=== PATIENT | female | born 1965 | race American Indian/Alaskan Native ===

== ENCOUNTER 2017-12-29 20:09 | Inpatient (IN) | payer SELFPAY ==
[2017-12-29] MEDS ORDERED: HALDOL ONE (20:47)
[2017-12-29] MEDS ORDERED: NACL 0.9% 1000 ML 2,000 ML IV ONE (20:50)
[2017-12-29] MEDS ORDERED: HALDOL IM STA (20:50)
--- NOTE | 2017-12-29 20:52 | Emergency Department Report ---
ED General Adult HPI - General Chief complaint: Abdominal Pain Stated complaint: N/V Time Seen by Provider: 12/29/17 20:49 Source: patient, EMS (ems notes not available at time of chart dictation), RN notes reviewed Mode of arrival: Ambulatory Limitations: No Limitations - History of Present Illness Initial comments: This is a 52-year-old female, known to this provider previously. Reports a past medical history of diabetes, hypertension, gastroparesis. Presents to the ER complaining of chest wall pain, nausea and vomiting, throat pain, abdominal cramping, inability to tolerate liquid feeds for the past 2-3 days. This has been going on and off for the past month, it is intermittent, she's been seen and a few other emergency departments for this particular symptom. She reports her pain is getting worse over the past 2 or 3 days. She denies DVT, pulmonary embolus risk factors. She denies urinary symptoms. She denies cocaine use, denies recent aspirin use. She reports that she feels like her gastroparesis is acting up, although she cannot specifically indicates what exacerbates her symptoms, other than attempting to eat or drink. -: Gradual, week(s) Location: abdomen Quality: aching Consistency: intermittent Improves with: none Worsens with: eating Associated Symptoms: chest pain, loss of appetite, malaise, nausea/vomiting, weakness. denies: confusion, cough, diaphoresis, fever/chills, headaches, rash , seizure, shortness of breath, syncope - Related Data Home Medications Medication Instructions Recorded Confirmed Last Taken Ramipril 10 mg PO QDAY 12/17/14 02/24/15 02/23/15 Insulin Aspart [NovoLOG Flexpen] 15 unit SQ TIDDIAB 01/22/15 02/24/15 01/19/15 15 units HYDROcodone/ACETAMINOPHEN [Xodol 1 each PO Q6H PRN 02/24/15 02/24/15 Unknown 5-300 TAB] Previous Rx's Medication Instructions Recorded Last Taken Type Lactobacillus 3/Fos/Pantethine 1 each PO QDAY #20 capsule 12/20/14 Unknown Rx [Probiotic & Acidophilus Cap] Metformin HCl [Glucophage] 1,000 mg PO BID #60 tablet 12/20/14 02/23/15 Rx Famotidine [Pepcid] 20 mg PO BID #14 tablet 02/08/15 Unknown Rx Promethazine [Phenergan TAB] 25 mg PO Q6HR PRN #12 tab 02/08/15 Unknown Rx Metoclopramide HCl [Reglan TAB] 5 mg PO TIDAC #45 tablet 02/26/15 Unknown Rx Allergies Allergy/AdvReac Type Severity Reaction Status Date / Time cefadroxil hydrate Allergy Shortness Verified 02/08/15 14:11 [From [facility]] of Breath ED Review of Systems ROS: Stated complaint: N/V Other details as noted in HPI Comment: All other systems reviewed and negative ED Past Medical Hx - Past Medical History Previous Medical History?: Yes Hx Hypertension: Yes Hx Diabetes: Yes Hx GERD: Yes Hx Kidney Stones: Yes Hx COPD: No Additional medical history: gastroparesis - Surgical History Past Surgical History?: Yes Hx Cholecystectomy: Yes (01/23/15) - Social History Smoking Status: Never Smoker Substance Use Type: None - Medications Home Medications: Home Medications Medication Instructions Recorded Confirmed Last Taken Type Ramipril 10 mg PO QDAY 12/17/14 02/24/15 02/23/15 History Lactobacillus 3/Fos/Pantethine 1 each PO QDAY #20 capsule 12/20/14 02/24/15 Unknown Rx [Probiotic & Acidophilus Cap] Metformin HCl [Glucophage] 1,000 mg PO BID #60 tablet 12/20/14 02/24/15 Rx Insulin Aspart [NovoLOG Flexpen] 15 unit SQ TIDDIAB 01/22/15 02/24/15 01/19/15 History 15 units Famotidine [Pepcid] 20 mg PO BID #14 tablet 02/08/15 02/24/15 Unknown Rx Promethazine [Phenergan TAB] 25 mg PO Q6HR PRN #12 tab 02/08/15 02/24/15 Unknown Rx HYDROcodone/ACETAMINOPHEN [Xodol 1 each PO Q6H PRN 02/24/15 02/24/15 Unknown History 5-300 TAB] Metoclopramide HCl [Reglan TAB] 5 mg PO TIDAC #45 tablet 02/26/15 Unknown Rx ED Physical Exam - General Limitations: No Limitations General appearance: alert, in distress - Head Head exam: Present: atraumatic, normocephalic - Eye Eye exam: Present: normal appearance, EOMI - ENT ENT exam: Present: normal orophraynx - Neck Neck exam: Present: normal inspection, full ROM. Absent: tenderness, meningismus - Respiratory Respiratory exam: Present: normal lung sounds bilaterally, chest wall tenderness. Absent: respiratory distress - Cardiovascular Cardiovascular Exam: Present: normal rhythm, tachycardia, normal heart sounds. Absent: systolic murmur, diastolic murmur, rubs, gallop - GI/Abdominal GI/Abdominal exam: Present: soft, normal bowel sounds. Absent: distended, tenderness, guarding, rebound, rigid, pulsatile mass - Extremities Exam Extremities exam: Present: normal inspection, full ROM, normal capillary refill , other (there is no palpable cord. There is negative Homans sign.). Absent: pedal edema, joint swelling, calf tenderness - Back Exam Back exam: Present: normal inspection, full ROM. Absent: tenderness, CVA tenderness (R), paraspinal tenderness, vertebral tenderness - Neurological Exam Neurological exam: Present: alert, oriented X3, CN II-XII intact, other ( Extraocular movements intact. Tongue midline. No facial droop. Facial sensation intact to light touch in the V1, V2, V3 distribution bilaterally. 5 and 5 strength in 4 extremities.. Sensation is intact to light touch in 4 extremities.). Absent: motor sensory deficit - Psychiatric Psychiatric exam: Present: anxious - Skin Skin exam: Present: warm, dry, intact, normal color. Absent: rash ED Course Vital Signs 12/29/17 12/29/17 12/29/17 20:15 20:20 20:38 Temperature 98.1 F Pulse Rate 89 137 H Respiratory 20 22 19 Rate Blood Pressure 190/100 O2 Sat by Pulse 97 100 Oximetry 12/29/17 12/29/17 12/29/17 20:45 21:01 21:15 Temperature Pulse Rate 139 H 139 H 124 H Respiratory 21 21 20 Rate Blood Pressure 180/115 O2 Sat by Pulse 100 100 97 Oximetry 12/29/17 12/29/17 12/29/17 21:30 21:45 22:00 Temperature Pulse Rate 118 H 127 H 138 H Respiratory 22 11 L 21 Rate Blood Pressure 200/103 200/103 204/111 O2 Sat by Pulse 96 98 100 Oximetry - Reevaluation(s) Reevaluation #1: 12/29/17 22:49 Differential diagnosis, including not limited to: Dehydration, electrolyte derangement, gastroparesis flare/exacerbation, costochondritis, esophagitis, acute coronary syndrome, pneumonia Assessment and plan: 52-year-old female with a complaint of gastroparesis flare and exacerbation with reproducible chest wall pain and tenderness, who has no pulmonary embolus or DVT risk factors and is low risk by well's criteria. Her laboratory studies indicated acute renal insufficiency, hypomagnesemia, and his troponin elevation of uncertain significance. Her abdomen is soft and benign, with no rebound, guarding or peritoneal signs. She denied urinary symptoms and symptoms consistent with pneumonia. Most likely, the patient is experiencing gastroparesis flare. Her leukocytosis and tachycardia are appreciated, however based on her presentation, I think a bacterial infection is unlikely, and it is my pain that the patient will not benefit from broad-spectrum antibiotics. She will benefit from aggressive supportive care, including pain medication, nausea medication and IV fluids. Therefore, she will be given appropriate bolus of IV fluids, and she was given Haldol IM 2, with improvement in her nausea and vomiting. Her troponin elevation is most likely multifactorial, possibly secondary to cardiac strain from nausea and vomiting, and may also be associated with her underlying renal insufficiency. She will be given aspirin for this. The case was presented to the Hospital physician, Dr. Stephanie Dixon, who graciously except for the patient's the medical service for dehydration, renal insufficiency, gastroparesis flare/exacerbation. Patient's elevated blood pressure is also appreciated, most likely secondary to the stress and strain of her acute underlying gastroparesis flare and exacerbation. Given that the patient is most likely biting depleted, it is my pain that she will not benefit from acute decrease in her blood pressure, and other supportive care, IV fluids will help out with her blood pressure in and of themselves. 12/29/17 22:49 ED Medical Decision Making - Lab Data Result diagrams: 12/29/17 21:05 12/29/17 21:05 Vital Signs 12/29/17 12/29/17 12/29/17 20:15 20:20 20:38 Temperature 98.1 F Pulse Rate 89 137 H Respiratory 20 22 19 Rate Blood Pressure 190/100 O2 Sat by Pulse 97 100 Oximetry 12/29/17 12/29/17 12/29/17 20:45 21:01 21:15 Temperature Pulse Rate 139 H 139 H 124 H Respiratory 21 21 20 Rate Blood Pressure 180/115 O2 Sat by Pulse 100 100 97 Oximetry 12/29/17 12/29/17 12/29/17 21:30 21:45 22:00 Temperature Pulse Rate 118 H 127 H 138 H Respiratory 22 11 L 21 Rate Blood Pressure 200/103 200/103 204/111 O2 Sat by Pulse 96 98 100 Oximetry Lab Results 12/29/17 12/29/17 12/29/17 Range/Units 21:05 21:05 21:05 WBC 17.4 H (4.5-11.0) K/mm3 RBC 3.93 (3.65-5.03) M/mm3 Hgb 11.9 (10.1-14.3) gm/dl Hct 36.9 (30.3-42.9) % MCV 94 (79-97) fl MCH 30 (28-32) pg MCHC 32 (30-34) % RDW 13.4 (13.2-15.2) % Plt Count 337 (140-440) K/mm3 Lymph % (Auto) 5.5 L (13.4-35.0) % [place] % (Auto) 5.0 (0.0-7.3) % Eos % (Auto) 0.0 (0.0-4.3) % Baso % (Auto) 0.1 (0.0-1.8) % Lymph # 1.0 L (1.2-5.4) K/mm3 [place] # 0.9 H (0.0-0.8) K/mm3 Eos # 0.0 (0.0-0.4) K/mm3 Baso # 0.0 (0.0-0.1) K/mm3 Seg Neutrophils % 89.4 H (40.0-70.0) % Seg Neutrophils # 15.5 H (1.8-7.7) K/mm3 PT (12.2-14.9) Sec. INR (0.87-1.13) VBG pH (7.320-7.420) Sodium 143 (137-145) mmol/L Potassium 4.6 (3.6-5.0) mmol/L Chloride 102.1 (98-107) mmol/L Carbon Dioxide 25 (22-30) mmol/L Anion Gap 21 mmol/L BUN 21 H (7-17) mg/dL Creatinine 2.6 H (0.7-1.2) mg/dL Estimated GFR 23 ml/min BUN/Creatinine Ratio 8 % Glucose 198 H (65-100) mg/dL Calcium 9.4 (8.4-10.2) mg/dL Magnesium (1.7-2.3) mg/dL Total Bilirubin 0.80 (0.1-1.2) mg/dL AST 24 (5-40) units/L ALT 14 (7-56) units/L Alkaline Phosphatase 65 (35-129) units/L Total Creatine Kinase (30-135) units/L Troponin T (0.00-0.029) ng/mL Total Protein 7.0 (6.3-8.2) g/dL Albumin 3.1 L (3.9-5) g/dL Albumin/Globulin Ratio 0.8 % Triglycerides (2-149) mg/dL Cholesterol (50-199) mg/dL LDL Cholesterol Direct (50-130) mg/dL HDL Cholesterol (40-59) mg/dL Cholesterol/HDL Ratio % TSH (0.270-4.200) mlU/mL HCG, Qual Negative (Negative) 12/29/17 12/29/17 12/29/17 Range/Units 21:05 21:05 21:05 WBC (4.5-11.0) K/mm3 RBC (3.65-5.03) M/mm3 Hgb (10.1-14.3) gm/dl Hct (30.3-42.9) % MCV (79-97) fl MCH (28-32) pg MCHC (30-34) % RDW (13.2-15.2) % Plt Count (140-440) K/mm3 Lymph % (Auto) (13.4-35.0) % [place] % (Auto) (0.0-7.3) % Eos % (Auto) (0.0-4.3) % Baso % (Auto) (0.0-1.8) % Lymph # (1.2-5.4) K/mm3 [place] # (0.0-0.8) K/mm3 Eos # (0.0-0.4) K/mm3 Baso # (0.0-0.1) K/mm3 Seg Neutrophils % (40.0-70.0) % Seg Neutrophils # (1.8-7.7) K/mm3 PT 13.3 (12.2-14.9) Sec. INR 0.96 (0.87-1.13) VBG pH (7.320-7.420) Sodium (137-145) mmol/L Potassium (3.6-5.0) mmol/L Chloride (98-107) mmol/L Carbon Dioxide (22-30) mmol/L Anion Gap mmol/L BUN (7-17) mg/dL Creatinine (0.7-1.2) mg/dL Estimated GFR ml/min BUN/Creatinine Ratio % Glucose (65-100) mg/dL Calcium (8.4-10.2) mg/dL Magnesium 1.60 L (1.7-2.3) mg/dL Total Bilirubin (0.1-1.2) mg/dL AST (5-40) units/L ALT (7-56) units/L Alkaline Phosphatase (35-129) units/L Total Creatine Kinase 542 H (30-135) units/L Troponin T 0.110 H* (0.00-0.029) ng/mL Total Protein (6.3-8.2) g/dL Albumin (3.9-5) g/dL Albumin/Globulin Ratio % Triglycerides 94 (2-149) mg/dL Cholesterol 222 H (50-199) mg/dL LDL Cholesterol Direct 150 H (50-130) mg/dL HDL Cholesterol 48 (40-59) mg/dL Cholesterol/HDL Ratio 4.62 % TSH 0.962 (0.270-4.200) mlU/mL HCG, Qual (Negative) 12/29/17 Range/Units 21:05 WBC (4.5-11.0) K/mm3 RBC (3.65-5.03) M/mm3 Hgb (10.1-14.3) gm/dl Hct (30.3-42.9) % MCV (79-97) fl MCH (28-32) pg MCHC (30-34) % RDW (13.2-15.2) % Plt Count (140-440) K/mm3 Lymph % (Auto) (13.4-35.0) % [place] % (Auto) (0.0-7.3) % Eos % (Auto) (0.0-4.3) % Baso % (Auto) (0.0-1.8) % Lymph # (1.2-5.4) K/mm3 [place] # (0.0-0.8) K/mm3 Eos # (0.0-0.4) K/mm3 Baso # (0.0-0.1) K/mm3 Seg Neutrophils % (40.0-70.0) % Seg Neutrophils # (1.8-7.7) K/mm3 PT (12.2-14.9) Sec. INR (0.87-1.13) VBG pH 7.502 H (7.320-7.420) Sodium (137-145) mmol/L Potassium (3.6-5.0) mmol/L Chloride (98-107) mmol/L Carbon Dioxide (22-30) mmol/L Anion Gap mmol/L BUN (7-17) mg/dL Creatinine (0.7-1.2) mg/dL Estimated GFR ml/min BUN/Creatinine Ratio % Glucose (65-100) mg/dL Calcium (8.4-10.2) mg/dL Magnesium (1.7-2.3) mg/dL Total Bilirubin (0.1-1.2) mg/dL AST (5-40) units/L ALT (7-56) units/L Alkaline Phosphatase (35-129) units/L Total Creatine Kinase (30-135) units/L Troponin T (0.00-0.029) ng/mL Total Protein (6.3-8.2) g/dL Albumin (3.9-5) g/dL Albumin/Globulin Ratio % Triglycerides (2-149) mg/dL Cholesterol (50-199) mg/dL LDL Cholesterol Direct (50-130) mg/dL HDL Cholesterol (40-59) mg/dL Cholesterol/HDL Ratio % TSH (0.270-4.200) mlU/mL HCG, Qual (Negative) - EKG Data -: EKG Interpreted by In EKG shows normal: sinus rhythm Rate: tachycardia - EKG Data When compared to previous EKG there are: changes noted 12/29/17 22:48 This tachycardia, 132 beats per minute, left ventricular hypertrophy, poor R- wave progression, normal axis, QTC prolonged, T-wave inversions in the lateral leads, abnormal EKG, not a STEMI, nonspecific changes compared to prior EKG from January 2015 - Radiology Data Radiology results: report reviewed, image reviewed X-ray the chest is negative for acute disease Critical Care Time: Yes Critical care time in (mins) excluding proc time.: 45 Critical care attestation.: If time is entered above; I have spent that time in minutes in the direct care of this critically ill patient, excluding procedure time. Critical Care Time: Critical care time includes multiple bedside evaluations, interpretation of laboratory studies, radiology studies, time spent managing a gastroparesis patient with multiple abnormalities, including acute renal insufficiency, hypomagnesemia requiring magnesium infusion, which in turn requires cardiac monitoring, and time spent discussing care with consulting services, including hospital medicine. This does not include procedure time. ED Disposition Clinical Impression: [place] (acute kidney injury), Hypomagnesemia, Diabetic gastroparesis Disposition: 09 OP ADMIT IP TO THIS HOSP Is pt being admited?: Yes Does the pt Need Aspirin: Yes Condition: Good Instructions: Abdominal Pain (ED), Diabetes Mellitus Type 2 in Adults (ED) Referrals: PRIMARY CARE, [Primary Care Provider] - 3-5 Days
[2017-12-29 21:22] LABS: Basophils % (Auto) 0.1 % (0.0-1.8); Hematocrit 36.9 % (30.3-42.9); Hemoglobin 11.9 gm/dl (10.1-14.3); Lymphocytes % (Auto) 5.5 % (13.4-35.0); Mean Corpuscular HGB Conc 32 % (30-34); Mean Corpuscular Hemoglobin 30 pg (28-32); Mean Corpuscular Volume 94 fl (79-97); Monocytes # (Auto) 0.9 K/mm3 (0.0-0.8); Platelet Count 337 K/mm3 (140-440); Red Blood Count 3.93 M/mm3 (3.65-5.03); Red Cell Distribution Width 13.4 % (13.2-15.2)
[2017-12-29 21:29] LABS: INR 0.96 (0.87-1.13)
[2017-12-29 21:44] LABS: Albumin 3.1 g/dL (3.9-5); Calcium 9.4 mg/dL (8.4-10.2)
--- NOTE | 2017-12-29 21:55 | XRay Report ---
FINAL REPORT EXAM: XR CHEST 1V AP HISTORY: cp TECHNIQUE: upright single view chest PRIORS: None. FINDINGS: Cardiac and mediastinal contours are unremarkable. No focal pulmonary infiltrate is identified. No pleural fluid collection seen. Pulmonary vasculature is unremarkable. IMPRESSION: Negative single-view chest
[2017-12-29] MEDS ORDERED: HALDOL IM ONE (21:58)
[2017-12-29 22:01] LABS: Chol/HDL Ratio 4.62 %
[2017-12-29] MEDS ORDERED: MAGNESIUM SULFATE 2GM/50ML 2 GM/50 ML BAG IV ONE (22:44)
[2017-12-29] MEDS ORDERED: BABY ASPIRIN PO ONE (22:44)
[2017-12-29] MEDS ORDERED: SUBLIMAZE IV ONE (22:44)
[2017-12-29] MEDS ORDERED: NACL 0.9% 1000 ML 1,000 ML IV ONE (22:53)
--- NOTE | 2017-12-29 23:36 | History and Physical Report ---
History of Present Illness Date of examination: 12/29/17 History of present illness: 52 year old woman with history of diabetes, hypertension, gastroparesis comes to the emergency room with complaints of nausea, vomiting for 2 days. Also complain of chest pain, anterior chest, intermittent, unable to say long it lasts for , intensity 3/10, no radiation, canoot identify exacerbating or relieving factors. She has been having these symptoms since November 30, hospitalized at [facility] 2 weeks ago for 3 days. Review of systems Constitutional: no weight loss, chills Ears, eyes, nose, mouth and throat: no nasal congestion, no nasal discharge, no sinus pressure, no vision change, no red eye. Neck: No neck pain or rigidity. Cardiovascular: no palpitations Respiratory: No cough, shortness of breath Gastrointestinal: no abdominal pain, hematochezia Genitourinary : no dysuria, frequency , no hematuria Musculoskeletal: no joint swelling or muscle ache Integumentary: no rash, no pruritis Neurological: no parathesias, no numbness, no focal weakness Endocrine: no cold or heat intolerance, no polyuria or polydipsia Hematologic/Lymphatic: no easy bruising, no easy bleeding, no gland swelling Allergic/Immunologic: no urticaria, no angioedema. PAST MEDICAL HISTORY: diabetes, hypertension, gastroparesis PAST SURGICAL HISTORY: gall bladder SOCIAL HISTORY: Denies tobacco, drugs, alcohol FAMILY HISTORY: Hypertension Medications and Allergies Allergies Allergy/AdvReac Type Severity Reaction Status Date / Time cefadroxil hydrate Allergy Shortness Verified 02/08/15 14:11 [From [facility] [place]] of Breath Home Medications Medication Instructions Recorded Confirmed Last Taken Type Ramipril 10 mg PO QDAY 12/17/14 02/24/15 02/23/15 History Lactobacillus 3/Fos/Pantethine 1 each PO QDAY #20 capsule 12/20/14 02/24/15 Unknown Rx [Probiotic & Acidophilus Cap] Metformin HCl [Glucophage] 1,000 mg PO BID #60 tablet 12/20/14 02/24/15 Rx Insulin Aspart [NovoLOG Flexpen] 15 unit SQ TIDDIAB 01/22/15 02/24/15 01/19/15 History 15 units Famotidine [Pepcid] 20 mg PO BID #14 tablet 07/23/15 08/08/15 Unknown Rx Promethazine [Phenergan TAB] 25 mg PO Q6HR PRN #12 tab 02/08/15 02/24/15 Unknown Rx HYDROcodone/ACETAMINOPHEN [Xodol 1 each PO Q6H PRN 02/24/15 02/24/15 Unknown History 5-300 TAB] Metoclopramide HCl [Reglan TAB] 5 mg PO TIDAC #45 tablet 02/26/15 Unknown Rx Active Meds: Active Medications Sodium Chloride (Nacl 0.9% 1000 Ml) 1,000 mls @ 999 mls/hr IV BOLUS ONE Stop: 12/29/17 23:53 Exam - Physical Exam Narrative exam: Gen. appearance: Patient lying in bed, no apparent distress HEENT: Normocephalic, atraumatic, pupils equally round and reactive to light, extraocular movement intact, and no sclericterus,. No JVD or thyromegaly or nodule,neck supple, no carotid bruit ,mucous membranes moist, no exudate or erythema Heart: S1, S2, regular rate and rhythm Lungs: Clear to auscultation bilaterally, breathing comfortable Abdomen: Positive bowel sounds, nontender, nondistended, no organomegaly Extremity: No edema, cyanosis, clubbing Skin: No rash, nodules, warm, dry Neuro: Oriented 3, cranial nerves II-12 intact, speech is fluent, motor and sensory intact - Constitutional Vitals: Temp Pulse Resp BP Pulse Ox 98.1 F 138 H 21 204/111 100 12/29/17 20:15 12/29/17 22:00 12/29/17 22:00 12/29/17 22:00 12/29/17 22:00 Results - Labs CBC & Chem 7: 12/29/17 21:05 12/29/17 21:05 Labs: Abnormal lab results 12/29/17 12/29/17 12/29/17 Range/Units 21:05 21:05 21:05 WBC 17.4 H (4.5-11.0) K/mm3 Lymph % (Auto) 5.5 L (13.4-35.0) % Lymph # 1.0 L (1.2-5.4) K/mm3 [place] # 0.9 H (0.0-0.8) K/mm3 Seg Neutrophils % 89.4 H (40.0-70.0) % Seg Neutrophils # 15.5 H (1.8-7.7) K/mm3 VBG pH (7.320-7.420) BUN 21 H (7-17) mg/dL Creatinine 2.6 H (0.7-1.2) mg/dL Glucose 198 H (65-100) mg/dL Magnesium 1.60 L (1.7-2.3) mg/dL Total Creatine Kinase 542 H (30-135) units/L Troponin T 0.110 H* (0.00-0.029) ng/mL Albumin 3.1 L (3.9-5) g/dL Cholesterol 222 H (50-199) mg/dL LDL Cholesterol Direct 150 H (50-130) mg/dL 12/29/17 Range/Units 21:05 WBC (4.5-11.0) K/mm3 Lymph % (Auto) (13.4-35.0) % Lymph # (1.2-5.4) K/mm3 [place] # (0.0-0.8) K/mm3 Seg Neutrophils % (40.0-70.0) % Seg Neutrophils # (1.8-7.7) K/mm3 VBG pH 7.502 H (7.320-7.420) BUN (7-17) mg/dL Creatinine (0.7-1.2) mg/dL Glucose (65-100) mg/dL Magnesium (1.7-2.3) mg/dL Total Creatine Kinase (30-135) units/L Troponin T (0.00-0.029) ng/mL Albumin (3.9-5) g/dL Cholesterol (50-199) mg/dL LDL Cholesterol Direct (50-130) mg/dL - Imaging and Cardiology Chest x-ray: report reviewed Assessment and Plan Assessment Acute renal failure Acute on chronic gastroparesis Chest pain Diabetes Hypertension Plan Admit to medicine Start IV fluid, monitor kidney function Check cardiac enzymes, echo, fingersticks Start insulin sliding scale, DVT prophalaxis ]
[2017-12-29] MEDS ORDERED: ZOFRAN IV PRN (23:41)
[2017-12-29] MEDS ORDERED: SODIUM CHLORIDE FLUSH SYRINGE 10 ML IV PRN (23:41)
[2017-12-29] MEDS ORDERED: TYLENOL PO PRN (23:41)
[2017-12-29] MEDS ORDERED: MORPHINE IV PRN (23:47)
[2017-12-29] MEDS ORDERED: REGLAN IV PRN ×2 (23:47→23:54)
[2017-12-30 01:28] LABS: Creatine Kinase MB 1.7 ng/mL (0.0-4.0)
[2017-12-30] MEDS ORDERED: CARDIZEM IV ONE (04:43)
[2017-12-30] MEDS ORDERED: D50W (25GM) Syringe IV PRN (04:56)
[2017-12-30 05:56] LABS: Basophils % (Auto) 0.3 % (0.0-1.8); Eosinophils % (Auto) 0.1 % (0.0-4.3); Hematocrit 32.1 % (30.3-42.9); Hemoglobin 10.5 gm/dl (10.1-14.3); Lymphocytes # (Auto) 1.4 K/mm3 (1.2-5.4); Lymphocytes % (Auto) 10.4 % (13.4-35.0); Mean Corpuscular HGB Conc 33 % (30-34); Mean Corpuscular Hemoglobin 31 pg (28-32); Mean Corpuscular Volume 94 fl (79-97); Monocytes # (Auto) 1.1 K/mm3 (0.0-0.8); Monocytes % (Auto) 8.3 % (0.0-7.3); Platelet Count 265 K/mm3 (140-440); Red Blood Count 3.41 M/mm3 (3.65-5.03); Red Cell Distribution Width 13.6 % (13.2-15.2)
[2017-12-30 06:08] LABS: Calcium 8.4 mg/dL (8.4-10.2)
[2017-12-30 06:10] LABS: Creatine Kinase MB 2.3 ng/mL (0.0-4.0)
[2017-12-30] MEDS: HumaLOG SUB-Q SCH ×4 (08:24→23:31)
[2017-12-30] MEDS ORDERED: APRESOLINE IV PRN (10:00)
[2017-12-30] MEDS ORDERED: PROTONIX IV SCH (10:00)
[2017-12-30] MEDS ORDERED: ZESTRIL PO SCH (10:00)
[2017-12-30] MEDS ORDERED: NON-FORMULARY (Ramipril [Ramipril] 10 MG) PO SCH (10:00)
--- NOTE | 2017-12-30 10:10 | Progress Note ---
Assessment and Plan 52 year old woman with history of diabetes, hypertension, gastroparesis comes to the emergency room with complaints of nausea, vomiting for 2 days. Also complain of chest pain, anterior chest, intermittent, unable to say long it lasts for , intensity 3/10, no radiation, cannot identify exacerbating or relieving factors. She has been having these symptoms since November 30, hospitalized at [facility] 2 weeks ago for 3 days. - Acute renal failure Obtain [facility] records Urinalysis, renal ultrasound serial BUN and creatinine Avoid nephrotoxic substances Renal Dosing of meds Nephrology consult Sodium diet, - Acute on chronic gastroparesis Nothing by mouth, Cautious IV hydration IV Protonix and Zofran -Chest pain Elevated cardiac enzymes noted. Continue with heparin and aspirin beta blockers and a possible cataract cardiac cath after of [facility] records to ascertain no recent Cath. Doubt ischemic origin, likely renal amplification. However will obtain cardiology consult. Continue to trend cardiac enzymes. -Diabetes ADA diet Sliding scale insulin - Hypertension - secondary to Acute on chronic IV hydralazine, labetalol and isosorbide - DVT prophalaxis with lovenox Subjective Date of service: 12/30/17 Principal diagnosis: acute renal failure, chest pain, diabetes mellitus Interval history: Patient seen and examined. Still having nausea vomiting with Intermittent chest pain. Denies any hematemesis or melena. Denies any fever. Objective - Exam Narrative Exam: Constitutional: Well-nourished well-developed. In no distress Head: Normocephalic atraumatic Eyes: Pupils are equal round and reactive to light Nose: No enlarged turbinates, no septal deviation. Mouth: Moist mucous membranes. Neck: Supple no thyromegaly. No bruit. No JVD Heart: Regular rate and rhythm, S1-S2 abnormal. No rubs murmurs or gallop Lungs: Clear to auscultation bilaterally no rales or rhonchi Abdomen: Epigastric tenderness. Bowel sound are present. Extremities: No edema no cyanosis and no clubbing. Neuro: Alert oriented Oriented x3. No focal sensory or motor deficit. Skin: No rashes no hyperemic spots Psychiatry: Euthymic. Calm. - Constitutional Vitals: Vital Signs - 12hr 12/29/17 12/29/17 12/29/17 22:15 22:30 22:45 Temperature Pulse Rate 126 H 126 H 123 H Pulse Rate [ Right Radial] Respiratory 20 23 22 Rate Respiratory Rate [Upper Abdomen] Blood Pressure 204/111 185/89 185/89 Blood Pressure [Left] O2 Sat by Pulse 96 99 98 Oximetry 12/29/17 12/29/17 12/29/17 23:01 23:15 23:31 Temperature Pulse Rate 141 H 122 H 119 H Pulse Rate [ Right Radial] Respiratory 16 20 14 Rate Respiratory Rate [Upper Abdomen] Blood Pressure 185/89 185/89 185/89 Blood Pressure [Left] O2 Sat by Pulse 99 97 98 Oximetry 12/29/17 12/30/17 12/30/17 23:45 00:00 00:15 Temperature Pulse Rate 122 H 112 H 122 H Pulse Rate [ Right Radial] Respiratory 22 19 19 Rate Respiratory Rate [Upper Abdomen] Blood Pressure 185/89 168/92 168/92 Blood Pressure [Left] O2 Sat by Pulse 94 96 98 Oximetry 12/30/17 12/30/17 12/30/17 00:30 00:45 01:00 Temperature Pulse Rate 110 H 112 H 109 H Pulse Rate [ Right Radial] Respiratory 19 15 18 Rate Respiratory Rate [Upper Abdomen] Blood Pressure 148/74 148/74 158/81 Blood Pressure [Left] O2 Sat by Pulse 98 97 96 Oximetry 12/30/17 12/30/17 12/30/17 01:21 01:30 01:41 Temperature Pulse Rate 103 H 106 H 104 H Pulse Rate [ Right Radial] Respiratory 18 18 18 Rate Respiratory Rate [Upper Abdomen] Blood Pressure 148/74 156/76 158/81 Blood Pressure [Left] O2 Sat by Pulse 98 98 98 Oximetry 12/30/17 12/30/17 12/30/17 01:51 02:00 02:10 Temperature Pulse Rate 107 H 106 H 104 H Pulse Rate [ Right Radial] Respiratory 19 19 19 Rate Respiratory Rate [Upper Abdomen] Blood Pressure 158/81 156/76 156/76 Blood Pressure [Left] O2 Sat by Pulse 98 97 98 Oximetry 12/30/17 12/30/17 12/30/17 02:21 02:30 02:41 Temperature Pulse Rate 107 H 111 H 104 H Pulse Rate [ Right Radial] Respiratory 19 18 14 Rate Respiratory Rate [Upper Abdomen] Blood Pressure 156/76 168/88 156/84 Blood Pressure [Left] O2 Sat by Pulse 99 99 97 Oximetry 12/30/17 12/30/1712/30/18 02:51 03:00 04:01 Temperature Pulse Rate 106 H 110 H Pulse Rate [ Right Radial] Respiratory 18 21 Rate Respiratory Rate [Upper Abdomen] Blood Pressure 156/84 178/91 Blood Pressure [Left] O2 Sat by Pulse 98 99 98 Oximetry 12/30/17 12/30/17 12/30/17 04:20 04:45 04:49 Temperature 98.9 F Pulse Rate 122 H 117 H Pulse Rate [ Right Radial] Respiratory 20 Rate Respiratory 18 Rate [Upper Abdomen] Blood Pressure Blood Pressure 215/107 [Left] O2 Sat by Pulse 99 Oximetry 12/30/17 12/30/17 12/30/17 05:04 05:26 07:50 Temperature 98.1 F Pulse Rate 117 H 119 H Pulse Rate [ 110 H Right Radial] Respiratory 20 20 Rate Respiratory Rate [Upper Abdomen] Blood Pressure 215/107 209/127 Blood Pressure [Left] O2 Sat by Pulse 99 Oximetry - Labs CBC & Chem 7: 12/30/17 05:26 12/30/17 05:26 Labs: Abnormal lab results 12/29/17 12/29/17 12/29/17 Range/Units 21:05 21:05 21:05 WBC 17.4 H (4.5-11.0) K/mm3 RBC (3.65-5.03) M/mm3 Lymph % (Auto) 5.5 L (13.4-35.0) % [place] % (Auto) (0.0-7.3) % Lymph # 1.0 L (1.2-5.4) K/mm3 [place] # 0.9 H (0.0-0.8) K/mm3 Seg Neutrophils % 89.4 H (40.0-70.0) % Seg Neutrophils # 15.5 H (1.8-7.7) K/mm3 VBG pH (7.320-7.420) BUN 21 H (7-17) mg/dL Creatinine 2.6 H (0.7-1.2) mg/dL Glucose 198 H (65-100) mg/dL POC Glucose (70-105) Magnesium 1.60 L (1.7-2.3) mg/dL Total Creatine Kinase 542 H (30-135) units/L Troponin T 0.110 H* (0.00-0.029) ng/mL Albumin 3.1 L (3.9-5) g/dL Cholesterol 222 H (50-199) mg/dL LDL Cholesterol Direct 150 H (50-130) mg/dL 12/29/17 12/30/17 12/30/17 Range/Units 21:05 00:17 05:17 WBC (4.5-11.0) K/mm3 RBC (3.65-5.03) M/mm3 Lymph % (Auto) (13.4-35.0) % [place] % (Auto) (0.0-7.3) % Lymph # (1.2-5.4) K/mm3 [place] # (0.0-0.8) K/mm3 Seg Neutrophils % (40.0-70.0) % Seg Neutrophils # (1.8-7.7) K/mm3 VBG pH 7.502 H (7.320-7.420) BUN (7-17) mg/dL Creatinine (0.7-1.2) mg/dL Glucose (65-100) mg/dL POC Glucose 145 H (70-105) Magnesium (1.7-2.3) mg/dL Total Creatine Kinase 433 H (30-135) units/L Troponin T 0.106 H* (0.00-0.029) ng/mL Albumin (3.9-5) g/dL Cholesterol (50-199) mg/dL LDL Cholesterol Direct (50-130) mg/dL 12/30/17 12/30/17 12/30/17 Range/Units 05:26 05:26 05:26 WBC 13.2 H (4.5-11.0) K/mm3 RBC 3.41 L (3.65-5.03) M/mm3 Lymph % (Auto) 10.4 L (13.4-35.0) % [place] % (Auto) 8.3 H (0.0-7.3) % Lymph # (1.2-5.4) K/mm3 [place] # 1.1 H (0.0-0.8) K/mm3 Seg Neutrophils % 80.9 H (40.0-70.0) % Seg Neutrophils # 10.7 H (1.8-7.7) K/mm3 VBG pH (7.320-7.420) BUN 20 H (7-17) mg/dL Creatinine 2.5 H (0.7-1.2) mg/dL Glucose 150 H (65-100) mg/dL POC Glucose (70-105) Magnesium (1.7-2.3) mg/dL Total Creatine Kinase 375 H (30-135) units/L Troponin T 0.122 H* (0.00-0.029) ng/mL Albumin (3.9-5) g/dL Cholesterol (50-199) mg/dL LDL Cholesterol Direct (50-130) mg/dL
[2017-12-30] MEDS: LOVENOX SUB-Q SCH (10:25)
[2017-12-30] MEDS: PROCARDIA XL PO SCH (10:25)
[2017-12-30] MEDS: SODIUM CHLORIDE FLUSH SYRINGE 10 ML IV SCH (10:26)
[2017-12-30] MEDS: NACL 0.45% 1000 ML 1,000 ML IV SCH ×2 (10:27→23:35)
--- NOTE | 2017-12-30 13:25 | Consultation ---
History of Present Illness Consult date: 12/30/17 Requesting physician: NISHANT WILLIAMSON Consult reason: chest pain, elevated troponin History of present illness: The pt is a 52 YO female with a past medical history significant for HTN, DM, gastroparesis. She is previously unknown to our practice. She presented with complaints of nausea and vomiting for 2-3 days prior to arrival. She attributes her symptoms to gastroparesis and states that she has had multiple ED encounters and hospitalizations over the past several years due to gastroparesis. On evaluation, she denies any occurrence of chest pain. However, per the chart, she did complain of chest pain on admission and was also noted to have elevated troponins and thus cardiology has been consulted. She denies any SOB, palpitations, diaphoresis, dizziness or syncope. She does admit to abdominal tenderness with palpation. She denies any prior cardiac issues or cardiac evaluation. Past History Past Medical History: diabetes, hypertension, other (gastroparesis) Social history: lives with family. denies: smoking, alcohol abuse, prescription drug abuse Medications and Allergies Allergies Allergy/AdvReac Type Severity Reaction Status Date / Time cefadroxil hydrate Allergy Shortness Verified 02/08/15 14:11 [From [facility]] of Breath Home Medications Medication Instructions Recorded Confirmed Last Taken Type Ramipril 10 mg PO QDAY 12/17/14 02/24/15 02/23/15 History Lactobacillus 3/Fos/Pantethine 1 each PO QDAY #20 capsule 12/20/14 02/24/15 Unknown Rx [Probiotic & Acidophilus Cap] Metformin HCl [Glucophage] 1,000 mg PO BID #60 tablet 12/20/14 02/24/15 Rx Insulin Aspart [NovoLOG Flexpen] 15 unit SQ TIDDIAB 01/22/15 02/24/15 01/19/15 History 15 units Famotidine [Pepcid] 20 mg PO BID #14 tablet 02/08/15 02/24/15 Unknown Rx Promethazine [Phenergan TAB] 25 mg PO Q6HR PRN #12 tab 02/08/15 02/24/15 Unknown Rx HYDROcodone/ACETAMINOPHEN [Xodol 1 each PO Q6H PRN 02/24/15 02/24/15 Unknown History 5-300 TAB] Metoclopramide HCl [Reglan TAB] 5 mg PO TIDAC #45 tablet 02/26/15 Unknown Rx Active Meds: Active Medications Acetaminophen (Tylenol) 650 mg PO Q4H PRN PRN Reason: Pain MILD(1-3)/Fever >100.5/QUIÑONEZ Dextrose (D50w (25gm) Syringe) 50 ml IV PRN PRN PRN Reason: Hypoglycemia Enoxaparin Sodium (Lovenox) 30 mg SUB-Q QDAY [facility] Last Admin: 12/30/17 10:25 Dose: 30 mg Hydralazine HCl (Apresoline) 10 mg IV Q6H PRN PRN Reason: Hypertension Sodium Chloride (Nacl 0.45% 1000 Ml) 1,000 mls @ 100 mls/hr IV DIRECT [facility] Last Admin: 12/30/17 10:27 Dose: 100 mls/hr Insulin Human Lispro (Humalog) 0 unit SUB-Q ACHS [facility]; Protocol Last Admin: 12/30/17 11:44 Dose: Not Given Isosorbide Dinitrate (Isordil Titradose) 20 mg PO Q8HR [facility] Labetalol HCl (Normodyne) 200 mg PO TID [facility] Lisinopril (Zestril) 20 mg PO QDAY [facility] Last Admin: 12/30/17 10:26 Dose: 20 mg Metoclopramide HCl (Reglan) 5 mg IV Q6H PRN PRN Reason: Nausea And Vomiting Morphine Sulfate (Morphine) 2 mg IV Q4H PRN PRN Reason: Pain, Moderate (4-6) Nifedipine (Procardia Xl) 60 mg PO QDAY [facility] Last Admin: 12/30/17 10:25 Dose: 60 mg Ondansetron HCl (Zofran) 4 mg IV Q4H PRN PRN Reason: Nausea And Vomiting Pantoprazole Sodium (Protonix) 40 mg PO DAILY [facility] Sodium Chloride (Sodium Chloride Flush Syringe 10 Ml) 10 ml IV BID [facility] Last Admin: 12/30/17 10:26 Dose: 10 ml Sodium Chloride (Sodium Chloride Flush Syringe 10 Ml) 10 ml IV PRN PRN PRN Reason: LINE FLUSH Review of Systems Constitutional: no fever, no chills, no sweats Ears, nose, mouth and throat: no ear pain, no nose pain, no sinus pressure, no sinus pain Cardiovascular: high blood pressure, no chest pain, no orthopnea, no palpitations, no rapid/irregular heart beat, no edema, no syncope, no lightheadedness, no shortness of breath, no dyspnea on exertion, no paroxysmal nocturnal dyspnea, no leg edema Respiratory: no cough, no shortness of breath, no dyspnea on exertion, no congestion, no wheezing, no pain on inspiration Gastrointestinal: abdominal pain, nausea, vomiting, no diarrhea, no constipation , no change in bowel habits Genitourinary Female: no pelvic pain, no flank pain Musculoskeletal: no neck stiffness, no neck pain Integumentary: no rash, no pruritis, no redness, no sores, no wounds Neurological: no head injury, no paralysis, no weakness, no parathesias, no numbness, no tingling, no seizures, no syncope Psychiatric: no anxiety Endocrine: no cold intolerance, no heat intolerance Hematologic/Lymphatic: no easy bruising, no easy bleeding Allergic/Immunologic: no urticaria, no wheezing Physical Examination Vital Signs Temp Pulse Resp BP Pulse Ox 98.1 F 89 20 190/100 97 12/29/17 20:15 12/29/17 20:15 12/29/17 20:15 12/29/17 20:15 12/29/17 20:15 General appearance: no acute distress HEENT: Positive: PERRL, Normocephaly, Mucus Membranes Moist Neck: Positive: neck supple, trachea midline Cardiac: Positive: Reg Rate and Rhythm, S1/S2 Lungs: Positive: clear to auscultation Neuro: Positive: Grossly Intact Abdomen: Positive: Soft. Negative: Tender Skin: Positive: Clear. Negative: Rash, Wound Musculoskeletal: No Fluid Collection, No Pain, Normal Range of Motion Extremities: Absent: edema Results 12/30/17 05:26 12/30/17 05:26 Cardiac Enzymes 12/29/17 12/30/17 12/30/17 Range/Units 21:05 00:17 05:26 AST 24 (5-40) units/L CK-MB (CK-2) 1.7 2.3 (0.0-4.0) ng/mL Coagulation 12/29/17 Range/Units 21:05 PT 13.3 (12.2-14.9) Sec. INR 0.96 (0.87-1.13) Lipids 12/29/17 Range/Units 21:05 Triglycerides 94 (2-149) mg/dL Cholesterol 222 H (50-199) mg/dL HDL Cholesterol 48 (40-59) mg/dL Cholesterol/HDL Ratio 4.62 % CBC 12/29/17 12/30/17 Range/Units 21:05 05:26 WBC 17.4 H 13.2 H (4.5-11.0) K/mm3 RBC 3.93 3.41 L (3.65-5.03) M/mm3 Hgb 11.9 10.5 (10.1-14.3) gm/dl Hct 36.9 32.1 (30.3-42.9) % Plt Count 337 265 (140-440) K/mm3 Lymph # 1.0 L 1.4 (1.2-5.4) K/mm3 [place] # 0.9 H 1.1 H (0.0-0.8) K/mm3 Eos # 0.0 0.0 (0.0-0.4) K/mm3 Baso # 0.0 0.0 (0.0-0.1) K/mm3 Comprehensive Metabolic Panel 12/29/17 12/30/17 Range/Units 21:05 05:26 Sodium 143 143 (137-145) mmol/L Potassium 4.6 4.5 (3.6-5.0) mmol/L Chloride 102.1 104.1 (98-107) mmol/L Carbon Dioxide 25 26 (22-30) mmol/L BUN 21 H 20 H (7-17) mg/dL Creatinine 2.6 H 2.5 H (0.7-1.2) mg/dL Glucose 198 H 150 H (65-100) mg/dL Calcium 9.4 8.4 (8.4-10.2) mg/dL AST 24 (5-40) units/L ALT 14 (7-56) units/L Alkaline Phosphatase 65 (35-129) units/L Total Protein 7.0 (6.3-8.2) g/dL Albumin 3.1 L (3.9-5) g/dL - Imaging and Cardiology Echo: pending EKG: report reviewed, image reviewed EKG interpretations - Telemetry EKG Rhythm: Sinus Rhythm - EKG Sinus rhythms and dysrhythmias: sinus tachycardia Chamber hypertrophy or enlargement: left ventricular hypertro Repolarization changes or abnormalities: repolarization abn secondary to ventricular hypertrophy Assessment and Plan Assessment: Gastroparesis Hypertensive urgency ? chest pain - per the chart; pt denies any occurrence of chest pain Sinus tachycardia Acute renal failure NSTEMI type II Hypomag DM Plan: Gastroparesis management per primary. Optimize anti-hypertensive regimen - nifedipine and labetalol initiated today per primary. No ACEI/ARB at this time in setting of renal insufficiency. Obtain echo. Plan for lexiscan MPI stress test in AM for risk stratification pending BPs are improved. NPO after MN. Repeat BMP and Mg in AM. Assessment and plan reviewed with pt and pt's significant other at bedside. The patient has been seen in conjunction with Dr. Garcia who agrees with the assessment and plan of care.
[2017-12-30] MEDS ORDERED: ISORDIL TITRADOSE PO SCH (14:00)
[2017-12-30] MEDS: NORMODYNE PO SCH ×2 (14:50→23:31)
--- NOTE | 2017-12-30 16:33 | Consultation ---
History of Present Illness - Reason for Consult Consult date: 12/30/17 - History of Present Illness pt was seen and examined. Consult dictated Past History Past Medical History: diabetes, hypertension, other (gastroparesis) Social history: lives with family. denies: smoking, alcohol abuse, prescription drug abuse Medications and Allergies Allergies Allergy/AdvReac Type Severity Reaction Status Date / Time cefadroxil hydrate Allergy Shortness Verified 02/08/15 14:11 [From [facility]] of Breath Home Medications Medication Instructions Recorded Confirmed Last Taken Type Ramipril 10 mg PO QDAY 12/17/14 02/24/15 02/23/15 History Lactobacillus 3/Fos/Pantethine 1 each PO QDAY #20 capsule 12/20/14 02/24/15 Unknown Rx [Probiotic & Acidophilus Cap] Metformin HCl [Glucophage] 1,000 mg PO BID #60 tablet 12/20/14 02/24/15 Rx Insulin Aspart [NovoLOG Flexpen] 15 unit SQ TIDDIAB 01/22/15 02/24/15 01/19/15 History 15 units Famotidine [Pepcid] 20 mg PO BID #14 tablet 02/08/15 02/24/15 Unknown Rx Promethazine [Phenergan TAB] 25 mg PO Q6HR PRN #12 tab 02/08/15 02/24/15 Unknown Rx HYDROcodone/ACETAMINOPHEN [Xodol 1 each PO Q6H PRN 02/24/15 02/24/15 Unknown History 5-300 TAB] Metoclopramide HCl [Reglan TAB] 5 mg PO TIDAC #45 tablet 02/26/15 Unknown Rx Active Meds: Active Medications Acetaminophen (Tylenol) 650 mg PO Q4H PRN PRN Reason: Pain MILD(1-3)/Fever >100.5/QUIÑONEZ Dextrose (D50w (25gm) Syringe) 50 ml IV PRN PRN PRN Reason: Hypoglycemia Enoxaparin Sodium (Lovenox) 30 mg SUB-Q QDAY [facility] Last Admin: 12/30/17 10:25 Dose: 30 mg Hydralazine HCl (Apresoline) 10 mg IV Q6H PRN PRN Reason: Hypertension Sodium Chloride (Nacl 0.45% 1000 Ml) 1,000 mls @ 100 mls/hr IV DIRECT [facility] Last Admin: 12/30/17 10:27 Dose: 100 mls/hr Insulin Human Lispro (Humalog) 0 unit SUB-Q ACHS [facility]; Protocol Last Admin: 12/30/17 11:44 Dose: Not Given Labetalol HCl (Normodyne) 200 mg PO TID [facility] Last Admin: 12/30/17 14:50 Dose: 200 mg Metoclopramide HCl (Reglan) 5 mg IV Q6H PRN PRN Reason: Nausea And Vomiting Morphine Sulfate (Morphine) 2 mg IV Q4H PRN PRN Reason: Pain, Moderate (4-6) Nifedipine (Procardia Xl) 60 mg PO QDAY [facility] Last Admin: 12/30/17 10:25 Dose: 60 mg Ondansetron HCl (Zofran) 4 mg IV Q4H PRN PRN Reason: Nausea And Vomiting Pantoprazole Sodium (Protonix) 40 mg PO DAILY [facility] Sodium Chloride (Sodium Chloride Flush Syringe 10 Ml) 10 ml IV BID [facility] Last Admin: 12/30/17 10:26 Dose: 10 ml Sodium Chloride (Sodium Chloride Flush Syringe 10 Ml) 10 ml IV PRN PRN PRN Reason: LINE FLUSH Exam - Constitutional Vitals: Temp Pulse Resp BP Pulse Ox 98.2 F 113 H 18 189/108 99 12/30/17 13:54 12/30/17 13:54 12/30/17 13:54 12/30/17 13:54 12/30/17 13:54 Results - Labs CBC & Chem 7: 12/30/17 05:26 12/30/17 05:26 Labs: Abnormal lab results 12/29/17 12/29/17 12/29/17 Range/Units 21:05 21:05 21:05 WBC 17.4 H (4.5-11.0) K/mm3 RBC (3.65-5.03) M/mm3 Lymph % (Auto) 5.5 L (13.4-35.0) % [place] % (Auto) (0.0-7.3) % Lymph # 1.0 L (1.2-5.4) K/mm3 [place] # 0.9 H (0.0-0.8) K/mm3 Seg Neutrophils % 89.4 H (40.0-70.0) % Seg Neutrophils # 15.5 H (1.8-7.7) K/mm3 VBG pH (7.320-7.420) BUN 21 H (7-17) mg/dL Creatinine 2.6 H (0.7-1.2) mg/dL Glucose 198 H (65-100) mg/dL POC Glucose (70-105) Magnesium 1.60 L (1.7-2.3) mg/dL Total Creatine Kinase 542 H (30-135) units/L Troponin T 0.110 H* (0.00-0.029) ng/mL Albumin 3.1 L (3.9-5) g/dL Cholesterol 222 H (50-199) mg/dL LDL Cholesterol Direct 150 H (50-130) mg/dL 12/29/17 12/30/17 12/30/17 Range/Units 21:05 00:17 05:17 WBC (4.5-11.0) K/mm3 RBC (3.65-5.03) M/mm3 Lymph % (Auto) (13.4-35.0) % [place] % (Auto) (0.0-7.3) % Lymph # (1.2-5.4) K/mm3 [place] # (0.0-0.8) K/mm3 Seg Neutrophils % (40.0-70.0) % Seg Neutrophils # (1.8-7.7) K/mm3 VBG pH 7.502 H (7.320-7.420) BUN (7-17) mg/dL Creatinine (0.7-1.2) mg/dL Glucose (65-100) mg/dL POC Glucose 145 H (70-105) Magnesium (1.7-2.3) mg/dL Total Creatine Kinase 433 H (30-135) units/L Troponin T 0.106 H* (0.00-0.029) ng/mL Albumin (3.9-5) g/dL Cholesterol (50-199) mg/dL LDL Cholesterol Direct (50-130) mg/dL 12/30/17 12/30/17 12/30/17 Range/Units 05:26 05:26 05:26 WBC 13.2 H (4.5-11.0) K/mm3 RBC 3.41 L (3.65-5.03) M/mm3 Lymph % (Auto) 10.4 L (13.4-35.0) % [place] % (Auto) 8.3 H (0.0-7.3) % Lymph # (1.2-5.4) K/mm3 [place] # 1.1 H (0.0-0.8) K/mm3 Seg Neutrophils % 80.9 H (40.0-70.0) % Seg Neutrophils # 10.7 H (1.8-7.7) K/mm3 VBG pH (7.320-7.420) BUN 20 H (7-17) mg/dL Creatinine 2.5 H (0.7-1.2) mg/dL Glucose 150 H (65-100) mg/dL POC Glucose (70-105) Magnesium (1.7-2.3) mg/dL Total Creatine Kinase 375 H (30-135) units/L Troponin T 0.122 H* (0.00-0.029) ng/mL Albumin (3.9-5) g/dL Cholesterol (50-199) mg/dL LDL Cholesterol Direct (50-130) mg/dL 12/30/17 12/30/17 Range/Units 12:44 16:11 WBC (4.5-11.0) K/mm3 RBC (3.65-5.03) M/mm3 Lymph % (Auto) (13.4-35.0) % [place] % (Auto) (0.0-7.3) % Lymph # (1.2-5.4) K/mm3 [place] # (0.0-0.8) K/mm3 Seg Neutrophils % (40.0-70.0) % Seg Neutrophils # (1.8-7.7) K/mm3 VBG pH (7.320-7.420) BUN (7-17) mg/dL Creatinine (0.7-1.2) mg/dL Glucose (65-100) mg/dL POC Glucose 138 H 126 H (70-105) Magnesium (1.7-2.3) mg/dL Total Creatine Kinase (30-135) units/L Troponin T (0.00-0.029) ng/mL Albumin (3.9-5) g/dL Cholesterol (50-199) mg/dL LDL Cholesterol Direct (50-130) mg/dL
[2017-12-30 21:43] LABS: Bilirubin,Urine NEG (Negative); Blood,Urine NEG (Negative); Color,Urine Yellow (Yellow); Mucus,Urine FEW /HPF; Urobilinogen,Urine < 2.0 mg/dL (<2.0)
[2017-12-30 21:47] LABS: Chloride, Urine 120.6 mmolL (110-250); Creatinine,Urine 120.9 mg/dL (0.1-20.0)
[2017-12-30 21:59] LABS: Protein,Urine >500 mg/dL (Negative)
--- NOTE | 2017-12-31 01:03 | Consultation ---
RENAL CONSULTATION REASON FOR CONSULTATION: Acute renal failure. HISTORY OF PRESENT ILLNESS: This 52-year-old female with history of diabetes, hypertension, recurrent diabetic gastroparesis, was brought to the Emergency Room for having intractable nausea, vomiting, unable to keep down any liquids or food or medications and also having chest pain from up choking. In the ER, the patient was noted to have blood pressure of 190/100, pulse 89, temperature 98.1. Labs revealed a BUN of 21, creatinine of 2.6. WBC count of 17.4. The patient's old medical records reviewed. Her creatinine was noted to be 0.4 on 02/26/2015. PAST MEDICAL HISTORY: Type 2 diabetes with end-organ damage with recurrent diabetic gastroparesis, hypertension. PERSONAL HISTORY: Denies smoking, alcohol, or drug abuse. ALLERGIES: CEFADROXIL. CURRENT MEDICATIONS: Lovenox 30 mg subcutaneous once a day, hydralazine 10 mg IV q. 6 hours p.r.n., labetalol 200 mg p.o. 3 times a day, IV metoclopramide 5 mg q. 6 hours p.r.n., nifedipine 60 mg once a day, Protonix 40 mg once a day. FAMILY HISTORY: No family history of kidney failure. REVIEW OF SYSTEMS: The patient denies difficulty swallowing. Denies fever or chills. Prior to admission, the patient states that she was constantly throwing up and up choking with a burning sensation in her food pipe. Denies fever or chills. Denies abdomen pain. Denies diarrhea or GI bleeding. Denies dysuria or hematuria. Other review of systems reviewed and negative. PHYSICAL EXAMINATION: GENERAL: The patient is alert, oriented, well-developed, pleasant female, not in acute distress. VITAL SIGNS: Blood pressure 150/84, pulse 109, afebrile. HEENT: Sclerae nonicteric. Conjunctivae pale. Oral mucosa, tongue and lips are dry. NECK: No JVD, no thyroid enlargement. LUNGS: Clear. HEART: S1, S2 regular. No pericardial rub. ABDOMEN: Soft, bowel sounds present. Nontender. EXTREMITIES: No significant edema. LABORATORY DATA: WBC 13.2, hemoglobin 10.5, hematocrit 32.1, platelets 265. Sodium 143, potassium 4.5, chloride 104, CO2 26, BUN 20, creatinine 2.5, glucose 150. CK 375. Troponin 0.122. Cholesterol 222, LDL 150, albumin 3.1. ASSESSMENT AND PLAN: 1. Acute renal failure, most likely prerenal with dehydration. Rule out underlying diabetic kidney disease. 2. Hypertensive urgency. 3. Diabetic gastroparesis. 4. Anterior chest wall pain. 5. Type 2 diabetes with hyperglycemia. Optimize blood pressure medications. IV fluids as ordered. Adjust medications per renal function. The patient is at risk for contrast nephropathy. Cardiology consult reviewed. Check urine studies and renal ultrasound. JOB# [id number] K/NTS
[2017-12-31] MEDS: HumaLOG SUB-Q SCH ×4 (07:30→22:34)
[2017-12-31] MEDS: NORMODYNE PO SCH ×3 (08:00→22:28)
[2017-12-31] MEDS ORDERED: LEXISCAN IV ONE (08:19)
--- NOTE | 2017-12-31 08:41 | Progress Note ---
Assessment and Plan Assessment: Gastroparesis Hypertensive urgency ? Chest pain - per the chart; pt denies any occurrence of chest pain Sinus tachycardia Acute renal failure NSTEMI type II Hypomag DM Plan: Gastroparesis management per primary. BP improved. Stress test showed a small area of reversible ischemia but given absence of chest pain and CKD, will treat medically. Continue labetalol. ASA, atorvastatin and Imdur added. Await echo findings. The patient has been seen in conjunction with Dr. Mcknight who agrees with the assessment and plan of care. Subjective Date of service: 12/31/17 Principal diagnosis: acute renal failure, chest pain, diabetes mellitus Interval history: The patient is seen and examined in the stress lab. Denies any chest pain. Sinus rhythm on the monitor. Objective Last Vital Signs Temp 98.2 F 12/31/17 08:20 Pulse 99 H 12/31/17 08:57 Resp 18 12/31/17 08:20 BP 133/59 12/31/17 08:57 Pulse Ox 97 12/31/17 08:20 - Physical Examination General: No Apparent Distress HEENT: Positive: PERRL, Normocephaly, Mucus Membranes Moist Neck: Positive: neck supple, trachea midline Cardiac: Positive: Reg Rate and Rhythm, S1/S2 Lungs: Positive: clear to auscultation Neuro: Positive: Grossly Intact Abdomen: Positive: Soft. Negative: Tender Skin: Positive: Clear. Negative: Rash, Wound Musculoskeletal: No Fluid Collection, No Pain, Normal Range of Motion Extremities: Absent: edema - Imaging and Cardiology EKG: report reviewed, image reviewed Echo: pending - Telemetry EKG Rhythm: Sinus Rhythm - EKG Sinus rhythms and dysrhythmias: sinus tachycardia Chamber hypertrophy or enlargement: left ventricular hypertro Repolarization changes or abnormalities: repolarization abn secondary to ventricular hypertrophy
--- NOTE | 2017-12-31 09:36 | Progress Note ---
Assessment and Plan - Patient Problems (1) [place] (acute kidney injury) Current Visit: Yes Status: Acute Plan to address problem: acute on CKD stage 3 -may be prerenal with underlying Diabetic nephropathy. Pt has proteinuria. If renal function is stable-consider adding LINDSEY-I or ARB. Renal ultrasound- no hydronephrosis. Avoid NSAIDS and high protein diet. Adjust meds per renal function. (2) Diabetic gastroparesis Current Visit: Yes Status: Acute (3) HTN (hypertension) Current Visit: Yes Status: Chronic (4) Leucocytosis Current Visit: Yes Status: Acute Subjective Date of service: 12/31/17 Principal diagnosis: acute renal failure, chest pain, diabetes mellitus Interval history: pt is alert, oriented, nausea,vomitings, chest discomfort better today Objective - Vital Signs Vital signs: Vital Signs - 12hr 12/30/17 12/30/17 12/30/17 22:00 23:24 23:55 Temperature 98.6 F Pulse Rate 89 90 Pulse Rate [ 88 Right Radial] Respiratory 18 20 99 H Rate Blood Pressure 141/64 Blood Pressure 141/64 [Left] O2 Sat by Pulse 99 99 Oximetry 12/31/17 12/31/17 12/31/17 04:00 07:30 08:00 Temperature 98.9 F Pulse Rate 80 85 Pulse Rate [ Right Radial] Respiratory 20 Rate Blood Pressure 157/82 Blood Pressure [Left] O2 Sat by Pulse 97 Oximetry 12/31/17 08:20 Temperature 98.2 F Pulse Rate 64 Pulse Rate [ Right Radial] Respiratory 18 Rate Blood Pressure Blood Pressure 121/80 [Left] O2 Sat by Pulse 97 Oximetry - General Appearance General appearance: well-developed EENT: mucous membranes moist Neck: no JVD Respiratory: Present: Clear to Ascultation Cardiology: regular Gastrointestinal: normoactive bowel sounds Neurologic: alert and oriented x3 Musculoskeletal: other (no edema) Psychiatric: mood/affect appropriate, cooperative - Lab 12/30/17 05:26 12/31/17 12:24 Most recent lab results Calcium 8.4 mg/dL (8.4-10.2) 12/30/17 05:26 Magnesium 1.60 mg/dL (1.7-2.3) L 12/29/17 21:05 Urine Creatinine 120.9 mg/dL (0.1-20.0) H 12/30/17 21:00 Urine Sodium 175 mmol/L 12/30/17 21:00 - Imaging Kidney/bladder ultrasound: report reviewed
[2017-12-31] MEDS ORDERED: IMDUR PO SCH (11:00)
[2017-12-31 13:07] LABS: Calcium 8.5 mg/dL (8.4-10.2)
[2017-12-31] MEDS: LOVENOX SUB-Q SCH (14:13)
[2017-12-31] MEDS: PROTONIX PO SCH (14:17)
[2017-12-31] MEDS: BABY ASPIRIN PO SCH (14:17)
[2017-12-31] MEDS: PROCARDIA XL PO SCH (14:34)
[2017-12-31] MEDS: SODIUM CHLORIDE FLUSH SYRINGE 10 ML IV SCH ×3 (14:35→22:27)
--- NOTE | 2017-12-31 15:55 | Ultrasound Report ---
Renal ultrasound: ARF. Right renal length is 10.7 cm. The left renal length is 10.5 cm. Both kidneys have normal echogenicity. The parenchymal thickness is normal bilaterally. There is no evidence of hydronephrosis and no mass. A questionable small echodensity in the right mid kidney may represent a calculus. Imaging of the urinary bladder is normal. Impression: Questionable tiny nonobstructing right renal calculus. Otherwise, normal exam.
--- NOTE | 2017-12-31 19:20 | Treadmill Report ---
REASON FOR STUDY: Abnormal troponin. IMAGING PROTOCOL: Single isotope. The patient received 10 mCi of Technetium 99m Tetrofosmin for resting image and 28 mCi of Technetium 99m Tetrofosmin for stress imaging. The imaging for the whole procedure was completed 30-90 minutes following the initial injection of Technetium 99m tetrofosmin. The SPECT imaging in the 180 degree arc was performed in the right anterior oblique projection. Computerized reconstruction of the images was performed for analysis. IMAGING RESULTS: Normal cavity size from stress to rest. Normal distribution of radionuclide in the anterior, inferior, septal, lateral anteroapical region, but there is a small mild decrease in myocardial perfusion in inferoapical region seen on stress compared to rest. Gated SPECT, EF 43% with mild global hypokinesis. The patient infused Lexiscan with no EKG changes. SUMMARY: 1. Negative Lexiscan EKG. 2. The patient is a small mild inferoapical ischemic defect with normal perfusion anterior, inferior, septal, lateral, and anterior apical regions with gated SPECT, EF 43%. JOB# [id number] ELVA/TARUN
--- NOTE | 2017-12-31 21:13 | Cat Scan Report ---
FINAL REPORT EXAM: CT HEAD/BRAIN WO CON HISTORY: r side weakness/numbness/tingling TECHNIQUE: CT head without contrast PRIORS: None. FINDINGS: No acute intra-axial or extra-axial hemorrhage is identified. There is no evidence of midline shift or mass effect. The ventricles and sulci are within normal limits. Powers-white matter differentiation is intact. No acute parenchymal abnormalities seen. Bony calvarium is grossly intact. Visualized portions of the mastoids and paranasal sinuses are unremarkable. IMPRESSION: Negative CT head
[2018-01-01 06:29] LABS: Hematocrit 26.9 % (30.3-42.9); Hemoglobin 8.9 gm/dl (10.1-14.3); Mean Corpuscular HGB Conc 33 % (30-34); Mean Corpuscular Hemoglobin 31 pg (28-32); Mean Corpuscular Volume 94 fl (79-97); Platelet Count 205 K/mm3 (140-440); Red Blood Count 2.86 M/mm3 (3.65-5.03); Red Cell Distribution Width 13.1 % (13.2-15.2)
[2018-01-01] MEDS: NACL 0.45% 1000 ML 1,000 ML IV SCH (06:34)
[2018-01-01 06:46] LABS: Calcium 8.2 mg/dL (8.4-10.2)
[2018-01-01] MEDS: HumaLOG SUB-Q SCH ×2 (07:30→12:57)
--- NOTE | 2018-01-01 08:21 | Progress Note ---
Assessment and Plan Assessment and plan: 52 year old woman with history of diabetes, hypertension, gastroparesis comes to the emergency room with complaints of nausea, vomiting for 2 days. Also complain of chest pain, anterior chest, intermittent, unable to say long it lasts for , intensity 3/10, no radiation, cannot identify exacerbating or relieving factors. She has been having these symptoms since November 30, hospitalized at [facility] 2 weeks ago for 3 days. - Acute renal failure Obtain [facility] records Urinalysis, renal ultrasound serial BUN and creatinine Avoid nephrotoxic substances Renal Dosing of meds Nephrology consult Sodium diet, - Acute on chronic gastroparesis Nothing by mouth, Cautious IV hydration IV Protonix and Zofran -Chest pain-Type 2 [place] Elevated cardiac enzymes noted. Continue with heparin and aspirin beta blockers and a possible cardiac cath after of [facility] records to ascertain no recent Cath. Medical management per cardiology due to CKD, no cath at this time Stress test showed a small area of reversible ischemia but given absence of chest pain and CKD, will treat medically. Continue labetalol. ASA, atorvastatin and Imdur added. Hypomagnesemia -REPLACE -Diabetes ADA diet Sliding scale insulin Presumed Diabetic Gastroparesis -Follow with GI outpatient. No new nausea or vomiting at this time -Manage DM - Hypertension - secondary to Acute on chronic IV hydralazine, labetalol and isosorbide DVT prophalaxis with lovenox History Interval history: Patient seen and examined in no acute distress. no chest pain at this time. Hospitalist Physical - Physical exam Narrative exam: Constitutional: Well-nourished well-developed. In no distress Head: Normocephalic atraumatic Eyes: Pupils are equal round and reactive to light Nose: No enlarged turbinates, no septal deviation. Mouth: Moist mucous membranes. Neck: Supple no thyromegaly. No bruit. No JVD Heart: Regular rate and rhythm, S1-S2 abnormal. No rubs murmurs or gallop Lungs: Clear to auscultation bilaterally no rales or rhonchi Abdomen: Epigastric tenderness. Bowel sound are present. Extremities: No edema no cyanosis and no clubbing. Neuro: Alert oriented Oriented x3. No focal sensory or motor deficit. Skin: No rashes no hyperemic spots Psychiatry: Euthymic. Calm. - Constitutional Vitals: Temp Pulse Resp BP Pulse Ox 98.2 F 86 18 143/66 98 01/01/18 08:00 01/01/18 07:48 01/01/18 07:48 01/01/18 07:48 01/01/18 07:48 General appearance: Present: no acute distress Results - Labs CBC & Chem 7: 01/01/18 04:21 01/01/18 04:21 Labs: Laboratory Last Values WBC 8.0 K/mm3 (4.5-11.0) 01/01/18 04:21 RBC 2.86 M/mm3 (3.65-5.03) L 01/01/18 04:21 Hgb 8.9 gm/dl (10.1-14.3) L 01/01/18 04:21 Hct 26.9 % (30.3-42.9) L 01/01/18 04:21 MCV 94 fl (79-97) 01/01/18 04:21 MCH 31 pg (28-32) 01/01/18 04:21 MCHC 33 % (30-34) 01/01/18 04:21 RDW 13.1 % (13.2-15.2) L 01/01/18 04:21 Plt Count 205 K/mm3 (140-440) 01/01/18 04:21 Lymph % (Auto) 10.4 % (13.4-35.0) L 12/30/17 05:26 [place] % (Auto) 8.3 % (0.0-7.3) H 12/30/17 05:26 Eos % (Auto) 0.1 % (0.0-4.3) 12/30/17 05:26 Baso % (Auto) 0.3 % (0.0-1.8) 12/30/17 05:26 Lymph # 1.4 K/mm3 (1.2-5.4) 12/30/17 05:26 [place] # 1.1 K/mm3 (0.0-0.8) H 12/30/17 05:26 Eos # 0.0 K/mm3 (0.0-0.4) 12/30/17 05:26 Baso # 0.0 K/mm3 (0.0-0.1) 12/30/17 05:26 Seg Neutrophils % 80.9 % (40.0-70.0) H 12/30/17 05:26 Seg Neutrophils # 10.7 K/mm3 (1.8-7.7) H 12/30/17 05:26 PT 13.3 Sec. (12.2-14.9) 12/29/17 21:05 INR 0.96 (0.87-1.13) 12/29/17 21:05 VBG pH 7.502 (7.320-7.420) H 12/29/17 21:05 Sodium 139 mmol/L (137-145) 01/01/18 04:21 Potassium 4.1 mmol/L (3.6-5.0) 01/01/18 04:21 Chloride 104.0 mmol/L (98-107) 01/01/18 04:21 Carbon Dioxide 23 mmol/L (22-30) 01/01/18 04:21 Anion Gap 16 mmol/L 01/01/18 04:21 BUN 16 mg/dL (7-17) 01/01/18 04:21 Creatinine 2.1 mg/dL (0.7-1.2) H 01/01/18 04:21 Estimated GFR 30 ml/min 01/01/18 04:21 BUN/Creatinine Ratio 8 % 01/01/18 04:21 Glucose 105 mg/dL (65-100) H 01/01/18 04:21 POC Glucose 122 (70-105) H 01/01/18 06:26 Calcium 8.2 mg/dL (8.4-10.2) L 01/01/18 04:21 Magnesium 1.80 mg/dL (1.7-2.3) 12/31/17 12:24 Total Bilirubin 0.80 mg/dL (0.1-1.2) 12/29/17 21:05 AST 24 units/L (5-40) 12/29/17 21:05 ALT 14 units/L (7-56) 12/29/17 21:05 Alkaline Phosphatase 65 units/L (35-129) 12/29/17 21:05 Total Creatine Kinase 375 units/L (30-135) H 12/30/17 05:26 CK-MB (CK-2) 2.3 ng/mL (0.0-4.0) 12/30/17 05:26 CK-MB (CK-2) Rel Index 0.6 (0-4) 12/30/17 05:26 Troponin T 0.054 ng/mL (0.00-0.029) H D 12/31/17 12:24 Total Protein 7.0 g/dL (6.3-8.2) 12/29/17 21:05 Albumin 3.1 g/dL (3.9-5) L 12/29/17 21:05 Albumin/Globulin Ratio 0.8 % 12/29/17 21:05 Triglycerides 94 mg/dL (2-149) 12/29/17 21:05 Cholesterol 222 mg/dL (50-199) H 12/29/17 21:05 LDL Cholesterol Direct 150 mg/dL (50-130) H 12/29/17 21:05 HDL Cholesterol 48 mg/dL (40-59) 12/29/17 21: Cholesterol/HDL Ratio 4.62 % 12/29/17 21:05 TSH 0.962 mlU/mL (0.270-4.200) 12/29/17 21:05 HCG, Qual Negative (Negative) 12/29/17 21:05 Urine Color Yellow (Yellow) 12/30/17 21:00 Urine Turbidity Clear (Clear) 12/30/17 21:00 Urine pH 8.0 (5.0-7.0) H 12/30/17 21:00 Ur Specific [place] 1.016 (1.003-1.030) 12/30/17 21:00 Urine Protein >500 mg/dL (Negative) 12/30/17 21:00 Urine Glucose (UA) 150 mg/dL (Negative) 12/30/17 21:00 Urine Ketones Tr mg/dL (Negative) 12/30/17 21:00 Urine Blood Neg (Negative) 12/30/17 21:00 Urine Nitrite Neg (Negative) 12/30/17 21:00 Urine Bilirubin Neg (Negative) 12/30/17 21:00 Urine Urobilinogen < 2.0 mg/dL (<2.0) 12/30/17 21:00 Ur Leukocyte Esterase Neg (Negative) 12/30/17 21:00 Urine WBC (Auto) 1.0 /HPF (0.0-6.0) 12/30/17 21:00 Urine RBC (Auto) 4.0 /HPF (0.0-6.0) 12/30/17 21:00 U Epithel Cells (Auto) 1.0 /HPF (0-13.0) 12/30/17 21:00 Urine Mucus Few /HPF 12/30/17 21:00 Urine Creatinine 120.9 mg/dL (0.1-20.0) H 12/30/17 21:00 Urine Sodium 175 mmol/L 12/30/17 21:00 Urine Chloride 120.6 mmolL (110-250) 12/30/17 21:00
--- NOTE | 2018-01-01 08:33 | Progress Note ---
Assessment and Plan Assessment: Gastroparesis Hypertensive urgency - improved ? Chest pain - per the chart; pt denies any occurrence of chest pain Sinus tachycardia - improved Acute renal failure NSTEMI type II Hypomag DM Plan: Gastroparesis management per primary. BP improved. Stress test showed a small, mild inferoapical reversible defect but given absence of chest pain and CKD, recommend continuing medical management. Echo showed mild LVH, EF 45-50%. Patient may be discharged from a cardiac standpoint. Follow up in the office in 2 weeks. The patient has been seen in conjunction with Dr. Garcia who agrees with the assessment and plan of care. Subjective Date of service: 01/01/18 Principal diagnosis: acute renal failure, chest pain, diabetes mellitus Interval history: The patient is resting comfortably in bed. She feels much better. Denies chest pain or shortness of breath. Sinus rhythm on the monitor. Objective Last Vital Signs Temp 98.2 F 01/01/18 08:00 Pulse 86 01/01/18 07:48 Resp 18 01/01/18 07:48 BP 143/66 01/01/18 07:48 Pulse Ox 98 01/01/18 07:48 - Physical Examination General: No Apparent Distress HEENT: Positive: PERRL, Normocephaly, Mucus Membranes Moist Neck: Positive: neck supple, trachea midline Cardiac: Positive: Reg Rate and Rhythm, S1/S2 Lungs: Positive: clear to auscultation Neuro: Positive: Grossly Intact Abdomen: Positive: Soft. Negative: Tender Skin: Positive: Clear. Negative: Rash, Wound Musculoskeletal: No Fluid Collection, No Pain, Normal Range of Motion Extremities: Absent: edema - Labs and Meds CBC 01/01/18 Range/Units 04:21 WBC 8.0 (4.5-11.0) K/mm3 RBC 2.86 L (3.65-5.03) M/mm3 Hgb 8.9 L (10.1-14.3) gm/dl Hct 26.9 L (30.3-42.9) % Plt Count 205 (140-440) K/mm3 Comprehensive Metabolic Panel 12/31/17 01/01/18 Range/Units 12:24 04:21 Sodium 138 139 (137-145) mmol/L Potassium 3.9 4.1 (3.6-5.0) mmol/L Chloride 99.9 104.0 (98-107) mmol/L Carbon Dioxide 23 23 (22-30) mmol/L BUN 17 16 (7-17) mg/dL Creatinine 2.1 H 2.1 H (0.7-1.2) mg/dL Glucose 111 H 105 H (65-100) mg/dL Calcium 8.5 8.2 L (8.4-10.2) mg/dL - Imaging and Cardiology EKG: report reviewed, image reviewed Echo: report reviewed (12/31/17: mild LVH, EF 45-50%) - Telemetry EKG Rhythm: Sinus Rhythm - EKG Sinus rhythms and dysrhythmias: sinus tachycardia Chamber hypertrophy or enlargement: left ventricular hypertro Repolarization changes or abnormalities: repolarization abn secondary to ventricular hypertrophy
[2018-01-01] MEDS: LOVENOX SUB-Q SCH (10:53)
[2018-01-01] MEDS: PROTONIX PO SCH (10:54)
[2018-01-01] MEDS: NORMODYNE PO SCH (10:54)
[2018-01-01] MEDS: PROCARDIA XL PO SCH (10:54)
[2018-01-01] MEDS: BABY ASPIRIN PO SCH (10:54)
[2018-01-01] MEDS: SODIUM CHLORIDE FLUSH SYRINGE 10 ML IV SCH (10:56)
--- NOTE | 2018-01-01 11:17 | Discharge Summary ---
Providers - Providers Date of Admission: 12/29/17 23:35 Attending physician: RICCARDO DOTY MD 12/30/17 10:25 Consult to Physician [CONS] Routine Comment: Consulting Provider: CLARENCE MATHIS Physician Instructions: Reason For Exam: chest pain with elvated Darren though has ARF 12/30/17 10:27 Consult to Physician [CONS] Routine Comment: Consulting Provider: GAGE RAY Physician Instructions: Reason For Exam: Acute on chronic reanl failure Primary care physician: FRENCH BINDER Hospitalization Condition: Good Disposition: DC-01 TO HOME OR SELFCARE Exam - Constitutional Vitals: Temp Pulse Resp BP Pulse Ox 98.2 F 78 20 140/68 98 01/01/18 08:00 01/01/18 10:54 01/01/18 10:00 01/01/18 10:54 01/01/18 10:00 Plan Activity: advance as tolerated, fall precautions Diet: renal Special Instructions: record daily BP diary Follow up with: PARDEEP SINGH MD [Primary Care Provider] - 3-5 Days PAT STRAUSS MD [Staff Physician] - 7 Days ADAM MONDRAGON MD [Staff Physician] - 7 Days Prescriptions: AtorvaSTATin [Lipitor] 20 mg PO QHS #30 tablet Aspirin [Aspirin BABY CHEW TAB] 81 mg PO QDAY #30 tab.chew Insulin Aspart [NovoLOG Flexpen] 20 unit SQ TIDDIAB #30 insuln.pen Labetalol [Normodyne TAB] 200 mg PO TID #90 tablet NIFEdipine XL [Procardia Xl] 60 mg PO QDAY #30 tablet
[2018-01-01 12:40] VITALS: BP 155/77
--- NOTE | 2018-01-01 13:13 | Progress Note ---
Subjective Date of service: 01/01/18 Principal diagnosis: acute renal failure, chest pain, diabetes mellitus Objective - Vital Signs Vital signs: Vital Signs - 12hr 01/01/18 01/01/18 01/01/18 04:38 07:48 08:00 Temperature 98.2 F 98.2 F Pulse Rate 80 86 Respiratory 18 Rate Blood Pressure 132/62 143/66 O2 Sat by Pulse 100 98 Oximetry 01/01/18 01/01/18 01/01/18 10:00 10:47 10:54 Temperature Pulse Rate 79 78 Respiratory 20 Rate Blood Pressure 140/68 140/68 O2 Sat by Pulse 98 98 Oximetry 01/01/18 01/01/18 11:54 12:00 Temperature 98.1 F Pulse Rate 73 Respiratory 18 Rate Blood Pressure 155/77 O2 Sat by Pulse 100 Oximetry - Lab 01/01/18 04:21 01/01/18 04:21 Most recent lab results Calcium 8.2 mg/dL (8.4-10.2) L 01/01/18 04:21 Magnesium 1.80 mg/dL (1.7-2.3) 12/31/17 12:24 Urine Creatinine 120.9 mg/dL (0.1-20.0) H 12/30/17 21:00 Urine Sodium 175 mmol/L 12/30/17 21:00
== END 2018-01-01 14:17 | disposition home or self-care (01) | DRG 281 ==
LOC: ED 20:09 → 3A 23:35 → 4A 12-30 03:31
PROVIDERS: ADMIT Internal Medicine; ATTEND Internal Medicine
DX: I21.A1 Myocardial infarction type 2 (principal); N17.9 Acute kidney failure, unspecified; E11.43 Type 2 diabetes mellitus with diabetic autonomic (poly)neuropathy; K31.84 Gastroparesis; K21.9 Gastro-esophageal reflux disease without esophagitis; N20.0 Calculus of kidney; E83.42 Hypomagnesemia; I16.0 Hypertensive urgency; E11.65 Type 2 diabetes mellitus with hyperglycemia; E11.22 Type 2 diabetes mellitus with diabetic chronic kidney disease; I12.9 Hypertensive chronic kidney disease with stage 1 through stage 4 chronic kidney disease, or unspecified chronic kidney disease; N18.9 Chronic kidney disease, unspecified; Z88.8 Allergy status to other drugs, medicaments and biological substances; Z90.49 Acquired absence of other specified parts of digestive tract; Z82.49 Family history of ischemic heart disease and other diseases of the circulatory system; Z79.4 Long term (current) use of insulin
CPT/HCPCS: 36415; 70450; 71045; 76770; 78452; 80048; 80053; 80061; 81001; 82436; 82550; 82553; 82570; 82805; 82962; 83735; 84300; 84443; 84484; 84703; 85025; 85027; 85610; 93005; 93010; 93017; 93306; A9270-GY; A9502; C9113; J1630; J1650; J1815; J2785; J3010; J3475; J7030

== ENCOUNTER 2018-03-14 05:03 | Inpatient (IN) | payer OTHER ==
[2018-03-14] MEDS ORDERED: REGLAN ONE (05:35)
[2018-03-14] MEDS ORDERED: NACL 0.9% 1000 ML 1,000 ML IV ONE ×2 (05:51→10:01)
[2018-03-14] MEDS ORDERED: REGLAN IV ONE (05:52)
[2018-03-14 06:44] LABS: Albumin 3.5 g/dL (3.9-5); Calcium 9.5 mg/dL (8.4-10.2)
[2018-03-14 06:45] LABS: Basophils % (Auto) 0.8 % (0.0-1.8); Eosinophils % (Auto) 0.8 % (0.0-4.3); Hematocrit 35.5 % (30.3-42.9); Hemoglobin 11.9 gm/dl (10.1-14.3); Lymphocytes # (Auto) 1.4 K/mm3 (1.2-5.4); Lymphocytes % (Auto) 25.8 % (13.4-35.0); Mean Corpuscular HGB Conc 34 % (30-34); Mean Corpuscular Hemoglobin 32 pg (28-32); Mean Corpuscular Volume 95 fl (79-97); Monocytes # (Auto) 0.4 K/mm3 (0.0-0.8); Monocytes % (Auto) 6.7 % (0.0-7.3); Platelet Count 331 K/mm3 (140-440); Red Blood Count 3.73 M/mm3 (3.65-5.03); Red Cell Distribution Width 13.6 % (13.2-15.2)
[2018-03-14] MEDS ORDERED: DILAUDID IM ONE (08:41)
[2018-03-14] MEDS ORDERED: ZOFRAN ODT PO ONE (08:42)
[2018-03-14] MEDS ORDERED: CATAPRES PO ONE (08:42)
[2018-03-14] MEDS ORDERED: NACL 0.9% 250ML 0 ML ONE (09:24)
[2018-03-14] MEDS ORDERED: NACL 0.9% 1000 ML 1,000 ML ONE (09:27)
[2018-03-14 09:48] LABS: Bacteria,Urine 1+ /HPF (Negative); Bilirubin,Urine NEG (Negative); Blood,Urine NEG (Negative); Color,Urine Yellow (Yellow); Hyaline Casts,Urine 31 /LPF; Mucus,Urine FEW /HPF; Urobilinogen,Urine < 2.0 mg/dL (<2.0)
[2018-03-14 09:49] LABS: Protein,Urine >500 mg/dL (Negative)
[2018-03-14] MEDS ORDERED: APRESOLINE IV ONE ×2 (10:01→16:38)
--- NOTE | 2018-03-14 10:15 | Emergency Department Report ---
ED General Adult HPI - General Chief complaint: Abdominal Pain Stated complaint: ABD PAIN/NAUSEA/VOMITING Time Seen by Provider: 03/14/18 08:34 Source: patient Mode of arrival: Ambulatory Limitations: No Limitations, Language Barrier - History of Present Illness Initial comments: 52-year-old female with history of type 2 diabetes, hypertension and recurrent abdominal pain. She has had a previous cholecystectomy. She states that she has been to the emergency department several times for similar circumstances. She's been unable to take her usual medication. She has been vomiting intermittently for the last 3 days. She states that she was seen and released at another emergency department approximately one month ago. She was seen here in [address] of her abdomen and pelvis showed no acute process. She denies any recent fever or chills. She denies any signs of GI bleeding. She has recently used icy hot on her upper back for pain there which she states is recurrent and unrelated. She states that it burned the area. 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 She has an ecchymosis on her right forearm. The patient was admitted here December 2017 with the following discharge summary: 52 year old woman with history of diabetes, hypertension, gastroparesis comes to the emergency room with complaints of nausea, vomiting for 2 days. Also complain of chest pain, anterior chest, intermittent, unable to say long it lasts for , intensity 3/10, no radiation, cannot identify exacerbating or relieving factors. She has been having these symptoms since November 30, hospitalized at [place] 2 weeks ago for 3 days. patient had a stress test that showed Stress test showed a small area of reversible ischemia but given absence of chest pain and CKD, will treat medically. Continue labetalol. ASA, atorvastatin and Imdur added. she was treated with IV fluidss and nephrology consult with improvement in symptoms. renal ultrasound showed Tiny non obstructive renal calculi and patient was advised about this and need to monitor and change diet for renal friendly diet. she is to follow with nephrology and cardiology along with PCP on discharge. 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 - Acute on chronic gastroparesis -Chest pain-Type 2 OR Hypomagnesemia -Diabetes - Diabetic Gastroparesis - Hypertension - secondary to Acute on chronic -: days(s) Location: abdomen Radiation: non-radiation Quality: aching Consistency: intermittent Improves with: none Worsens with: eating Associated Symptoms: denies other symptoms Treatments Prior to Arrival: none - Related Data Home Medications Medication Instructions Recorded Confirmed Last Taken Ramipril 10 mg PO QDAY 12/17/14 01/01/18 02/23/15 HYDROcodone/ACETAMINOPHEN [Xodol 1 each PO Q6H PRN 02/24/15 01/01/18 Unknown 5-300 TAB] Previous Rx's Medication Instructions Recorded Last Taken Type Famotidine [Pepcid] 20 mg PO BID #14 tablet 02/08/15 Unknown Rx Promethazine [Phenergan TAB] 25 mg PO Q6HR PRN #12 tab 02/08/15 Unknown Rx Metoclopramide HCl [Reglan TAB] 5 mg PO TIDAC #45 tablet 02/26/15 Unknown Rx Aspirin [Aspirin BABY CHEW TAB] 81 mg PO QDAY #30 tab.chew 01/01/18 Unknown Rx AtorvaSTATin [Lipitor] 20 mg PO QHS #30 tablet 01/01/18 Unknown Rx Insulin Aspart [NovoLOG Flexpen] 20 unit SQ TIDDIAB #30 insuln.pen 01/01/18 Unknown Rx Lactobacillus 3/Fos/Pantethine 1 each PO QDAY 30 Days #20 capsule 01/01/18 Unknown Rx [Probiotic & Acidophilus Cap] NIFEdipine XL [Procardia Xl] 60 mg PO QDAY #30 tablet 01/01/18 Unknown Rx HYDROcodone/APAP 5-325 [[place] 1 each PO Q6HR PRN #14 tablet 03/14/18 Unknown Rx 5/325] Labetalol [Normodyne TAB] 200 mg PO TID #90 tablet 03/14/18 Unknown Rx Ondansetron [Zofran Odt] 4 mg PO Q6H PRN #14 tab.rapdis 03/14/18 Unknown Rx Allergies Allergy/AdvReac Type Severity Reaction Status Date / Time cefadroxil hydrate Allergy Shortness Verified 02/08/15 14:11 [From José] of [facility] ED Review of Systems ROS: Stated complaint: ABD PAIN/NAUSEA/VOMITING Other details as noted in HPI Constitutional: denies: chills, fever Eyes: denies: eye pain, eye discharge, vision change ENT: denies: ear pain, throat pain Respiratory: denies: cough, shortness of breath, wheezing Cardiovascular: denies: chest pain, palpitations Endocrine: no symptoms reported Gastrointestinal: abdominal pain, nausea, vomiting. denies: diarrhea Genitourinary: denies: urgency, dysuria, discharge Musculoskeletal: back pain. denies: joint swelling, arthralgia Skin: denies: rash, lesions Neurological: denies: headache, weakness, paresthesias Psychiatric: denies: anxiety, depression Hematological/Lymphatic: denies: easy bleeding, easy bruising ED Past Medical Hx - Past Medical History Hx Hypertension: Yes Hx Congestive Heart Failure: No Hx Diabetes: Yes Hx GERD: Yes Hx Kidney Stones: Yes Hx Asthma: No Hx COPD: No Additional medical history: gastroparesis - Surgical History Hx Cholecystectomy: Yes (01/23/15) - Social History Smoking Status: Never Smoker Substance Use Type: None - Medications Home Medications: Home Medications Medication Instructions Recorded Confirmed Last Taken Type Ramipril 10 mg PO QDAY 12/17/14 01/01/18 02/23/15 History Famotidine [Pepcid] 20 mg PO BID #14 tablet 02/08/15 01/01/18 Unknown Rx Promethazine [Phenergan TAB] 25 mg PO Q6HR PRN #12 tab 02/08/15 01/01/18 Unknown Rx HYDROcodone/ACETAMINOPHEN [Xodol 1 each PO Q6H PRN 02/24/15 01/01/18 Unknown History 5-300 TAB] Metoclopramide HCl [Reglan TAB] 5 mg PO TIDAC #45 tablet 02/26/15 01/01/18 Unknown Rx Aspirin [Aspirin BABY CHEW TAB] 81 mg PO QDAY #30 tab.chew 01/01/18 Unknown Rx AtorvaSTATin [Lipitor] 20 mg PO QHS #30 tablet 01/01/18 Unknown Rx Insulin Aspart [NovoLOG Flexpen] 20 unit SQ TIDDIAB #30 insuln.pen 01/01/18 Unknown Rx Lactobacillus 3/Fos/Pantethine 1 each PO QDAY 30 Days #20 capsule 01/01/1801/01 Unknown Rx [Probiotic & Acidophilus Cap] NIFEdipine XL [Procardia Xl] 60 mg PO QDAY #30 tablet 01/01/18 Unknown Rx HYDROcodone/APAP 5-325 [[place] 1 each PO Q6HR PRN #14 tablet 03/14/18 Unknown Rx 5/325] Labetalol [Normodyne TAB] 200 mg PO TID #90 tablet 03/14/18 Unknown Rx Ondansetron [Zofran Odt] 4 mg PO Q6H PRN #14 tab.rapdis 03/14/18 Unknown Rx ED Physical Exam - General Limitations: No Limitations General appearance: alert, in no apparent distress, other (perhaps a bit volume depleted) - Head Head exam: Present: atraumatic, normocephalic - Eye Eye exam: Present: normal appearance, PERRL, EOMI. Absent: scleral icterus - ENT ENT exam: Present: mucous membranes moist - Neck Neck exam: Present: normal inspection. Absent: tenderness, meningismus - Respiratory Respiratory exam: Present: normal lung sounds bilaterally. Absent: respiratory distress - Cardiovascular Cardiovascular Exam: Present: regular rate, normal rhythm. Absent: systolic murmur, diastolic murmur, rubs, gallop - GI/Abdominal GI/Abdominal exam: Present: soft, normal bowel sounds. Absent: distended, tenderness, guarding, rebound, rigid - Extremities Exam Extremities exam: Present: normal inspection - Back Exam Back exam: Present: normal inspection - Neurological Exam Neurological exam: Present: alert, oriented X3, CN II-XII intact. Absent: motor sensory deficit - Psychiatric Psychiatric exam: Present: normal affect, normal mood - Skin Skin exam: Present: warm, dry, intact, normal color, other (small somewhat linear second-degree burn on the paravertebral area dorsal spine. Ecchymosis of the left dorsal forearm.). Absent: rash ED Course Vital Signs 03/14/18 03/14/18 03/14/18 05:12 09:16 09:17 Temperature 97.5 F L Pulse Rate 126 H Respiratory 18 16 Rate Blood Pressure 181/112 178/94 O2 Sat by Pulse 100 Oximetry 03/14/18 03/14/18 03/14/18 09:30 10:00 10:30 Temperature Pulse Rate Respiratory Rate Blood Pressure 204/93 198/86 211/104 O2 Sat by Pulse 100 99 99 Oximetry 03/14/18 03/14/18 03/14/18 10:55 11:00 11:30 Temperature Pulse Rate Respiratory Rate Blood Pressure 200/101 227/136 184/85 O2 Sat by Pulse 98 98 Oximetry 03/14/18 12:00 Temperature Pulse Rate Respiratory Rate Blood Pressure 175/80 O2 Sat by Pulse 96 Oximetry - Reevaluation(s) Reevaluation #1: Blood pressure improving. Labs showed hypokalemia but otherwise were reassuring or at the patient's baseline. Patient no large complaints of abdominal pain. She has tolerated by mouth. 03/14/18 11:49 ED Medical Decision Making - Lab Data Result diagrams: 03/14/18 05:56 03/14/18 05:56 Laboratory Results - last 24 hr 03/14/18 03/14/18 03/14/18 05:33 05:56 05:56 WBC 5.5 RBC 3.73 Hgb 11.9 Hct 35.5 MCV 95 MCH 32 MCHC 34 RDW 13.6 Plt Count 331 Lymph % (Auto) 25.8 [place] % (Auto) 6.7 Eos % (Auto) 0.8 Baso % (Auto) 0.8 Lymph # 1.4 [place] # 0.4 Eos # 0.0 Baso # 0.0 Seg Neutrophils % 65.9 Seg Neutrophils # 3.6 Sodium 139 Potassium 3.1 L Chloride 95.5 L Carbon Dioxide 24 Anion Gap 23 BUN 11 Creatinine 2.1 H Estimated GFR 30 BUN/Creatinine Ratio 5 Glucose 151 H POC Glucose 159 H Calcium 9.5 Total Bilirubin 0.40 AST 26 ALT 18 Alkaline Phosphatase 54 Total Protein 7.3 Albumin 3.5 L Albumin/Globulin Ratio 0.9 Lipase HCG, Qual Urine Color Urine Turbidity Urine pH Ur Specific [place] Urine Protein Urine Glucose (UA) Urine Ketones Urine Blood Urine Nitrite Urine Bilirubin Urine Urobilinogen Ur Leukocyte Esterase Urine WBC (Auto) Urine RBC (Auto) U Epithel Cells (Auto) Urine Bacteria (Auto) Hyaline Casts Urine Mucus 03/14/18 03/14/18 03/14/18 05:56 05:56 08:51 WBC RBC Hgb Hct MCV MCH MCHC RDW Plt Count Lymph % (Auto) [place] % (Auto) Eos % (Auto) Baso % (Auto) Lymph # [place] # Eos # Baso # Seg Neutrophils % Seg Neutrophils # Sodium Potassium Chloride Carbon Dioxide Anion Gap BUN Creatinine Estimated GFR BUN/Creatinine Ratio Glucose POC Glucose Calcium Total Bilirubin AST ALT Alkaline Phosphatase Total Protein Albumin Albumin/Globulin Ratio Lipase 12 L HCG, Qual Negative Urine Color Yellow Urine Turbidity Cloudy Urine pH 5.0 Ur Specific [place] 1.019 Urine Protein >500 Urine Glucose (UA) Neg Urine Ketones Tr Urine Blood Neg Urine Nitrite Neg Urine Bilirubin Neg Urine Urobilinogen < 2.0 Ur Leukocyte Esterase Neg Urine WBC (Auto) 22.0 H Urine RBC (Auto) 10.0 U Epithel Cells (Auto) 23.0 H Urine Bacteria (Auto) 1+ Hyaline Casts 31 Urine Mucus Few Critical care attestation.: If time is entered above; I have spent that time in minutes in the direct care of this critically ill patient, excluding procedure time. ED Disposition Clinical Impression: Poorly-controlled hypertension, Hypokalemia, Insulin dependent diabetes mellitus Abdominal pain Qualifiers: Abdominal location: generalized Qualified Code(s): R10.84 - Generalized abdominal pain Vomiting Qualifiers: Vomiting type: unspecified Vomiting Intractability: non-intractable Nausea presence: with nausea Qualified Code(s): R11.2 - Nausea with vomiting, unspecified Chronic renal insufficiency Qualifiers: Chronic kidney disease stage: stage 3 (moderate) Qualified Code(s): N18.3 - Chronic kidney disease, stage 3 (moderate) Disposition: TO HOME OR SELFCARE Is pt being admited?: No Does the pt Need Aspirin: No Condition: Stable Instructions: Chronic Kidney Disease (ED), Hypokalemia (ED), Diabetes Mellitus Type 2 in Adults (ED), Abdominal Pain (ED) Additional Instructions: Fluids and advance as tolerated. See usual primary care physician tomorrow. Rx as directed. Return any recurrent symptoms as needed. Check your blood pressure frequently. Prescriptions: HYDROcodone/APAP 5-325 [[place] 5/325] 1 each PO Q6HR PRN #14 tablet PRN Reason: Pain Labetalol [Normodyne TAB] 200 mg PO TID #90 tablet Ondansetron [Zofran Odt] 4 mg PO Q6H PRN #14 tab.rapdis PRN Reason: Nausea Referrals: PRIMARY CARE,MD [Primary Care Provider] - 24 Hours Time of Disposition: 11:56
[2018-03-14] MEDS ORDERED: NORMODYNE IV ONE (10:50)
[2018-03-14] MEDS ORDERED: K-DUR PO ONE (10:51)
[2018-03-14] MEDS ORDERED: NITRO-BID 2% TP ONE (12:44)
[2018-03-14] MEDS ORDERED: BABY ASPIRIN PO ONE (12:45)
[2018-03-14] MEDS ORDERED: POTASSIUM CHLORIDE PO ONE (13:00)
[2018-03-14 13:34] LABS: INR 0.88 (0.87-1.13); Partial Thromboplastin Time 27.7 Sec. (24.2-36.6)
[2018-03-14 13:47] LABS: Creatine Kinase MB 2.2 ng/mL (0.0-4.0)
[2018-03-14 14:40] LABS: Chol/HDL Ratio 3.32 %
--- NOTE | 2018-03-14 18:03 | History and Physical Report ---
History of Present Illness Date of examination: 03/14/18 Date of admission: 03/14/18 14:26 Chief complaint: Cc Abdominal pain for 3 days History of present illness: History of Present Illness: 52-year-old female with history of type 2 diabetes, hypertension and Gastroparesis comes in for severe abd pain and Vomiting. She's been unable to take her usual medication. She has been vomiting intermittently for the last 3 days. She states that she was seen and released at another emergency department approximately one month ago. She was seen here in [address] of her abdomen and pelvis showed no acute process. She denies any recent fever or chills. She denies any signs of GI bleeding. She has recently used icy hot on her upper back for pain there which she states is recurrent and unrelated. She states that it burned the area. 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 She has an ecchymosis on her right forearm. 3days Location: abdomen Radiation: non-radiation Quality: aching Consistency: intermittent Improves with: none Worsens with: eating Associated Symptoms: denies other symptoms Treatments Prior to Arrival: none ED Past Medical Hx - Past Medical History Hx Hypertension: Yes Hx Congestive Heart Failure: No Hx Diabetes: Yes Hx GERD: Yes Hx Kidney Stones: Yes Hx Asthma: No Hx COPD: No Additional medical history: gastroparesis - Surgical History Hx Cholecystectomy: Yes (01/23/15) - Social History Smoking Status: Never Smoker Substance Use Type: None - Medications Home Medications: Home Medications Medication Instructions Recorded Confirmed Last Taken Type Ramipril 10 mg PO QDAY 12/17/14 01/01/18 02/23/15 History Famotidine [Pepcid] 20 mg PO BID #14 tablet 02/08/15 01/01/18 Unknown Rx Promethazine [Phenergan TAB] 25 mg PO Q6HR PRN #12 tab 02/08/15 01/01/18 Unknown Rx HYDROcodone/ACETAMINOPHEN [Xodol 1 each PO Q6H PRN 02/24/15 01/01/18 Unknown History 5-300 TAB] Metoclopramide HCl [Reglan TAB] 5 mg PO TIDAC #45 tablet 02/26/15 01/01/18 Unknown Rx Aspirin [Aspirin BABY CHEW TAB] 81 mg PO QDAY #30 tab.chew 01/01/18 Unknown Rx AtorvaSTATin [Lipitor] 20 mg PO QHS #30 tablet 01/01/18 Unknown Rx Insulin Aspart [NovoLOG Flexpen] 20 unit SQ TIDDIAB #30 insuln.pen 01/01/18 Unknown Rx Lactobacillus 3/Fos/Pantethine 1 each PO QDAY 30 Days #20 capsule 01/01/1801/01 Unknown Rx [Probiotic & Acidophilus Cap] NIFEdipine XL [Procardia Xl] 60 mg PO QDAY #30 tablet 01/01/18 Unknown Rx HYDROcodone/APAP 5-325 [[place] 1 each PO Q6HR PRN #14 tablet 03/14/18 Unknown Rx 5/325] Labetalol [Normodyne TAB] 200 mg PO TID #90 tablet 03/14/18 Unknown Rx Ondansetron [Zofran Odt] 4 mg PO Q6H PRN #14 tab.rapdis 03/14/18 Unknown Rx Review of Systems ROS: Stated complaint: ABD PAIN/NAUSEA/VOMITING Other details as noted in HPI Constitutional: denies: chills, fever Eyes: denies: eye pain, eye discharge, vision change ENT: denies: ear pain, throat pain Respiratory: denies: cough, shortness of breath, wheezing Cardiovascular: denies: chest pain, palpitations Endocrine: no symptoms reported Gastrointestinal: abdominal pain, nausea, vomiting. denies: diarrhea Genitourinary: denies: urgency, dysuria, discharge Musculoskeletal: back pain. denies: joint swelling, arthralgia Skin: denies: rash, lesions Neurological: denies: headache, weakness, paresthesias Psychiatric: denies: anxiety, depression Hematological/Lymphatic: denies: easy bleeding, easy bruising Hospital records reviewed The patient was admitted here December 2017 with the following discharge summary: 52 year old woman with history of diabetes, hypertension, gastroparesis comes to the emergency room with complaints of nausea, vomiting for 2 days. Also complain of chest pain, anterior chest, intermittent, unable to say long it lasts for , intensity 3/10, no radiation, cannot identify exacerbating or relieving factors. She has been having these symptoms since November 30, hospitalized at [facility] 2 weeks ago for 3 days. patient had a stress test that showed Stress test showed a small area of reversible ischemia but given absence of chest pain and CKD, will treat medically. Continue labetalol. ASA, atorvastatin and Imdur added. She was treated with IV fluidss and nephrology consult with improvement in symptoms. renal ultrasound showed Tiny non obstructive renal calculi and patient was advised about this and need to monitor and change diet for renal friendly diet. she is to follow with nephrology and cardiology along with PCP on discharge. 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 - Acute on chronic gastroparesis -Chest pain-Type 2 ME Hypomagnesemia -Diabetes - Diabetic Gastroparesis - Hypertension - secondary to Acute on chronic Medications and Allergies Allergies Allergy/AdvReac Type Severity Reaction Status Date / Time cefadroxil hydrate Allergy Shortness Verified 02/08/15 14:11 [From José] of Breath Home Medications Medication Instructions Recorded Confirmed Last Taken Type Ramipril 10 mg PO QDAY 12/17/14 01/01/18 02/23/15 History Famotidine [Pepcid] 20 mg PO BID #14 tablet 02/08/15 01/01/18 Unknown Rx Promethazine [Phenergan TAB] 25 mg PO Q6HR PRN #12 tab 02/08/15 01/01/18 Unknown Rx HYDROcodone/ACETAMINOPHEN [Xodol 1 each PO Q6H PRN 02/24/15 01/01/18 Unknown History 5-300 TAB] Metoclopramide HCl [Reglan TAB] 5 mg PO TIDAC #45 tablet 02/26/15 01/01/18 Unknown Rx Aspirin [Aspirin BABY CHEW TAB] 81 mg PO QDAY #30 tab.chew 01/01/18 Unknown Rx AtorvaSTATin [Lipitor] 20 mg PO QHS #30 tablet 01/01/18 Unknown Rx Insulin Aspart [NovoLOG Flexpen] 20 unit SQ TIDDIAB #30 insuln.pen 01/01/18 Unknown Rx Lactobacillus 3/Fos/Pantethine 1 each PO QDAY 30 Days #20 capsule 01/01/1801/01 Unknown Rx [Probiotic & Acidophilus Cap] NIFEdipine XL [Procardia Xl] 60 mg PO QDAY #30 tablet 01/01/18 Unknown Rx HYDROcodone/APAP 5-325 [[place] 1 each PO Q6HR PRN #14 tablet 03/14/18 Unknown Rx 5/325] Labetalol [Normodyne TAB] 200 mg PO TID #90 tablet 03/14/18 Unknown Rx Ondansetron [Zofran Odt] 4 mg PO Q6H PRN #14 tab.rapdis 03/14/18 Unknown Rx Exam - Constitutional Vitals: Temp Pulse Resp BP Pulse Ox 97.5 F L 126 H 16 131/77 100 03/14/18 05:12 03/14/18 17:58 03/14/18 09:46 03/14/18 17:58 03/14/18 14:30 General appearance: Present: mild distress - EENT Eyes: Present: PERRL ENT: hearing intact, clear oral mucosa - Neck Neck: Present: supple, normal ROM - Respiratory Respiratory effort: normal Respiratory: bilateral: CTA - Cardiovascular Heart rate: 80 Rhythm: regular Heart Sounds: Present: S1 & S2. Absent: rub, click - Extremities Extremities: no ischemia, pulses intact, pulses symmetrical, No edema Peripheral Pulses: within normal limits - Abdominal General gastrointestinal: Present: soft, tender, non-distended, normal bowel sounds Localized gastrointestinal: tender: diffuse Female genitourinary: Present: normal - Rectal Rectal Exam: deferred - Integumentary Integumentary: Present: clear, warm, dry - Musculoskeletal Musculoskeletal: gait normal, strength equal bilaterally - Psychiatric Psychiatric: appropriate mood/affect, intact judgment & insight - Neurologic Neurologic: CNII-XII intact, moves all extremities - Allied Health Allied health notes reviewed: nursing, case management Results - Labs CBC & Chem 7: 03/14/18 05:56 03/14/18 05:56 Labs: Laboratory Last Values WBC 5.5 K/mm3 (4.5-11.0) 03/14/18 05:56 RBC 3.73 M/mm3 (3.65-5.03) 03/14/18 05:56 Hgb 11.9 gm/dl (10.1-14.3) 03/14/18 05:56 Hct 35.5 % (30.3-42.9) 03/14/18 05:56 MCV 95 fl (79-97) 03/14/18 05:56 MCH 32 pg (28-32) 03/14/18 05:56 MCHC 34 % (30-34) 03/14/18 05:56 RDW 13.6 % (13.2-15.2) 03/14/18 05:56 Plt Count 331 K/mm3 (140-440) 03/14/18 05:56 Lymph % (Auto) 25.8 % (13.4-35.0) 03/14/18 05:56 [place] % (Auto) 6.7 % (0.0-7.3) 03/14/18 05:56 Eos % (Auto) 0.8 % (0.0-4.3) 03/14/18 05:56 Baso % (Auto) 0.8 % (0.0-1.8) 03/14/18 05:56 Lymph # 1.4 K/mm3 (1.2-5.4) 03/14/18 05:56 [place] # 0.4 K/mm3 (0.0-0.8) 03/14/18 05:56 Eos # 0.0 K/mm3 (0.0-0.4) 03/14/18 05:56 Baso # 0.0 K/mm3 (0.0-0.1) 03/14/18 05:56 Seg Neutrophils % 65.9 % (40.0-70.0) 03/14/18 05:56 Seg Neutrophils # 3.6 K/mm3 (1.8-7.7) 03/14/18 05:56 PT 12.4 Sec. (12.2-14.9) 03/14/18 13:01 INR 0.88 (0.87-1.13) 03/14/18 13:01 APTT 27.7 Sec. (24.2-36.6) 03/14/18 13:01 D-Dimer 356.1 ng/mlDDU (0-234) H 03/14/18 13:01 Sodium 139 mmol/L (137-145) 03/14/18 05:56 Potassium 3.1 mmol/L (3.6-5.0) L 03/14/18 05:56 Chloride 95.5 mmol/L (98-107) L 03/14/18 05:56 Carbon Dioxide 24 mmol/L (22-30) 03/14/18 05:56 Anion Gap 23 mmol/L 03/14/18 05:56 BUN 11 mg/dL (7-17) 03/14/18 05:56 Creatinine 2.1 mg/dL (0.7-1.2) H 03/14/18 05:56 Estimated GFR 30 ml/min 03/14/18 05:56 BUN/Creatinine Ratio 5 % 03/14/18 05:56 Glucose 151 mg/dL (65-100) H 03/14/18 05:56 POC Glucose 161 (70-105) H 03/14/18 17:17 Calcium 9.5 mg/dL (8.4-10.2) 03/14/18 05:56 Total Bilirubin 0.40 mg/dL (0.1-1.2) 03/14/18 05:56 Direct Bilirubin Cancelled 03/14/18 05:56 Indirect Bilirubin Cancelled 03/14/18 05:56 AST 26 units/L (5-40) 03/14/18 05:56 ALT 18 units/L (7-56) 03/14/18 05:56 Alkaline Phosphatase 54 units/L (35-129) 03/14/18 05:56 Total Creatine Kinase 154 units/L (30-135) H 03/14/18 05:56 CK-MB (CK-2) 2.2 ng/mL (0.0-4.0) 03/14/18 05:56 CK-MB (CK-2) Rel Index 1.4 (0-4) 03/14/18 05:56 Troponin T 0.053 ng/mL (0.00-0.029) H 03/14/18 05:56 NT-Pro-B Natriuret Pep 60180 pg/mL (0-900) H 03/14/18 05:56 Total Protein 7.3 g/dL (6.3-8.2) 03/14/18 05:56 Albumin 3.5 g/dL (3.9-5) L 03/14/18 05:56 Albumin/Globulin Ratio 0.9 % 03/14/18 05:56 Triglycerides 100 mg/dL (2-149) 03/14/18 05:56 Cholesterol 163 mg/dL (50-199) 03/14/18 05:56 LDL Cholesterol Direct 102 mg/dL (50-130) 03/14/18 05:56 HDL Cholesterol 49 mg/dL (40-59) 03/14/18 05:56 Cholesterol/HDL Ratio 3.32 % 03/14/18 05:56 Lipase 12 units/L (13-60) L 03/14/18 05:56 HCG, Qual Negative (Negative) 03/14/18 05:56 Urine Color Yellow (Yellow) 03/14/18 08:51 Urine Turbidity Cloudy (Clear) 03/14/18 08:51 Urine pH 5.0 (5.0-7.0) 03/14/18 08:51 Ur Specific [place] 1.019 (1.003-1.030) 03/14/18 08:51 Urine Protein >500 mg/dL (Negative) 03/14/18 08:51 Urine Glucose (UA) Neg mg/dL (Negative) 03/14/18 08:51 Urine Ketones Tr mg/dL (Negative) 03/14/18 08:51 Urine Blood Neg (Negative) 03/14/18 08:51 Urine Nitrite Neg (Negative) 03/14/18 08:51 Urine Bilirubin Neg (Negative) 03/14/18 08:51 Urine Urobilinogen < 2.0 mg/dL (<2.0) 03/14/18 08:51 Ur Leukocyte Esterase Neg (Negative) 03/14/18 08:51 Urine WBC (Auto) 22.0 /HPF (0.0-6.0) H 03/14/18 08:51 Urine RBC (Auto) 10.0 /HPF (0.0-6.0) 03/14/18 08:51 U Epithel Cells (Auto) 23.0 /HPF (0-13.0) H 03/14/18 08:51 Urine Bacteria (Auto) 1+ /HPF (Negative) 03/14/18 08:51 Hyaline Casts 31 /LPF 03/14/18 08:51 Urine Mucus Few /HPF 03/14/18 08:51 Cardiac Enzymes 03/14/18 Range/Units 05:56 Total Creatine Kinase 154 H (30-135) units/L CK-MB (CK-2) 2.2 (0.0-4.0) ng/mL Troponin T 0.053 H (0.00-0.029) ng/mL Liver Function 03/14/18 Range/Units 05:56 Total Bilirubin Cancelled Direct Bilirubin Cancelled AST Cancelled ALT Cancelled Alkaline Phosphatase Cancelled Albumin Cancelled Urine 03/14/18 Range/Units 08:51 Urine Color Yellow (Yellow) Urine pH 5.0 (5.0-7.0) Ur Specific [place] 1.019 (1.003-1.030) Urine Protein >500 (Negative) mg/dL Urine Glucose (UA) Neg (Negative) mg/dL - Imaging and Cardiology EKG: report reviewed Assessment and Plan Advance Directives: Yes (Full code) VTE prophylaxis?: Chemical Plan of care discussed with patient/family: Yes - Patient Problems (1) Diabetic gastroparesis Current Visit: No Status: Acute Plan to address problem: Patient in Pain and Vomiting Symtomatic treatment (2) Cardiomyopathy Current Visit: Yes Status: Chronic Qualifiers: Cardiomyopathy type: unspecified Qualified Code(s): I42.9 - Cardiomyopathy , unspecified [place] [id number]'s Check ECHO Lasix IV once a day (3) Chronic renal insufficiency Current Visit: Yes Status: Chronic Qualifiers: Chronic kidney disease stage: stage 3 (moderate) Qualified Code(s): N18.3 - Chronic kidney disease, stage 3 (moderate) (4) Hypokalemia Current Visit: Yes Status: Acute Plan to address problem: Supplemented (5) Insulin dependent diabetes mellitus Current Visit: Yes Status: Chronic Plan to address problem: Hba1c reasonable coverage for now (6) UTI (urinary tract infection) Current Visit: Yes Status: Acute Qualifiers: Urinary tract infection type: acute cystitis Plan to address problem: on IV Rocephin (7) HTN (hypertension) Current Visit: No Status: Chronic Plan to address problem: Cont antihyupertensives (8) DVT prophylaxis Current Visit: No Status: Acute Plan to address problem: On Lovenox
[2018-03-14] MEDS ORDERED: MORPHINE IV PRN (18:04)
[2018-03-14] MEDS ORDERED: ZOFRAN IV PRN (18:04)
[2018-03-14] MEDS ORDERED: PERCOCET 5/325 PO PRN (18:04)
[2018-03-14] MEDS ORDERED: TYLENOL PO PRN (18:04)
[2018-03-14] MEDS ORDERED: SODIUM CHLORIDE FLUSH SYRINGE 10 ML IV PRN (18:04)
[2018-03-14] MEDS ORDERED: PHENERGAN PO PRN (18:22)
[2018-03-14] MEDS: DILAUDID IV PRN (18:30)
[2018-03-14] MEDS ORDERED: NON-FORMULARY (Ramipril [Ramipril] 10 MG) PO SCH (18:45)
[2018-03-14] MEDS ORDERED: NACL 0.9% 1000 ML 1,000 ML IV SCH (19:00)
[2018-03-14] MEDS: PROCARDIA XL PO SCH (20:09)
[2018-03-14] MEDS: PEPCID PO SCH (21:07)
[2018-03-14] MEDS: ZESTRIL PO SCH (21:07)
[2018-03-14] MEDS ORDERED: PHENERGAN PR PRN (21:33)
[2018-03-14] MEDS ORDERED: APRESOLINE IV PRN (22:00)
[2018-03-14] MEDS: SODIUM CHLORIDE FLUSH SYRINGE 10 ML IV SCH (22:05)
[2018-03-14] MEDS: HumaLOG SUB-Q SCH (22:55)
[2018-03-15] MEDS ORDERED: NON-FORMULARY (Metoclopramide Hcl [Reglan Tab] 5 MG) PO SCH (07:30)
[2018-03-15 07:52] LABS: Basophils % (Auto) 0.4 % (0.0-1.8); Eosinophils # (Auto) 0.1 K/mm3 (0.0-0.4); Eosinophils % (Auto) 0.8 % (0.0-4.3); Hematocrit 26.8 % (30.3-42.9); Lymphocytes # (Auto) 1.6 K/mm3 (1.2-5.4); Lymphocytes % (Auto) 25.1 % (13.4-35.0); Mean Corpuscular HGB Conc 34 % (30-34); Mean Corpuscular Hemoglobin 32 pg (28-32); Mean Corpuscular Volume 95 fl (79-97); Monocytes # (Auto) 0.5 K/mm3 (0.0-0.8); Monocytes % (Auto) 8.3 % (0.0-7.3); Platelet Count 272 K/mm3 (140-440); Red Blood Count 2.81 M/mm3 (3.65-5.03); Red Cell Distribution Width 13.8 % (13.2-15.2)
[2018-03-15] MEDS ORDERED: INSULIN ASPART 20 UNIT SQ SCH (08:00)
[2018-03-15] MEDS: REGLAN PO SCH ×4 (08:00→15:58)
[2018-03-15 08:02] LABS: Albumin 2.8 g/dL (3.9-5); Calcium 8.6 mg/dL (8.4-10.2)
[2018-03-15] MEDS ORDERED: D50W (25GM) Syringe IV PRN (09:50)
[2018-03-15] MEDS: HumaLOG SUB-Q SCH ×4 (11:03→22:12)
[2018-03-15] MEDS: ZESTRIL PO SCH (11:06)
[2018-03-15] MEDS: LACTINEX PO SCH ×2 (11:07→12:55)
[2018-03-15] MEDS: PROCARDIA XL PO SCH (11:07)
[2018-03-15] MEDS: PEPCID PO SCH ×2 (11:08→22:07)
[2018-03-15] MEDS: BABY ASPIRIN PO SCH (11:08)
[2018-03-15] MEDS: SODIUM CHLORIDE FLUSH SYRINGE 10 ML IV SCH ×2 (11:09→22:14)
[2018-03-15] MEDS ORDERED: ROCEPHIN/NS 2 GM/100 ML 2 GM/100 ML BAG IV SCH (12:00)
--- NOTE | 2018-03-15 12:22 | Progress Note ---
Assessment and Plan Assessment and plan: Diabetic gastroparesis Patient in Pain and Vomiting Symtomatic treatment Cardiomyopathy Check ECHO Lasix IV once a day Chronic renal insufficiency Hypokalemia Supplement as needed Insulin dependent diabetes mellitus Hba1c reasonable coverage for now UTI (urinary tract infection) on IV Rocephin HTN (hypertension) Cont antihyupertensives DVT prophylaxis History Interval history: No new issues overnight Hospitalist Physical - Constitutional Vitals: Temp Pulse Resp BP Pulse Ox 97.9 F 80 14 162/79 98 03/15/18 08:01 03/15/18 11:06 03/15/18 08:01 03/15/18 08:01 03/15/18 08:01 General appearance: Present: no acute distress - EENT Eyes: Present: PERRL, EOM intact ENT: hearing intact, clear oral mucosa, dentition normal - Neck Neck: Present: supple, normal ROM - Respiratory Respiratory effort: normal Respiratory: bilateral: CTA - Cardiovascular Rhythm: regular Heart Sounds: Present: S1 & S2. Absent: gallop, rub - Extremities Extremities: no ischemia, No edema, Full ROM - Abdominal General gastrointestinal: soft, non-tender, non-distended, normal bowel sounds - Integumentary Integumentary: Present: clear, warm, dry - Neurologic Neurologic: CNII-XII intact, moves all extremities Results - Labs CBC & Chem 7: 03/15/18 06:03 03/15/18 06:03 Labs: Laboratory Last Values WBC 6.2 K/mm3 (4.5-11.0) 03/15/18 06:03 RBC 2.81 M/mm3 (3.65-5.03) L 03/15/18 06:03 Hgb 9.0 gm/dl (10.1-14.3) L 03/15/18 06:03 Hct 26.8 % (30.3-42.9) L D 03/15/18 06:03 MCV 95 fl (79-97) 03/15/18 06:03 MCH 32 pg (28-32) 03/15/18 06:03 MCHC 34 % (30-34) 03/15/18 06:03 RDW 13.8 % (13.2-15.2) 03/15/18 06:03 Plt Count 272 K/mm3 (140-440) 03/15/18 06:03 Lymph % (Auto) 25.1 % (13.4-35.0) 03/15/18 06:03 [place] % (Auto) 8.3 % (0.0-7.3) H 03/15/18 06:03 Eos % (Auto) 0.8 % (0.0-4.3) 03/15/18 06:03 Baso % (Auto) 0.4 % (0.0-1.8) 03/15/18 06:03 Lymph # 1.6 K/mm3 (1.2-5.4) 03/15/18 06:03 [place] # 0.5 K/mm3 (0.0-0.8) 03/15/18 06:03 Eos # 0.1 K/mm3 (0.0-0.4) 03/15/18 06:03 Baso # 0.0 K/mm3 (0.0-0.1) 03/15/18 06:03 Seg Neutrophils % 65.4 % (40.0-70.0) 03/15/18 06:03 Seg Neutrophils # 4.1 K/mm3 (1.8-7.7) 03/15/18 06:03 PT 12.4 Sec. (12.2-14.9) 03/14/18 13:01 INR 0.88 (0.87-1.13) 03/14/18 13:01 APTT 27.7 Sec. (24.2-36.6) 03/14/18 13:01 D-Dimer 356.1 ng/mlDDU (0-234) H 03/14/18 13:01 Sodium 146 mmol/L (137-145) H D 03/15/18 06:03 Potassium 3.9 mmol/L (3.6-5.0) D 03/15/18 06:03 Chloride 109.3 mmol/L (98-107) H 03/15/18 06:03 Carbon Dioxide 23 mmol/L (22-30) 03/15/18 06:03 Anion Gap 18 mmol/L 03/15/18 06:03 BUN 13 mg/dL (7-17) 03/15/18 06:03 Creatinine 1.8 mg/dL (0.7-1.2) H 03/15/18 06:03 Estimated GFR 36 ml/min 03/15/18 06:03 BUN/Creatinine Ratio 7 % 03/15/18 06:03 Glucose 103 mg/dL (65-100) H 03/15/18 06:03 POC Glucose 102 (70-105) 03/15/18 06:35 Hemoglobin A1c 6.1 % (4-6) H 03/14/18 19:56 Calcium 8.6 mg/dL (8.4-10.2) 03/15/18 06:03 Total Bilirubin 0.20 mg/dL (0.1-1.2) 03/15/18 06:03 Direct Bilirubin Cancelled 03/14/18 05:56 Indirect Bilirubin Cancelled 03/14/18 05:56 AST 17 units/L (5-40) 03/15/18 06:03 ALT 13 units/L (7-56) 03/15/18 06:03 Alkaline Phosphatase 39 units/L (35-129) 03/15/18 06:03 Total Creatine Kinase 154 units/L (30-135) H 03/14/18 05:56 CK-MB (CK-2) 2.2 ng/mL (0.0-4.0) 03/14/18 05:56 CK-MB (CK-2) Rel Index 1.4 (0-4) 03/14/18 05:56 Troponin T 0.053 ng/mL (0.00-0.029) H 03/14/18 05:56 NT-Pro-B Natriuret Pep 93372 pg/mL (0-900) H 03/14/18 05:56 Total Protein 5.5 g/dL (6.3-8.2) L D 03/15/18 06:03 Albumin 2.8 g/dL (3.9-5) L 03/15/18 06:03 Albumin/Globulin Ratio 1.0 % 03/15/18 06:03 Triglycerides 100 mg/dL (2-149) 03/14/18 05:56 Cholesterol 163 mg/dL (50-199) 03/14/18 05:56 LDL Cholesterol Direct 102 mg/dL (50-130) 03/14/18 05:56 HDL Cholesterol 49 mg/dL (40-59) 03/14/18 05:56 Cholesterol/HDL Ratio 3.32 % 03/14/18 05:56 Lipase 12 units/L (13-60) L 03/14/18 05:56 HCG, Qual Negative (Negative) 03/14/18 05:56 Urine Color Yellow (Yellow) 03/14/18 08:51 Urine Turbidity Cloudy (Clear) 03/14/18 08:51 Urine pH 5.0 (5.0-7.0) 03/14/18 08:51 Ur Specific [place] 1.019 (1.003-1.030) 03/14/18 08:51 Urine Protein >500 mg/dL (Negative) 03/14/18 08:51 Urine Glucose (UA) Neg mg/dL (Negative) 03/14/18 08:51 Urine Ketones Tr mg/dL (Negative) 03/14/18 08:51 Urine Blood Neg (Negative) 03/14/18 08:51 Urine Nitrite Neg (Negative) 03/14/18 08:51 Urine Bilirubin Neg (Negative) 03/14/18 08:51 Urine Urobilinogen < 2.0 mg/dL (<2.0) 03/14/18 08:51 Ur Leukocyte Esterase Neg (Negative) 03/14/18 08:51 Urine WBC (Auto) 22.0 /HPF (0.0-6.0) H 03/14/18 08:51 Urine RBC (Auto) 10.0 /HPF (0.0-6.0) 03/14/18 08:51 U Epithel Cells (Auto) 23.0 /HPF (0-13.0) H 03/14/18 08:51 Urine Bacteria (Auto) 1+ /HPF (Negative) 03/14/18 08:51 Hyaline Casts 31 /LPF 03/14/18 08:51 Urine Mucus Few /HPF 03/14/18 08:51
[2018-03-15] MEDS: KCL 10MEQ/100ML 10 MEQ/100 ML BAG IV SCH ×2 (16:01→22:13)
[2018-03-15] MEDS ORDERED: LOVENOX SUB-Q SCH ×2 (22:00)
[2018-03-15] MEDS: DILAUDID IV PRN (22:16)
[2018-03-16] MEDS: HumaLOG SUB-Q SCH ×5 (07:44→13:34)
[2018-03-16 08:06] VITALS: BP 155/83
--- NOTE | 2018-03-16 11:08 | Discharge Summary ---
Providers - Providers Date of Admission: 03/14/18 14:26 Date of discharge: 03/16/18 Attending physician: MAXWELL GOMEZ 03/14/18 Consult to Case Management [CONS] Routine Services Needed at Discharge: Home Health Services Notified:: case management Primary care physician: SUPPLIER QUALITY ENGINEER Hospitalization Reason for admission: n/v Condition: Stable Hospital course: 52-year-old female with history of type 2 diabetes, hypertension and Gastroparesis comes in for severe abd pain and Vomiting. She was unable to take her usual medication. 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 She stated that she was seen and released at another emergency department approximately one month ago. She was seen here in [address] of her abdomen and pelvis showed no acute process. She denies any recent fever or chills. She denies any signs of GI bleeding. The patient was admitted with dx of intractable N/V and gastroparesis exacerbation. Sxs resolved with supportive care, IV fluids and antiemetics. Diet was advanced and tolerated. Dedicated d/c time 32 min Disposition: DC-01 TO HOME OR SELFCARE Time spent for discharge: 32 - Discharge Diagnoses (1) Insulin dependent diabetes mellitus Status: Chronic (2) Diabetic gastroparesis Status: Acute (3) Intractable vomiting Status: Acute Core Measure Documentation - Palliative Care Palliative Care/ Comfort Measures: Not Applicable - Core Measures Any of the following diagnoses?: none Exam - Constitutional Vitals: Temp Pulse Resp BP Pulse Ox 98.2 F 87 20 155/83 99 03/16/18 07:48 03/16/18 07:48 03/16/18 07:48 03/16/18 07:48 03/16/18 07:48 General appearance: Present: no acute distress, well-nourished - EENT Eyes: Present: PERRL ENT: hearing intact, clear oral mucosa - Neck Neck: Present: supple, normal ROM - Respiratory Respiratory effort: normal Respiratory: bilateral: CTA - Cardiovascular Heart Sounds: Present: S1 & S2. Absent: rub, click - Extremities Extremities: pulses symmetrical, No edema Peripheral Pulses: within normal limits - Abdominal General gastrointestinal: Present: soft, non-tender, non-distended, normal bowel sounds Female genitourinary: Present: normal - Integumentary Integumentary: Present: clear, warm, dry - Musculoskeletal Musculoskeletal: gait normal, strength equal bilaterally - Psychiatric Psychiatric: appropriate mood/affect, intact judgment & insight - Neurologic Neurologic: CNII-XII intact, moves all extremities Plan Activity: no restrictions Weight Bearing Status: Full Weight Bearing Diet: diabetic Follow up with: PRIMARY CARE,MD [Primary Care Provider] - 3-5 Days Prescriptions: Aspirin [Aspirin BABY CHEW TAB] 81 mg PO QDAY #30 tab.chew AtorvaSTATin [Lipitor] 20 mg PO QHS #30 tablet HYDROcodone/APAP 5-325 [[place] 5/325] 1 each PO Q6HR PRN #14 tablet PRN Reason: Pain Labetalol [Normodyne TAB] 200 mg PO TID #90 tablet Lactobacillus 3/Fos/Pantethine [Probiotic & Acidophilus Cap] 1 each PO QDAY 30 Days #20 capsule Metoclopramide HCl [Reglan TAB] 5 mg PO TIDAC #45 tablet NIFEdipine XL [Procardia Xl] 60 mg PO QDAY #30 tablet Ondansetron [Zofran Odt] 4 mg PO Q6H PRN #14 tab.rapdis PRN Reason: Nausea oxyCODONE /ACETAMINOPHEN [Percocet 5/325 mg] 1 tab PO Q6H PRN #6 tablet PRN Reason: Pain, Moderate (4-6) Pantoprazole [Protonix] 40 mg PO QDAY #30 tablet Promethazine [Phenergan SUPPOS] 25 mg AR Q6H PRN #6 supp.rect PRN Reason: Nausea And Vomiting
[2018-03-16] MEDS: BABY ASPIRIN PO SCH (13:28)
[2018-03-16] MEDS: REGLAN PO SCH (13:28)
[2018-03-16] MEDS: LACTINEX PO SCH (13:29)
[2018-03-16] MEDS: SODIUM CHLORIDE FLUSH SYRINGE 10 ML IV SCH (13:30)
[2018-03-16] MEDS: PEPCID PO SCH (13:30)
[2018-03-16] MEDS: ZESTRIL PO SCH ×2 (13:30→13:31)
[2018-03-16] MEDS: PROCARDIA XL PO SCH (13:32)
== END 2018-03-16 16:27 | disposition home or self-care (01) | DRG 74 ==
LOC: ED 05:03 → 4A 14:26
PROVIDERS: ADMIT Internal Medicine; ATTEND Hospitalist
DX: E11.43 Type 2 diabetes mellitus with diabetic autonomic (poly)neuropathy (principal); I42.9 Cardiomyopathy, unspecified; N30.00 Acute cystitis without hematuria; K31.84 Gastroparesis; N18.3 Chronic kidney disease, stage 3 (moderate); E11.22 Type 2 diabetes mellitus with diabetic chronic kidney disease; E87.6 Hypokalemia; I12.9 Hypertensive chronic kidney disease with stage 1 through stage 4 chronic kidney disease, or unspecified chronic kidney disease; K21.9 Gastro-esophageal reflux disease without esophagitis; Z90.49 Acquired absence of other specified parts of digestive tract; Z79.899 Other long term (current) drug therapy; Z79.82 Long term (current) use of aspirin; Z79.4 Long term (current) use of insulin; Z88.8 Allergy status to other drugs, medicaments and biological substances; Z87.442 Personal history of urinary calculi
CPT/HCPCS: 36415; 80053; 80061; 81001; 82550; 82553; 82962; 83036; 83690; 83880; 84484; 84703; 85025; 85379; 85610; 85730; 87086; 93005; 93010; A9270-GY; J0360; J0696; J1170; J1650; J1815; J2405; J2765; J3480; J7030; J7050; Q0162; Q0169

== ENCOUNTER 2018-05-08 15:44 | Emergency (ER) | payer SELFPAY ==
[2018-05-08] MEDS ORDERED: NACL 0.9% 1000 ML 1,000 ML IV ONE (15:55)
[2018-05-08] MEDS ORDERED: REGLAN IV ONE (16:09)
--- NOTE | 2018-05-08 16:14 | Emergency Department Report ---
ED Abdominal Pain HPI - General Chief Complaint: Abdominal Pain Stated Complaint: STOMACH PAIN/HBP Time Seen by Provider: 05/08/18 16:04 Source: patient Mode of arrival: Ambulatory Limitations: No Limitations - History of Present Illness Initial Comments: Patient is 53 years old female with history of diabetes and gastroparesis. Patient presented to the ER complaining of diffuse abdominal pain for the last few days associated with nausea and vomiting. Patient stated that she is unable to keep anything down. Patient denied any fever, chest pain or shortness of breath. The patient was seen here last week for the same reason, a CT abdomen and pelvis was negative for acute finding. Patient stated that her symptoms is similar to what she had before. MD Complaint: abdominal pain -: days(s) Location: diffuse Radiation: none Migration to: no migration Severity: moderate Quality: cramping Consistency: constant Worsens With: nothing - Related Data Home Medications Medication Instructions Recorded Confirmed Last Taken Ramipril 10 mg PO QDAY 12/17/14 03/16/18 02/23/15 Previous Rx's Medication Instructions Recorded Last Taken Type Promethazine [Phenergan TAB] 25 mg PO Q6HR PRN #12 tab 02/08/15 Unknown Rx Insulin Aspart [NovoLOG Flexpen] 20 unit SQ TIDDIAB #30 insuln.pen 01/01/18 Unknown Rx HYDROcodone/APAP 5-325 [[place] 1 each PO Q6HR PRN #14 tablet 03/14/18 Unknown Rx 5/325] Labetalol [Normodyne TAB] 200 mg PO TID #90 tablet 03/14/18 Unknown Rx Ondansetron [Zofran Odt] 4 mg PO Q6H PRN #14 tab.rapdis 03/14/18 Unknown Rx Aspirin [Aspirin BABY CHEW TAB] 81 mg PO QDAY #30 tab.chew 03/16/18 Unknown Rx AtorvaSTATin [Lipitor] 20 mg PO QHS #30 tablet 03/16/18 Unknown Rx Lactobacillus 3/Fos/Pantethine 1 each PO QDAY 30 Days #20 capsule 03/16/18 Unknown Rx [Probiotic & Acidophilus Cap] Lisinopril [Zestril TAB] 20 mg PO QDAY tablet 03/16/18 Unknown Rx Lispro Insulin [Humalog] 20 unit SUB-Q AC units 03/16/18 Unknown Rx Metoclopramide HCl [Reglan TAB] 5 mg PO TIDAC #45 tablet 03/16/18 Unknown Rx NIFEdipine XL [Procardia Xl] 60 mg PO QDAY #30 tablet 03/16/18 Unknown Rx Pantoprazole [Protonix] 40 mg PO QDAY #30 tablet 03/16/18 Unknown Rx Promethazine [Phenergan SUPPOS] 25 mg [place] Q6H PRN #6 supp.rect 03/16/18 Unknown Rx oxyCODONE /ACETAMINOPHEN [Percocet 1 tab PO Q6H PRN #6 tablet 03/16/18 Unknown Rx 5/325 mg] Metoclopramide [Reglan] 10 mg PO QID PRN #30 tab 05/03/18 Unknown Rx oxyCODONE /ACETAMINOPHEN [Percocet 1 - 2 tab PO Q6HR PRN #14 tablet 05/03/18 Unknown Rx 5/325] Allergies Allergy/AdvReac Type Severity Reaction Status Date / Time cefadroxil hydrate Allergy Shortness Verified 02/08/15 14:11 [From José] of Breath ED Review of Systems ROS: Stated complaint: STOMACH PAIN/HBP Other details as noted in HPI Comment: All other systems reviewed and negative Constitutional: denies: chills, fever Respiratory: denies: cough, orthopnea, shortness of breath, SOB with exertion, SOB at rest, wheezing Cardiovascular: denies: chest pain, palpitations, dyspnea on exertion Gastrointestinal: abdominal pain, nausea, vomiting, diarrhea. denies: constipation, hematemesis, melena, hematochezia Musculoskeletal: denies: back pain Neurological: denies: headache, weakness, numbness, paresthesias, confusion, abnormal gait, vertigo ED Past Medical Hx - Past Medical History Hx Hypertension: Yes Hx Congestive Heart Failure: No Hx Diabetes: Yes Hx GERD: Yes Hx Kidney Stones: Yes Hx Asthma: No Hx COPD: No Hx HIV: No Additional medical history: gastroparesis - Surgical History Hx Cholecystectomy: Yes (01/23/15) - Social History Smoking Status: Never Smoker Substance Use Type: None - Medications Home Medications: Home Medications Medication Instructions Recorded Confirmed Last Taken Type Ramipril 10 mg PO QDAY 12/17/14 03/16/18 02/23/15 History Promethazine [Phenergan TAB] 25 mg PO Q6HR PRN #12 tab 02/08/15 03/16/18 Unknown Rx Insulin Aspart [NovoLOG Flexpen] 20 unit SQ TIDDIAB #30 insuln.pen 01/01/18 Unknown Rx HYDROcodone/APAP 5-325 [[place] 1 each PO Q6HR PRN #14 tablet 03/14/18 Unknown Rx 5/325] Labetalol [Normodyne TAB] 200 mg PO TID #90 tablet 03/14/18 Unknown Rx Ondansetron [Zofran Odt] 4 mg PO Q6H PRN #14 tab.rapdis 03/14/18 Unknown Rx Aspirin [Aspirin BABY CHEW TAB] 81 mg PO QDAY #30 tab.chew 03/16/18 Unknown Rx AtorvaSTATin [Lipitor] 20 mg PO QHS #30 tablet 03/16/18 Unknown Rx Lactobacillus 3/Fos/Pantethine 1 each PO QDAY 30 Days #20 capsule 03/16/18 Unknown Rx [Probiotic & Acidophilus Cap] Lisinopril [Zestril TAB] 20 mg PO QDAY tablet 03/16/18 Unknown Rx Lispro Insulin [Humalog] 20 unit SUB-Q AC units 03/16/18 Unknown Rx Metoclopramide HCl [Reglan TAB] 5 mg PO TIDAC #45 tablet 03/16/18 Unknown Rx NIFEdipine XL [Procardia Xl] 60 mg PO QDAY #30 tablet 03/16/18 Unknown Rx Pantoprazole [Protonix] 40 mg PO QDAY #30 tablet 03/16/18 Unknown Rx Promethazine [Phenergan SUPPOS] 25 mg [place] Q6H PRN #6 supp.rect 03/16/18 Unknown Rx oxyCODONE /ACETAMINOPHEN [Percocet 1 tab PO Q6H PRN #6 tablet 03/16/18 Unknown Rx 5/325 mg] Metoclopramide [Reglan] 10 mg PO QID PRN #30 tab 05/03/18 Unknown Rx oxyCODONE /ACETAMINOPHEN [Percocet 1 - 2 tab PO Q6HR PRN #14 tablet 05/03/18 Unknown Rx 5/325] ED Physical Exam - General Limitations: No Limitations General appearance: alert, in distress (moderate distress secondary to pain) - Head Head exam: Present: atraumatic, normocephalic, normal inspection - Eye Eye exam: Present: normal appearance, PERRL - ENT ENT exam: Present: normal exam, normal orophraynx, mucous membranes moist - Neck Neck exam: Present: normal inspection, full ROM. Absent: tenderness, meningismus, lymphadenopathy, thyromegaly - Respiratory Respiratory exam: Present: normal lung sounds bilaterally. Absent: respiratory distress, wheezes, rales, rhonchi, stridor, chest wall tenderness, accessory muscle use, decreased breath sounds, prolonged expiratory - Cardiovascular Cardiovascular Exam: Present: regular rate, tachycardia. Absent: systolic murmur, diastolic murmur - GI/Abdominal GI/Abdominal exam: Present: soft, tenderness (diffuse tenderness), normal bowel sounds. Absent: distended, guarding, rebound, rigid, organomegaly, mass, bruit , pulsatile mass, hernia - Extremities Exam Extremities exam: Present: normal inspection, full ROM, normal capillary refill. Absent: pedal edema, calf tenderness - Back Exam Back exam: Present: normal inspection, full ROM - Neurological Exam Neurological exam: Present: alert, oriented X3, CN II-XII intact, normal gait, reflexes normal - Skin Skin exam: Present: warm, intact, normal color ED Course Vital Signs 05/08/18 15:50 Temperature 97.9 F Pulse Rate 128 H Respiratory 22 Rate Blood Pressure 187/111 O2 Sat by Pulse 100 Oximetry ED Medical Decision Making - Lab Data Result diagrams: 05/08/18 16:02 05/08/18 16:02 - Radiology Data Radiology results: report reviewed Referring Physician: BELEN KENNEDY Patient Name: MARIE YANEZ Date of : 1965 Sex: Female Report Date: 2018-05-08 Report Status: Finalized Findings [address] [address] XRay Report Signed Patient: MARIE YANEZ MR#: [id number] : 1965 Acct:[id number] Age/Sex: 53 / F ADM Date: 05/08/18 Loc: ED Attending Dr: Ordering Physician: BELEN KENNEDY Date of Service: 05/08/18 Procedure(s): XR abd series w cxr 1V Accession Number(s): [id number] cc: BELEN KENNEDY Fluoro Time In Minutes: FINAL REPORT EXAM: XR ABD SERIES W CXR 1V HISTORY: abdominal pain TECHNIQUE: Frontal view of the chest and frontal views of the abdomen and pelvis in the supine and upright positions. Comparison: Chest x-ray dated December 29, 2017 FINDINGS: X-ray chest: There is no evidence of infiltrate, pneumothorax or pleural fluid collection. The cardiomediastinal silhouette is normal in appearance. The bony structures are unremarkable. X-ray abdomen and pelvis: The bowel gas pattern is nonobstructive. There is a ruhz-lk-zbfibtlo amount of stool throughout the colon. There are foci of increased density in the colon that are possibly pill fragments. There is no evidence of pneumoperitoneum nor organomegaly. Surgical clips in the right upper quadrant are consistent with previous cholecystectomy. There is dextrocurvature of the lower thoracic and upper lumbar spine. IMPRESSION: 1. No evidence of an acute pulmonary process. 2. No plain film evidence of an acute intra-abdominal process. 3. Foci of increased density in the colon that are possibly pill fragments. 4. Evidence of previous cholecystectomy. 5. Dextrocurvature lower thoracic and upper lumbar spine. Transcribed By: ED Dictated By: WILLY RAMIREZ MD Electronically Authenticated By: WILLY RAMIREZ MD Signed Date/Time: 05/08/181703 DD/ 03 TD/TT: 05/08/181703 - Medical Decision Making Patient is 53 years old female with history of diabetes and gastroparesis. Patient presented to the ER complaining of diffuse abdominal pain for the last few days associated with nausea and vomiting. Patient stated that she is unable to keep anything down. Patient denied any fever, chest pain or shortness of breath. The patient was seen here last week for the same reason, a CT abdomen and pelvis was negative for acute finding. Patient stated that her symptoms is similar to what she had before. In the ER patient received normal saline, fentanyl, Reglan and Zofran. She also received a Protonix and Mylanta. Patient stated that her symptoms is better but is still nauseated. Acute abdominal x-ray series is negative for acute finding. Patient potassium is 2.7. Patient potassium replaced. Patient will be admitted for intractable vomiting and hypokalemia. I discussed the patient was Dr. Danielle, he agreed to admit the patient to medical service. Critical Care Time: Yes Critical care time in (mins) excluding proc time.: 30 Critical care attestation.: If time is entered above; I have spent that time in minutes in the direct care of this critically ill patient, excluding procedure time. ED Disposition Clinical Impression: Abdominal pain, Intractable vomiting, Diabetic gastroparesis, Acute hypokalemia Disposition: OP ADMIT IP TO THIS HOSP Is pt being admited?: Yes Condition: Stable Instructions: Abdominal Pain (ED), Diabetes Mellitus Type 2 in Adults (ED)
[2018-05-08] MEDS ORDERED: PROTONIX IV ONE (16:15)
[2018-05-08] MEDS ORDERED: ALUM-MAG HYDROX-SIMETH 200-200-20MG/5ML PO ONE (16:15)
[2018-05-08] MEDS ORDERED: LIDOCAINE VISCOUS 2% PO ONE (16:15)
[2018-05-08 16:23] LABS: Basophils % (Auto) 0.3 % (0.0-1.8); Eosinophils % (Auto) 0.1 % (0.0-4.3); Lymphocytes # (Auto) 1.4 K/mm3 (1.2-5.4); Lymphocytes % (Auto) 19.3 % (13.4-35.0); Monocytes # (Auto) 0.4 K/mm3 (0.0-0.8); Monocytes % (Auto) 5.8 % (0.0-7.3)
[2018-05-08 16:35] LABS: Hemoglobin 11.3 gm/dl (10.1-14.3); Red Blood Count 3.55 M/mm3 (3.65-5.03)
[2018-05-08 16:36] LABS: Hematocrit 33.8 % (30.3-42.9); Mean Corpuscular HGB Conc 33 % (30-34); Mean Corpuscular Hemoglobin 32 pg (28-32); Mean Corpuscular Volume 95 fl (79-97); Mean Platelet Volume 8.5 fl (6-12); Platelet Count 393 K/mm3 (140-440); Red Cell Distribution Width 12.9 % (13.2-15.2)
[2018-05-08] MEDS ORDERED: SUBLIMAZE IV ONE (17:00)
[2018-05-08 17:01] LABS: Albumin 3.5 g/dL (3.9-5); Calcium 9.1 mg/dL (8.4-10.2)
--- NOTE | 2018-05-08 17:05 | XRay Report ---
FINAL REPORT EXAM: XR ABD SERIES W CXR 1V HISTORY: abdominal pain TECHNIQUE: Frontal view of the chest and frontal views of the abdomen and pelvis in the supine and upright positions. Comparison: Chest x-ray dated December 29, 2017 FINDINGS: X-ray chest: There is no evidence of infiltrate, pneumothorax or pleural fluid collection. The cardiomediastinal silhouette is normal in appearance. The bony structures are unremarkable. X-ray abdomen and pelvis: The bowel gas pattern is nonobstructive. There is a cqud-ki-xiygvedo amount of stool throughout the colon. There are foci of increased density in the colon that are possibly pill fragments. There is no evidence of pneumoperitoneum nor organomegaly. Surgical clips in the right upper quadrant are consistent with previous cholecystectomy. There is dextrocurvature of the lower thoracic and upper lumbar spine. IMPRESSION: 1. No evidence of an acute pulmonary process. 2. No plain film evidence of an acute intra-abdominal process. 3. Foci of increased density in the colon that are possibly pill fragments. 4. Evidence of previous cholecystectomy. 5. Dextrocurvature lower thoracic and upper lumbar spine.
[2018-05-08] MEDS ORDERED: ZOFRAN IV ONE ×2 (17:25→21:00)
[2018-05-08] MEDS ORDERED: K-DUR PO ONE ×2 (17:25→20:00)
[2018-05-08] MEDS ORDERED: MORPHINE IV ONE (17:44)
[2018-05-08] MEDS: KCL 10MEQ/100ML 10 MEQ/100 ML BAG IV SCH ×4 (17:58→20:17)
[2018-05-08] MEDS ORDERED: NACL 0.45% 2,000 ML IV SCH (18:00)
[2018-05-08] MEDS ORDERED: BENADRYL IV ONE ×2 (18:00→20:14)
[2018-05-08] MEDS ORDERED: NACL 0.45% 1000 ML 2,000 ML IV SCH (18:00)
[2018-05-08] MEDS ORDERED: NORMODYNE IV ONE (18:37)
[2018-05-08 20:08] LABS: Calcium 8.5 mg/dL (8.4-10.2)
--- NOTE | 2018-05-08 20:13 | Consultation ---
History of Present Illness - Reason for Consult Consult date: 05/08/18 Requesting physician: BELEN KENNEDY - History of Present Illness 53 YO Female with DM complicated by Gastroparesis,GERD, HTN presents to ED for evaluation. Pt seen and evaluated in ED and found to have nausea and vomiting secondary to diabetic gastroparesis. Multiple episodes of nausea and vomiting were followed by abdominal pain. Pt treated with supportive care, IVF resuscitation therapy with improvement in symptoms. Pt medically optimized and discharged home and instructed to f/u pc 1wk, GI prn. Pt counseled to drink 1.5- 2liters of water daily, 6-8 small meals daily, 35 minutes mile exercise daily, avoid lying down less than 2 hours after eating. Past History Past Medical History: diabetes, GERD, hypertension Past Surgical History: cholecystectomy Social history: single. denies: smoking, alcohol abuse, prescription drug abuse , IV drug use Family history: diabetes, hypertension Medications and Allergies Allergies Allergy/AdvReac Type Severity Reaction Status Date / Time cefadroxil hydrate Allergy Shortness Verified 02/08/15 14:11 [facility] Home Medications Medication Instructions Recorded Confirmed Last Taken Type Ramipril 10 mg PO QDAY 12/17/14 03/16/18 02/23/15 History Promethazine [Phenergan TAB] 25 mg PO Q6HR PRN #12 tab 02/08/15 03/16/18 Unknown Rx Insulin Aspart [NovoLOG Flexpen] 20 unit SQ TIDDIAB #30 insuln.pen 01/01/18 Unknown Rx HYDROcodone/APAP 5-325 [[place] 1 each PO Q6HR PRN #14 tablet 03/14/18 Unknown Rx 5/325] Labetalol [Normodyne TAB] 200 mg PO TID #90 tablet 03/14/18 Unknown Rx Ondansetron [Zofran Odt] 4 mg PO Q6H PRN #14 tab.rapdis 03/14/18 Unknown Rx Aspirin [Aspirin BABY CHEW TAB] 81 mg PO QDAY #30 tab.chew 03/16/18 Unknown Rx AtorvaSTATin [Lipitor] 20 mg PO QHS #30 tablet 03/16/18 Unknown Rx Lactobacillus 3/Fos/Pantethine 1 each PO QDAY 30 Days #20 capsule 03/16/18 Unknown Rx [Probiotic & Acidophilus Cap] Lisinopril [Zestril TAB] 20 mg PO QDAY tablet 03/16/18 Unknown Rx Lispro Insulin [Humalog] 20 unit SUB-Q AC units 03/16/18 Unknown Rx Metoclopramide HCl [Reglan TAB] 5 mg PO TIDAC #45 tablet 03/16/18 Unknown Rx NIFEdipine XL [Procardia Xl] 60 mg PO QDAY #30 tablet 03/16/18 Unknown Rx Pantoprazole [Protonix] 40 mg PO QDAY #30 tablet 03/16/18 Unknown Rx Promethazine [Phenergan SUPPOS] 25 mg [place] Q6H PRN #6 supp.rect 03/16/18 Unknown Rx oxyCODONE /ACETAMINOPHEN [Percocet 1 tab PO Q6H PRN #6 tablet 03/16/18 Unknown Rx 5/325 mg] Metoclopramide [Reglan] 10 mg PO QID PRN #30 tab 05/03/18 Unknown Rx oxyCODONE /ACETAMINOPHEN [Percocet 1 - 2 tab PO Q6HR PRN #14 tablet 05/03/18 Unknown Rx 5/325] Metoclopramide HCl [Reglan TAB] 5 mg PO TIDAC #25 tablet 05/08/18 Unknown Rx Ondansetron [Zofran Odt] 4 mg PO Q8HR #24 tab.rapdis 05/08/18 Unknown Rx diphenhydrAMINE [Benadryl ORAL LIQ] 12.5 mg PO Q4-6H PRN #100 ml 05/08/18 Unknown Rx Active Meds: Active Medications Diphenhydramine HCl (Benadryl) 25 mg IV ONCE ONE Stop: 05/08/18 20:13 Potassium Chloride (Kcl 10meq/100ml) 10 meq in 100 mls @ 100 mls/hr IV Q1H ELENO Stop: 05/08/18 20:29 Last Infusion: 05/08/18 19:51 Dose: Infused Sodium Chloride (Nacl 0.45% 1000 Ml) 2,000 mls @ 999 mls/hr IV DIRECT ELENO Ondansetron HCl (Zofran) 4 mg IV ONCE ONE Stop: 05/08/18 20:13 Review of Systems Constitutional: no weight loss, no weight gain, no fever, no chills Ears, nose, mouth and throat: no ear pain, no ear discharge, no tinnitis, no nose pain Breasts: no change in shape, no swelling, no mass Cardiovascular: no chest pain, no orthopnea, no palpitations, no rapid/ irregular heart beat, no edema, no syncope Respiratory: no cough, no cough with sputum, no excessive sputum Gastrointestinal: no abdominal pain, no nausea, no vomiting Exam - Constitutional Vitals: Temp Pulse Resp BP Pulse Ox 97.9 F 86 20 176/89 100 05/08/18 15:50 05/08/18 20:02 05/08/18 20:02 05/08/18 20:02 05/08/18 20:02 General appearance: Present: no acute distress, well-nourished - EENT Eyes: Present: PERRL ENT: hearing intact, clear oral mucosa - Neck Neck: Present: supple, normal ROM - Respiratory Respiratory effort: normal Respiratory: bilateral: CTA - Cardiovascular Heart Sounds: Present: S1 & S2. Absent: rub, click - Extremities Extremities: pulses symmetrical, No edema Peripheral Pulses: within normal limits - Abdominal General gastrointestinal: Present: soft, non-tender, non-distended, normal bowel sounds Female genitourinary: Present: normal - Integumentary Integumentary: Present: clear, warm, dry - Musculoskeletal Musculoskeletal: gait normal, strength equal bilaterally - Psychiatric Psychiatric: appropriate mood/affect, intact judgment & insight - Neurologic Neurologic: CNII-XII intact, moves all extremities Results - Labs CBC & Chem 7: 05/08/18 16:02 05/08/18 19:23 Labs: Abnormal lab results 05/08/18 05/08/18 05/08/18 Range/Units 16:02 16:02 19:23 RBC 3.55 L (3.65-5.03) M/mm3 RDW 12.9 L (13.2-15.2) % Seg Neutrophils % 74.5 H (40.0-70.0) % Potassium 2.7 L* 3.2 L (3.6-5.0) mmol/L Creatinine 1.8 H 1.8 H (0.7-1.2) mg/dL Glucose 175 H 144 H (65-100) mg/dL Albumin 3.5 L (3.9-5) g/dL Assessment and Plan - Patient Problems (1) Diabetic gastroparesis Current Visit: Yes Status: Acute Plan to address problem: IVR resuscitation therapy, frequent small mealn, reglan, benadryl, zofran, outpatient f/u with pcp as well as gastroenterology.
[2018-05-08 21:38] VITALS: BP 189/95
== END 2018-05-08 22:30 | disposition admitted as inpatient to this hospital (09) ==
LOC: ED 15:44
DX: E11.43 Type 2 diabetes mellitus with diabetic autonomic (poly)neuropathy (principal); K31.84 Gastroparesis; Z79.4 Long term (current) use of insulin; E87.6 Hypokalemia; I10 Essential (primary) hypertension; K21.9 Gastro-esophageal reflux disease without esophagitis; Z90.49 Acquired absence of other specified parts of digestive tract; Z79.899 Other long term (current) drug therapy; Z88.1 Allergy status to other antibiotic agents
CPT/HCPCS: 36415; 74022; 80048; 80053; 83690; 84703; 85025; 96361; 96374; 96375; 96376; 99291; C9113; J1200; J2270; J2405; J2765; J3010; J3480; J7030

== ENCOUNTER 2018-12-13 17:18 | Inpatient (IN) | payer SELFPAY ==
[2018-12-13 18:01] LABS: Basophils % (Auto) 0.4 % (0.0-1.8); Hematocrit 27.4 % (30.3-42.9); Hemoglobin 9.1 gm/dl (10.1-14.3); Lymphocytes # (Auto) 0.8 K/mm3 (1.2-5.4); Lymphocytes % (Auto) 7.2 % (13.4-35.0); Mean Corpuscular HGB Conc 33 % (30-34); Mean Corpuscular Volume 96 fl (79-97); Monocytes # (Auto) 0.5 K/mm3 (0.0-0.8); Monocytes % (Auto) 4.6 % (0.0-7.3); Platelet Count 306 K/mm3 (140-440); Red Blood Count 2.85 M/mm3 (3.65-5.03)
[2018-12-13 18:06] LABS: Albumin 3.8 g/dL (3.9-5); Calcium 9.4 mg/dL (8.4-10.2)
--- NOTE | 2018-12-13 18:09 | Emergency Department Report ---
ED Abdominal Pain HPI - General Chief Complaint: Abdominal Pain Stated Complaint: N/V Time Seen by Provider: 12/13/18 18:01 Source: patient, EMS Mode of arrival: Stretcher Limitations: No Limitations - History of Present Illness Initial Comments: CC: "I am having a flare up of the gastro." HPI: Mrs. Araya is a 53 yo female with hx of type 2 diabetes mellitus, hypertension, CKD, cardiomyopathy and gastroparesis who presents with 2 days of nausea/vomiting and mild abdominal pain. No longer has health insurance. Has had trouble managing her medical issues. Denies fever. Gradual onset of symptoms. Former PCP Dr. Nevin Mancilla Has been receiving medical care from [facility] since June Complaint: abdominal pain -: Gradual, days(s) (2) Location: epigastric Radiation: none Migration to: no migration Severity: mild Quality: aching, other (feels like a strain from the retching) Improves With: nothing Worsens With: vomiting Context: other (history of gastroparesis since 2014) Associated Symptoms: nausea, vomiting - Related Data Home Medications Medication Instructions Recorded Confirmed Last Taken Ramipril 10 mg PO QDAY 12/17/14 03/16/18 02/23/15 Previous Rx's Medication Instructions Recorded Last Taken Type Insulin Aspart [NovoLOG Flexpen] 20 unit SQ TIDDIAB #30 insuln.pen 01/01/18 Unknown Rx Labetalol [Labetalol 200mg TAB] 200 mg PO TID #90 tablet 03/14/18 Unknown Rx Aspirin [Aspirin BABY CHEW TAB] 81 mg PO QDAY #30 tab.chew 03/16/18 Unknown Rx AtorvaSTATin [Lipitor] 20 mg PO QHS #30 tablet 03/16/18 Unknown Rx Lisinopril [Zestril TAB] 20 mg PO QDAY tablet 03/16/18 Unknown Rx Lispro Insulin [HumaLOG] 20 unit SUB-Q AC units 03/16/18 Unknown Rx NIFEdipine XL [Procardia Xl] 60 mg PO QDAY #30 tablet 03/16/18 Unknown Rx Allergies Allergy/AdvReac Type Severity Reaction Status Date / Time cefadroxil hydrate Allergy Shortness Verified 12/13/18 18:46 [From [facility]] of Breath ED Review of Systems ROS: Stated complaint: N/V Other details as noted in HPI Comment: All other systems reviewed and negative Constitutional: denies: fever, malaise Respiratory: denies: cough Gastrointestinal: abdominal pain, nausea, vomiting ED Past Medical Hx - Past Medical History Previous Medical History?: Yes Hx Hypertension: Yes Hx Congestive Heart Failure: No Hx Diabetes: Yes Hx GERD: Yes Hx Kidney Stones: Yes Hx Asthma: No Hx COPD: No Hx HIV: No Additional medical history: gastroparesis - Surgical History Past Surgical History?: Yes Hx Cholecystectomy: Yes (01/23/15) - Social History Smoking Status: Never Smoker Substance Use Type: None - Medications Home Medications: Home Medications Medication Instructions Recorded Confirmed Last Taken Type Ramipril 10 mg PO QDAY 12/17/14 03/16/18 02/23/15 History Insulin Aspart [NovoLOG Flexpen] 20 unit SQ TIDDIAB #30 insuln.pen 01/01/18 03/16/18 Unknown Rx Labetalol [Labetalol 200mg TAB] 200 mg PO TID #90 tablet 03/14/18 Unknown Rx Aspirin [Aspirin BABY CHEW TAB] 81 mg PO QDAY #30 tab.chew 03/16/18 Unknown Rx AtorvaSTATin [Lipitor] 20 mg PO QHS #30 tablet 03/16/18 Unknown Rx Lisinopril [Zestril TAB] 20 mg PO QDAY tablet 03/16/18 Unknown Rx Lispro Insulin [HumaLOG] 20 unit SUB-Q AC units 03/16/18 Unknown Rx NIFEdipine XL [Procardia Xl] 60 mg PO QDAY #30 tablet 03/16/18 Unknown Rx ED Physical Exam - General Limitations: No Limitations General appearance: alert, in no apparent distress - Head Head exam: Present: atraumatic, normocephalic - Eye Eye exam: Present: normal appearance - ENT ENT exam: Present: mucous membranes moist - Neck Neck exam: Present: normal inspection, full ROM - Respiratory Respiratory exam: Present: normal lung sounds bilaterally. Absent: respiratory distress, wheezes, rales, rhonchi - Cardiovascular Cardiovascular Exam: Present: regular rate, normal rhythm, normal heart sounds. Absent: systolic murmur, diastolic murmur, rubs, gallop - GI/Abdominal GI/Abdominal exam: Present: soft, normal bowel sounds. Absent: distended, tenderness, guarding, rebound - Extremities Exam Extremities exam: Present: normal inspection - Back Exam Back exam: Present: normal inspection - Neurological Exam Neurological exam: Present: alert, oriented X3 - Psychiatric Psychiatric exam: Present: normal affect, normal mood - Skin Skin exam: Present: warm, dry, intact, normal color. Absent: rash ED Course Vital Signs 12/13/18 12/13/18 12/13/18 17:38 17:45 18:00 Temperature 97.7 F Pulse Rate 116 H Respiratory 120 H Rate Blood Pressure 212/124 206/121 Blood Pressure 204/124 [Right] O2 Sat by Pulse 87 99 99 Oximetry 12/13/18 12/13/18 12/13/18 18:15 18:30 18:45 Temperature Pulse Rate 90 88 Respiratory 26 H 22 Rate Blood Pressure 212/123 198/111 187/100 Blood Pressure [Right] O2 Sat by Pulse 100 100 99 Oximetry 12/13/18 12/13/18 12/13/18 19:00 19:15 19:30 Temperature Pulse Rate 88 88 90 Respiratory 24 22 28 H Rate Blood Pressure 191/106 191/101 189/104 Blood Pressure [Right] O2 Sat by Pulse 100 99 100 Oximetry 12/13/18 12/13/18 12/13/18 19:45 20:00 20:15 Temperature Pulse Rate 100 H 97 H 97 H Respiratory 19 26 H 18 Rate Blood Pressure 203/131 200/121 192/117 Blood Pressure [Right] O2 Sat by Pulse 99 99 100 Oximetry 12/13/18 12/13/18 12/13/18 20:30 20:45 21:00 Temperature Pulse Rate 101 H 90 88 Respiratory 26 H 26 H 25 H Rate Blood Pressure 196/104 175/88 168/92 Blood Pressure [Right] O2 Sat by Pulse 99 99 100 Oximetry 12/13/18 12/13/18 21:13 21:15 Temperature Pulse Rate 90 Respiratory 28 H Rate Blood Pressure 176/86 Blood Pressure [Right] O2 Sat by Pulse 100 100 Oximetry ED Medical Decision Making - Lab Data Result diagrams: 12/13/18 17:42 12/13/18 17:42 Laboratory Results - last 24 hr 12/13/18 12/13/18 12/13/18 17:42 17:42 19:43 WBC 10.4 RBC 2.85 L Hgb 9.1 L Hct 27.4 L MCV 96 MCH 32 MCHC 33 RDW 15.0 Plt Count 306 Lymph % (Auto) 7.2 L [place] % (Auto) 4.6 Eos % (Auto) 0.0 Baso % (Auto) 0.4 Lymph # 0.8 L [place] # 0.5 Eos # 0.0 Baso # 0.0 Seg Neutrophils % 87.8 H Seg Neutrophils # 9.1 H POC ABG pH POC ABG pO2 POC ABG HCO3 POC ABG Total CO2 POC ABG O2 Sat POC ABG Base Excess FiO2 Sodium 140 Potassium 5.9 H Chloride 108.4 H Carbon Dioxide 14 L Anion Gap 24 BUN 50 H Creatinine 3.6 H Estimated GFR 16 BUN/Creatinine Ratio 14 Glucose 190 H POC Glucose 151 H Calcium 9.4 Total Bilirubin 0.80 AST 31 ALT 50 Alkaline Phosphatase 132 H Total Protein 8.0 Albumin 3.8 L Albumin/Globulin Ratio 0.9 Lipase 13 Urine Color Urine Turbidity Urine pH Ur Specific [place] Urine Protein Urine Glucose (UA) Urine Ketones Urine Blood Urine Nitrite Urine Bilirubin Urine Urobilinogen Ur Leukocyte Esterase Urine WBC (Auto) Urine RBC (Auto) U Epithel Cells (Auto) Uric Acid Crystals Urine Mucus 12/13/18 12/13/18 21:18 Unknown WBC RBC Hgb Hct MCV MCH MCHC RDW Plt Count Lymph % (Auto) [place] % (Auto) Eos % (Auto) Baso % (Auto) Lymph # [place] # Eos # Baso # Seg Neutrophils % Seg Neutrophils # POC ABG pH 7.320 L POC ABG pO2 106 H POC ABG HCO3 11.0 POC ABG Total CO2 12 POC ABG O2 Sat 98 POC ABG Base Excess -15 FiO2 21 Sodium Potassium Chloride Carbon Dioxide Anion Gap BUN Creatinine Estimated GFR BUN/Creatinine Ratio Glucose POC Glucose Calcium Total Bilirubin AST ALT Alkaline Phosphatase Total Protein Albumin Albumin/Globulin Ratio Lipase Urine Color Yellow Urine Turbidity Cloudy Urine pH 5.0 Ur Specific [place] 1.020 Urine Protein <15 mg/dl Urine Glucose (UA) Neg Urine Ketones 20 Urine Blood Lg Urine Nitrite Neg Urine Bilirubin Neg Urine Urobilinogen < 2.0 Ur Leukocyte Esterase Neg Urine WBC (Auto) 2.0 Urine RBC (Auto) 10.0 U Epithel Cells (Auto) < 1.0 Uric Acid Crystals Few Urine Mucus 1+ - EKG Data 12/13/18 19:47 EKG obtained 1939 Sinus tachycardia rate 100 bpm normal axis prolonged QT interval no significant ST elevation normal amplitude T-wave - Medical Decision Making Mrs. Araya is a 53-year-old female with history of diabetes mellitus, hypertension and gastroparesis. Gastroparesis diagnosed 2014. She has been vomiting for the last 2 days. She also has a known history of chronic renal sufficiency. Today with blood sugar 190 on chemistry, anion gap acidosis with acute kidney injury is present. Metabolic anion gap acidosis due to multiple causes including volume contraction (starvation ketosis), diabetic ketoacidosis, renal failulre. Will hold insulin infusion at this time considering low blood sugar reading. Will need volume resuscitation. Hypertensive urgency, severely elevated blood pressure readings address with IV labetalol multiple doses Admitted in fair condition Critical care attestation.: If time is entered above; I have spent that time in minutes in the direct care of this critically ill patient, excluding procedure time. ED Disposition Clinical Impression: Insulin dependent diabetes mellitus, Hypertensive urgency, [place] (acute kidney injury), Diabetic gastroparesis, Metabolic acidosis Disposition: OP ADMIT IP TO THIS HOSP Is pt being admited?: Yes Does the pt Need Aspirin: No Condition: Stable Instructions: Abdominal Pain (ED), Diabetes Mellitus Type 2 in Children (ED) Referrals: PEGGY MCKEON MD [Primary Care Provider] - 3-5 Days
[2018-12-13] MEDS ORDERED: NORMODYNE IV ONE ×2 (18:10→20:33)
[2018-12-13] MEDS ORDERED: ATIVAN IV ONE (18:10)
[2018-12-13] MEDS ORDERED: ZOFRAN IV ONE (18:10)
[2018-12-13] MEDS ORDERED: PEPCID IV ONE (18:10)
[2018-12-13] MEDS ORDERED: HumuLIN R IV ONE (19:39)
[2018-12-13] MEDS ORDERED: D50W (25GM) Syringe IV ONE (19:39)
[2018-12-13 19:53] LABS: Bilirubin,Urine NEG (Negative); Blood,Urine LG (Negative); Color,Urine Yellow (Yellow); Mucus,Urine 1+ /HPF; Protein,Urine <15 mg/dL mg/dL (Negative); Urobilinogen,Urine < 2.0 mg/dL (<2.0)
[2018-12-13] MEDS ORDERED: NACL 0.9% 1000 ML 1,000 ML IV ONE ×2 (21:34)
[2018-12-13] MEDS ORDERED: ZOFRAN IV PRN (22:26)
[2018-12-13] MEDS ORDERED: SODIUM CHLORIDE FLUSH SYRINGE 10 ML IV PRN (22:26)
[2018-12-13] MEDS ORDERED: MORPHINE IV PRN (22:26)
[2018-12-13] MEDS ORDERED: TYLENOL PO PRN (22:26)
[2018-12-13] MEDS ORDERED: TYLENOL PR PRN (22:26)
[2018-12-13] MEDS ORDERED: REGLAN IV PRN (22:26)
[2018-12-13] MEDS ORDERED: D50W (25GM) Syringe IV PRN (22:26)
[2018-12-13] MEDS ORDERED: KIONEX PO ONE (22:36)
--- NOTE | 2018-12-13 22:36 | History and Physical Report ---
History of Present Illness Date of examination: 12/13/18 History of present illness: 53 year old woman with history of diabetes dictated by gastroparesis, hypertension, ckd comes to the emergency room with complaints of nausea, vomiting for 2 days, unable to tolerate oral intake. Also complaining of abdominal pain in the epigastric area, occurs with vomiting, dull, intermittent over 5 minutes, no radiation, intensity 4/10. Review of systems Constitutional: no weight loss, chills, fever Ears, eyes, nose, mouth and throat: no nasal congestion, no nasal discharge, no sinus pressure, no vision change, no red eye. Neck: No neck pain or rigidity. Cardiovascular: no palpitations, chest pain Respiratory: no cough, shortness of breath Gastrointestinal: no hematochezia, abdominal pain Genitourinary : no frequency , no hematuria Musculoskeletal: no joint swelling or muscle ache Integumentary: no rash, no pruritis Neurological: no parathesias, no focal weakness Endocrine: no cold or heat intolerance, no polyuria or polydipsia Hematologic/Lymphatic: no easy bruising, no easy bleeding, no gland swelling Allergic/Immunologic: no urticaria, no angioedema. PAST MEDICAL HISTORY: diabetes, hypertension, gastroparesis PAST SURGICAL HISTORY: Cholecystectomy SOCIAL HISTORY: Denies tobacco, drugs, alcohol FAMILY HISTORY: Hypertension Medications and Allergies Allergies Allergy/AdvReac Type Severity Reaction Status Date / Time cefadroxil hydrate Allergy Shortness Verified 12/13/18 18:46 [From [facility] [place] of Breath Home Medications Medication Instructions Recorded Confirmed Last Taken Type Ramipril 10 mg PO QDAY 12/17/14 12/13/18 02/23/15 History Insulin Aspart [NovoLOG Flexpen] 20 unit SQ TIDDIAB #30 insuln.pen 01/01/18 12/13/18 Unknown Rx Labetalol [Labetalol 200mg TAB] 200 mg PO TID #90 tablet 03/14/18 12/13/18 Unknown Rx Aspirin [Aspirin BABY CHEW TAB] 81 mg PO QDAY #30 tab.chew 03/16/18 Unknown Rx AtorvaSTATin [Lipitor] 20 mg PO QHS #30 tablet 03/16/18 Unknown Rx Lisinopril [Zestril TAB] 20 mg PO QDAY tablet 03/16/18 12/13/18 Unknown Rx Lispro Insulin [HumaLOG] 20 unit SUB-Q AC units 03/16/18 12/13/18 Unknown Rx NIFEdipine XL [Procardia Xl] 60 mg PO QDAY #30 tablet 03/16/18 12/13/18 Unknown Rx Ferrous Sulfate [High Potency Iron 27 mg PO 12/13/18 Unknown History 27 MG] Promethazine [Phenergan] 25 mg PO 12/13/18 12/13/18 Unknown History Active Meds: Active Medications Acetaminophen (Tylenol) 650 mg PO Q4H PRN PRN Reason: Pain MILD(1-3)/Fever >100.5/QUIÑONEZ Acetaminophen (Tylenol) 650 mg [place] Q4H PRN PRN Reason: Pain MILD(1-3)/Fever >100.5/QUIÑONEZ Dextrose (D50w (25gm) Syringe) 50 ml IV PRN PRN PRN Reason: Hypoglycemia Enoxaparin Sodium (Lovenox) 30 mg SUB-Q QDAY [facility]ENO Sodium Chloride (Nacl 0.45% 1000 Ml) 1,000 mls @ 125 mls/hr IV DIRECT ELENO Insulin Human Lispro (Humalog) 0 unit SUB-Q Q6HR ELENO; Protocol Metoclopramide HCl (Reglan) 10 mg IV Q6H PRN PRN Reason: Nausea And Vomiting Morphine Sulfate (Morphine) 2 mg IV Q4H PRN PRN Reason: Pain, Moderate (4-6) Ondansetron HCl (Zofran) 4 mg IV Q4H PRN PRN Reason: Nausea And Vomiting Sodium Chloride (Sodium Chloride Flush Syringe 10 Ml) 10 ml IV BID ELENO Sodium Chloride (Sodium Chloride Flush Syringe 10 Ml) 10 ml IV PRN PRN PRN Reason: LINE FLUSH Exam - Physical Exam Narrative exam: Gen. appearance: Patient lying in bed, no apparent distress HEENT: Normocephalic, atraumatic, pupils equally round and reactive to light, extraocular movement intact, and no sclericterus,. No JVD or thyromegaly or nodule,neck supple, no carotid bruit ,mucous membranes moist, no exudate or erythema Heart: S1, S2, regular rate and rhythm Lungs: Clear to auscultation bilaterally, breathing comfortable Abdomen: Positive bowel sounds, nontender, nondistended, no organomegaly Extremity: No edema, cyanosis, clubbing Skin: No rash, nodules, warm, dry Neuro: Oriented 3, cranial nerves II-12 intact, speech is fluent, motor and sensory intact - Constitutional Vitals: Temp Pulse Resp BP Pulse Ox 97.7 F 90 28 H 176/86 100 12/13/18 17:45 12/13/18 21:15 12/13/18 21:15 12/13/18 21:15 12/13/18 21:15 Results - Labs CBC & Chem 7: 12/13/18 17:42 12/14/18 00:48 Labs: Abnormal lab results 12/13/18 12/13/18 12/13/18 Range/Units 17:42 17:42 19:43 RBC 2.85 L (3.65-5.03) M/mm3 Hgb 9.1 L (10.1-14.3) gm/dl Hct 27.4 L (30.3-42.9) % Lymph % (Auto) 7.2 L (13.4-35.0) % Lymph # 0.8 L (1.2-5.4) K/mm3 Seg Neutrophils % 87.8 H (40.0-70.0) % Seg Neutrophils # 9.1 H (1.8-7.7) K/mm3 POC ABG pH (7.35-7.45) POC ABG pO2 (80-105) Potassium 5.9 H (3.6-5.0) mmol/L Chloride 108.4 H (98-107) mmol/L Carbon Dioxide 14 L (22-30) mmol/L BUN 50 H (7-17) mg/dL Creatinine 3.6 H (0.7-1.2) mg/dL Glucose 190 H (65-100) mg/dL POC Glucose 151 H (70-105) Alkaline Phosphatase 132 H (35-129) units/L Albumin 3.8 L (3.9-5) g/dL 12/13/18 Range/Units 21:18 RBC (3.65-5.03) M/mm3 Hgb (10.1-14.3) gm/dl Hct (30.3-42.9) % Lymph % (Auto) (13.4-35.0) % Lymph # (1.2-5.4) K/mm3 Seg Neutrophils % (40.0-70.0) % Seg Neutrophils # (1.8-7.7) K/mm3 POC ABG pH 7.320 L (7.35-7.45) POC ABG pO2 106 H (80-105) Potassium (3.6-5.0) mmol/L Chloride (98-107) mmol/L Carbon Dioxide (22-30) mmol/L BUN (7-17) mg/dL Creatinine (0.7-1.2) mg/dL Glucose (65-100) mg/dL POC Glucose (70-105) Alkaline Phosphatase (35-129) units/L Albumin (3.9-5) g/dL Assessment and Plan Assessment Acute renal failure on chronic Acute on chronic gastroparesis Hyperkalemia Diabetes Hypertension Plan Admit to medicine Start IV fluid, monitor kidney function, give Kayexalate Check fingersticks, Start insulin sliding scale Start DVT prophalaxis, hydralazine for blood pressure control
[2018-12-13] MEDS: APRESOLINE IV PRN (23:50)
[2018-12-13] MEDS: NACL 0.45% 1000 ML 1,000 ML IV SCH (23:50)
[2018-12-13] MEDS: REGLAN IV PRN (23:51)
[2018-12-14 01:20] LABS: Calcium 9.1 mg/dL (8.4-10.2)
[2018-12-14] MEDS: HumaLOG SUB-Q SCH ×4 (01:20→18:00)
[2018-12-14] MEDS: APRESOLINE IV PRN ×2 (04:53→19:52)
[2018-12-14 06:10] LABS: Basophils % (Auto) 0.3 % (0.0-1.8); Hematocrit 26.6 % (30.3-42.9); Hemoglobin 8.7 gm/dl (10.1-14.3); Lymphocytes # (Auto) 1.1 K/mm3 (1.2-5.4); Lymphocytes % (Auto) 9.7 % (13.4-35.0); Mean Corpuscular HGB Conc 33 % (30-34); Mean Corpuscular Volume 98 fl (79-97); Monocytes # (Auto) 0.6 K/mm3 (0.0-0.8); Monocytes % (Auto) 5.5 % (0.0-7.3); Platelet Count 263 K/mm3 (140-440); Red Blood Count 2.72 M/mm3 (3.65-5.03); Red Cell Distribution Width 15.4 % (13.2-15.2)
[2018-12-14 06:22] LABS: Calcium 8.7 mg/dL (8.4-10.2)
[2018-12-14] MEDS: LOVENOX SUB-Q SCH (09:42)
[2018-12-14] MEDS: SODIUM CHLORIDE FLUSH SYRINGE 10 ML IV SCH ×2 (09:43→22:00)
--- NOTE | 2018-12-14 12:21 | Progress Note ---
Assessment and Plan Assessment and plan: Acute on CKD III. patient with a baseline creatinine of approximately 1.26 April 2018. Nephrology consultation. Etiology likely secondary to volume depletion/vasomotor nephropathy from dehydration. Acute on chronic gastroparesis. Continue Reglan, antiemetics and supportive care. Advance diet as tolerated Hyperkalemia. Etiology secondary to #1. Improved. s/p Kayexalate Diabetes mellitus type II. Continue Accu-Cheks and sliding scale as. Hypertension. Resume antihypertensive medications. Disposition. Anticipate discharge in a.m. if kidney function improves with IV fluids and tolerating by mouth. History Interval history: Mrs. Araya is a 53 yo female with hx of type 2 diabetes mellitus, hypertension, CKD, cardiomyopathy and gastroparesis who presents with 2 days of nausea/vomiting and mild abdominal pain. Hospitalist Physical - Constitutional Vitals: Temp Pulse Resp BP Pulse Ox 98.4 F 86 16 181/97 98 12/14/18 07:46 12/14/18 07:46 12/14/18 07:46 12/14/18 07:46 12/14/18 07:46 General appearance: Present: no acute distress, well-nourished - EENT Eyes: Present: PERRL, EOM intact ENT: hearing intact, clear oral mucosa, dentition normal - Neck Neck: Present: supple, normal ROM - Respiratory Respiratory effort: normal Respiratory: bilateral: CTA - Cardiovascular Rhythm: regular Heart Sounds: Present: S1 & S2. Absent: gallop, rub - Extremities Extremities: no ischemia, No edema, Full ROM - Abdominal General gastrointestinal: soft, non-tender, non-distended, normal bowel sounds - Integumentary Integumentary: Present: clear, warm, dry - Neurologic Neurologic: CNII-XII intact, moves all extremities Results - Labs CBC & Chem 7: 12/14/18 05:36 12/14/18 05:36 Labs: Laboratory Last Values WBC 11.2 K/mm3 (4.5-11.0) H 12/14/18 05:36 RBC 2.72 M/mm3 (3.65-5.03) L 12/14/18 05:36 Hgb 8.7 gm/dl (10.1-14.3) L 12/14/18 05:36 Hct 26.6 % (30.3-42.9) L 12/14/18 05:36 MCV 98 fl (79-97) H 12/14/18 05:36 MCH 32 pg (28-32) 12/14/18 05:36 MCHC 33 % (30-34) 12/14/18 05:36 RDW 15.4 % (13.2-15.2) H 12/14/18 05:36 Plt Count 263 K/mm3 (140-440) 12/14/18 05:36 Lymph % (Auto) 9.7 % (13.4-35.0) L 12/14/18 05:36 [place] % (Auto) 5.5 % (0.0-7.3) 12/14/18 05:36 Eos % (Auto) 0.0 % (0.0-4.3) 12/14/18 05:36 Baso % (Auto) 0.3 % (0.0-1.8) 12/14/18 05:36 Lymph # 1.1 K/mm3 (1.2-5.4) L 12/14/18 05:36 [place] # 0.6 K/mm3 (0.0-0.8) 12/14/18 05:36 Eos # 0.0 K/mm3 (0.0-0.4) 12/14/18 05:36 Baso # 0.0 K/mm3 (0.0-0.1) 12/14/18 05:36 Seg Neutrophils % 84.5 % (40.0-70.0) H 12/14/18 05:36 Seg Neutrophils # 9.4 K/mm3 (1.8-7.7) H 12/14/18 05:36 POC ABG pH 7.320 (7.35-7.45) L 12/13/18 21:18 POC ABG pO2 106 (80-105) H 12/13/18 21:18 POC ABG HCO3 11.0 (22-26 mml/L) 12/13/18 21:18 POC ABG Total CO2 12 (23-27mmol/L) 12/13/18 21:18 POC ABG O2 Sat 98 12/13/18 21:18 POC ABG Base Excess -15 ((-2) - (+3)mmol/L) 12/13/18 21:18 21 % 12/13/18 21:18 Sodium 140 mmol/L (137-145) 12/14/18 05:36 Potassium 5.1 mmol/L (3.6-5.0) H 12/14/18 05:36 Chloride 112.1 mmol/L (98-107) H 12/14/18 05:36 Carbon Dioxide 11 mmol/L (22-30) L 12/14/18 05:36 22 mmol/L 12/14/18 05:36 BUN 51 mg/dL (7-17) H 12/14/18 05:36 3.6 mg/dL (0.7-1.2) H 12/14/18 05:36 Estimated GFR 16 ml/min 12/14/18 05:36 14 % 12/14/18 05:36 Glucose 94 mg/dL (65-100) 12/14/18 05:36 POC Glucose 123 (70-105) H 12/14/18 12:05 Negative (Negative) 12/13/18 21:47 Calcium 8.7 mg/dL (8.4-10.2) 12/14/18 05:36 0.80 mg/dL (0.1-1.2) 12/13/18 17:42 AST 31 units/L (5-40) 12/13/18 17:42 ALT 50 units/L (7-56) 12/13/18 17:42 132 units/L (35-129) H 12/13/18 17:42 8.0 g/dL (6.3-8.2) 12/13/18 17:42 3.8 g/dL (3.9-5) L 12/13/18 17:42 0.9 % 12/13/18 17:42 13 units/L (13-60) 12/13/18 17:42 Yellow (Yellow) 12/13/18 Unknown Cloudy (Clear) 12/13/18 Unknown 5.0 (5.0-7.0) 12/13/18 Unknown Ur Specific [place] 1.020 (1.003-1.030) 12/13/18 Unknown <15 mg/dl mg/dL (Negative) 12/13/18 Unknown Neg mg/dL (Negative) 12/13/18 Unknown 20 mg/dL (Negative) 12/13/18 Unknown Lg (Negative) 12/13/18 Unknown Neg (Negative) 12/13/18 Unknown Neg (Negative) 12/13/18 Unknown < 2.0 mg/dL (<2.0) 12/13/18 Unknown Ur Leukocyte Esterase Neg (Negative) 12/13/18 Unknown 2.0 /HPF (0.0-6.0) 12/13/18 Unknown 10.0 /HPF (0.0-6.0) 12/13/18 Unknown U Epithel Cells (Auto) < 1.0 /HPF (0-13.0) 12/13/18 Unknown Uric Acid Crystals Few 12/13/18 Unknown 1+ /HPF 12/13/18 Unknown Active Medications - Current Medications Current Medications: Generic Name Dose Route Start Last Admin Trade Name Freq PRN Reason Stop Dose Admin Acetaminophen 650 mg 12/13/18 22:26 Tylenol PO Q4H PRN Pain MILD(1-3)/Fever >100.5/QUIÑONEZ Acetaminophen 650 mg 12/13/18 22:26 Tylenol OR Q4H PRN Pain MILD(1-3)/Fever >100.5/QUIÑONEZ Dextrose 50 ml 12/13/18 22:26 D50w (25gm) Syringe IV PRN PRN Hypoglycemia Enoxaparin Sodium 30 mg 12/14/18 10:00 12/14/18 09:42 Lovenox SUB-Q 30 mg QDAY ELENO Administration Hydralazine HCl 5 mg 12/13/18 22:54 12/14/18 04:53 Apresoline IV 5 mg Q6H PRN Administration Hypertension Sodium Chloride 1,000 mls @ 75 mls/hr 12/13/18 23:00 12/13/18 23:50 Nacl 0.45% 1000 Ml IV 75 mls/hr DIRECT ELENO Administration Insulin Human Lispro 0 unit 12/14/18 00:00 12/14/18 06:24 Humalog SUB-Q Not Given Q6HR [facility] Protocol Metoclopramide HCl 5 mg 12/13/18 22:41 12/13/18 23:51 Reglan IV 5 mg Q6H PRN Administration Nausea And Vomiting Morphine Sulfate 2 mg 12/13/18 22:26 12/13/18 23:51 Morphine IV 2 mg Q4H PRN Administration Pain, Moderate (4-6) Ondansetron HCl 4 mg 12/13/18 22:26 Zofran IV Q4H PRN Nausea And Vomiting Sodium Chloride 10 ml 12/14/18 10:00 12/14/18 09:43 Sodium Chloride Flush Syringe 10 Ml IV 10 ml BID ELENO Administration Sodium Chloride 10 ml 12/13/18 22:26 Sodium Chloride Flush Syringe 10 Ml IV PRN PRN LINE FLUSH
[2018-12-14] MEDS: NACL 0.45% 1000 ML 1,000 ML IV SCH (14:30)
[2018-12-14] MEDS: REGLAN IV PRN (19:47)
[2018-12-15] MEDS: HumaLOG SUB-Q SCH ×4 (00:28→19:17)
[2018-12-15] MEDS: APRESOLINE IV PRN ×2 (01:09→08:57)
[2018-12-15] MEDS: REGLAN IV PRN (06:19)
[2018-12-15] MEDS: NACL 0.45% 1000 ML 1,000 ML IV SCH (06:20)
[2018-12-15] MEDS: LOVENOX SUB-Q SCH (09:11)
[2018-12-15] MEDS: SODIUM CHLORIDE FLUSH SYRINGE 10 ML IV SCH ×2 (09:12→23:16)
--- NOTE | 2018-12-15 10:17 | Consultation ---
History of Present Illness - Reason for Consult Consult date: 12/15/18 acute renal failure, chronic renal failure, metabolic acidosis Requesting physician: STEPH CHAVEZ - History of Present Illness HPI: Mrs. Araya is a 53 yo female with hx of type 2 diabetes mellitus, hypertension, CKD, cardiomyopathy and gastroparesis who presents with 2 days of nausea/vomiting and mild abdominal pain. No longer has health insurance. Has had trouble managing her medical issues. Denies fever. Gradual onset of symptoms. Former PCP Dr. Nevin Mancilla Has been receiving medical care from [facility] since June Complaint: abdominal pain -: Gradual, days(s) (2) Location: epigastric Radiation: none Migration to: no migration Severity: mild Quality: aching, other (feels like a strain from the retching) Improves With: nothing Worsens With: vomiting Context: other (history of gastroparesis since 2014) Associated Symptoms: nausea, vomiting ROS: Stated complaint: N/V Other details as noted in HPI Comment: All other systems reviewed and negative Constitutional: denies: fever, malaise Respiratory: denies: cough Gastrointestinal: abdominal pain, nausea, vomiting - Past Medical History Previous Medical History?: Yes Hx Hypertension: Yes Hx Congestive Heart Failure: No Hx Diabetes: Yes Hx GERD: Yes Hx Kidney Stones: Yes Hx Asthma: No Hx COPD: No Hx HIV: No Additional medical history: gastroparesis - Surgical History Past Surgical History?: Yes Hx Cholecystectomy: Yes (01/23/15) - Social History Smoking Status: Never Smoker Substance Use Type: None Medications and Allergies Allergies Allergy/AdvReac Type Severity Reaction Status Date / Time cefadroxil hydrate Allergy Shortness Verified 12/13/18 18:46 [From José] of Breath Home Medications Medication Instructions Recorded Confirmed Last Taken Type Ramipril 10 mg PO QDAY 12/17/14 12/13/18 02/23/15 History Insulin Aspart [NovoLOG Flexpen] 20 unit SQ TIDDIAB #30 insuln.pen 01/01/1811/18 Unknown Rx Labetalol [Labetalol 200mg TAB] 200 mg PO TID #90 tablet 03/14/18 12/13/18 Unknown Rx Aspirin [Aspirin BABY CHEW TAB] 81 mg PO QDAY #30 tab.chew 03/16/18 12/14/18 Unknown Rx AtorvaSTATin [Lipitor] 20 mg PO QHS #30 tablet 03/16/18 12/14/18 Unknown Rx Lisinopril [Zestril TAB] 20 mg PO QDAY tablet 03/16/18 12/13/18 Unknown Rx Lispro Insulin [HumaLOG] 20 unit SUB-Q AC units 03/16/18 12/13/18 Unknown Rx NIFEdipine XL [Procardia Xl] 60 mg PO QDAY #30 tablet 03/16/18 12/13/18 Unknown Rx Ferrous Sulfate [High Potency Iron 27 mg PO QDAY 12/13/18 12/14/18 Unknown History 27 MG] Promethazine [Phenergan] 25 mg PO PRN 12/13/18 Unknown History Active Meds: Active Medications Acetaminophen (Tylenol) 650 mg PO Q4H PRN PRN Reason: Pain MILD(1-3)/Fever >100.5/QUIÑONEZ Acetaminophen (Tylenol) 650 mg [place] Q4H PRN PRN Reason: Pain MILD(1-3)/Fever >100.5/QUIÑONEZ Dextrose (D50w (25gm) Syringe) 50 ml IV PRN PRN PRN Reason: Hypoglycemia Enoxaparin Sodium (Lovenox) 30 mg SUB-Q QDAY [facility] Last Admin: 12/15/18 09:11 Dose: 30 mg Documented by: Hydralazine HCl (Apresoline) 10 mg IV Q4HR PRN PRN Reason: Hypertension Last Admin: 12/15/18 08:57 Dose: 10 mg Documented by: Sodium Chloride (Nacl 0.45% 1000 Ml) 1,000 mls @ 75 mls/hr IV DIRECT ELENO Last Admin: 12/15/18 06:20 Dose: 75 mls/hr Documented by: Insulin Human Lispro (Humalog) 0 unit SUB-Q Q6HR [facility]; Protocol Last Admin: 12/15/18 06:18 Dose: Not Given Documented by: Metoclopramide HCl (Reglan) 5 mg IV Q6H PRN PRN Reason: Nausea And Vomiting Last Admin: 12/15/18 06:19 Dose: 5 mg Documented by: Morphine Sulfate (Morphine) 2 mg IV Q4H PRN PRN Reason: Pain, Moderate (4-6) Last Admin: 12/13/18 23:51 Dose: 2 mg Documented by: Ondansetron HCl (Zofran) 4 mg IV Q4H PRN PRN Reason: Nausea And Vomiting Last Admin: 12/14/18 14:48 Dose: 4 mg Documented by: Sodium Chloride (Sodium Chloride Flush Syringe 10 Ml) 10 ml IV BID ELENO Last Admin: 12/15/18 09:12 Dose: 10 ml Documented by: Sodium Chloride (Sodium Chloride Flush Syringe 10 Ml) 10 ml IV PRN PRN PRN Reason: LINE FLUSH Exam - Vital Signs Vital signs: Vital Signs Pulse Ox 87 12/13/18 17:38 - Physical Exam Narrative exam: - General Limitations: No Limitations General appearance: alert, in no apparent distress - Head Head exam: Present: atraumatic, normocephalic - Eye Eye exam: Present: normal appearance - ENT ENT exam: Present: mucous membranes moist - Neck Neck exam: Present: normal inspection, full ROM - Respiratory Respiratory exam: Present: normal lung sounds bilaterally. Absent: respiratory distress, wheezes, rales, rhonchi - Cardiovascular Cardiovascular Exam: Present: regular rate, normal rhythm, normal heart sounds. Absent: systolic murmur, diastolic murmur, rubs, gallop - GI/Abdominal GI/Abdominal exam: Present: soft, normal bowel sounds. Absent: distended, tenderness, guarding, rebound - Extremities Exam Extremities exam: Present: normal inspection - Back Exam Back exam: Present: normal inspection - Neurological Exam Neurological exam: Present: alert, oriented X3 - Psychiatric Psychiatric exam: Present: normal affect, normal mood - Skin Skin exam: Present: warm, dry, intact, normal color. Absent: rash Results - Lab Results 12/14/18 05:36 12/14/18 05:36 Most recent lab results Calcium 8.7 mg/dL (8.4-10.2) 12/14/18 05:36 Assessment and Plan Impression: * MADISON on ckd 3 * gastroparesis * type 2 DM * HTN * metabolic acidosis Plan: * add bicarb gtt * daily lytes * strict i/os * follow up renal us with pvr * avoid nephrotoxins
[2018-12-15] MEDS ORDERED: SODIUM BICARBONATE 150 MEQ in D5W 1,000 ML IV SCH (11:00)
[2018-12-15] MEDS ORDERED: CATAPRES-TTS PATCH TD SCH (12:00)
[2018-12-15 12:04] LABS: Calcium 8.5 mg/dL (8.4-10.2)
--- NOTE | 2018-12-15 13:25 | Progress Note ---
Assessment and Plan Assessment and plan: Acute on CKD III. patient with a baseline creatinine of approximately 1.26 April 2018. Nephrology consultation. Follow-up renal ultrasound. Etiology likely secondary to volume depletion/vasomotor nephropathy from dehydration. Bicarbonate drip started per cardiology. Acute on chronic gastroparesis. Continue Reglan, antiemetics and supportive care. Advance diet as tolerated Hyperkalemia. Etiology secondary to #1. Improved. s/p Kayexalate Diabetes mellitus type II. Continue Accu-Cheks and sliding scale as. Hypertension. Resume antihypertensive medications. Disposition. Cont. inpatient care History Interval history: Mrs. Araya is a 53 yo female with hx of type 2 diabetes mellitus, hypertension, CKD, cardiomyopathy and gastroparesis who presents with 2 days of nausea/vomiting and mild abdominal pain. The patient reports still with some nausea and vomiting 2 last evening. Hospitalist Physical - Constitutional Vitals: Temp Pulse Resp BP Pulse Ox 98.8 F 102 H 20 188/85 96 12/15/18 11:37 12/15/18 11:37 12/15/18 11:37 12/15/18 11:37 12/15/18 11:37 General appearance: Present: no acute distress, well-nourished - EENT Eyes: Present: PERRL, EOM intact ENT: hearing intact, clear oral mucosa, dentition normal - Neck Neck: Present: supple, normal ROM - Respiratory Respiratory effort: normal Respiratory: bilateral: CTA - Cardiovascular Rhythm: regular Heart Sounds: Present: S1 & S2. Absent: gallop, rub - Extremities Extremities: no ischemia, No edema, Full ROM - Abdominal General gastrointestinal: soft, non-tender, non-distended, normal bowel sounds - Integumentary Integumentary: Present: clear, warm, dry - Neurologic Neurologic: CNII-XII intact, moves all extremities Results - Labs CBC & Chem 7: 12/14/18 05:36 12/15/18 11:19 Labs: Laboratory Last Values WBC 11.2 K/mm3 (4.5-11.0) H 12/14/18 05:36 RBC 2.72 M/mm3 (3.65-5.03) L 12/14/18 05:36 Hgb 8.7 gm/dl (10.1-14.3) L 12/14/18 05:36 Hct 26.6 % (30.3-42.9) L 12/14/18 05:36 MCV 98 fl (79-97) H 12/14/18 05:36 MCH 32 pg (28-32) 12/14/18 05:36 MCHC 33 % (30-34) 12/14/18 05:36 RDW 15.4 % (13.2-15.2) H 12/14/18 05:36 Plt Count 263 K/mm3 (140-440) 12/14/18 05:36 Lymph % (Auto) 9.7 % (13.4-35.0) L 12/14/18 05:36 [place] % (Auto) 5.5 % (0.0-7.3) 12/14/18 05:36 Eos % (Auto) 0.0 % (0.0-4.3) 12/14/18 05:36 Baso % (Auto) 0.3 % (0.0-1.8) 12/14/18 05:36 Lymph # 1.1 K/mm3 (1.2-5.4) L 12/14/18 05:36 [place] # 0.6 K/mm3 (0.0-0.8) 12/14/18 05:36 Eos # 0.0 K/mm3 (0.0-0.4) 12/14/18 05:36 Baso # 0.0 K/mm3 (0.0-0.1) 12/14/18 05:36 Seg Neutrophils % 84.5 % (40.0-70.0) H 12/14/18 05:36 Seg Neutrophils # 9.4 K/mm3 (1.8-7.7) H 12/14/18 05:36 POC ABG pH 7.320 (7.35-7.45) L 12/13/18 21:18 POC ABG pO2 106 (80-105) H 12/13/18 21:18 POC ABG HCO3 11.0 (22-26 mml/L) 12/13/18 21:18 POC ABG Total CO2 12 (23-27mmol/L) 12/13/18 21:18 POC ABG O2 Sat 98 12/13/18 21:18 POC ABG Base Excess -15 ((-2) - (+3)mmol/L) 12/13/18 21:18 21 % 12/13/18 21:18 Sodium 137 mmol/L (137-145) 12/15/18 11:19 Potassium 3.8 mmol/L (3.6-5.0) D 12/15/18 11:19 Chloride 106.7 mmol/L (98-107) 12/15/18 11:19 Carbon Dioxide 14 mmol/L (22-30) L 12/15/18 11:19 20 mmol/L 12/15/18 11:19 BUN 45 mg/dL (7-17) H 12/15/18 11:19 3.2 mg/dL (0.7-1.2) H 12/15/18 11:19 Estimated GFR 18 ml/min 12/15/18 11:19 14 % 12/15/18 11:19 Glucose 141 mg/dL (65-100) H 12/15/18 11:19 POC Glucose 128 (70-105) H 12/15/18 11:39 Negative (Negative) 12/13/18 21:47 Calcium 8.5 mg/dL (8.4-10.2) 12/15/18 11:19 0.80 mg/dL (0.1-1.2) 12/13/18 17:42 AST 31 units/L (5-40) 12/13/18 17:42 ALT 50 units/L (7-56) 12/13/18 17:42 132 units/L (35-129) H 12/13/18 17:42 8.0 g/dL (6.3-8.2) 12/13/18 17:42 3.8 g/dL (3.9-5) L 12/13/18 17:42 0.9 % 12/13/18 17:42 13 units/L (13-60) 12/13/18 17:42 Yellow (Yellow) 12/13/18 Unknown Cloudy (Clear) 12/13/18 Unknown 5.0 (5.0-7.0) 12/13/18 Unknown Ur Specific [place] 1.020 (1.003-1.030) 12/13/18 Unknown <15 mg/dl mg/dL (Negative) 12/13/18 Unknown Neg mg/dL (Negative) 12/13/18 Unknown 20 mg/dL (Negative) 12/13/18 Unknown Lg (Negative) 12/13/18 Unknown Neg (Negative) 12/13/18 Unknown Neg (Negative) 12/13/18 Unknown < 2.0 mg/dL (<2.0) 12/13/18 Unknown Ur Leukocyte Esterase Neg (Negative) 12/13/18 Unknown 2.0 /HPF (0.0-6.0) 12/13/18 Unknown 10.0 /HPF (0.0-6.0) 12/13/18 Unknown U Epithel Cells (Auto) < 1.0 /HPF (0-13.0) 12/13/18 Unknown Uric Acid Crystals Few 12/13/18 Unknown 1+ /HPF 12/13/18 Unknown Non-reactive (NonReactive) 12/15/18 11:19 Active Medications - Current Medications Current Medications: Generic Name Dose Route Start Last Admin Trade Name Freq PRN Reason Stop Dose Admin Acetaminophen 650 mg 12/13/18 22:26 12/15/18 13:05 Tylenol PO 650 mg Q4H PRN Administration Pain MILD(1-3)/Fever >100.5/QUIÑONEZ Acetaminophen 650 mg 12/13/18 22:26 Tylenol [place] Q4H PRN Pain MILD(1-3)/Fever >100.5/QUIÑONEZ Clonidine HCl 0.2 mg 12/15/18 12:00 12/15/18 13:05 Catapres-Tts Patch TD 0.2 mg We ELENO Administration Dextrose 50 ml 12/13/18 22:26 D50w (25gm) Syringe IV PRN PRN Hypoglycemia Enoxaparin Sodium 30 mg 12/14/18 10:00 12/15/18 09:11 Lovenox SUB-Q 30 mg QDAY ELENO Administration Hydralazine HCl 10 mg 12/14/18 23:59 12/15/18 08:57 Apresoline IV 10 mg Q4HR PRN Administration Hypertension Sodium Bicarbonate 150 meq/ 1,150 mls @ 125 mls/hr 12/15/18 11:00 Dextrose IV 12/15/18 23:00 DIRECT ELENO Insulin Human Lispro 0 unit 12/14/18 00:00 12/15/18 13:08 Humalog SUB-Q Not Given Q6HR [facility] Protocol Metoclopramide HCl 5 mg 12/13/18 22:41 12/15/18 06:19 Reglan IV 5 mg Q6H PRN Administration Nausea And Vomiting Morphine Sulfate 2 mg 12/13/18 22:26 12/13/18 23:51 Morphine IV 2 mg Q4H PRN Administration Pain, Moderate (4-6) Ondansetron HCl 4 mg 12/13/18 22:26 12/14/18 14:48 Zofran IV 4 mg Q4H PRN Administration Nausea And Vomiting Sodium Chloride 10 ml 12/14/18 10:00 12/15/18 09:12 Sodium Chloride Flush Syringe 10 Ml IV 10 ml BID ELENO Administration Sodium Chloride 10 ml 12/13/18 22:26 Sodium Chloride Flush Syringe 10 Ml IV PRN PRN LINE FLUSH
[2018-12-16] MEDS: HumaLOG SUB-Q SCH ×3 (00:30→12:30)
[2018-12-16] MEDS: APRESOLINE IV PRN ×2 (05:37→16:33)
[2018-12-16 06:03] LABS: Basophils % (Auto) 0.7 % (0.0-1.8); Eosinophils % (Auto) 0.6 % (0.0-4.3); Hematocrit 25.8 % (30.3-42.9); Hemoglobin 8.5 gm/dl (10.1-14.3); Lymphocytes # (Auto) 1.2 K/mm3 (1.2-5.4); Lymphocytes % (Auto) 18.4 % (13.4-35.0); Mean Corpuscular HGB Conc 33 % (30-34); Mean Corpuscular Volume 98 fl (79-97); Monocytes # (Auto) 0.6 K/mm3 (0.0-0.8); Monocytes % (Auto) 9.3 % (0.0-7.3); Platelet Count 256 K/mm3 (140-440); Red Blood Count 2.64 M/mm3 (3.65-5.03); Red Cell Distribution Width 14.9 % (13.2-15.2)
[2018-12-16 06:41] LABS: Calcium 8.2 mg/dL (8.4-10.2)
[2018-12-16] MEDS: LOVENOX SUB-Q SCH (09:25)
[2018-12-16] MEDS: SODIUM CHLORIDE FLUSH SYRINGE 10 ML IV SCH (09:25)
--- NOTE | 2018-12-16 09:37 | Discharge Summary ---
Providers - Providers Date of Admission: 12/13/18 22:26 Date of discharge: 12/16/18 Attending physician: MAXWELL GOMEZ 12/14/18 12:18 Consult to Physician [CONS] Routine Comment: Consulting Provider: MARAL CHI Physician Instructions: Reason For Exam: acute on CKD III [facility] Reason for admission: n/v, acute on ckd Condition: Stable Hospital course: Mrs. 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 No longer has health insurance. Has had trouble managing her medical issues. The patient was admitted with diagnosis of acute on chronic gastroparesis exacerbation, metabolic acidosis and acute on CKD. Etiology of the renal failure secondary to vasomotor nephropathy from dehydration. The patient received IV fluid hydration with improvement in her creatinine. Patient was seen by nephrology in consultation. Patient was also treated with bicarbonate drip for 24 hours with improvement in metabolic acidosis Patient has some improvement in her creatinine. Nausea and vomiting resolved with supportive care. Renal bladder scan was ordered and if negative patient will likely discharge. Dedicated discharge time 32 minutes Disposition: DC-01 TO HOME OR SELFCARE Time spent for discharge: 32 - Discharge Diagnoses (1) MADISON (acute kidney injury) Status: Acute (2) Diabetic gastroparesis Status: Acute (3) Metabolic acidosis Status: Acute (4) Insulin dependent diabetes mellitus Status: Chronic (5) Abdominal pain Status: Acute (6) Accelerated hypertension Status: Acute Core Measure Documentation - Palliative Care Palliative Care/ Comfort Measures: Not Applicable - Core Measures Any of the following diagnoses?: none Exam - Constitutional Vitals: Temp Pulse Resp BP Pulse Ox 98.6 F 91 H 18 183/88 100 12/16/18 08:00 12/16/18 08:02 12/16/18 08:00 12/16/18 08:00 12/16/18 08:02 General appearance: Present: no acute distress, well-nourished - EENT Eyes: Present: PERRL ENT: hearing intact, clear oral mucosa - Neck Neck: Present: supple, normal ROM - Respiratory Respiratory effort: normal Respiratory: bilateral: CTA - Cardiovascular Heart Sounds: Present: S1 & S2. Absent: rub, click - Extremities Extremities: pulses symmetrical, No edema Peripheral Pulses: within normal limits - Abdominal General gastrointestinal: Present: soft, non-tender, non-distended, normal bowel sounds Female genitourinary: Present: normal - Integumentary Integumentary: Present: clear, warm, dry - Musculoskeletal Musculoskeletal: gait normal, strength equal bilaterally - Psychiatric Psychiatric: appropriate mood/affect, intact judgment & insight - Neurologic Neurologic: CNII-XII intact, moves all extremities Plan Activity: no restrictions Weight Bearing Status: Full Weight Bearing Diet: diabetic, renal Follow up with: SOHA ALVESBETHLEHEM MD JERO [Primary Care Provider] - 3-5 Days Prescriptions: Aspirin [Aspirin BABY CHEW TAB] 81 mg PO QDAY #30 tab.chew cloNIDine-TTS PATCH [Catapres-Tts 0.2mg Patch] 0.2 mg TD We #4 patch Ferrous Sulfate [High Potency Iron 27 MG] 27 mg PO QDAY #30 tablet Lispro Insulin [HumaLOG] 20 unit SUB-Q AC 30 Days units Labetalol [Labetalol 200mg TAB] 200 mg PO TID #90 tablet AtorvaSTATin [Lipitor] 20 mg PO QHS #30 tablet Insulin Aspart [NovoLOG Flexpen] 20 unit SQ TIDDIAB #30 insuln.pen Promethazine [Phenergan] 25 mg PO Q6HR PRN #10 tablet PRN Reason: Nausea And Vomiting NIFEdipine XL [Procardia Xl] 60 mg PO QDAY #30 tablet Lisinopril [Zestril TAB] 20 mg PO QDAY #30 tablet
--- NOTE | 2018-12-16 10:17 | Progress Note ---
Assessment and Plan Impression: * MADISON on ckd 3 * gastroparesis * type 2 DM * HTN * metabolic acidosis Plan: * add bicarb gtt, home with po sodium bicarb * follow up dr pulido in one week * daily lytes * strict i/os * follow up renal us with pvr * avoid nephrotoxins * cr is better today Subjective Date of service: 12/16/18 Principal diagnosis: madison Interval history: resting in bed today Objective - Exam Narrative Exam: - General Limitations: No Limitations General appearance: alert, in no apparent distress - Head Head exam: Present: atraumatic, normocephalic - Eye Eye exam: Present: normal appearance - ENT ENT exam: Present: mucous membranes moist - Neck Neck exam: Present: normal inspection, full ROM - Respiratory Respiratory exam: Present: normal lung sounds bilaterally. Absent: respiratory distress, wheezes, rales, rhonchi - Cardiovascular Cardiovascular Exam: Present: regular rate, normal rhythm, normal heart sounds. Absent: systolic murmur, diastolic murmur, rubs, gallop - GI/Abdominal GI/Abdominal exam: Present: soft, normal bowel sounds. Absent: distended, tenderness, guarding, rebound - Extremities Exam Extremities exam: Present: normal inspection - Back Exam Back exam: Present: normal inspection - Neurological Exam Neurological exam: Present: alert, oriented X3 - Psychiatric Psychiatric exam: Present: normal affect, normal mood - Skin Skin exam: Present: warm, dry, intact, normal color. Absent: rash - Vital Signs Vital signs: Vital Signs - 12hr 12/15/18 12/16/18 12/16/18 23:33 03:32 08:00 Temperature 98.6 F 98.1 F 98.6 F Pulse Rate 91 H 92 H 93 H Respiratory 18 18 18 Rate Blood Pressure 192/94 179/82 Blood Pressure 183/88 [Right] O2 Sat by Pulse 100 96 Oximetry 12/16/18 08:02 Temperature Pulse Rate 91 H Respiratory Rate Blood Pressure Blood Pressure [Right] O2 Sat by Pulse 100 Oximetry - Lab 12/16/18 04:35 12/16/18 04:35 Most recent lab results Calcium 8.2 mg/dL (8.4-10.2) L 12/16/18 04:35 Medications & Allergies - Medications Allergies/Adverse Reactions: Allergies cefadroxil hydrate [From Duricef] Allergy (Verified 12/13/18 18:46) Shortness of Breath Home Medications: Home Medications Medication Instructions Recorded Confirmed Last Taken Type Aspirin [Aspirin BABY CHEW TAB] 81 mg PO QDAY #30 tab.chew 12/16/18 Unknown Rx AtorvaSTATin [Lipitor] 20 mg PO QHS #30 tablet 12/16/18 Unknown Rx Ferrous Sulfate [High Potency Iron 27 mg PO QDAY #30 tablet 12/16/18 Unknown Rx 27 MG] Insulin Aspart [NovoLOG Flexpen] 20 unit SQ TIDDIAB #30 insuln.pen 12/16/18 Unknown Rx Labetalol [Labetalol 200mg TAB] 200 mg PO TID #90 tablet 12/16/18 Unknown Rx Lisinopril [Zestril TAB] 20 mg PO QDAY #30 tablet 12/16/18 Unknown Rx Lispro Insulin [HumaLOG] 20 unit SUB-Q AC 30 Days units 12/16/18 Unknown Rx Metoclopramide [Reglan] 10 mg PO TID #30 tab 12/16/18 Unknown Rx NIFEdipine XL [Procardia Xl] 60 mg PO QDAY #30 tablet 12/16/18 Unknown Rx Promethazine [Phenergan] 25 mg PO Q6HR PRN #10 tablet 12/16/18 Unknown Rx cloNIDine-TTS PATCH [Catapres-Tts 0.2 mg TD We #4 patch 12/16/18 Unknown Rx 0.2mg Patch] Active Medications: Generic Name Dose Route Start Last Admin Trade Name Freq PRN Reason Stop Dose Admin Acetaminophen 650 mg 12/13/18 22:26 12/15/18 13:05 Tylenol PO 650 mg Q4H PRN Administration Pain MILD(1-3)/Fever >100.5/QUIÑONEZ Acetaminophen 650 mg 12/13/18 22:26 Tylenol [place] Q4H PRN Pain MILD(1-3)/Fever >100.5/QUIÑONEZ Clonidine HCl 0.2 mg 12/15/18 12:00 12/15/18 13:05 Catapres-Tts Patch TD 0.2 mg We ELENO Administration Dextrose 50 ml 12/13/18 22:26 D50w (25gm) Syringe IV PRN PRN Hypoglycemia Enoxaparin Sodium 30 mg 12/14/18 10:00 12/16/18 09:25 Lovenox SUB-Q 30 mg QDAY ELENO Administration Hydralazine HCl 10 mg 12/14/18 23:59 12/16/18 05:37 Apresoline IV 10 mg Q4HR PRN Administration Hypertension Insulin Human Lispro 0 unit 12/14/18 00:00 12/16/18 09:20 Humalog SUB-Q Not Given Q6HR [facility] [place] Protocol Metoclopramide HCl 5 mg 12/13/18 22:41 12/15/18 06:19 Reglan IV 5 mg Q6H PRN Administration Nausea And Vomiting Morphine Sulfate 2 mg 12/13/18 22:26 12/13/18 23:51 Morphine IV 2 mg Q4H PRN Administration Pain, Moderate (4-6) Ondansetron HCl 4 mg 12/13/18 22:26 12/14/18 14:48 Zofran IV 4 mg Q4H PRN Administration Nausea And Vomiting Sodium Chloride 10 ml 12/14/18 10:00 12/16/18 09:25 Sodium Chloride Flush Syringe 10 Ml IV 10 ml BID ELENO Administration Sodium Chloride 10 ml 12/13/18 22:26 Sodium Chloride Flush Syringe 10 Ml IV PRN PRN LINE FLUSH
[2018-12-16] MEDS ORDERED: SODIUM BICARBONATE PO SCH (11:00)
[2018-12-16] MEDS ORDERED: CATAPRES PO ONE (15:00)
[2018-12-16 16:39] VITALS: BP 190/93
--- NOTE | 2018-12-17 05:27 | Ultrasound Report ---
PROCEDURE: US BLADDER RESIDUAL TECHNIQUE: Real-time sonography in multiple planes of the kidneys, ureters and urinary bladder was p erformed with image documentation. HISTORY: renal failure COMPARISONS: None . FINDINGS: RIGHT kidney: Normal echotexture. No focal renal mass, calculus, or hydronephrosis. Length: 11 cm. LEFT kidney: Normal echotexture. No focal renal mass, calculus, or hydronephrosis. Length: 10.4 cm. Bladder: Normal. No distention or wall thickening. IMPRESSION: Normal Examination . This document is electronically signed by Kamron Holguin MD., Dec 17 2018 05:24:55 AM ET
--- NOTE | 2018-12-17 05:34 | Ultrasound Report ---
PROCEDURE: US RENAL BILAT TECHNIQUE: Real-time sonography in multiple planes of the kidneys, ureters and urinary bladder was p erformed with image documentation. HISTORY: renal failure COMPARISONS: None . FINDINGS: RIGHT kidney: There are tiny nonobstructing stones. There is no mass. There is no hydronephrosis. Ech otexture is slightly increased which could indicate chronic medical renal disease.. Length: 11 cm. LEFT kidney: There are tiny nonobstructing stones. There is no mass. There is no hydronephrosis. Echo texture is slightly increased which could indicate chronic medical renal disease.. . Length: 10.4 c m. Bladder: Normal. No distention or wall thickening. IMPRESSION: There are tiny nonobstructing stones. There is no mass. There is no hydronephrosis. Echo texture is slightly increased which could indicate chronic medical renal disease.. . This document is electronically signed by Kamron Holguin MD., Dec 17 2018 05:32:08 AM ET
== END 2018-12-16 18:26 | disposition home or self-care (01) | DRG 73 ==
LOC: ED 17:18 → 4A 22:26
PROVIDERS: ADMIT Internal Medicine; ATTEND Hospitalist
PROC: 4A033R1 Measurement of Arterial Saturation, Peripheral, Percutaneous Approach (ICD-10-PCS; principal; 2018-12-13)
DX: E11.43 Type 2 diabetes mellitus with diabetic autonomic (poly)neuropathy (principal); N17.0 Acute kidney failure with tubular necrosis; E87.2 Acidosis; I42.9 Cardiomyopathy, unspecified; I16.0 Hypertensive urgency; K31.84 Gastroparesis; N18.3 Chronic kidney disease, stage 3 (moderate); I12.9 Hypertensive chronic kidney disease with stage 1 through stage 4 chronic kidney disease, or unspecified chronic kidney disease; E11.22 Type 2 diabetes mellitus with diabetic chronic kidney disease; E86.0 Dehydration; K21.9 Gastro-esophageal reflux disease without esophagitis; E87.5 Hyperkalemia; Z90.49 Acquired absence of other specified parts of digestive tract; Z79.4 Long term (current) use of insulin; Z82.49 Family history of ischemic heart disease and other diseases of the circulatory system; Z79.899 Other long term (current) drug therapy; Z79.82 Long term (current) use of aspirin; Z87.442 Personal history of urinary calculi
CPT/HCPCS: 36415; 76770; 76857; 80048; 80053; 81001; 82010; 82803; 82962; 83690; 85025; 86706; 86803; 93005; 93010; 96361; 96374; 96375; 96376; G0378; J0360; J1650; J1815; J2060; J2270; J2405; J2765; J7030

== ENCOUNTER 2019-01-27 16:28 | Inpatient (IN) | payer OTHER ==
[2019-01-27] MEDS ORDERED: ZOFRAN IV ONE ×2 (16:41→20:19)
[2019-01-27] MEDS ORDERED: NACL 0.9% 1000 ML 1,000 ML IV ONE (16:41)
[2019-01-27] MEDS ORDERED: DILAUDID IV ONE ×2 (16:43→19:39)
--- NOTE | 2019-01-27 16:45 | Emergency Department Report ---
ED Abdominal Pain HPI - General Stated Complaint: ABD PAIN Time Seen by Provider: 01/27/19 16:41 Source: patient, family Mode of arrival: Ambulatory Limitations: No Limitations - History of Present Illness Initial Comments: Patient is a 53-year-old female that since emergency room with complaints of abdominal pain, nausea and vomiting and gastroparesis flareup. Patient states she's had gastroparesis many of times. Patient states her symptoms started about 3 days ago and are worsening. Patient states the pain is 10 out of 10. Patient states the pain is better with rest and worse with movement and vomiting. Patient denies blood in her vomitus. Patient denies melena and blood in her stool. Patient states she has a history of diabetes,hypertension and hyperlipidemia. MD Complaint: abdominal pain -: Sudden Location: diffuse Radiation: none Migration to: no migration Severity: severe Severity scale (0 -10): 10 Quality: stabbing Consistency: constant Improves With: rest Worsens With: vomiting, movement Associated Symptoms: nausea, vomiting. denies: diarrhea, fever, chills, constipation, dysuria, hematemesis, hematochezia, melena, hematuria, syncope - Related Data LMP (females 10-50): unknown Home Medications Medication Instructions Recorded Confirmed Last Taken Labetalol [Labetalol 200mg TAB] 200 mg PO TID 01/27/19 01/27/19 Unknown Metoclopramide HCl [Reglan TAB] 5 mg PO TID 01/27/19 01/27/19 Unknown NIFEdipine [Nifedipine ER] 60 mg PO DAILY 01/27/19 01/27/19 Unknown Promethazine [Phenergan] 1 tab PO Q6HR PRN 01/27/19 01/27/19 Unknown Ranitidine HCl [Zantac] 150 mg PO BID 01/27/19 01/27/19 Unknown Ranitidine HCl [Zantac] 150 mg PO BID 01/27/19 01/27/19 Unknown Allergies Allergy/AdvReac Type Severity Reaction Status Date / Time cefadroxil hydrate Allergy Shortness Verified 12/13/18 18:46 [From Joséf] of Breath ED Review of Systems ROS: Stated complaint: ABD PAIN Other details as noted in HPI Constitutional: denies: chills, fever Eyes: denies: eye pain, eye discharge, vision change ENT: denies: ear pain, throat pain Respiratory: denies: cough, shortness of breath, wheezing Cardiovascular: denies: chest pain, palpitations Endocrine: no symptoms reported Gastrointestinal: abdominal pain, nausea, vomiting. denies: diarrhea, constipation, hematemesis, melena, hematochezia Genitourinary: denies: urgency, dysuria, discharge Musculoskeletal: denies: back pain, joint swelling, arthralgia Skin: denies: rash, lesions Neurological: denies: headache, weakness, paresthesias Psychiatric: denies: anxiety, depression Hematological/Lymphatic: denies: easy bleeding, easy bruising ED Past Medical Hx - Past Medical History Previous Medical History?: Yes Hx Hypertension: Yes Hx Congestive Heart Failure: No Hx Diabetes: Yes Hx GERD: Yes Hx Kidney Stones: Yes Hx Asthma: No Hx COPD: No Hx HIV: No Additional medical history: gastroparesis - Surgical History Past Surgical History?: Yes Hx Cholecystectomy: Yes (01/23/15) - Family History Family history: no significant - Social History Smoking Status: Never Smoker Substance Use Type: None - Medications Home Medications: Home Medications Medication Instructions Recorded Confirmed Last Taken Type Labetalol [Labetalol 200mg TAB] 200 mg PO TID 01/27/19 01/27/19 Unknown History Metoclopramide HCl [Reglan TAB] 5 mg PO TID 01/27/19 01/27/19 Unknown History NIFEdipine [Nifedipine ER] 60 mg PO DAILY 01/27/19 01/27/19 Unknown History Promethazine [Phenergan] 1 tab PO Q6HR PRN 01/27/19 01/27/19 Unknown History Ranitidine HCl [Zantac] 150 mg PO BID 01/27/19 01/27/19 Unknown History Ranitidine HCl [Zantac] 150 mg PO BID 01/27/19 01/27/19 Unknown History ED Physical Exam - General Limitations: No Limitations General appearance: alert, in no apparent distress - Head Head exam: Present: atraumatic, normocephalic - Eye Eye exam: Present: normal appearance - ENT ENT exam: Present: mucous membranes moist - Neck Neck exam: Present: normal inspection - Respiratory Respiratory exam: Present: normal lung sounds bilaterally. Absent: respiratory distress - Cardiovascular Cardiovascular Exam: Present: regular rate, normal rhythm. Absent: systolic murmur, diastolic murmur, rubs, gallop - GI/Abdominal GI/Abdominal exam: Present: soft, tenderness (generalized tenderness), normal bowel sounds - Extremities Exam Extremities exam: Present: normal inspection - Back Exam Back exam: Present: normal inspection - Neurological Exam Neurological exam: Present: alert, oriented X3 - Psychiatric Psychiatric exam: Present: normal affect, normal mood - Skin Skin exam: Present: warm, dry, intact, normal color. Absent: rash ED Course Vital Signs 01/27/19 01/27/19 01/27/19 17:03 17:06 17:10 Temperature 98.6 F Pulse Rate 95 H Respiratory 20 20 20 Rate Blood Pressure Blood Pressure 225/136 [Left] O2 Sat by Pulse 96 97 Oximetry 01/27/19 01/27/19 01/27/19 17:25 18:24 18:49 Temperature Pulse Rate Respiratory Rate Blood Pressure Blood Pressure 205/110 181/103 177/94 [Left] O2 Sat by Pulse Oximetry 01/27/19 01/27/19 01/27/19 19:05 19:42 20:00 Temperature 98 F Pulse Rate 98 H 94 H Respiratory 16 16 13 Rate Blood Pressure 184/98 Blood Pressure 189/104 [Left] O2 Sat by Pulse 100 99 Oximetry 01/27/19 01/27/19 01/27/19 20:12 21:00 22:01 Temperature Pulse Rate 90 90 Respiratory 16 15 15 Rate Blood Pressure 203/108 195/106 Blood Pressure [Left] O2 Sat by Pulse 98 95 Oximetry 01/27/19 01/27/19 01/28/19 23:01 23:42 00:00 Temperature Pulse Rate 96 H 92 H 96 H Respiratory 13 14 Rate Blood Pressure 184/110 204/116 175/101 Blood Pressure [Left] O2 Sat by Pulse 96 99 Oximetry - Reevaluation(s) Reevaluation #1: Patient states her pain is better. 01/27/19 18:26 Patient complaining of severe abdominal pain again. Patient will be given Dilaudid 01/27/19 19:40 Patient having a severe vomiting 01/27/19 20:24 Patient are to given Zofran and continues to have nausea vomiting. Patient was given rectal Phenergan 01/27/19 20:45 Reevaluation #2: Discussed all results with patient. Patient will be admitted to the hospitalist service. Patient agrees to plan of care. 07/11/19 21:11 - Consultations Consultation #1: Hospitalist consulted for admission. Hospitalist to admit patient. Hospitalist to assume care patient. 01/27/19 21:11 ED Medical Decision Making - Lab Data Result diagrams: 01/27/19 16:49 01/27/19 16:49 - Radiology Data Radiology results: report reviewed CT ABDOMEN AND PELVIS WITHOUT CONTRAST INDICATION / CLINICAL INFORMATION: abd pain. Diffuse abdominal pain TECHNIQUE: Axial CT images were obtained through the abdomen and pelvis without IV contrast. All CT scans at this location are performed using CT dose reduction for ALARA by means of automated exposure control. COMPARISON: None available. FINDINGS: LOWER CHEST: No significant abnormality. LIVER: No significant abnormality. GALLBLADDER: Removed. BILE DUCTS: No significant abnormality. PANCREAS: No significant abnormality. SPLEEN: No significant abnormality. ADRENALS: No significant abnormality. RIGHT KIDNEY and URETER: No significant abnormality. LEFT KIDNEY and URETER: No significant abnormality. STOMACH and SMALL BOWEL: No significant abnormality. COLON: No significant abnormality. APPENDIX: Not well identified. PERITONEUM: No free fluid. No free air. No fluid collection. LYMPH NODES: No significant adenopathy. AORTA and ARTERIES: No significant abnormality. IVC and VEINS: No significant abnormality. URINARY BLADDER: No significant abnormality. REPRODUCTIVE ORGANS: 2.8 cm mildly complex right ovarian cyst. ADDITIONAL FINDINGS: Anasarca.. SKELETAL SYSTEM: No significant abnormality. IMPRESSION: Diffuse anasarca throughout the abdomen and pelvis, as above. Extensive arterial calcification throughout much of the abdominal aorta and its branches. No bowel obstruction. Mildly complex right ovarian cyst measuring about 2.8 cm in diameter. - Medical Decision Making Patient is a 53-year-old female with a history of gastroparesis and symmetric with nausea vomiting and abdominal pain. Abdominal pain nausea vomiting found to be intractable. Patient given multiple medications with minimal improvement in patient's pain and nausea vomiting patient was admitted to the hospitalist service. Laboratory abnormalities found. Abdominal CT negative for acute finding. - Differential Diagnosis abdominal pain. Gastroparesis. Intractable nausea vomiting Critical Care Time: Yes Critical care attestation.: If time is entered above; I have spent that time in minutes in the direct care of this critically ill patient, excluding procedure time. Critical Care Time: 45 minutes ED Disposition Clinical Impression: Diabetic gastroparesis, Intractable abdominal pain, Renal insufficiency, Hyperkalemia Intractable nausea and vomiting Qualifiers: Vomiting type: unspecified Qualified Code(s): R11.2 - Nausea with vomiting, unspecified Abdominal pain Qualifiers: Abdominal location: generalized Qualified Code(s): R10.84 - Generalized abdominal pain Anemia Qualifiers: Anemia type: unspecified type Qualified Code(s): D64.9 - Anemia, unspecified Disposition: 09 OP ADMIT IP TO THIS HOSP Is pt being admited?: Yes Does the pt Need Aspirin: No Condition: Stable Time of Disposition: 21:12
[2019-01-27 16:58] LABS: Basophils # (Auto) 0.1 K/mm3 (0.0-0.1); Basophils % (Auto) 0.9 % (0.0-1.8); Eosinophils % (Auto) 0.1 % (0.0-4.3); Hemoglobin 9.7 gm/dl (10.1-14.3); Lymphocytes % (Auto) 15.3 % (13.4-35.0); Mean Corpuscular HGB Conc 33 % (30-34); Mean Corpuscular Volume 95 fl (79-97); Monocytes # (Auto) 0.4 K/mm3 (0.0-0.8); Monocytes % (Auto) 6.5 % (0.0-7.3); Platelet Count 387 K/mm3 (140-440); Red Blood Count 3.06 M/mm3 (3.65-5.03); Red Cell Distribution Width 15.2 % (13.2-15.2)
[2019-01-27 17:21] LABS: Albumin 3.6 g/dL (3.9-5); Bilirubin,Direct 0.2 mg/dL (0-0.2); Calcium 9.2 mg/dL (8.4-10.2)
[2019-01-27] MEDS ORDERED: APRESOLINE IV ONE ×2 (17:49→23:41)
[2019-01-27] MEDS ORDERED: DILAUDID ONE (19:37)
--- NOTE | 2019-01-27 19:42 | Cat Scan Report ---
CT ABDOMEN AND PELVIS WITHOUT CONTRAST INDICATION / CLINICAL INFORMATION: abd pain. Diffuse abdominal pain TECHNIQUE: Axial CT images were obtained through the abdomen and pelvis without IV contrast. All CT scans at [facility] location are performed using CT dose reduction for ALARA by means of automated exposure control. COMPARISON: None available. FINDINGS: LOWER CHEST: No significant abnormality. LIVER: No significant abnormality. GALLBLADDER: Removed. BILE DUCTS: No significant abnormality. PANCREAS: No significant abnormality. SPLEEN: No significant abnormality. ADRENALS: No significant abnormality. RIGHT KIDNEY and URETER: No significant abnormality. LEFT KIDNEY and URETER: No significant abnormality. STOMACH and SMALL BOWEL: No significant abnormality. COLON: No significant abnormality. APPENDIX: Not well identified. PERITONEUM: No free fluid. No free air. No fluid collection. LYMPH NODES: No significant adenopathy. AORTA and ARTERIES: No significant abnormality. IVC and VEINS: No significant abnormality. URINARY BLADDER: No significant abnormality. REPRODUCTIVE ORGANS: 2.8 cm mildly complex right ovarian cyst. ADDITIONAL FINDINGS: Anasarca.. SKELETAL SYSTEM: No significant abnormality. IMPRESSION: Diffuse anasarca throughout the abdomen and pelvis, as above. Extensive arterial calcification throug hout much of the abdominal aorta and its branches. No bowel obstruction. Mildly complex right ovarian cyst measuring about 2.8 cm in diameter. Signer Name: Tony Avalos MD Signed: 01/27/2019 7:37 PM Workstation Name: [id number]
[2019-01-27] MEDS ORDERED: ZOFRAN ONE (20:20)
[2019-01-27] MEDS ORDERED: PHENERGAN PR ONE (20:30)
[2019-01-27] MEDS: NACL 0.9% 1000 ML 1,000 ML IV SCH ×2 (21:17→22:30)
[2019-01-27] MEDS ORDERED: NACL 0.9% 1000 ML 3,000 ML ONE (21:20)
--- NOTE | 2019-01-27 21:55 | History and Physical Report ---
History of Present Illness Chief complaint: My stomach hurts, and I keep throwing up History of present illness: 53 YO Female with HTN, DM complicated by Gastroparesis, GERD, Nephrolithiasis presents to ED for evaluation. Pt states that she has experienced approximately 15-20 episodes of vomiting per day for the past three days, as well as persistent nausea. Pt also complains of abdominal discomfort following the pe rsistent vomiting. Pt states that she has taken narcotics for the pain. Pt denies fever, chills, CP, diarrhea, BRBPR, hemoptysis, recent ill contacts, ingestion of food or water from new or unknown sources, Unintentional weight loss, night sweats, flank pian, hematuria, or Trauma. Pt seen and evaluated in ED and found to have Acute Renal Failure, Intractible Nausea/Vomiting secondary to Gastroparesis, as well as Acidosis. Pt admitted to medical floor. Prior admission on 12/13/18 reviewed. All listed medication reconciled at time of admission. Past History Past Medical History: diabetes, GERD, hypertension, other (Gastroparesis) Past Surgical History: cholecystectomy Social history: single, lives with family. denies: smoking, alcohol abuse, prescription drug abuse Family history: diabetes, hypertension Medications and Allergies Allergies Allergy/AdvReac Type Severity Reaction Status Date / Time cefadroxil hydrate Allergy Shortness Verified 12/13/18 18:46 [From José] of Breath Home Medications Medication Instructions Recorded Confirmed Last Taken Type Labetalol [Labetalol 200mg TAB] 200 mg PO TID 01/27/19 01/27/19 Unknown History Metoclopramide HCl [Reglan TAB] 5 mg PO TID 01/27/19 01/27/19 Unknown History NIFEdipine [Nifedipine ER] 60 mg PO DAILY 01/27/19 01/27/19 Unknown History Promethazine [Phenergan] 1 tab PO Q6HR PRN 01/27/19 01/27/19 Unknown History Ranitidine HCl [Zantac] 150 mg PO BID 01/27/19 01/27/19 Unknown History Ranitidine HCl [Zantac] 150 mg PO BID 01/27/19 01/27/19 Unknown History Active Meds: Active Medications Sodium Chloride (Nacl 0.9% 1000 Ml) 1,000 mls @ 999 mls/hr IV Q1H ELENO Stop: 01/28/19 00:12 Last Admin: 01/27/19 21:17 Dose: 999 mls/hr Documented by: Review of Systems Constitutional: no weight loss, no weight gain, no fever, no chills Ears, nose, mouth and throat: no ear pain, no ear discharge, no tinnitis, no decreased hearing, no nose pain, no nasal congestion Breasts: no change in shape, no swelling, no mass Cardiovascular: no chest pain, no orthopnea, no palpitations, no rapid/irregular heart beat, no edema, no syncope, no lightheadedness, no dyspnea on exertion, no paroxysmal nocturnal dyspnea, no claudication, no high blood pressure, no leg edema, no decreased exercise tolerance Respiratory: no cough, no cough with sputum, no excessive sputum, no hemoptysis, no shortness of breath, no dyspnea on exertion Gastrointestinal: nausea, vomiting, no abdominal pain, no diarrhea, no constipation, no change in bowel habits, no coffee ground emesis, no melena, no early satiety Genitourinary Female: no pelvic pain, no flank pain, no menorrhagia, no dysuria Rectal: no pain, no incontinence, no bleeding Musculoskeletal: no neck stiffness, no neck pain, no shooting arm pain, no shooting leg pain Integumentary: no rash, no pruritis, no redness, no sores, no wounds, no boils Neurological: no head injury, no parathesias, no numbness, no tingling, no syncope, no tremors Psychiatric: no anxiety, no memory loss, no change in sleep habits, no sleep disturbances, no insomnia, no hypersomnia, no change in appetite, no difficulties concentrating Endocrine: no cold intolerance, no heat intolerance, no polyphagia, no excessive thirst, no polydipsia, no nocturia, no deepening of the voice, no palpatations Hematologic/Lymphatic: no easy bruising, no easy bleeding, no lymphadenopathy, no lymphedema Allergic/Immunologic: no urticaria, no allergic rhinitis, no persistent infections, no anaphylaxis Exam - Constitutional Vitals: Temp Pulse Resp BP Pulse Ox 98 F 94 H 16 184/98 99 01/27/19 19:05 01/27/19 20:00 01/27/19 20:12 01/27/19 20:00 01/27/19 20:00 General appearance: Present: mild distress - EENT Eyes: Present: PERRL ENT: hearing intact, clear oral mucosa - Neck Neck: Present: supple, normal ROM - Respiratory Respiratory effort: normal Respiratory: bilateral: CTA - Cardiovascular Heart Sounds: Present: S1 & S2. Absent: rub, click - Extremities Extremities: pulses symmetrical, No edema Peripheral Pulses: within normal limits - Abdominal General gastrointestinal: Present: soft, non-tender, non-distended, normal bowel sounds Female genitourinary: Present: normal - Integumentary Integumentary: Present: clear, warm, dry - Musculoskeletal Musculoskeletal: gait normal, strength equal bilaterally - Psychiatric Psychiatric: appropriate mood/affect, intact judgment & insight - Neurologic Neurologic: CNII-XII intact, moves all extremities Results - Labs CBC & Chem 7: 01/27/19 16:49 01/27/19 16:49 Labs: Abnormal lab results 01/27/19 01/27/19 Range/Units 16:49 16:49 RBC 3.06 L (3.65-5.03) M/mm3 Hgb 9.7 L (10.1-14.3) gm/dl Hct 29.0 L (30.3-42.9) % Lymph # 1.0 L (1.2-5.4) K/mm3 Seg Neutrophils % 77.2 H (40.0-70.0) % Potassium 5.1 H (3.6-5.0) mmol/L Carbon Dioxide 20 L (22-30) mmol/L BUN 36 H (7-17) mg/dL Creatinine 3.1 H (0.7-1.2) mg/dL Glucose 178 H (65-100) mg/dL Albumin 3.6 L (3.9-5) g/dL Lipase 9 L (13-60) units/L Assessment and Plan - Patient Problems (1) ARF (acute renal failure) with tubular necrosis Current Visit: Yes Status: Acute Plan to address problem: IVF resuscitation, monitor uop q shift, urine electrolytes, monitor serum crea tnine, avoid nephrotoxic agents. (2) Diabetes Current Visit: Yes Status: Acute Plan to address problem: ADA diet, insulin, accu check, hypoglycemia protocol (3) Abdominal pain Current Visit: Yes Status: Acute Qualifiers: Abdominal location: generalized Qualified Code(s): R10.84 - Generalized abdominal pain Plan to address problem: CT Abdomen pelvis, bowel rest, serial abdominal exam, supportive care. (4) Diabetic gastroparesis Current Visit: Yes Status: Acute Plan to address problem: IVF resuscitation therapy, bowel rest, advance diet as tolerated, frequent small meals as tolerated, reglan, antiemetic therapy. (5) Acidosis Current Visit: Yes Status: Acute Plan to address problem: IVF resuscitation therapy, repeat bmp, supportive care. (6) DVT prophylaxis Current Visit: Yes Status: Acute Plan to address problem: SCD to BLE while in bed, Pt ambulating independently
[2019-01-27] MEDS ORDERED: PROVENTIL IH PRN (22:11)
[2019-01-27] MEDS ORDERED: TYLENOL PO PRN (22:11)
[2019-01-27] MEDS ORDERED: ZOFRAN IV PRN (22:11)
[2019-01-27] MEDS ORDERED: SODIUM CHLORIDE FLUSH SYRINGE 10 ML IV PRN (22:11)
[2019-01-27] MEDS ORDERED: APRESOLINE ONE (23:41)
[2019-01-28] MEDS: NACL 0.9% 1000 ML 1,000 ML IV SCH (00:15)
[2019-01-28] MEDS: APRESOLINE IV PRN ×2 (04:02→13:13)
[2019-01-28] MEDS ORDERED: MORPHINE IV PRN (04:48)
[2019-01-28 07:17] LABS: Bilirubin,Urine NEG (Negative); Blood,Urine SM (Negative); Color,Urine Yellow (Yellow); Mucus,Urine FEW /HPF; Urobilinogen,Urine < 2.0 mg/dL (<2.0)
[2019-01-28 07:24] LABS: Protein,Urine >500 mg/dL (Negative)
[2019-01-28] MEDS: REGLAN IV SCH ×4 (07:30→22:24)
[2019-01-28] MEDS: NORMODYNE PO SCH ×3 (08:00→22:24)
[2019-01-28] MEDS ORDERED: PROCARDIA XL PO SCH (10:00)
[2019-01-28 10:24] LABS: Albumin 3.5 g/dL (3.9-5); Calcium 9.4 mg/dL (8.4-10.2)
[2019-01-28 10:27] LABS: Hematocrit 31.5 % (30.3-42.9); Hemoglobin 10.4 gm/dl (10.1-14.3); Mean Corpuscular Volume 95 fl (79-97); Red Blood Count 3.31 M/mm3 (3.65-5.03)
[2019-01-28 10:28] LABS: Basophils % (Auto) 0.4 % (0.0-1.8); Lymphocytes # (Auto) 0.8 K/mm3 (1.2-5.4); Mean Corpuscular HGB Conc 33 % (30-34); Monocytes # (Auto) 0.5 K/mm3 (0.0-0.8); Monocytes % (Auto) 6.6 % (0.0-7.3); Platelet Count 373 K/mm3 (140-440); Red Cell Distribution Width 15.7 % (13.2-15.2)
[2019-01-28] MEDS: PROTONIX IV SCH (10:31)
[2019-01-28] MEDS: SODIUM CHLORIDE FLUSH SYRINGE 10 ML IV SCH ×2 (10:31→22:25)
--- NOTE | 2019-01-28 15:15 | Progress Note ---
Assessment and Plan Assessment and plan: My stomach hurts, and I keep throwing up History of present illness: 53 YO Female with HTN, DM complicated by Gastroparesis, GERD, Nephrolithiasis , who has experienced approximately 15-20 episodes of vomiting per day for the past three days, as well as persistent nausea. Pt also complains of abdominal discomfort following the persistent vomiting. Pt states that she has taken narcotics for the pain. Past History Past Medical History: diabetes, GERD, hypertension, other (Gastroparesis) CKD, stage 3-4 Kidney function at baseline, avoid nephrotoxins Fluid overload Obtain nephrology consult to advise about diuresing, obtain echo Diabetes ADA diet, insulin, accu check, hypoglycemia protocol Abdominal pain CT Abdomen pelvis, bowel rest, serial abdominal exam, supportive care. given extensive calcification, obtain MRA a/p Diabetic gastroparesis IVF resuscitation therapy, bowel rest, advance diet as tolerated, frequent small meals as tolerated, reglan, antiemetic therapy. Metabolic Acidosis IVF resuscitation therapy, repeat bmp, supportive care. DVT prophylaxis SCD to BLE while in bed, Pt ambulating independently History Interval history: Review of systems Constitutional: No fevers, no malaise, no joint pains CVS: No chest pain, no orthopnea, no dyspnea on exertion, no pedal edema GI: Nausea vomiting and abdominal pain is improved Respiratory: no wheezing, no coughing Hospitalist Physical - Physical exam Narrative exam: General.: Appears well, no distress, nontoxic HEENT: Moist mucous membranes, extraocular muscles intact, no lymphadenopathy Neck: supple Cardiac: S1-S2 heard Lungs: clear to auscultation bilaterally Abdomen: soft , distended, with shifting dullness Extremities: Anasarca Skin: no rash or lesions Neurologic: no gross focal deficits Psych: calm, and cooperative - Constitutional Vitals: Temp Pulse Resp BP Pulse Ox 98.3 F 85 20 180/87 99 01/28/19 12:13 01/28/19 12:13 01/28/19 12:13 01/28/19 12:13 01/28/19 12:13 General appearance: Present: mild distress Results - Labs CBC & Chem 7: 01/28/19 08:56 01/28/19 08:56 Labs: Laboratory Last Values WBC 7.7 K/mm3 (4.5-11.0) 01/28/19 08:56 RBC 3.31 M/mm3 (3.65-5.03) L 01/28/19 08:56 Hgb 10.4 gm/dl (10.1-14.3) 01/28/19 08:56 Hct 31.5 % (30.3-42.9) 01/28/19 08:56 MCV 95 fl (79-97) 01/28/19 08:56 MCH 31 pg (28-32) 01/28/19 08:56 MCHC 33 % (30-34) 01/28/19 08:56 RDW 15.7 % (13.2-15.2) H 01/28/19 08:56 Plt Count 373 K/mm3 (140-440) 01/28/19 08:56 Lymph % (Auto) 11.0 % (13.4-35.0) L 01/28/19 08:56 [place] % (Auto) 6.6 % (0.0-7.3) 01/28/19 08:56 Eos % (Auto) 0.0 % (0.0-4.3) 01/28/19 08:56 Baso % (Auto) 0.4 % (0.0-1.8) 01/28/19 08:56 Lymph # 0.8 K/mm3 (1.2-5.4) L 01/28/19 08:56 [place] # 0.5 K/mm3 (0.0-0.8) 01/28/19 08:56 Eos # 0.0 K/mm3 (0.0-0.4) 01/28/19 08:56 Baso # 0.0 K/mm3 (0.0-0.1) 01/28/19 08:56 Seg Neutrophils % 82.0 % (40.0-70.0) H 01/28/19 08:56 Seg Neutrophils # 6.3 K/mm3 (1.8-7.7) 01/28/19 08:56 Sodium 141 mmol/L (137-145) 01/28/19 08:56 Potassium 4.7 mmol/L (3.6-5.0) 01/28/19 08:56 Chloride 107.6 mmol/L (98-107) H 01/28/19 08:56 Carbon Dioxide 17 mmol/L (22-30) L 01/28/19 08:56 21 mmol/L 01/28/19 08:56 BUN 34 mg/dL (7-17) H 01/28/19 08:56 2.9 mg/dL (0.7-1.2) H 01/28/19 08:56 Estimated GFR 21 ml/min 01/28/19 08:56 12 % 01/28/19 08:56 Glucose 132 mg/dL (65-100) H 01/28/19 08:56 POC Glucose 125 (70-105) H 01/28/19 12:19 Calcium 9.4 mg/dL (8.4-10.2) 01/28/19 08:56 0.40 mg/dL (0.1-1.2) 01/28/19 08:56 0.2 mg/dL (0-0.2) 01/27/19 16:49 0.4 mg/dL 01/27/19 16:49 AST 18 units/L (5-40) 01/28/19 08:56 ALT 38 units/L (7-56) 01/28/19 08:56 93 units/L (35-129) 01/28/19 08:56 7.2 g/dL (6.3-8.2) 01/28/19 08:56 3.5 g/dL (3.9-5) L 01/28/19 08:56 0.9 % 01/28/19 08:56 9 units/L (13-60) L 01/27/19 16:49 Yellow (Yellow) 01/28/19 06:15 Hazy (Clear) 01/28/19 06:15 5.0 (5.0-7.0) 01/28/19 06:15 Ur Specific [place] 1.024 (1.003-1.030) 01/28/19 06:15 >500 mg/dL (Negative) 01/28/19 06:15 150 mg/dL (Negative) 01/28/19 06:15 Neg mg/dL (Negative) 01/28/19 06:15 Sm (Negative) 01/28/19 06:15 Neg (Negative) 01/28/19 06:15 Neg (Negative) 01/28/19 06:15 < 2.0 mg/dL (<2.0) 01/28/19 06:15 Ur Leukocyte Esterase Neg (Negative) 01/28/19 06:15 4.0 /HPF (0.0-6.0) 01/28/19 06:15 2.0 /HPF (0.0-6.0) 01/28/19 06:15 U Epithel Cells (Auto) < 1.0 /HPF (0-13.0) 01/28/19 06:15 Few /HPF 01/28/19 06:15 Active Medications - Current Medications Current Medications: Generic Name Dose Route Start Last Admin Trade Name Freq PRN Reason Stop Dose Admin Acetaminophen 650 mg 01/27/19 22:11 Tylenol PO Q4H PRN Pain MILD(1-3)/Fever >100.5/QUIÑONEZ Albuterol 2.5 mg 01/27/19 22:11 Proventil IH Q4HRT PRN Shortness Of Breath Hydralazine HCl 10 mg 01/28/19 00:22 01/28/19 13:13 Apresoline IV 10 mg Q4HR PRN Administration Hypertension Labetalol HCl 200 mg 01/28/19 08:00 01/28/19 08:00 Normodyne PO 200 mg TID ELENO Administration Metoclopramide HCl 5 mg 01/28/19 07:30 01/28/19 13:13 Reglan IV 5 mg ACHS ELENO Administration Morphine Sulfate 2 mg 01/28/19 04:48 01/28/19 05:58 Morphine IV 2 mg Q4H PRN Administration Pain, Moderate (4-6) Nifedipine 60 mg 01/28/19 10:00 01/28/19 10:30 Procardia Xl PO 60 mg DAILY ELENO Administration Ondansetron HCl 4 mg 01/27/19 22:11 01/28/19 04:02 Zofran IV 4 mg Q8H PRN Administration Nausea And Vomiting Pantoprazole Sodium 40 mg 01/28/19 10:00 01/28/19 10:31 Protonix IV 40 mg QDAY ELENO Administration Sodium Chloride 10 ml 01/28/19 10:00 01/28/19 10:31 Sodium Chloride Flush Syringe 10 Ml IV 10 ml BID ELENO Administration Sodium Chloride 10 ml 01/27/19 22:11 Sodium Chloride Flush Syringe 10 Ml IV PRN PRN LINE FLUSH
[2019-01-28] MEDS ORDERED: LASIX IV ONE (15:22)
[2019-01-28] MEDS ORDERED: APRESOLINE IV PRN (16:06)
[2019-01-28] MEDS: PROCARDIA XL PO SCH (22:24)
--- NOTE | 2019-01-29 07:50 | Consultation ---
History of Present Illness Consult date: 01/29/19 Consult reason: congestive heart failure History of present illness: This a 53-year-old female with a past medical history of hypertension, diabetes, gastroparesis, GERD, nephrolithiasis, chronic kidney disease who was admitted with intractable nausea vomiting and abdominal pain. The patient's most recent creatinine last fall in 2017 was 1.8 on admission it was 3.6. A CT scan revealed diffuse anasarca throughout the abdomen and pelvis with extensive arterial calcification of the abdominal aorta and its branches. Past History Past Medical History: diabetes, GERD, hypertension, other (Gastroparesis) Past Surgical History: cholecystectomy Social history: single, lives with family. denies: smoking, alcohol abuse, prescription drug abuse Family history: diabetes, hypertension Medications and Allergies Allergies Allergy/AdvReac Type Severity Reaction Status Date / Time cefadroxil hydrate Allergy Shortness Verified 12/13/18 18:46 [facility] Home Medications Medication Instructions Recorded Confirmed Last Taken Type Labetalol [Labetalol 200mg TAB] 200 mg PO TID 01/27/19 01/27/19 Unknown History Metoclopramide HCl [Reglan TAB] 5 mg PO TID 01/27/19 01/27/19 Unknown History NIFEdipine [Nifedipine ER] 60 mg PO DAILY 01/27/19 01/27/19 Unknown History Promethazine [Phenergan] 1 tab PO Q6HR PRN 01/27/19 01/27/19 Unknown History Ranitidine HCl [Zantac] 150 mg PO BID 01/27/19 01/27/19 Unknown History Ranitidine HCl [Zantac] 150 mg PO BID 01/27/19 01/27/19 Unknown History Active Meds: Active Medications Acetaminophen (Tylenol) 650 mg PO Q4H PRN PRN Reason: Pain MILD(1-3)/Fever >100.5/QUIÑONEZ Albuterol (Proventil) 2.5 mg IH Q4HRT PRN PRN Reason: Shortness Of Breath Hydralazine HCl (Apresoline) 20 mg IV Q4HR PRN PRN Reason: bp > 160/100 Labetalol HCl (Normodyne) 300 mg PO TID [facility] Last Admin: 01/28/19 22:24 Dose: 300 mg Documented by: Metoclopramide HCl (Reglan) 5 mg IV ACHS [facility] Last Admin: 01/28/19 22:24 Dose: 5 mg Documented by: Morphine Sulfate (Morphine) 2 mg IV Q4H PRN PRN Reason: Pain, Moderate (4-6) Last Admin: 01/28/19 05:58 Dose: 2 mg Documented by: Nifedipine (Procardia Xl) 60 mg PO Q12HR [facility] Last Admin: 01/28/19 22:24 Dose: 60 mg Documented by: Ondansetron HCl (Zofran) 4 mg IV Q8H PRN PRN Reason: Nausea And Vomiting Last Admin: 01/28/19 04:02 Dose: 4 mg Documented by: Pantoprazole Sodium (Protonix) 40 mg IV QDAY [facility] Last Admin: 01/28/19 10:31 Dose: 40 mg Documented by: Sodium Chloride (Sodium Chloride Flush Syringe 10 Ml) 10 ml IV BID [facility] Last Admin: 01/28/19 22:25 Dose: 10 ml Documented by: Sodium Chloride (Sodium Chloride Flush Syringe 10 Ml) 10 ml IV PRN PRN PRN Reason: LINE FLUSH Review of Systems Constitutional: no weight loss, no weight gain, no fever Ears, nose, mouth and throat: no ear pain, no ear discharge Breasts: deferred Cardiovascular: no chest pain, no orthopnea, no palpitations, no edema, no syncope Respiratory: no cough, no shortness of breath, no dyspnea on exertion Gastrointestinal: abdominal pain, nausea, vomiting Genitourinary Female: no urgency, no stress incontinence Musculoskeletal: no neck pain, no shooting arm pain Integumentary: no rash, no pruritis Neurological: no head injury, no transient paralysis Psychiatric: no anxiety, no memory loss Endocrine: no cold intolerance, no heat intolerance Physical Examination Vital Signs Resp 20 01/27/19 17:03 General appearance: no acute distress HEENT: Positive: PERRL Neck: Positive: neck supple, trachea midline Cardiac: Positive: Reg Rate and Rhythm Lungs: Positive: Normal Exam Neuro: Positive: Grossly Intact Abdomen: Positive: Soft, Active Bowel Sounds Skin: Negative: Rash, Suspicious Lesions Extremities: Present: warm. Absent: edema Results 01/28/19 08:56 01/28/19 08:56 Cardiac Enzymes 01/28/19 Range/Units 08:56 AST 18 (5-40) units/L CBC 01/28/19 Range/Units 08:56 WBC 7.7 (4.5-11.0) K/mm3 RBC 3.31 L (3.65-5.03) M/mm3 Hgb 10.4 (10.1-14.3) gm/dl Hct 31.5 (30.3-42.9) % Plt Count 373 (140-440) K/mm3 Lymph # 0.8 L (1.2-5.4) K/mm3 Freeborn # 0.5 (0.0-0.8) K/mm3 Eos # 0.0 (0.0-0.4) K/mm3 Baso # 0.0 (0.0-0.1) K/mm3 Comprehensive Metabolic Panel 01/28/19 Range/Units 08:56 Sodium 141 (137-145) mmol/L Potassium 4.7 (3.6-5.0) mmol/L Chloride 107.6 H (98-107) mmol/L Carbon Dioxide 17 L (22-30) mmol/L BUN 34 H (7-17) mg/dL Creatinine 2.9 H (0.7-1.2) mg/dL Glucose 132 H (65-100) mg/dL Calcium 9.4 (8.4-10.2) mg/dL AST 18 (5-40) units/L ALT 38 (7-56) units/L Alkaline Phosphatase 93 (35-129) units/L Total Protein 7.2 (6.3-8.2) g/dL Albumin 3.5 L (3.9-5) g/dL - Imaging and Cardiology Stress echo: other (MPI 01/04: Small mild inferior apical ischemic defect, EF 43%) Echo: report reviewed (ECHO 01/04: mild LVH, EF 45-50%) EKG interpretations - Telemetry EKG Rhythm: Sinus Rhythm Assessment and Plan 53-year-old female Intractable nausea/vomiting/abdominal pain CT ABD/Pelvis: Diffuse anasarca, extensive arterial calcification throughout abdominal aorta and its branches Acute on chronic kidney disease Baseline Cr 03/06: 1.8 admitted Cr 3.1 Nephrolithiasis Volume overload/HFpEF 45% Hypertension Diabetes Gastroparesis Recommend 2D echo
--- NOTE | 2019-01-29 09:00 | XRay Report ---
CHEST 1 VIEW INDICATION / CLINICAL INFORMATION: mago. Dyspnea COMPARISON: None available. FINDINGS: SUPPORT DEVICES: None. HEART / MEDIASTINUM: No significant abnormality. LUNGS / PLEURA: No significant pulmonary or pleural abnormality. No pneumothorax. ADDITIONAL FINDINGS: No significant additional findings. IMPRESSION: 1. No acute findings. Signer Name: Tony Avalos MD Signed: 01/29/2019 8:55 AM Workstation Name: [id number]
[2019-01-29] MEDS: NORMODYNE PO SCH ×2 (09:27→14:59)
[2019-01-29] MEDS: REGLAN IV SCH ×3 (09:30→17:56)
[2019-01-29] MEDS: SODIUM CHLORIDE FLUSH SYRINGE 10 ML IV SCH (09:30)
[2019-01-29] MEDS: PROTONIX IV SCH (11:26)
[2019-01-29] MEDS: PROCARDIA XL PO SCH (11:28)
[2019-01-29 13:24] LABS: Calcium 8.5 mg/dL (8.4-10.2)
--- NOTE | 2019-01-29 13:47 | Progress Note ---
Assessment and Plan - Patient Problems (1) Chronic kidney disease, stage IV (severe) Current Visit: Yes Status: Acute Plan to address problem: Chronic kidney disease stage IV creatinine appears close to baseline with a creatinine 3.0 in November 2018 I reviewed urinalysis with 3+ protein was also some anasarca Last creatinine was 2.9 potassium repeat BMP Needs follow-up with patient's primary strategic account executive If repeat labs are stable okay TO be discharged home in a perspective (2) Intractable nausea and vomiting Current Visit: Yes Status: Acute Qualifiers: Vomiting type: unspecified Qualified Code(s): R11.2 - Nausea with vomiting, unspecified Plan to address problem: Intractable nausea and vomiting Much improved continue current medications (3) HTN (hypertension) Current Visit: No Status: Chronic Plan to address problem: Hypertension controlled Continue current medications (4) Insulin dependent diabetes mellitus Current Visit: No Status: Chronic Plan to address problem: Insulin-dependent diabetes mellitus continue medications Monitor fingersticks Subjective Interval history: 53-year-old lady with medical history of hypertension diabetes gastroparesis, chronic kidney disease stage IV admitted with nausea and vomiting Patient seems to be anxious to be discharged reports good urine output Denies any fevers chills or PND denies any orthopnea PND Objective - Vital Signs Vital signs: Vital Signs - 12hr 01/29/19 01/29/19 01/29/19 04:19 09:27 13:18 Temperature 98.2 F 98.1 F Pulse Rate 78 78 67 Respiratory 20 15 Rate Blood Pressure 140/66 140/66 140/68 O2 Sat by Pulse 96 98 Oximetry - General Appearance General appearance: well-developed, well-nourished EENT: ATNC, PERRL, mucous membranes moist Neck: no JVD Respiratory: Present: Clear to Ascultation Cardiology: regular, S1S2 Gastrointestinal: normal, normoactive bowel sounds Integumentary: no rash Neurologic: alert and oriented x3, CN 3-12 intact Psychiatric: mood/affect appropriate - Lab 01/28/19 08:56 01/29/19 12:47 Most recent lab results Calcium 8.5 mg/dL (8.4-10.2) 01/29/19 12:47 - Imaging CT scan - abdomen: image reviewed (I reviewed CT abdomen with ascites and anasarca) Medications & Allergies - Medications Allergies/Adverse Reactions: Allergies cefadroxil hydrate [From Duricef] Allergy (Verified 12/13/18 18:46) Shortness of Breath Home Medications: Home Medications Medication Instructions Recorded Confirmed Last Taken Type Labetalol [Labetalol 200mg TAB] 200 mg PO TID 01/27/19 01/27/19 Unknown History Metoclopramide HCl [Reglan TAB] 5 mg PO TID 01/27/19 01/27/19 Unknown History NIFEdipine [Nifedipine ER] 60 mg PO DAILY 01/27/19 01/27/19 Unknown History Promethazine [Phenergan] 1 tab PO Q6HR PRN 01/27/19 01/27/19 Unknown History Ranitidine HCl [Zantac] 150 mg PO BID 01/27/19 01/27/19 Unknown History Ranitidine HCl [Zantac] 150 mg PO BID 01/27/19 01/27/19 Unknown History Active Medications: Generic Name Dose Route Start Last Admin Trade Name Freq PRN Reason Stop Dose Admin Acetaminophen 650 mg 01/27/19 22:11 Tylenol PO Q4H PRN Pain MILD(1-3)/Fever >100.5/QUIÑONEZ Albuterol 2.5 mg 01/27/19 22:11 Proventil IH Q4HRT PRN Shortness Of Breath Hydralazine HCl 20 mg 01/28/19 16:06 Apresoline IV Q4HR PRN bp > 160/100 Labetalol HCl 300 mg 01/28/19 16:06 01/29/19 09:27 Normodyne PO 300 mg TID ELENO Administration Metoclopramide HCl 5 mg 01/28/19 07:30 01/29/19 11:26 Reglan IV 5 mg ACHS ELENO Administration Morphine Sulfate 2 mg 01/28/19 04:48 01/28/19 05:58 Morphine IV 2 mg Q4H PRN Administration Pain, Moderate (4-6) Nifedipine 60 mg 01/28/19 22:00 01/29/19 11:28 Procardia Xl PO 60 mg Q12HR [facility] Administration Ondansetron HCl 4 mg 01/27/19 22:11 01/28/19 04:02 Zofran IV 4 mg Q8H PRN Administration Nausea And Vomiting Pantoprazole Sodium 40 mg 01/28/19 10:00 01/29/19 11:26 Protonix IV 40 mg QDAY [facility] Administration Sodium Chloride 10 ml 01/28/19 10:00 01/29/19 09:30 Sodium Chloride Flush Syringe 10 Ml IV 10 ml BID [facility] Administration Sodium Chloride 10 ml 01/27/19 22:11 Sodium Chloride Flush Syringe 10 Ml IV PRN PRN LINE FLUSH
--- NOTE | 2019-01-29 15:43 | Discharge Summary ---
Providers - Providers Date of Admission: 01/27/19 22:11 Attending physician: CHANELL HART MD 01/28/19 15:21 Consult to Physician [CONS] Routine Comment: Consulting Provider: MARAL CHI Physician Instructions: Reason For Exam: ckd Consult to Physician [CONS] Routine Comment: Consulting Provider: CLARENCE MATHIS Physician Instructions: Reason For Exam: chf Primary care physician: RODRIGUEZ FINCH Hospitalization Condition: Stable Hospital course: 53-year-old woman with history of gastroparesis and presented with nausea vomiting. She was treated with IV fluids and antiemetics, she clinically improves, her kidney function was found to be at baseline. She did have mild fluid overload. Received 1 dose of IV Lasix with improvement. The patient was discharged in improved condition Diagnoses Intractable nausea vomiting Acute exacerbation of gastroparesis Chronic kidney disease stage 3-4 Metabolic acidosis Disposition: TO HOME OR SELFCARE Time spent for discharge: 35 minutes Core Measure Documentation - Palliative Care Palliative Care/ Comfort Measures: Not Applicable - Core Measures Any of the following diagnoses?: none Exam - Constitutional Vitals: Temp Pulse Resp BP Pulse Ox 98.1 F 65 15 140/68 98 01/29/19 13:18 01/29/19 14:59 01/29/19 13:18 01/29/19 14:59 01/29/19 13:18 General appearance: Present: no acute distress, well-nourished - EENT Eyes: Present: PERRL ENT: hearing intact, clear oral mucosa - Neck Neck: Present: supple, normal ROM - Respiratory Respiratory effort: normal Respiratory: bilateral: CTA - Cardiovascular Heart Sounds: Present: S1 & S2. Absent: rub, click - Extremities Extremities: pulses symmetrical, No edema Peripheral Pulses: within normal limits - Abdominal General gastrointestinal: Present: soft, non-tender, non-distended, normal bowel sounds Female genitourinary: Present: normal - Integumentary Integumentary: Present: clear, warm, dry - Musculoskeletal Musculoskeletal: gait normal, strength equal bilaterally - Psychiatric Psychiatric: appropriate mood/affect, intact judgment & insight - Neurologic Neurologic: CNII-XII intact, moves all extremities Plan Follow up with: RODRIGUEZ FINCH MD [Primary Care Provider] - 7 Days Prescriptions: Promethazine [Phenergan] 1 tab PO Q6HR PRN #30 tablet PRN Reason: Nausea Metoclopramide HCl [Reglan TAB] 5 mg PO TID #30 tablet
[2019-01-29 16:14] VITALS: BP 132/63
== END 2019-01-29 18:32 | disposition home or self-care (01) | DRG 73 ==
LOC: ED 16:28 → 3A 22:11
PROVIDERS: ADMIT Internal Medicine; ATTEND Internal Medicine
DX: E11.43 Type 2 diabetes mellitus with diabetic autonomic (poly)neuropathy (principal); N17.0 Acute kidney failure with tubular necrosis; E87.2 Acidosis; I50.22 Chronic systolic (congestive) heart failure; I13.0 Hypertensive heart and chronic kidney disease with heart failure and stage 1 through stage 4 chronic kidney disease, or unspecified chronic kidney disease; N18.4 Chronic kidney disease, stage 4 (severe); E11.22 Type 2 diabetes mellitus with diabetic chronic kidney disease; E87.70 Fluid overload, unspecified; D64.9 Anemia, unspecified; E87.5 Hyperkalemia; K31.84 Gastroparesis; K21.9 Gastro-esophageal reflux disease without esophagitis; Z90.49 Acquired absence of other specified parts of digestive tract; Z83.3 Family history of diabetes mellitus; Z82.49 Family history of ischemic heart disease and other diseases of the circulatory system; Z88.8 Allergy status to other drugs, medicaments and biological substances; Z87.442 Personal history of urinary calculi
CPT/HCPCS: 36415; 71045; 74176; 80048; 80053; 80076; 81001; 82962; 83690; 85025; 87116; G0378; C9113; J0360; J1170; J1940; J2270; J2405; J2765; J7030

== ENCOUNTER 2019-03-26 05:53 | Emergency (ER) | payer SELFPAY ==
[2019-03-26] MEDS ORDERED: ZOFRAN IV ONE ×2 (06:24→12:34)
[2019-03-26] MEDS ORDERED: NORMODYNE IV ONE ×3 (06:24→10:54)
[2019-03-26] MEDS ORDERED: MORPHINE IV ONE ×2 (06:24→10:54)
[2019-03-26] MEDS ORDERED: MORPHINE ONE (06:28)
[2019-03-26] MEDS ORDERED: ZOFRAN ONE ×2 (06:28→12:32)
[2019-03-26 06:37] LABS: Bilirubin,Urine NEG (Negative); Blood,Urine SM (Negative); Color,Urine Yellow (Yellow); Mucus,Urine FEW /HPF; Protein,Urine >500 mg/dL (Negative); Urobilinogen,Urine < 2.0 mg/dL (<2.0)
[2019-03-26 06:40] LABS: Basophils # (Auto) 0.1 K/mm3 (0.0-0.1); Basophils % (Auto) 0.9 % (0.0-1.8); Eosinophils # (Auto) 0.4 K/mm3 (0.0-0.4); Eosinophils % (Auto) 6.7 % (0.0-4.3); Hematocrit 30.5 % (30.3-42.9); Hemoglobin 9.9 gm/dl (10.1-14.3); Lymphocytes # (Auto) 0.9 K/mm3 (1.2-5.4); Lymphocytes % (Auto) 14.2 % (13.4-35.0); Mean Corpuscular HGB Conc 32 % (30-34); Mean Corpuscular Volume 94 fl (79-97); Monocytes # (Auto) 0.4 K/mm3 (0.0-0.8); Monocytes % (Auto) 5.8 % (0.0-7.3); Platelet Count 338 K/mm3 (140-440); Red Blood Count 3.25 M/mm3 (3.65-5.03); Red Cell Distribution Width 17.7 % (13.2-15.2)
[2019-03-26] MEDS ORDERED: PEPCID IV ONE (06:57)
[2019-03-26 06:58] LABS: Albumin 3.4 g/dL (3.9-5); Calcium 9.3 mg/dL (8.4-10.2)
--- NOTE | 2019-03-26 07:05 | Emergency Department Report ---
HPI - General Chief Complaint: Abdominal Pain Time Seen by Provider: 03/26/19 06:23 - HPI HPI: 54-year-old -[place] female presents to the emergency department from home with a complaint of abdominal pain, nausea and vomiting that has been going on since yesterday evening. The abdominal pain is located towards the middle of the abdomen and epigastric. The patient has a past medical history of hypertension, diabetes, gastroparesis, kidney stones, acid reflux. She presents with very elevated blood pressure but also admits to medication noncompliance for the past 24 hours or so secondary to her current symptoms. She follows with [facility] for primary care and has an appointment on April 08 to see a weekday babysitter, Dr. Vaca. No recent travel or sick contacts at home. She denies any dysuria, vaginal bleeding or discharge, fever. ED Past Medical Hx - Past Medical History Previous Medical History?: Yes Hx Hypertension: Yes Hx Congestive Heart Failure: No Hx Diabetes: Yes Hx GERD: Yes Hx Kidney Stones: Yes Hx Asthma: No Hx COPD: No Hx HIV: No Additional medical history: gastroparesis - Surgical History Past Surgical History?: Yes Hx Cholecystectomy: Yes (01/23/15) - Social History Smoking Status: Never Smoker Substance Use Type: None - Medications Home Medications: Home Medications Medication Instructions Recorded Confirmed Last Taken Type Labetalol [Labetalol 200mg TAB] 200 mg PO TID 01/27/19 01/27/19 Unknown History NIFEdipine [Nifedipine ER] 60 mg PO DAILY 01/27/19 01/27/19 Unknown History raNITIdine HCl [Zantac] 150 mg PO BID 01/27/19 01/27/19 Unknown History raNITIdine HCl [Zantac] 150 mg PO BID 01/27/19 01/27/19 Unknown History Metoclopramide HCl [Reglan TAB] 5 mg PO TID #30 tablet 01/29/19 Unknown Rx Ondansetron [Zofran Odt] 4 mg PO Q8HR PRN #30 tab.rapdis 01/29/19 Unknown Rx Promethazine [Phenergan] 1 tab PO Q6HR PRN #30 tablet 01/29/19 Unknown Rx ED Review of Systems ROS: Stated complaint: VOMITING Other details as noted in HPI Comment: All other systems reviewed and negative Constitutional: denies: chills, fever Eyes: denies: eye pain, vision change ENT: denies: ear pain, throat pain Respiratory: denies: cough, shortness of breath Cardiovascular: denies: chest pain, palpitations Gastrointestinal: abdominal pain, nausea, vomiting Genitourinary: denies: dysuria, discharge Musculoskeletal: denies: back pain, arthralgia Skin: denies: rash, lesions Neurological: denies: headache, weakness Physical Exam - Physical Exam Vital Signs: Vital Signs 03/26/19 03/26/19 03/26/19 05:56 06:30 06:31 Temperature 97.6 F 97.8 F Pulse Rate 119 H 110 H 110 H Respiratory 20 11 L Rate Blood Pressure 231/135 232/117 Blood Pressure 232/117 [Left] O2 Sat by Pulse 100 100 Oximetry 03/26/19 06:32 Temperature Pulse Rate Respiratory 11 L Rate Blood Pressure Blood Pressure [Left] O2 Sat by Pulse 100 Oximetry Physical Exam: GENERAL: The patient is well-developed well-nourished. HENT: Normocephalic. Atraumatic. Patient has moist mucous membranes. EYES: Extraocular motions are intact. Pupils equal reactive to light bilaterally. NECK: Supple. Trachea is midline. CHEST/LUNGS: Clear to auscultation. There is no respiratory distress noted. HEART/CARDIOVASCULAR: Regular. There is no tachycardia. There is no murmur. ABDOMEN: Abdomen is soft. Epigastric tenderness to palpation. No guarding. Patient has normal bowel sounds. There is no abdominal distention. SKIN: Skin is warm and dry. NEURO: The patient is awake, alert, and oriented. The patient is cooperative. The patient has no focal neurologic deficits. Normal speech. MUSCULOSKELETAL: There is no tenderness or deformity. There is no evidence of acute injury. ED Course Vital Signs 03/26/19 03/26/19 03/26/19 05:56 06:30 06:31 Temperature 97.6 F 97.8 F Pulse Rate 119 H 110 H 110 H Respiratory 20 11 L Rate Blood Pressure 231/135 232/117 Blood Pressure 232/117 [Left] O2 Sat by Pulse 100 100 Oximetry 03/26/19 06:32 Temperature Pulse Rate Respiratory 11 L Rate Blood Pressure Blood Pressure [Left] O2 Sat by Pulse 100 Oximetry ED Medical Decision Making - Lab Data Result diagrams: 03/26/19 06:14 03/26/19 06:14 - Radiology Data Radiology results: image reviewed interpreted by me: Abdominal x-ray shows nonspecific nonobstructive bowel gas - Medical Decision Making Patient initially presented for the complaint of abdominal pain, nausea and vomiting. Secondary to her nausea and vomiting, the patient has not been compliant with her medications including antihypertensives. She presents with extremely elevated blood pressure. As soon as an IV was established, the patient was given morphine, Zofran and a dose of labetalol. It did seem to help with her abdominal pain and nausea but her blood pressure still remained elevated. Abdominal x-ray shows nonspecific nonobstructive bowel gas. Labs have been mostly unremarkable with some mild anemia and a creatinine and GFR consistent with her chronic kidney disease. During the patient's ED course she has received 30 mg of labetalol, 20 mg of hydralazine, 8 mg of morphine, 8 mg of Zofran. The abdominal pain has improved with the patient still has some nausea and vomiting and her blood pressure remains elevated with a systolic of almost 200. For these reasons, it is my intention to admit the patient to the hospital for further evaluation and treatment. The case will be presented to the admitting hospitalist for either admission or further disposition. - Differential Diagnosis gastroparesis, bowel obstruction, food poisoning, hypertensive crisis Critical Care Time: Yes Critical care time in (mins) excluding proc time.: 31 Critical care attestation.: If time is entered above; I have spent that time in minutes in the direct care of this critically ill patient, excluding procedure time. Critical care time was spent on this patient and doing her initial evaluation, multiple e valuations, ordering and interpretation of labs and imaging, many doses of IV antihypertensive medication. Critical Care Time: 31 minutes ED Disposition Clinical Impression: Hypertensive urgency, Intractable nausea and vomiting CKD (chronic kidney disease) Qualifiers: Chronic kidney disease stage: unspecified stage Qualified Code(s): N18.9 - Chronic kidney disease, unspecified Abdominal pain Qualifiers: Abdominal location: epigastric Qualified Code(s): R10.13 - Epigastric pain Anemia Qualifiers: Anemia type: unspecified type Qualified Code(s): D64.9 - Anemia, unspecified Disposition: OP ADMIT IP TO THIS HOSP Is pt being admited?: Yes Condition: Serious Instructions: Abdominal Pain (ED) Referrals: PEGGY MCKEON MD [Primary Care Provider] - 3-5 Days Time of Disposition: 14:45
--- NOTE | 2019-03-26 07:40 | XRay Report ---
Abdomen flat and upright [id number] INDICATION: Abdominal pain COMPARISON: 05/08/2018 FINDINGS: No pneumoperitoneum is seen. Cholecystectomy changes are noted. Bowel gas pattern is unrema rkable. Atherosclerotic changes are again seen. Probable mild left nephrolithiasis is noted. Signer Name: Teddy Lima MD Signed: 03/26/2019 7:36 AM Workstation Name: [id number]
[2019-03-26] MEDS ORDERED: APRESOLINE IV ONE ×4 (09:25→20:48)
[2019-03-26] MEDS ORDERED: NORVASC PO ONE (09:25)
[2019-03-26] MEDS ORDERED: NACL 0.9% 1000 ML 3,000 ML IV ONE (14:11)
[2019-03-26] MEDS ORDERED: REGLAN IV ONE (14:34)
[2019-03-26] MEDS ORDERED: BENADRYL IV ONE (15:00)
[2019-03-26] MEDS ORDERED: ATIVAN ONE (19:03)
[2019-03-26] MEDS ORDERED: ATIVAN IV ONE (20:00)
[2019-03-26 21:13] VITALS: BP 162/78
== END 2019-03-26 21:32 | disposition admitted as inpatient to this hospital (09) ==
LOC: ED 05:53
DX: I16.0 Hypertensive urgency (principal); I12.9 Hypertensive chronic kidney disease with stage 1 through stage 4 chronic kidney disease, or unspecified chronic kidney disease; N18.9 Chronic kidney disease, unspecified; E11.22 Type 2 diabetes mellitus with diabetic chronic kidney disease; K21.9 Gastro-esophageal reflux disease without esophagitis; D64.9 Anemia, unspecified; Z90.49 Acquired absence of other specified parts of digestive tract; Z79.899 Other long term (current) drug therapy
CPT/HCPCS: 36415; 74019; 80053; 81001; 83690; 85025; 96361; 96374; 96375; 96376; 99284; J0360; J1200; J2060; J2270; J2405; J2765; J7030

== ENCOUNTER 2019-04-27 05:34 | Emergency (ER) | payer SELFPAY ==
[2019-04-27 05:59] LABS: Basophils % (Auto) 0.8 % (0.0-1.8); Eosinophils # (Auto) 0.1 K/mm3 (0.0-0.4); Eosinophils % (Auto) 2.2 % (0.0-4.3); Hematocrit 30.5 % (30.3-42.9); Hemoglobin 9.9 gm/dl (10.1-14.3); Lymphocytes # (Auto) 1.2 K/mm3 (1.2-5.4); Lymphocytes % (Auto) 26.3 % (13.4-35.0); Mean Corpuscular HGB Conc 32 % (30-34); Mean Corpuscular Volume 92 fl (79-97); Monocytes # (Auto) 0.3 K/mm3 (0.0-0.8); Monocytes % (Auto) 7.1 % (0.0-7.3); Platelet Count 388 K/mm3 (140-440); Red Blood Count 3.31 M/mm3 (3.65-5.03); Red Cell Distribution Width 18.7 % (13.2-15.2)
[2019-04-27 06:11] LABS: Albumin 3.4 g/dL (3.9-5); Calcium 9.1 mg/dL (8.4-10.2)
[2019-04-27] MEDS ORDERED: FAMOTIDINE 20 MG/2 ML INJ IV ONE (06:25)
[2019-04-27] MEDS ORDERED: hydrALAZINE 20 MG/1 ML INJ IV ONE (06:25)
[2019-04-27] MEDS ORDERED: SODIUM CHLORIDE 0.9% 500 ML 500 ML IV ONE (06:25)
[2019-04-27] MEDS ORDERED: HALOPERIDOL LACTATE 5 MG/1 ML INJ IM ONE (06:25)
--- NOTE | 2019-04-27 06:27 | Emergency Department Report ---
ED General Adult HPI - General Chief complaint: Nausea/Vomiting/Diarrhea Stated complaint: TANVIR/NAUSEA Time Seen by Provider: 04/27/19 06:04 Source: patient, RN notes reviewed, old records reviewed Mode of arrival: Ambulatory Limitations: No Limitations - History of Present Illness Initial comments: Primary care Dr.: [place] [facility]: Dr. Vaca Past medical history: Gastroparesis, renal insufficiency, hypertension, diabetes, history of fluid overload, mild congestive heart failure This is a 54-year-old female. I have evaluated this patient in the past. She presents to the ER today with complaint of nontraumatic painful abdominal cram ping, nausea, vomiting and retching. She denies fevers and chills. She denies urinary symptoms. She makes no complaint of chest pain. She indicates these symptoms prior to similar episodes of gastroparesis flare and exacerbation. She is not sure what may have triggered this particular flare and/or exacerbation. -: Gradual Location: abdomen Quality: aching Consistency: constant Improves with: none Worsens with: eating, movement - Related Data Home Medications Medication Instructions Recorded Confirmed Last Taken Labetalol [Labetalol 200mg TAB] 200 mg PO TID 01/27/19 01/27/19 Unknown NIFEdipine [Nifedipine ER] 60 mg PO DAILY 01/27/19 01/27/19 Unknown raNITIdine HCl [Zantac] 150 mg PO BID 01/27/19 01/27/19 Unknown raNITIdine HCl [Zantac] 150 mg PO BID 01/27/19 01/27/19 Unknown Previous Rx's Medication Instructions Recorded Last Taken Type Metoclopramide HCl [Reglan TAB] 5 mg PO TID #30 tablet 01/29/19 Unknown Rx Ondansetron [Zofran Odt] 4 mg PO Q8HR PRN #30 tab.rapdis 01/29/19 Unknown Rx Promethazine [Phenergan] 1 tab PO Q6HR PRN #30 tablet 01/29/19 Unknown Rx LORazepam [Ativan] 0.5 mg PO QHS #15 tab 03/26/19 Unknown Rx Ondansetron [Zofran Oral Liq] 4 mg PO TID PRN #100 ml 03/26/19 Unknown Rx Capsaicin 42.5 gm TP TID PRN #1 cream..g. 04/27/19 Unknown Rx Furosemide [Lasix TAB] 40 mg PO QDAY #14 tablet 04/27/19 Unknown Rx Metoclopramide HCl [Reglan TAB] 5 mg PO QID PRN #30 tablet 04/27/19 Unknown Rx Pantoprazole [Protonix TAB] 20 mg PO QDAY #30 tablet.dr 04/27/19 Unknown Rx Promethazine [Phenergan SUPPOS] 50 mg UT Q6H PRN #20 supp.rect 04/27/19 Unknown Rx Allergies Allergy/AdvReac Type Severity Reaction Status Date / Time cefadroxil hydrate Allergy Shortness Verified 12/13/18 18:46 [facility] ED Review of Systems ROS: Stated complaint: TANVIR/NAUSEA Other details as noted in HPI Constitutional: malaise Eyes: denies: eye discharge ENT: denies: congestion Respiratory: denies: wheezing Cardiovascular: denies: syncope Gastrointestinal: abdominal pain, nausea, vomiting Genitourinary: denies: dysuria Musculoskeletal: myalgia Skin: denies: lesions Neurological: weakness Psychiatric: anxiety ED Past Medical Hx - Past Medical History Previous Medical History?: Yes Hx Hypertension: Yes Hx Congestive Heart Failure: No Hx Diabetes: Yes Hx GERD: Yes Hx Kidney Stones: Yes Hx Asthma: No Hx COPD: No Hx HIV: No Additional medical history: gastroparesis - Surgical History Past Surgical History?: Yes Hx Cholecystectomy: Yes (01/23/15) - Social History Smoking Status: Never Smoker Substance Use Type: None - Medications Home Medications: Home Medications Medication Instructions Recorded Confirmed Last Taken Type Labetalol [Labetalol 200mg TAB] 200 mg PO TID 01/27/19 01/27/19 Unknown History NIFEdipine [Nifedipine ER] 60 mg PO DAILY 01/27/19 01/27/19 Unknown History raNITIdine HCl [Zantac] 150 mg PO BID 01/27/19 01/27/19 Unknown History raNITIdine HCl [Zantac] 150 mg PO BID 01/27/19 01/27/19 Unknown History Metoclopramide HCl [Reglan TAB] 5 mg PO TID #30 tablet 01/29/19 Unknown Rx Ondansetron [Zofran Odt] 4 mg PO Q8HR PRN #30 tab.rapdis 01/29/19 Unknown Rx Promethazine [Phenergan] 1 tab PO Q6HR PRN #30 tablet 01/29/19 Unknown Rx LORazepam [Ativan] 0.5 mg PO QHS #15 tab 03/26/19 Unknown Rx Ondansetron [Zofran Oral Liq] 4 mg PO TID PRN #100 ml 03/26/19 Unknown Rx Capsaicin 42.5 gm TP TID PRN #1 cream..g. 04/27/19 Unknown Rx Furosemide [Lasix TAB] 40 mg PO QDAY #14 tablet 04/27/19 Unknown Rx Metoclopramide HCl [Reglan TAB] 5 mg PO QID PRN #30 tablet 04/27/19 Unknown Rx Pantoprazole [Protonix TAB] 20 mg PO QDAY #30 tablet.dr 04/27/19 Unknown Rx Promethazine [Phenergan SUPPOS] 50 mg UT Q6H PRN #20 supp.rect 04/27/19 Unknown Rx ED Physical Exam - General Limitations: No Limitations General appearance: alert, anxious, in distress, obese - Head Head exam: Present: atraumatic, normocephalic - Eye Eye exam: Present: normal appearance, EOMI. Absent: nystagmus - ENT ENT exam: Present: normal exam, normal orophraynx, mucous membranes moist, normal external ear exam - Neck Neck exam: Present: normal inspection, full ROM. Absent: tenderness, meningismus - Respiratory Respiratory exam: Present: normal lung sounds bilaterally. Absent: respiratory distress - Cardiovascular Cardiovascular Exam: Present: normal rhythm, tachycardia, normal heart sounds. Absent: systolic murmur, diastolic murmur, rubs, gallop - GI/Abdominal GI/Abdominal exam: Present: soft. Absent: distended, tenderness, guarding, rebound, rigid, pulsatile mass - Extremities Exam Extremities exam: Present: normal inspection, full ROM, other (2+ pulses noted in the bilateral upper, lower extremities. Compartments soft. No long bony tenderness. The pelvis is stable.). Absent: pedal edema, joint swelling, calf tenderness - Back Exam Back exam: Present: normal inspection, full ROM. Absent: tenderness, CVA tenderness (R), CVA tenderness (L), paraspinal tenderness, vertebral tenderness - Neurological Exam Neurological exam: Present: alert, other (Extraocular movements intact. Tongue midline. No facial droop. Facial sensation intact to light touch in the V1, V2, V3 distribution bilaterally. 5 and 5 strength in 4 extremities.. Sensation is intact to light touch in 4 extremities.) - Psychiatric Psychiatric exam: Present: anxious - Skin Skin exam: Present: warm, dry, intact, normal color. Absent: rash ED Course Vital Signs 04/27/19 04/27/19 04/27/19 05:35 05:59 06:00 Temperature 97.5 F L Pulse Rate 100 H Respiratory 26 H Rate Blood Pressure 226/127 212/112 Blood Pressure [Left] O2 Sat by Pulse 100 100 100 Oximetry 04/27/19 04/27/19 04/27/19 06:50 07:54 08:22 Temperature Pulse Rate 100 H 98 H 96 H Respiratory 22 20 Rate Blood Pressure 212/112 Blood Pressure 208/114 190/116 [Left] O2 Sat by Pulse 100 100 Oximetry - Reevaluation(s) Reevaluation #1: 04/27/19 07:22 Differential diagnosis, including not limited to: Gastroparesis flare/exacerbation, hypertensive urgency, chronic renal insufficiency obstruction, colitis, diverticulitis, volvulus Assessment and plan: 54-year-old female with probable gastroparesis flare and exacerbation she is tachycardic and hypertensive. This is most likely secondary to her underlying gastroparesis. I have evaluated this patient for similar symptoms in the past. She is medicated initially with haloperidol, IV fluids, and topical caspacsin She is given hydralazine for presumed elevated blood pressure. Still having pain and moaning, hydromorphone ordered. Highly doubt surgical process, however, noncontrast CT scan of the abdomen and pelvis is ordered. Hypertension is somewhat improved at this time. Reevaluation #2: 04/27/19 08:16 The patient is reassessed. She appears to be quite comfortable. Heart rate 97, blood pressure 190/75. No active vomiting or retching at this time. Patient sleeping, and appears to be quite comfortable. Reevaluation #3: 04/27/19 08:37 CT scan is reviewed and appreciated. Patient not endorsing any respiratory complaints at this time. Abdomen has been soft and benign, with no rebound, guarding or peritoneal signs. Do not suspect spontaneous bacterial peritonitis at this time. Suspect gastroparesis flare and exacerbation. We will discuss with nephrology on-call, to determine if patient is a suitable candidate for initiation of diuretic therapy. Reevaluation #4: 04/27/19 09:28 Patient does not have any active nausea or vomiting at this time. She does not have crackles or rales. Discussed case with nephrology on-call, tanner Bennett has evaluated this patient in the past. He recommends Lasix 40 mg daily. Patient declining intravenous medication in the emergency room. Patient will be discharged with prescription for Lasix, Reglan, Phenergan suppository, proton pump inhibitor, topical capsacin, she'll need to follow-up with nephrology and gastroenterology ED Medical Decision Making - Lab Data Result diagrams: 04/27/19 05:46 04/27/19 05:46 Vital Signs 04/27/19 04/27/19 04/27/19 05:35 05:59 06:00 Temperature 97.5 F L Pulse Rate 100 H Respiratory 26 H Rate Blood Pressure 226/127 212/112 O2 Sat by Pulse 100 100 100 Oximetry 04/27/19 06:50 Temperature Pulse Rate 100 H Respiratory Rate Blood Pressure 212/112 O2 Sat by Pulse Oximetry Lab Results 04/27/19 04/27/19 04/27/19 Range/Units 05:46 05:46 05:46 WBC 4.5 (4.5-11.0) K/mm3 RBC 3.31 L (3.65-5.03) M/mm3 Hgb 9.9 L (10.1-14.3) gm/dl Hct 30.5 (30.3-42.9) % MCV 92 (79-97) fl MCH 30 (28-32) pg MCHC 32 (30-34) % RDW 18.7 H (13.2-15.2) % Plt Count 388 (140-440) K/mm3 Lymph % (Auto) 26.3 (13.4-35.0) % [place] % (Auto) 7.1 (0.0-7.3) % Eos % (Auto) 2.2 (0.0-4.3) % Baso % (Auto) 0.8 (0.0-1.8) % Lymph # 1.2 (1.2-5.4) K/mm3 [place] # 0.3 (0.0-0.8) K/mm3 Eos # 0.1 (0.0-0.4) K/mm3 Baso # 0.0 (0.0-0.1) K/mm3 Seg Neutrophils % 63.6 (40.0-70.0) % Seg Neutrophils # 2.9 (1.8-7.7) K/mm3 Sodium 140 (137-145) mmol/L Potassium 4.4 (3.6-5.0) mmol/L Chloride 106.6 (98-107) mmol/L Carbon Dioxide 21 L (22-30) mmol/L Anion Gap 17 mmol/L BUN 28 H (7-17) mg/dL Creatinine 3.3 H (0.7-1.2) mg/dL Estimated GFR 18 ml/min BUN/Creatinine Ratio 8 % Glucose 149 H (65-100) mg/dL POC Glucose (70-105) Calcium 9.1 (8.4-10.2) mg/dL Magnesium 1.70 (1.7-2.3) mg/dL Total Bilirubin 0.50 (0.1-1.2) mg/dL AST 16 (5-40) units/L ALT 13 (7-56) units/L Alkaline Phosphatase 96 (35-129) units/L Total Creatine Kinase 207 H (30-135) units/L Total Protein 7.0 (6.3-8.2) g/dL Albumin 3.4 L (3.9-5) g/dL Albumin/Globulin Ratio 0.9 % Lipase 8 L (13-60) units/L 04/27/19 Range/Units 05:50 WBC (4.5-11.0) K/mm3 RBC (3.65-5.03) M/mm3 Hgb (10.1-14.3) gm/dl Hct (30.3-42.9) % MCV (79-97) fl MCH (28-32) pg MCHC (30-34) % RDW (13.2-15.2) % Plt Count (140-440) K/mm3 Lymph % (Auto) (13.4-35.0) % [place] % (Auto) (0.0-7.3) % Eos % (Auto) (0.0-4.3) % Baso % (Auto) (0.0-1.8) % Lymph # (1.2-5.4) K/mm3 [place] # (0.0-0.8) K/mm3 Eos # (0.0-0.4) K/mm3 Baso # (0.0-0.1) K/mm3 Seg Neutrophils % (40.0-70.0) % Seg Neutrophils # (1.8-7.7) K/mm3 Sodium (137-145) mmol/L Potassium (3.6-5.0) mmol/L Chloride (98-107) mmol/L Carbon Dioxide (22-30) mmol/L Anion Gap mmol/L BUN (7-17) mg/dL Creatinine (0.7-1.2) mg/dL Estimated GFR ml/min BUN/Creatinine Ratio % Glucose (65-100) mg/dL POC Glucose 168 H (70-105) Calcium (8.4-10.2) mg/dL Magnesium (1.7-2.3) mg/dL Total Bilirubin (0.1-1.2) mg/dL AST (5-40) units/L ALT (7-56) units/L Alkaline Phosphatase (35-129) units/L Total Creatine Kinase (30-135) units/L Total Protein (6.3-8.2) g/dL Albumin (3.9-5) g/dL Albumin/Globulin Ratio % Lipase (13-60) units/L - EKG Data -: EKG Interpreted by Ia EKG shows normal: sinus rhythm Rate: normal - EKG Data 04/27/19 07:24 The EKG shows a sinus rhythm, 99 bpm, normal axis, QTC is 507 The EKG appears to be unchanged from prior EKG from 12/13/2018 ms, there is poor R progression, there is atrial enlargement, there is low voltage in the lateral leads, Q waves noted in the inferior leads, the EKG is abnormal, EKG is not consistent with ST elevation myocardial infarction - Radiology Data Radiology results: pending, report reviewed, image reviewed Y: abd pain n/v COMPARISON: 01/27/2019 TECHNIQUE: Routine abdominal and pelvic CT exam performed without contrast. Lack of intravenous contrast limits evaluation of the vascular and solid organs. Note: All CT scans at this location are performed using CT dose reduction employed for ALARA by means of automated exposure control. CONTRAST: None. FINDINGS: CT ABDOMEN: Lung Bases: A new moderate size right pleural effusion. Pericardial effusion. The lower lung ontiveros are clear. Liver: No significant abnormality. Biliary: Status post cholecystectomy. Normal intrahepatic and extra hepatic bile ducts. Spleen: No significant abnormality. Unenlarged. Pancreas: No significant abnormality. Adrenals: No significant abnormality. Kidneys: The renal collecting systems and ureters are nondilated. No urinary calculi. No mass or cyst. Extensive renal vascular calcifications. Lymphatics: No lymphadenopathy. Vasculature: Calcification of the abdominal vasculature. Bowel/Peritoneum: Normal large and small bowel. No free air. Moderate ascites with increased volume of ascites compared to the last exam. Normal appendix. CT PELVIC: : Normal urinary blad khurram, uterus and ovaries. Moderate pelvic ascites. Osseous Structures: No significant abnormality. Additional Findings: Diffuse soft tissue edema of the abdomen and pelvis. IMPRESSION: 1. Worsened anasarca with increased ascites and a new right pleural effusion. 2. Status post cholecystectomy. 3. No explanation for abdominal pain. 4. Normal pelvis except for ascites. Signer Name: Lawrence Funk MD Signed: 04/27/2019 7:14 AM Workstation Name: [id number] Critical care attestation.: If time is entered above; I have spent that time in minutes in the direct care of this critically ill patient, excluding procedure time. ED Disposition Clinical Impression: Renal insufficiency, Gastroparesis, Elevated blood pressure reading Disposition: DC-01 TO HOME OR SELFCARE Is pt being admited?: No Does the pt Need Aspirin: No Condition: Stable Additional Instructions: Avoid consumption of Motrin, ibuprofen, Naprosyn, Aleve. Avoid consumption of heavy and/or spicy foods. Continue outpatient blood pressure medications. Take the Lasix medication as needed and directed. Recommend follow up with the nephrology kidney specialist within the next 7-10 days. Patient was found to have elevated blood pressure, and evidence of mild fluid retention. Not following up is recommended to improve blood pressure control may result in poorly controlled blood pressure, which in turn may put the patient at risk for stroke, disability, paralysis, loss of quality of life. Recommend follow-up with your roll dough divider within the next 7-10 days. Return to the emergency room right away with projectile vomiting, change in mental status, confusion, inability to tolerate liquid feeds, new, worsening or different symptoms not present on the initial emergency room evaluation. Referrals: MARAL CHI MD [Staff Physician] - 3-5 Days BROOKLYN VACA MD [Staff Physician] - 3-5 Days
[2019-04-27] MEDS ORDERED: CAPSAICIN 0.075% CREAM 60 GM TP ONE (07:00)
[2019-04-27] MEDS ORDERED: HYDROmorphone 1 MG/1 ML INJ IV ONE (07:20)
--- NOTE | 2019-04-27 08:18 | Cat Scan Report ---
CT ABDOMEN AND PELVIS WITHOUT CONTRAST HISTORY: abd pain n/v COMPARISON: 01/27/2019 TECHNIQUE: Routine abdominal and pelvic CT exam performed without contrast. Lack of intravenous cont rast limits evaluation of the vascular and solid organs. Note: All CT scans at this location are performed using CT dose reduction employed for ALARA by means of automated exposure control. CONTRAST: None. FINDINGS: CT ABDOMEN: Lung Bases: A new moderate size right pleural effusion. Pericardial effusion. The lower lung ontiveros a re clear. Liver: No significant abnormality. Biliary: Status post cholecystectomy. Normal intrahepatic and extra hepatic bile ducts. Spleen: No significant abnormality. Unenlarged. Pancreas: No significant abnormality. Adrenals: No significant abnormality. Kidneys: The renal collecting systems and ureters are nondilated. No urinary calculi. No mass or cyst . Extensive renal vascular calcifications. Lymphatics: No lymphadenopathy. Vasculature: Calcification of the abdominal vasculature. Bowel/Peritoneum: Normal large and small bowel. No free air. Moderate ascites with increased volume o f ascites compared to the last exam. Normal appendix. CT PELVIC: : Normal urinary bladder, uterus and ovaries. Moderate pelvic ascites. Osseous Structures: No significant abnormality. Additional Findings: Diffuse soft tissue edema of the abdomen and pelvis. IMPRESSION: 1. Worsened anasarca with increased ascites and a new right pleural effusion. 2. Status post cholecystectomy. 3. No explanation for abdominal pain. 4. Normal pelvis except for ascites. Signer Name: Lawrence Funk MD Signed: 04/27/2019 8:14 AM Workstation Name: [id number]
[2019-04-27] MEDS ORDERED: FUROSEMIDE 40 MG/4 ML INJ IV ONE (09:01)
[2019-04-27 10:06] VITALS: BP 201/121
== END 2019-04-27 10:07 | disposition home or self-care (01) ==
LOC: ED 05:34
DX: K31.84 Gastroparesis (principal); N28.9 Disorder of kidney and ureter, unspecified; I10 Essential (primary) hypertension; E11.9 Type 2 diabetes mellitus without complications; K21.9 Gastro-esophageal reflux disease without esophagitis; Z87.442 Personal history of urinary calculi; Z90.49 Acquired absence of other specified parts of digestive tract; Z88.1 Allergy status to other antibiotic agents
CPT/HCPCS: 36415; 74176; 80053; 82550; 82962; 83690; 83735; 85025; 93005; 93010; 96372; 96374; 96375; 99284; J0360; J1170; J1630; J1940; J7040

== ENCOUNTER 2019-07-03 22:58 | Inpatient (IN) | payer OTHER ==
[2019-07-03 23:39] LABS: Basophils % (Auto) 0.5 % (0.0-1.8); Eosinophils % (Auto) 0.5 % (0.0-4.3); Hematocrit 29.6 % (30.3-42.9); Hemoglobin 9.6 gm/dl (10.1-14.3); Lymphocytes # (Auto) 0.5 K/mm3 (1.2-5.4); Lymphocytes % (Auto) 7.1 % (13.4-35.0); Mean Corpuscular HGB Conc 32 % (30-34); Mean Corpuscular Volume 93 fl (79-97); Monocytes # (Auto) 0.1 K/mm3 (0.0-0.8); Platelet Count 368 K/mm3 (140-440); Red Blood Count 3.19 M/mm3 (3.65-5.03); Red Cell Distribution Width 19.9 % (13.2-15.2)
[2019-07-03 23:46] LABS: Albumin 3.4 g/dL (3.9-5)
[2019-07-04] MEDS ORDERED: ONDANSETRON 4 MG/2 ML INJ IV ONE (00:54)
[2019-07-04] MEDS ORDERED: MORPHINE 4 MG/1 ML INJ IV ONE (00:54)
[2019-07-04] MEDS ORDERED: FAMOTIDINE 20 MG/2 ML INJ IV ONE (00:54)
[2019-07-04] MEDS ORDERED: SODIUM CHLORIDE 0.9% 1000 ML 1,000 ML IV ONE (00:54)
[2019-07-04] MEDS ORDERED: METOCLOPRAMIDE 10 MG/2 ML INJ IV ONE (00:55)
[2019-07-04] MEDS ORDERED: diphenhydrAMINE 50 MG/ML VIAL IV ONE (00:55)
--- NOTE | 2019-07-04 01:15 | Emergency Department Report ---
ED Abdominal Pain HPI - General Chief Complaint: Abdominal Pain Stated Complaint: VOMITING/ABD PAIN Time Seen by Provider: 07/04/19 00:53 Source: patient, family Mode of arrival: Ambulatory Limitations: No Limitations - History of Present Illness Initial Comments: CC: "Abdominal Pain" HPI: Mrs. Araya is a 54-year-old female with history of diabetes mellitus, diabetic gastroparesis, GERD, hypertension, chronic kidney disease who presents with abdominal pain for the last day. Abdominal pain typical for previous episodes related to gastroparesis. She's had decreased appetite. She's had severe persistent nausea vomiting with innumerable episodes of emesis. Denies fever. Gradual onset of symptoms. Pain does not change with movement. 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 Complaint: abdominal pain -: Gradual, days(s) (1) Location: diffuse Severity: severe Severity scale (0 -10): 10 Quality: cramping Consistency: constant Improves With: nothing Worsens With: nothing Associated Symptoms: nausea, vomiting - Related Data Home Medications Medication Instructions Recorded Confirmed Last Taken NIFEdipine [Nifedipine ER] 60 mg PO DAILY 01/27/19 01/27/19 Unknown labetaloL [Labetalol 200mg TAB] 200 mg PO TID 01/27/19 01/27/19 Unknown raNITIdine HCl [Zantac] 150 mg PO BID 01/27/19 01/27/19 Unknown raNITIdine HCl [Zantac] 150 mg PO BID 01/27/19 01/27/19 Unknown Previous Rx's Medication Instructions Recorded Last Taken Type Metoclopramide HCl [Reglan TAB] 5 mg PO TID #30 tablet 01/29/19 Unknown Rx Ondansetron [Zofran Odt] 4 mg PO Q8HR PRN #30 tab.rapdis 01/29/19 Unknown Rx Promethazine [Phenergan] 1 tab PO Q6HR PRN #30 tablet 01/29/19 Unknown Rx LORazepam [Ativan] 0.5 mg PO QHS #15 tab 03/26/19 Unknown Rx Ondansetron [Zofran Oral Liq] 4 mg PO TID PRN #100 ml 03/26/19 Unknown Rx Capsaicin 42.5 gm TP TID PRN #1 cream..g. 04/27/19 Unknown Rx Furosemide [Lasix TAB] 40 mg PO QDAY #14 tablet 04/27/19 Unknown Rx Metoclopramide HCl [Reglan TAB] 5 mg PO QID PRN #30 tablet 04/27/19 Unknown Rx Pantoprazole [Protonix TAB] 20 mg PO QDAY #30 tablet.dr 04/27/19 Unknown Rx Promethazine [Phenergan SUPPOS] 50 mg MD Q6H PRN #20 supp.rect 04/27/19 Unknown Rx Allergies Allergy/AdvReac Type Severity Reaction Status Date / Time cefadroxil hydrate Allergy Shortness Verified 12/13/18 18:46 [From [facility]] of Breath ED Review of Systems ROS: Stated complaint: VOMITING/ABD PAIN Other details as noted in HPI Comment: All other systems reviewed and negative Constitutional: denies: fever, malaise Gastrointestinal: abdominal pain, nausea, vomiting ED Past Medical Hx - Past Medical History Previous Medical History?: Yes Hx Hypertension: Yes Hx Congestive Heart Failure: No Hx Diabetes: Yes Hx GERD: Yes Hx Kidney Stones: Yes Hx Asthma: No Hx COPD: No Hx HIV: No Additional medical history: gastroparesis - Surgical History Past Surgical History?: Yes Hx Cholecystectomy: Yes (01/23/15) - Social History Smoking Status: Never Smoker Substance Use Type: None - Medications Home Medications: Home Medications Medication Instructions Recorded Confirmed Last Taken Type NIFEdipine [Nifedipine ER] 60 mg PO DAILY 01/27/19 01/27/19 Unknown History labetaloL [Labetalol 200mg TAB] 200 mg PO TID 01/27/19 01/27/19 Unknown History raNITIdine HCl [Zantac] 150 mg PO BID 01/27/19 01/27/19 Unknown History raNITIdine HCl [Zantac] 150 mg PO BID 01/27/19 01/27/19 Unknown History Metoclopramide HCl [Reglan TAB] 5 mg PO TID #30 tablet 01/29/19 Unknown Rx Ondansetron [Zofran Odt] 4 mg PO Q8HR PRN #30 tab.rapdis 01/29/19 Unknown Rx Promethazine [Phenergan] 1 tab PO Q6HR PRN #30 tablet 01/29/19 Unknown Rx LORazepam [Ativan] 0.5 mg PO QHS #15 tab 03/26/19 Unknown Rx Ondansetron [Zofran Oral Liq] 4 mg PO TID PRN #100 ml 03/26/19 Unknown Rx Capsaicin 42.5 gm TP TID PRN #1 cream..g. 04/27/19 Unknown Rx Furosemide [Lasix TAB] 40 mg PO QDAY #14 tablet 04/27/19 Unknown Rx Metoclopramide HCl [Reglan TAB] 5 mg PO QID PRN #30 tablet 04/27/19 Unknown Rx Pantoprazole [Protonix TAB] 20 mg PO QDAY #30 tablet.dr 04/27/19 Unknown Rx Promethazine [Phenergan SUPPOS] 50 mg MD Q6H PRN #20 supp.rect 04/27/19 Unknown Rx ED Physical Exam - General Limitations: No Limitations General appearance: alert, other (appears in severe pain, pale, rocking and moaning constantly) - Head Head exam: Present: atraumatic, normocephalic - Eye Eye exam: Present: normal appearance - ENT ENT exam: Present: mucous membranes dry, other (no oropharyngeal lesions) - Neck Neck exam: Present: normal inspection, full ROM - Respiratory Respiratory exam: Present: normal lung sounds bilaterally. Absent: respiratory distress, wheezes, rales, rhonchi - Cardiovascular Cardiovascular Exam: Present: regular rate, normal rhythm, normal heart sounds. Absent: systolic murmur, diastolic murmur, rubs, gallop - GI/Abdominal GI/Abdominal exam: Present: soft, normal bowel sounds. Absent: distended, tenderness, guarding, rebound - Extremities Exam Extremities exam: Present: normal inspection - Neurological Exam Neurological exam: Present: alert, oriented X3 - Psychiatric Psychiatric exam: Present: normal affect, normal mood - Skin Skin exam: Present: warm, dry, intact, pallor. Absent: rash ED Course Vital Signs 07/03/19 23:03 Temperature 98.4 F Pulse Rate 113 H Respiratory 18 Rate Blood Pressure 224/139 O2 Sat by Pulse 100 Oximetry ED Medical Decision Making - Lab Data Result diagrams: 07/03/19 23:16 07/03/19 23:16 Laboratory Results - last 24 hr 07/03/19 07/03/19 23:16 23:16 WBC 7.5 RBC 3.19 L Hgb 9.6 L Hct 29.6 L MCV 93 MCH 30 MCHC 32 RDW 19.9 H Plt Count 368 Lymph % (Auto) 7.1 L [place] % (Auto) 2.0 Eos % (Auto) 0.5 Baso % (Auto) 0.5 Lymph # 0.5 L [place] # 0.1 Eos # 0.0 Baso # 0.0 Seg Neutrophils % 89.9 H Seg Neutrophils # 6.8 Sodium 142 Potassium 4.6 Chloride 108.5 H Carbon Dioxide 19 L Anion Gap 19 BUN 26 H Creatinine 3.5 H Estimated GFR 17 BUN/Creatinine Ratio 7 Glucose 169 H Total Bilirubin 0.60 AST 14 ALT 13 Alkaline Phosphatase 101 Total Protein 7.0 Albumin 3.4 L Albumin/Globulin Ratio 0.9 Lipase 10 L - Medical Decision Making 1. Mrs. Araya presents with severe abdominal pain and intractable nausea vomiting due to recurrent gastroparesis. No fever, tenderness to indication acute intra-abdominal inflammatory process. She received only milld relief of symptoms with treatment provided in the emergency department. 2. Hypertensive urgency: will likely need IV antihypertensive 3. CKD, GFR has declined since March 4. anemia at baseline for patient Admitted to hospitalist service Critical care attestation.: If time is entered above; I have spent that time in minutes in the direct care of this critically ill patient, excluding procedure time. ED Disposition Clinical Impression: Diabetic gastroparesis, Insulin dependent diabetes mellitus, Accelerated hypertension, Intractable nausea and vomiting, Intractable abdominal pain, Chronic kidney disease, stage IV (severe) Disposition: OP ADMIT IP TO THIS HOSP Is pt being admited?: Yes Does the pt Need Aspirin: No Condition: Stable
[2019-07-04] MEDS ORDERED: hydrALAZINE 20 MG/1 ML INJ IV ONE ×2 (01:18→01:46)
[2019-07-04 01:59] LABS: Calcium 9.6 mg/dL (8.4-10.2)
[2019-07-04] MEDS ORDERED: METOCLOPRAMIDE 10 MG/2 ML INJ IV PRN (02:09)
[2019-07-04] MEDS ORDERED: DEXTROSE 50% IN WATER (25GM) 50 ML SYRINGE IV PRN (02:09)
[2019-07-04] MEDS ORDERED: ACETAMINOPHEN 325 MG TAB PO PRN (02:09)
[2019-07-04] MEDS ORDERED: MAGNESIUM HYDROXIDE (MOM) ORAL LIQD UDC PO PRN (02:09)
[2019-07-04] MEDS ORDERED: MORPHINE 2 MG/1 ML INJ IV PRN (02:09)
[2019-07-04] MEDS ORDERED: SODIUM CHLORIDE 0.9% 1000 ML 1,000 ML IV SCH (02:15)
[2019-07-04] MEDS ORDERED: hydrALAZINE 20 MG/1 ML INJ ONE (04:10)
--- NOTE | 2019-07-04 04:19 | History and Physical Report ---
History of Present Illness Date of examination: 07/04/19 Date of admission: 07/04/19 Chief complaint: Nausea and vomiting History of present illness: Patient is a 54-year-old female with known history of diabetes mellitus, hypertension, GERD, gastroparesis and chronic kidney disease. She presents to the emergency room today complaining of nausea and vomiting. She has had numerous episodes of vomiting prior to reporting to the emergency room. She has been unable to tolerate p.o. intake. She has had some mild abdominal discomfort. She denies any diarrhea, she denies any fever or chills, no chest pain or shortness of breath. Past History Past Medical History: diabetes, GERD, hypertension, other (Chronic kidney diseas e) Past Surgical History: cholecystectomy Social history: no significant social history Family history: no significant family history Medications and Allergies Allergies Allergy/AdvReac Type Severity Reaction Status Date / Time cefadroxil hydrate Allergy Shortness Verified 12/13/18 18:46 [From [facility] [place]] of Breath Home Medications Medication Instructions Recorded Confirmed Last Taken Type NIFEdipine [Nifedipine ER] 60 mg PO DAILY 01/27/19 07/04/19 Unknown History labetaloL [Labetalol 200mg TAB] 200 mg PO TID 01/27/19 07/04/19 Unknown History Active Meds: Active Medications Acetaminophen (Tylenol) 650 mg PO Q4H PRN PRN Reason: Pain MILD(1-3)/Fever >100.5/QUIÑONEZ Dextrose (D50w (25gm) Syringe) 0 ml IV Q30MIN PRN; Protocol PRN Reason: Hypoglycemia Sodium Chloride (Nacl 0.9% 1000 Ml) 1,000 mls @ 125 mls/hr IV DIRECT [facility] Insulin Human Lispro (Humalog) 0 unit SUB-Q ACHS [facility]; Protocol Magnesium Hydroxide (Milk Of Magnesia) 30 ml PO Q4H PRN PRN Reason: Constipation Metoclopramide HCl (Reglan) 5 mg IV Q6H PRN PRN Reason: Nausea And Vomiting Morphine Sulfate (Morphine) 2 mg IV Q4H PRN PRN Reason: Pain, Moderate (4-6) Sodium Chloride (Sodium Chloride Flush Syringe 10 Ml) 10 ml IV BID [facility] Sodium Chloride (Sodium Chloride Flush Syringe 10 Ml) 10 ml IV PRN PRN PRN Reason: LINE FLUSH Exam - Constitutional Vitals: Temp Pulse Resp BP Pulse Ox 98.4 F 103 H 16 199/107 99 07/03/19 23:03 07/04/19 04:00 07/04/19 04:00 07/04/19 04:00 07/04/19 04:00 General appearance: Present: no acute distress, well-nourished - EENT Eyes: Present: PERRL, EOM intact ENT: hearing intact, clear oral mucosa, dentition normal - Neck Neck: Present: supple, normal ROM - Respiratory Respiratory effort: normal Respiratory: bilateral: CTA - Cardiovascular Rhythm: regular Heart Sounds: Present: S1 & S2 - Extremities Extremities: no ischemia, pulses symmetrical, No edema, Full ROM Peripheral Pulses: within normal limits - Abdominal General gastrointestinal: Present: soft, non-distended Localized gastrointestinal: tender: epigastric periumbilical - Integumentary Integumentary: Present: clear, warm, dry - Musculoskeletal Musculoskeletal: strength equal bilaterally - Psychiatric Psychiatric: appropriate mood/affect, intact judgment & insight, cooperative - Neurologic Neurologic: CNII-XII intact, moves all extremities Results - Labs CBC & Chem 7: 07/03/19 23:16 07/03/19 23:16 Labs: Abnormal lab results 07/03/19 07/03/19 Range/Units 23:16 23:16 RBC 3.19 L (3.65-5.03) M/mm3 Hgb 9.6 L (10.1-14.3) gm/dl Hct 29.6 L (30.3-42.9) % RDW 19.9 H (13.2-15.2) % Lymph % (Auto) 7.1 L (13.4-35.0) % Lymph # 0.5 L (1.2-5.4) K/mm3 Seg Neutrophils % 89.9 H (40.0-70.0) % Chloride 108.5 H (98-107) mmol/L Carbon Dioxide 19 L (22-30) mmol/L BUN 26 H (7-17) mg/dL Creatinine 3.5 H (0.7-1.2) mg/dL Glucose 169 H (65-100) mg/dL Albumin 3.4 L (3.9-5) g/dL Lipase 10 L (13-60) units/L Assessment and Plan - Patient Problems (1) Intractable nausea and vomiting Current Visit: Yes Status: Acute Plan to address problem: Probably secondary to diabetic gastroparesis. Patient has been placed on IV Reglan. (2) Chronic kidney disease, stage IV (severe) Current Visit: Yes Status: Acute Plan to address problem: We will monitor BUN and creatinine. We will request nephrology evaluation and recommendation prior to discharge (3) HTN (hypertension) Current Visit: No Status: Chronic Plan to address problem: We will continue routine home medications and monitor vital signs closely. We also placed on IV hydralazine as needed. (4) Diabetes Current Visit: No Status: Acute Plan to address problem: We will monitor Accu-Cheks closely (5) DVT prophylaxis Current Visit: No Status: Acute Plan to address problem: Patient placed on subcutaneous heparin. (6) Full code status Current Visit: Yes Status: Acute
[2019-07-04] MEDS ORDERED: hydrALAZINE 20 MG/1 ML INJ IV PRN (05:32)
[2019-07-04] MEDS: INSULIN LISPRO 100 UNIT/ML SUB-Q SCH ×2 (09:39→12:36)
[2019-07-04] MEDS ORDERED: NIFEdipine XL 60 MG TAB PO SCH (10:00)
--- NOTE | 2019-07-04 10:07 | Gastroenterology Consultation ---
History of Present Illness - Reason for Consult Consult date: 07/04/19 N/V Requesting physician: SASKIA OLIVEIRA - History of Present Illness Patient is a 54 y/o female with PMH of DM, HTN, GERD, gastroparesis, and CKD who presented to ED with c/o N/V to which GI has been consulted. Patient is previously known to our service and is followed by Dr. Vaca. She was last seen in clinic in March with an outpatient EGD scheduled for similar symptoms however patient did not follow up to have procedure done. She has a hx of chronic intermittent episodes of N/V with etiology thought to be 2/2 gastroparesis. This morning patient was sitting up in bed w/o acute distress eating breakfast. Report N/V now improved. Denies fever, CP, SOB, abd pain, signs of bleeding, or LGI symptoms. She was previously taking Ranitidine (PPI stopped per nephrology due to CKD) and metoclopramide at home for gastroparesis but has been off medications recently due to lack of insurance per patient. No NSAID use or hx of PUD. Last EGD in 2014 showed mild esophagitis. S/P cholecystectomy. Past History Past Medical History: diabetes, GERD, hypertension, other (Chronic kidney disease, gastroparesis) Past Surgical History: cholecystectomy Social history: no significant social history Family history: no significant family history Medications and Allergies Allergies Allergy/AdvReac Type Severity Reaction Status Date / Time cefadroxil hydrate Allergy Shortness Verified 12/13/18 18:46 [From [facility] [place]] of Breath Home Medications Medication Instructions Recorded Confirmed Last Taken Type NIFEdipine [Nifedipine ER] 60 mg PO DAILY 01/27/19 07/04/19 Unknown History labetaloL [Labetalol 200mg TAB] 200 mg PO TID 01/27/19 07/04/19 Unknown History Active Meds: Active Medications Acetaminophen (Tylenol) 650 mg PO Q4H PRN PRN Reason: Pain MILD(1-3)/Fever >100.5/QUIÑONEZ Dextrose (D50w (25gm) Syringe) 0 ml IV Q30MIN PRN; Protocol PRN Reason: Hypoglycemia Heparin Sodium (Porcine) (Heparin) 5,000 unit SUB-Q Q8HR [facility] Hydralazine HCl (Apresoline) 10 mg IV Q4HR PRN PRN Reason: SBP>160 Last Admin: 07/04/19 06:33 Dose: 10 mg Documented by: Sodium Chloride (Nacl 0.9% 1000 Ml) 1,000 mls @ 125 mls/hr IV DIRECT [facility] Insulin Human Lispro (Humalog) 0 unit SUB-Q ACHS [facility]; Protocol Last Admin: 07/04/19 09:39 Dose: Not Given Documented by: Labetalol HCl (Labetalol) 200 mg PO TID [facility] Last Admin: 07/04/19 09:40 Dose: 200 mg Documented by: Magnesium Hydroxide (Milk Of Magnesia) 30 ml PO Q4H PRN PRN Reason: Constipation Metoclopramide HCl (Reglan) 5 mg IV Q6H PRN PRN Reason: Nausea And Vomiting Morphine Sulfate (Morphine) 2 mg IV Q4H PRN PRN Reason: Pain, Moderate (4-6) Last Admin: 07/04/19 06:22 Dose: 2 mg Documented by: Nifedipine (Procardia Xl) 60 mg PO DAILY [facility] Last Admin: 07/04/19 09:40 Dose: 60 mg Documented by: Sodium Chloride (Sodium Chloride Flush Syringe 10 Ml) 10 ml IV BID [facility] Last Admin: 07/04/19 09:41 Dose: 10 ml Documented by: Sodium Chloride (Sodium Chloride Flush Syringe 10 Ml) 10 ml IV PRN PRN PRN Reason: LINE FLUSH medications reviewed/updated as required Review of Systems - Review of Systems Gastrointestinal: nausea, vomiting Exam - Constitutional Vital Signs: Temp Pulse Resp BP Pulse Ox 97.4 F L 97 H 20 173/94 98 07/04/19 06:31 07/04/19 09:40 07/04/19 06:31 07/04/19 09:40 07/04/19 06:31 General appearance: no acute distress - EENT Eyes: PERRL, EOM intact ENT: hearing intact - Respiratory Respiratory effort: normal Respiratory: bilateral: CTA - Cardiovascular Rhythm: regular - Gastrointestinal General gastrointestinal: Present: soft, non-tender, non-distended, normal bowel sounds - Integumentary Integumentary: Present: warm, dry - Neurologic Neurological: alert and oriented x3 - Labs CBC & Chem 7: 07/03/19 23:16 07/03/19 23:16 Lab Results: Laboratory Results - last 24 hr 07/03/19 07/03/19 23:16 23:16 WBC 7.5 RBC 3.19 L Hgb 9.6 L Hct 29.6 L MCV 93 MCH 30 MCHC 32 RDW 19.9 H Plt Count 368 Lymph % (Auto) 7.1 L Mora % (Auto) 2.0 Eos % (Auto) 0.5 Baso % (Auto) 0.5 Lymph # 0.5 L Mora # 0.1 Eos # 0.0 Baso # 0.0 Seg Neutrophils % 89.9 H Seg Neutrophils # 6.8 Sodium 142 Potassium 4.6 Chloride 108.5 H Carbon Dioxide 19 L Anion Gap 19 BUN 26 H Creatinine 3.5 H Estimated GFR 17 BUN/Creatinine Ratio 7 Glucose 169 H Calcium 9.6 Total Bilirubin 0.60 AST 14 ALT 13 Alkaline Phosphatase 101 Total Protein 7.0 Albumin 3.4 L Albumin/Globulin Ratio 0.9 Lipase 10 L Assessment and Plan 1.N/V 2.H/o gastroparesis -afebrile -WBC, LFTs, and lipase WNL -H/H 9.6/29.6-stable compared to previous labs; no signs of bleeding; hx CKD -last EGD 2014 showed mild esophagitis; s/p CCY -etiology- most likely 2/2 gastroparesis (recently stopped taking H2 xenia and reglan at home) -clinically, patient is stable. Reports feeling better this am with N/V now improved and tolerating eating breakfast this am. -no plan for scope at this time, consider as outpatient if symptoms persists -resume home Reglan -start on Pepcid -gastroparesis diet (small/frequent meals) -optimize glycemic control -avoid narcotics -continue supportive care -no further GI recommendations at this time -patient okay to be d/c per GI standpoint on above medications (pepcid/reglan) with f/u in clinic in 2-3 weeks -will sign off, please call if needed
[2019-07-04] MEDS ORDERED: FAMOTIDINE 20 MG TAB PO SCH (11:00)
--- NOTE | 2019-07-04 11:55 | Consultation ---
History of Present Illness - Reason for Consult Consult date: 07/04/19 chronic renal failure - History of Present Illness Patient is a 54-year-old female with known history of diabetes mellitus, hypertension, GERD, gastroparesis and chronic kidney disease. She presents with nausea and vomiting; these symptoms improved overnight by time of consult. She notes that she has known CKD stage [address] De Santiago in [place]. Currently, she is feeling well and ready to go home. She denies any diarrhea, she denies any fever or chills, no chest pain or shortness of breath. Good urination. Appetite back to normal. Past History Past Medical History: diabetes, GERD, hypertension, other (Chronic kidney disease, gastroparesis) Past Surgical History: cholecystectomy Social history: no significant social history Family history: no significant family history Medications and Allergies Allergies Allergy/AdvReac Type Severity Reaction Status Date / Time cefadroxil hydrate Allergy Shortness Verified 12/13/18 18:46 [place] [facility] [place] Home Medications Medication Instructions Recorded Confirmed Last Taken Type NIFEdipine [Nifedipine ER] 60 mg PO DAILY 01/27/19 07/04/19 Unknown History labetaloL [Labetalol 200mg TAB] 200 mg PO TID 01/27/19 07/04/19 Unknown History Active Meds: Active Medications Acetaminophen (Tylenol) 650 mg PO Q4H PRN PRN Reason: Pain MILD(1-3)/Fever >100.5/QUIÑONEZ Dextrose (D50w (25gm) Syringe) 0 ml IV Q30MIN PRN; Protocol PRN Reason: Hypoglycemia Famotidine (Pepcid) 40 mg PO QDAY [facility] Heparin Sodium (Porcine) (Heparin) 5,000 unit SUB-Q Q8HR [facility] Hydralazine HCl (Apresoline) 10 mg IV Q4HR PRN PRN Reason: SBP>160 Last Admin: 07/04/19 06:33 Dose: 10 mg Documented by: Sodium Chloride (Nacl 0.9% 1000 Ml) 1,000 mls @ 125 mls/hr IV DIRECT [facility] Insulin Human Lispro (Humalog) 0 unit SUB-Q ACHS [facility]; Protocol Last Admin: 07/04/19 09:39 Dose: Not Given Documented by: Labetalol HCl (Labetalol) 200 mg PO TID [facility] Last Admin: 07/04/19 09:40 Dose: 200 mg Documented by: Magnesium Hydroxide (Milk Of Magnesia) 30 ml PO Q4H PRN PRN Reason: Constipation Metoclopramide HCl (Reglan) 5 mg IV Q6H PRN PRN Reason: Nausea And Vomiting Morphine Sulfate (Morphine) 2 mg IV Q4H PRN PRN Reason: Pain, Moderate (4-6) Last Admin: 07/04/19 06:22 Dose: 2 mg Documented by: Nifedipine (Procardia Xl) 60 mg PO DAILY [facility] Last Admin: 07/04/19 09:40 Dose: 60 mg Documented by: Sodium Chloride (Sodium Chloride Flush Syringe 10 Ml) 10 ml IV BID [facility] Last Admin: 07/04/19 09:41 Dose: 10 ml Documented by: Sodium Chloride (Sodium Chloride Flush Syringe 10 Ml) 10 ml IV PRN PRN PRN Reason: LINE FLUSH Review of Systems Constitutional: no weight loss, no fever, no chills, no fatigue, no weakness Ears, nose, mouth and throat: no ear pain Cardiovascular: no chest pain, no orthopnea, no palpitations, no edema Respiratory: no cough, no congestion, no pain Gastrointestinal: no abdominal pain, no nausea, no vomiting, no constipation Musculoskeletal: no neck stiffness, no neck pain Integumentary: no rash Neurological: no head injury, no headaches Exam - Vital Signs Vital signs: Vital Signs Temp Pulse Resp BP Pulse Ox 98.4 F 113 H 18 224/139 100 07/03/19 23:03 07/03/19 23:03 07/03/19 23:03 07/03/19 23:03 07/03/19 23:03 - General Appearance General appearance: well-developed, well-nourished, appears stated age EENT: PERRL, mucous membranes moist Neck: Present: neck supple Respiratory: Clear to Ascultation Heart: regular, S1S2 Gastrointestinal: Present: normoactive bowel sounds. Absent: tenderness Integumentary: no rash Neurologic: no focal deficit, no asterixis, alert and oriented x3 Psychiatric: mood/affect appropriate Results - Lab Results 07/03/19 23:16 07/03/19 23:16 Most recent lab results Calcium 9.6 mg/dL (8.4-10.2) 07/03/19 23:16 Assessment and Plan This is a 54 year old patient with CKD 4 who presents with nausea and vomiting. # CKD 4: follows with Dr. King in [place]; appears to be close to baseline renal function with possible MADISON in setting of vomiting/dehydration - no indication for renal replacement therapy acutely - follow up closely with her informatics scientist at discharge - volume/lytes at goal - will start sodium bicarbonate, would continue on discharge if not on - avoid nephrotoxins - renal diet - renally dose meds # HTN: BP high, currently on nifedipine 60mg and labetalol 200mg TID. Can increase labetalol as needed for goal BP <130/80, can also be titrated outpatient if she is asymptomatic # Anemia: may benefit from ADRIEL for anemia of CKD; defer to outpatient setting # BMD: continue home binders if applicable # Vomiting: resolved- GI input appreciated Thank you for this consult; we will continue to follow for renal related issues while inpatient.
[2019-07-04] MEDS ORDERED: HEPARIN 5,000 UNIT/1 ML VIAL SUB-Q SCH (14:00)
--- NOTE | 2019-07-04 15:39 | Discharge Summary ---
Providers - Providers Date of Admission: 07/04/19 04:37 Date of discharge: 07/04/19 Attending physician: BELEN KENNEDY MD 07/04/19 02:09 Consult to Dietitian/Nutrition [CONS] Routine Physician Instructions: Reason For Exam: Reason for Consult: Diet education Consult to Physician [CONS] Routine Comment: Consulting Provider: MEAGHAN MEJIA Physician Instructions: Reason For Exam: intractable nausea and vomiting 07/04/19 07:03 Consult to Physician [CONS] Routine Comment: Consulting Provider: CLARISSE MONDRAGON Physician Instructions: Reason For Exam: chronic kidney disease [facility] Condition: Stable Hospital course: Patient is a 54 y/o female with PMH of DM, HTN, GERD, gastroparesis, and CKD who presented to ED with c/o N/V to which GI has been consulted. Patient is previously known to our service and is followed by Dr. Vaca. She was last seen in clinic in March with an outpatient EGD scheduled for similar symptoms however patient did not follow up to have procedure done. She has a hx of chronic intermittent episodes of N/V with etiology thought to be 2/2 gastroparesis. This morning patient was sitting up in bed w/o acute distress eating breakfast. Report N/V now improved. Denies fever, CP, SOB, abd pain, signs of bleeding, or LGI symptoms. She was previously taking Ranitidine (PPI stopped per nephrology due to CKD) and metoclopramide at home for gastroparesis but has been off medications recently due to lack of insurance per patient. No NSAID use or hx of PUD. Last EGD in 2014 showed mild esophagitis. S/P cholecystectomy. (1) Intractable nausea and vomiting Current Visit: Yes Status: Acute Plan to address problem: Probably secondary to diabetic gastroparesis. Patient has been placed on IV Reglan. Will discharge on Reglan and Zofran prn. (2) Chronic kidney disease, stage IV (severe) Current Visit: Yes Status: Acute Plan to address problem: - CKD 4: follows with Dr. King in [place]; appears to be close to baseline renal function with possible MADISON in setting of vomiting/dehydration - no indication for renal replacement therapy acutely - follow up closely with her rpg developer at discharge - volume/lytes at goal - will start sodium bicarbonate, would continue on discharge if not on - avoid nephrotoxins - renal diet - renally dose meds (3) HTN (hypertension) Current Visit: No Status: Chronic Plan to address problem: We will continue routine home medications and monitor vital signs closely. We also placed on IV hydralazine as needed. Htn under control (4) Diabetes Current Visit: No Status: Acute Plan to address problem: Cont Hypoglycemics. Dosage adjusted # HTN: BP high, currently on nifedipine 60mg and labetalol 200mg TID. Can increase labetalol as needed for goal BP <130/80, can also be titrated outpatient if she is asymptomatic # Anemia: may benefit from ADRIEL for anemia of CKD; defer to outpatient setting # BMD: continue home binders if applicable # Vomiting: resolved- GI input appreciated Thank you for this consult; we will continue to follow for renal related issues while inpatient. Disposition: DC- TO HOME OR SELFCARE Core Measure Documentation - Palliative Care Palliative Care/ Comfort Measures: Not Applicable - Core Measures Any of the following diagnoses?: none Exam - Constitutional Vitals: Temp Pulse Resp BP Pulse Ox 98.2 F 81 19 145/80 98 07/04/19 12:02 07/04/19 13:34 07/04/19 12:02 07/04/19 13:34 07/04/19 12:02 General appearance: Present: no acute distress, well-nourished - EENT Eyes: Present: PERRL ENT: hearing intact, clear oral mucosa - Neck Neck: Present: supple, normal ROM - Respiratory Respiratory effort: normal Respiratory: bilateral: CTA - Cardiovascular Heart rate: 78 Rhythm: regular Heart Sounds: Present: S1 & S2. Absent: rub, click - Extremities Extremities: no ischemia, pulses intact, pulses symmetrical, No edema Peripheral Pulses: within normal limits - Abdominal General gastrointestinal: Present: soft, non-tender, non-distended, normal bowel sounds Female genitourinary: Present: normal - Integumentary Integumentary: Present: clear, warm, dry - Musculoskeletal Musculoskeletal: gait normal, strength equal bilaterally - Psychiatric Psychiatric: appropriate mood/affect, intact judgment & insight - Neurologic Neurologic: CNII-XII intact, moves all extremities - Allied Health Allied health notes reviewed: nursing, case management Plan Activity: no restrictions Diet: renal Follow up with: PEGGY MCKEON MD [Primary Care Provider] - 7 Days JEANNA GROSS MD [Staff Physician] - 7 Days
[2019-07-04 18:33] VITALS: BP 121/69
[2019-07-04] MEDS ORDERED: SODIUM BICARBONATE 650 MG TAB PO SCH (22:00)
== END 2019-07-04 17:59 | disposition home or self-care (01) | DRG 74 ==
LOC: ED 22:58 → 3A 07-04 04:37
PROVIDERS: ADMIT Emergency Medicine; ATTEND Emergency Medicine
DX: E11.43 Type 2 diabetes mellitus with diabetic autonomic (poly)neuropathy (principal); N18.4 Chronic kidney disease, stage 4 (severe); K31.84 Gastroparesis; K21.9 Gastro-esophageal reflux disease without esophagitis; I12.9 Hypertensive chronic kidney disease with stage 1 through stage 4 chronic kidney disease, or unspecified chronic kidney disease; D64.9 Anemia, unspecified; R11.2 Nausea with vomiting, unspecified; E11.22 Type 2 diabetes mellitus with diabetic chronic kidney disease; Z79.84 Long term (current) use of oral hypoglycemic drugs; Z90.49 Acquired absence of other specified parts of digestive tract
CPT/HCPCS: 36415; 80053; 82962; 83690; 85025; 87116; G0378; J0360; J1200; J1644; J1815; J2270; J2405; J2765; J7030

== ENCOUNTER 2019-09-05 05:56 | Emergency (ER) | payer SELFPAY ==
[2019-09-05 06:01] VITALS: BP 180/91
--- NOTE | 2019-09-05 09:09 | Emergency Department Report ---
ED Rash HPI - HPI Chief Complaint: Skin Rash Stated Complaint: SKIN IRRITATION Time Seen by Provider: 09/05/19 07:59 Duration: 2 weeks Location: Other (Under both breasts) Suspected Cause: Unknown Rash Symptoms: Yes Itching, No Facial Swelling, No Tongue/Oral Swelling, No Breathing Difficulties, No Choking Sensation, No Wheezing/Dyspnea, No Peeling, No Blistering, No Fever, No Lightheaded, No Malaise, No Myalgias Severity: moderate Other History: This is a 54-year-old -[place] female that presents to the emergency room with pruritus and a itchy rash under both breasts for 2 weeks. Past medical history of diabetes type 2, GERD, hypertension, kidney stones, chronic kidney disease, and gastroparesis. Patient states she saw her primary care provider at [facility] and told her rash may be related to diabetes. She had labs drawn 1 week ago and follow-up with PCP in [place] in 3 days. ED Review of Systems ROS: Stated complaint: SKIN IRRITATION Other details as noted in HPI Constitutional: denies: chills, fever ENT: denies: ear pain, throat pain Respiratory: denies: cough, shortness of breath, wheezing Cardiovascular: denies: chest pain, palpitations Gastrointestinal: denies: abdominal pain, nausea, diarrhea Skin: rash (Under both breasts), pruritus. denies: lesions Neurological: denies: headache, weakness, paresthesias Psychiatric: denies: anxiety, depression ED Past Medical Hx - Past Medical History Previous Medical History?: Yes Hx Hypertension: Yes Hx Congestive Heart Failure: No Hx Diabetes: Yes Hx GERD: Yes Hx Renal Disease: Yes Hx Kidney Stones: Yes Hx Asthma: No Hx COPD: No Hx HIV: No Additional medical history: gastroparesis - Surgical History Past Surgical History?: Yes Hx Cholecystectomy: Yes - Social History Smoking Status: Never Smoker - Medications Home Medications: Home Medications Medication Instructions Recorded Confirmed Last Taken Type Famotidine [Pepcid] 20 mg PO QDAY #30 tablet 07/04/19 Unknown Rx Metoclopramide [Reglan TAB] 10 mg PO ACHS #40 tablet 07/04/19 Unknown Rx NIFEdipine XL [Procardia Xl] 60 mg PO DAILY #30 tablet 07/04/19 Unknown Rx Ondansetron [Zofran Odt] 4 mg PO Q8HR #12 tab.rapdis 07/04/19 Unknown Rx Ranitidine HCl [Heartburn Relief] 150 mg PO BID 30 Days #60 tablet 07/04/19 Unknown Rx Sitagliptin Phosphate [Januvia] 50 mg PO QDDIAB 30 Days #30 tablet 07/04/19 Unknown Rx Sodium Bicarbonate 650 mg PO BID #60 tablet 07/04/19 Unknown Rx labetaloL [Labetalol 200mg TAB] 200 mg PO TID #90 tablet 07/04/19 Unknown Rx Nystatin Cream [Mycostatin Cream] 1 applic TP BID #1 tube 09/05/19 Unknown Rx hydrOXYzine PAMOATE [Vistaril] 25 mg PO Q6H PRN #20 capsule 09/05/19 Unknown Rx Rash Exam - Exam General: Vital signs noted. No distress. Alert and acting appropriately. HEENT: No Periorbital Edema, No Conjuctival Injection, No Chemosis, No Perioral Edema, No Tongue Edema, No Uvular Edema, No Compromised Airway, No Drooling Lungs: Yes Good Air Exchange (Normal Breath Sounds), No Wheezes, No Ronchi, No Stridor, No Cough, No Labored Respirations, No Retractions, No Use of Accessory Muscles, No Other Abnormal Lung Sounds Heart: Yes Regular, No Murmur Skin: Yes Maculopapular Rash (Erythematous maculopapular rash bilateral breast, white cottage adherent to center, nontender), No Urticarial Rash, No Morbilliform rash, No Bulla(e), No Excoriations, No Weeping, No Tenderness, No Erythema, No Edema, No Encrustations Other: Positive: Abdomen Normal, Musculoskeletal Normal ED Course Vital Signs 09/05/19 05:59 Temperature 98.3 F Pulse Rate 83 Respiratory 18 Rate Blood Pressure 180/91 O2 Sat by Pulse 100 Oximetry ED Medical Decision Making - Medical Decision Making This is a 54-year-old female presents with pruritus and rash up under both breasts for 2 weeks. Past medical history of hypertension, diabetes type 2, chronic kidney disease, GERD, gastroparesis, and kidney stones. Patient examined by me. No distress noted. Vitals stable. There is erythematous rash under both breast with adherent cottage cheese center which appear to be a yeast infection. Given Vistaril. Start nystatin cream and f/u with PCP at [facility] in 24-72 hours. Discussed plan with patient who agreed to plan. Patient discharged home stable. Critical care attestation.: If time is entered above; I have spent that time in minutes in the direct care of this critically ill patient, excluding procedure time. ED Disposition Clinical Impression: Pruritic erythematous rash, Yeast infection of the skin Disposition: TO HOME OR SELFCARE Is pt being admited?: No Condition: Stable Instructions: Itchy Skin (ED), Acute Rash (ED) Additional Instructions: Apply a thin layer of nystatin cream twice a day for 5-10 days. Wash area prior to applying cream. Follow up with primary care doctor in 24-72 hours. Prescriptions: Nystatin Cream [Mycostatin Cream] 1 applic TP BID #1 tube hydrOXYzine PAMOATE [Vistaril] 25 mg PO Q6H PRN #20 capsule PRN Reason: Itching Referrals: [facility] [Provider Group] - 3-5 Days Forms: Work/School Release Form(ED), Accompanied Note Time of Disposition: 09:27
[2019-09-05] MEDS ORDERED: hydrOXYzine PAMOATE 25 MG CAP PO ONE (09:15)
== END 2019-09-05 09:38 | disposition home or self-care (01) ==
LOC: ED 05:56
DX: B37.2 Candidiasis of skin and nail (principal); L53.8 Other specified erythematous conditions; I10 Essential (primary) hypertension; E11.9 Type 2 diabetes mellitus without complications; K21.9 Gastro-esophageal reflux disease without esophagitis; Z87.442 Personal history of urinary calculi; Z98.890 Other specified postprocedural states; Z90.49 Acquired absence of other specified parts of digestive tract; Z88.8 Allergy status to other drugs, medicaments and biological substances; Z79.899 Other long term (current) drug therapy
CPT/HCPCS: 99282

== ENCOUNTER 2019-10-06 15:46 | Inpatient (IN) | payer OTHER ==
--- NOTE | 2019-10-06 15:56 | Event Note ---
ED Screening Note Date of service: 10/06/19 Time: 15:55 ED Screening Note: Pt complaisn of abdominal pain and swelling x 1 week +scleral icterus noted bilaterally This initial assessment/diagnostic orders/clinical plan/treatment(s) is/are subject to change based on patients health status, clinical progression and re- assessment by fellow clinical providers in the ED. Further treatment and workup at subsequent clinical providers discretion. Patient/guardian urged not to elope from the ED as their condition may be serious if not clinically assessed and managed. Initial orders include: labs CT
[2019-10-06 16:37] LABS: Hematocrit 22.7 % (30.3-42.9); Hemoglobin 7.2 gm/dl (10.1-14.3); Mean Corpuscular HGB Conc 32 % (30-34); Mean Corpuscular Volume 105 fl (79-97); Platelet Count 392 K/mm3 (140-440); Red Blood Count 2.16 M/mm3 (3.65-5.03); Red Cell Distribution Width 19.5 % (13.2-15.2)
[2019-10-06 16:40] LABS: INR 1.3 (0.87-1.13); Partial Thromboplastin Time 28.8 Sec. (24.2-36.6)
[2019-10-06 16:43] LABS: Bilirubin,Direct 5.2 mg/dL (0-0.2); Calcium 8.3 mg/dL (8.4-10.2)
[2019-10-06 16:55] LABS: Hepatitis B Surface Antigen Non-Reactive (Negative); Hepatitis C Virus Antibody Non-Reactive (NonReactive)
[2019-10-06 18:02] LABS: Total Cells Counted 100
[2019-10-06 18:03] LABS: Anisocytosis 1+
--- NOTE | 2019-10-06 22:29 | Emergency Department Report ---
ED Abdominal Pain HPI - General Chief Complaint: Abdominal Pain Stated Complaint: STOMACH PAINS Time Seen by Provider: 10/06/19 20:02 Source: patient Mode of arrival: Wheelchair Limitations: No Limitations - History of Present Illness Initial Comments: Patient is a 54-year-old female that presents emergency room with complaints of abdominal pain. Patient states her abdominal pain is generalized. Patient states her abdominal pain is a fullness and tight feeling. Patient states it is worse with movement better with rest. Patient states that her pain is a 4 out of 10. Patient states her pain is tolerable. Patient states she does not have a history of liver disease and that over the last 48 hours her eyes and skin have become yellow looking. Patient states that she has a history of diabetes, reflux, hypertension, kidney disease and kidney stones. Patient states she has a past surgical history of a cholecystectomy. MD Complaint: abdominal pain -: Sudden Location: diffuse Radiation: none Migration to: no migration Severity: mild, moderate Severity scale (0 -10): 4 Quality: aching, other Consistency: constant Improves With: rest Worsens With: movement Associated Symptoms: denies other symptoms - Related Data LMP (females 10-50): unknown Previous Rx's Medication Instructions Recorded Last Taken Type Famotidine [Pepcid] 20 mg PO QDAY #30 tablet 07/04/19 Unknown Rx Metoclopramide [Reglan TAB] 10 mg PO ACHS #40 tablet 07/04/19 Unknown Rx NIFEdipine XL [Procardia Xl] 60 mg PO DAILY #30 tablet 07/04/19 Unknown Rx Ondansetron [Zofran Odt] 4 mg PO Q8HR #12 tab.rapdis 07/04/19 Unknown Rx Ranitidine HCl [Heartburn Relief] 150 mg PO BID 30 Days #60 tablet 07/04/19 Unknown Rx Sitagliptin Phosphate [Januvia] 50 mg PO QDDIAB 30 Days #30 tablet 07/04/19 Unknown Rx Sodium Bicarbonate 650 mg PO BID #60 tablet 07/04/19 Unknown Rx labetaloL [Labetalol 200mg TAB] 200 mg PO TID #90 tablet 07/04/19 Unknown Rx Nystatin Cream [Mycostatin Cream] 1 applic TP BID #1 tube 09/05/19 Unknown Rx hydrOXYzine PAMOATE [Vistaril] 25 mg PO Q6H PRN #20 capsule 09/05/19 Unknown Rx Allergies Allergy/AdvReac Type Severity Reaction Status Date / Time cefadroxil hydrate Allergy Shortness Verified 12/13/18 18:46 [From Duricef] of Breath ED Review of Systems ROS: Stated complaint: STOMACH PAINS Other details as noted in HPI Constitutional: denies: chills, fever Eyes: denies: eye pain, eye discharge, vision change ENT: denies: ear pain, throat pain Respiratory: denies: cough, shortness of breath, wheezing Cardiovascular: denies: chest pain, palpitations Endocrine: no symptoms reported Gastrointestinal: abdominal pain. denies: nausea, diarrhea Genitourinary: denies: urgency, dysuria, discharge Musculoskeletal: denies: back pain, joint swelling, arthralgia Skin: denies: rash, lesions Neurological: denies: headache, weakness, paresthesias Psychiatric: denies: anxiety, depression Hematological/Lymphatic: denies: easy bleeding, easy bruising ED Past Medical Hx - Past Medical History Previous Medical History?: Yes Hx Hypertension: Yes Hx Congestive Heart Failure: No Hx Diabetes: Yes Hx GERD: Yes Hx Renal Disease: Yes Hx Kidney Stones: Yes Hx Asthma: No Hx COPD: No Hx HIV: No Additional medical history: gastroparesis - Surgical History Past Surgical History?: Yes Hx Cholecystectomy: Yes - Family History Family history: no significant - Social History Smoking Status: Never Smoker Substance Use Type: None - Medications Home Medications: Home Medications Medication Instructions Recorded Confirmed Last Taken Type Famotidine [Pepcid] 20 mg PO QDAY #30 tablet 07/04/19 Unknown Rx Metoclopramide [Reglan TAB] 10 mg PO ACHS #40 tablet 07/04/19 Unknown Rx NIFEdipine XL [Procardia Xl] 60 mg PO DAILY #30 tablet 07/04/19 Unknown Rx Ondansetron [Zofran Odt] 4 mg PO Q8HR #12 tab.rapdis 07/04/19 Unknown Rx Ranitidine HCl [Heartburn Relief] 150 mg PO BID 30 Days #60 tablet 07/04/19 Unknown Rx Sitagliptin Phosphate [Januvia] 50 mg PO QDDIAB 30 Days #30 tablet 07/04/19 Unknown Rx Sodium Bicarbonate 650 mg PO BID #60 tablet 07/04/19 Unknown Rx labetaloL [Labetalol 200mg TAB] 200 mg PO TID #90 tablet 07/04/19 Unknown Rx Nystatin Cream [Mycostatin Cream] 1 applic TP BID #1 tube 09/05/19 Unknown Rx hydrOXYzine PAMOATE [Vistaril] 25 mg PO Q6H PRN #20 capsule 09/05/19 Unknown Rx ED Physical Exam - General Limitations: No Limitations General appearance: alert, in no apparent distress - Head Head exam: Present: atraumatic, normocephalic - Eye Eye exam: Present: normal appearance, PERRL, EOMI, scleral icterus Pupils: Present: normal accommodation - ENT ENT exam: Present: mucous membranes dry - Neck Neck exam: Present: normal inspection - Respiratory Respiratory exam: Present: normal lung sounds bilaterally. Absent: respiratory distress, wheezes, rales - Cardiovascular Cardiovascular Exam: Present: regular rate, normal rhythm. Absent: systolic murmur, diastolic murmur, rubs, gallop - GI/Abdominal GI/Abdominal exam: Present: soft, distended, tenderness, normal bowel sounds. Absent: guarding - Rectal Rectal exam: Present: deferred - Extremities Exam Extremities exam: Present: normal inspection - Back Exam Back exam: Present: normal inspection - Neurological Exam Neurological exam: Present: alert, oriented X3 - Psychiatric Psychiatric exam: Present: normal affect, normal mood - Skin Skin exam: Present: warm, dry, intact, other (Skin jaundice). Absent: rash ED Course Vital Signs 10/06/19 10/07/19 10/07/19 16:00 04:41 04:42 Temperature 97.4 F L Pulse Rate 74 87 75 Respiratory 22 16 Rate Blood Pressure 197/97 Blood Pressure 165/76 197/97 [Right] O2 Sat by Pulse 100 97 Oximetry - Reevaluation(s) Reevaluation #1: I discussed all results with patient. I discussed plan of care with patient. Patient agrees with plan of care and admission. Patient to be admitted to the hospitalist service. 10/07/19 02:43 - Consultations Consultation #1: GI consult placed in the system 10/07/19 02:43 Consultation #2: Hospitalist consulted for admission. Hospitalist to admit patient. Bridge orders placed. 10/07/19 02:44 ED Medical Decision Making - Lab Data Result diagrams: 10/06/19 16:10 10/06/19 16:10 - Radiology Data Radiology results: report reviewed CT ABDOMEN AND PELVIS WITHOUT CONTRAST INDICATION / CLINICAL INFORMATION: abdominal pain, jaundice. TECHNIQUE: Axial CT images were obtained through the abdomen and pelvis without IV contrast. All CT scans at this location are performed using CT dose reduction for ALARA by means of automated exposure control. COMPARISON: None available. FINDINGS: LOWER CHEST: Very small right pleural effusion LIVER: No significant abnormality. GALLBLADDER: Previous cholecystectomy. BILE DUCTS: No significant abnormality. PANCREAS: No significant abnormality. SPLEEN: No significant abnormality. ADRENALS: No significant abnormality. RIGHT KIDNEY and URETER: No significant abnormality. LEFT KIDNEY and URETER: No significant abnormality. STOMACH and SMALL BOWEL: No significant abnormality. COLON: No significant abnormality. APPENDIX: No significant abnormality. PERITONEUM: Increase diffuse reticulation of subcutaneous fat. Diffuse and increased abdominal ascites as compared to previous exam.. No free air. No fluid collection. LYMPH NODES: No significant adenopathy. AORTA and ARTERIES: Extensive arterial calcifications IVC and VEINS: No significant abnormality. URINARY BLADDER: No significant abnormality. REPRODUCTIVE ORGANS: No significant abnormality. ADDITIONAL FINDINGS: None. SKELETAL SYSTEM: No significant abnormality. IMPRESSION: 1. Increased abdominal ascites as compared to previous exam 2. Extensive reticulation of fat subcutaneous tissues 3. No interval change vascular calcifications ULTRASOUND ABDOMEN, LIMITED (RIGHT UPPER QUADRANT) INDICATION: abd pain. Slightly COMPARISON: None available. FINDINGS: Pancreas: Visualized portion shows no significant abnormality. Liver: Normal. Gallbladder: Previous cholecystectomy Bile ducts: Normal Common Bile Duct measures 5.8 mm. Free fluid: Moderate Additional Findings: None. IMPRESSION: 1. Ascites - Medical Decision Making Patient is a 54-year-old female that presents emergency room with complaints of abdominal distention and abdominal pressure. Patient had a CT scan of the abdomen which showed ascites but no other acute findings. Patient had labs done. Patient found to have multiple lab abnormalities to include anemia, elevated bilirubin, elevated LFTs, low bicarb, hyperkalemia, low sodium, acute on chronic renal failure. Patient admitted to the hospitalist service. Patient given fluids in the ER. - Differential Diagnosis Renal failure, abdominal pain, kidney disease, jaundice, scleral icterus Critical Care Time: Yes Critical care time in (mins) excluding proc time.: 35 Critical care attestation.: If time is entered above; I have spent that time in minutes in the direct care of this critically ill patient, excluding procedure time. Critical Care Time: 35 minutes ED Disposition Clinical Impression: Acidosis, Hyperkalemia, Abnormal LFTs (liver function tests), Elevated bilirubin Abdominal pain Qualifiers: Abdominal location: generalized Qualified Code(s): R10.84 - Generalized abdominal pain Anemia Qualifiers: Anemia type: unspecified type Qualified Code(s): D64.9 - Anemia, unspecified ARF (acute renal failure) Qualifiers: Acute renal failure type: unspecified Qualified Code(s): N17.9 - Acute kidney failure, unspecified Ascites Qualifiers: Ascites type: other type Qualified Code(s): R18.8 - Other ascites Chronic renal insufficiency Qualifiers: Chronic kidney disease stage: unspecified stage Qualified Code(s): N18.9 - Chronic kidney disease, unspecified Disposition: DC09 OP ADMIT IP TO THIS HOSP Is pt being admited?: Yes Does the pt Need Aspirin: No Condition: Critical Time of Disposition: 23:35
[2019-10-06] MEDS ORDERED: SODIUM CHLORIDE 0.9% 1000 ML 1,000 ML IV ONE (22:56)
--- NOTE | 2019-10-06 23:23 | Cat Scan Report ---
CT ABDOMEN AND PELVIS WITHOUT CONTRAST INDICATION / CLINICAL INFORMATION: abdominal pain, jaundice. TECHNIQUE: Axial CT images were obtained through the abdomen and pelvis without IV contrast. All CT scans at [facility] location are performed using CT dose reduction for ALARA by means of automated exposure control. COMPARISON: None available. FINDINGS: LOWER CHEST: Very small right pleural effusion LIVER: No significant abnormality. GALLBLADDER: Previous cholecystectomy. BILE DUCTS: No significant abnormality. PANCREAS: No significant abnormality. SPLEEN: No significant abnormality. ADRENALS: No significant abnormality. RIGHT KIDNEY and URETER: No significant abnormality. LEFT KIDNEY and URETER: No significant abnormality. STOMACH and SMALL BOWEL: No significant abnormality. COLON: No significant abnormality. APPENDIX: No significant abnormality. PERITONEUM: Increase diffuse reticulation of subcutaneous fat. Diffuse and increased abdominal ascite s as compared to previous exam.. No free air. No fluid collection. LYMPH NODES: No significant adenopathy. AORTA and ARTERIES: Extensive arterial calcifications IVC and VEINS: No significant abnormality. URINARY BLADDER: No significant abnormality. REPRODUCTIVE ORGANS: No significant abnormality. ADDITIONAL FINDINGS: None. SKELETAL SYSTEM: No significant abnormality. IMPRESSION: 1. Increased abdominal ascites as compared to previous exam 2. Extensive reticulation of fat subcutaneous tissues 3. No interval change vascular calcifications Signer Name: Adonay Du MD Signed: 10/06/2019 11:18 PM Workstation Name: [email or web address]
--- NOTE | 2019-10-07 02:38 | Ultrasound Report ---
ULTRASOUND ABDOMEN, LIMITED (RIGHT UPPER QUADRANT) INDICATION: abd pain. Slightly COMPARISON: None available. FINDINGS: Pancreas: Visualized portion shows no significant abnormality. Liver: Normal. Gallbladder: Previous cholecystectomy Bile ducts: Normal Common Bile Duct measures 5.8 mm. Free fluid: Moderate Additional Findings: None. IMPRESSION: 1. Ascites Signer Name: Adonay Du MD Signed: 10/07/2019 2:34 AM Workstation Name: [email or web address] [id number]
[2019-10-07] MEDS ORDERED: MAGNESIUM HYDROXIDE (MOM) ORAL LIQD UDC PO PRN (04:26)
[2019-10-07] MEDS ORDERED: ACETAMINOPHEN 325 MG TAB PO PRN (04:26)
[2019-10-07] MEDS ORDERED: MORPHINE 2 MG/1 ML INJ IV PRN (04:26)
[2019-10-07] MEDS ORDERED: DEXTROSE 50% IN WATER (25GM) 50 ML SYRINGE IV PRN (04:26)
[2019-10-07] MEDS ORDERED: ONDANSETRON 4 MG/2 ML INJ IV PRN (04:26)
[2019-10-07] MEDS ORDERED: hydrALAZINE 20 MG/1 ML INJ IV ONE (04:30)
--- NOTE | 2019-10-07 04:38 | History and Physical Report ---
History of Present Illness Date of examination: 10/07/19 Date of admission: 10/07/19 04:00 Chief complaint: Abdominal Pain History of present illness: 54-year-old female with known history of diabetes mellitus, chronic kidney disease presenting to the emergency room today complaining of abdominal pain and distention. This has been ongoing for the past few weeks. Patient decays that she took some laxative because she felt she was constipated without any relief. She has noticed that she has been having yellowish discoloration of eyes lately and abdominal pain and distention has not improved and therefore decided to check into the emergency room. She denies any fever or chills, no nausea vomiting and no diarrhea. She denies any history of hepatitis. Work-up in the emergency room reveals elevated liver enzymes, anemia and acute renal failure. Past History Past Medical History: diabetes, hypertension, other (Diabetic gastroparesis) Past Surgical History: cholecystectomy Social history: no significant social history Family history: no significant family history Medications and Allergies Allergies Allergy/AdvReac Type Severity Reaction Status Date / Time cefadroxil hydrate Allergy Shortness Verified 12/13/18 18:46 [From [facility] [place]] of Breath Home Medications Medication Instructions Recorded Confirmed Last Taken Type Famotidine [Pepcid] 20 mg PO QDAY #30 tablet 07/04/19 Unknown Rx Metoclopramide [Reglan TAB] 10 mg PO ACHS #40 tablet 07/04/19 Unknown Rx NIFEdipine XL [Procardia Xl] 60 mg PO DAILY #30 tablet 07/04/19 Unknown Rx Ondansetron [Zofran Odt] 4 mg PO Q8HR #12 tab.rapdis 07/04/19 Unknown Rx Ranitidine HCl [Heartburn Relief] 150 mg PO BID 30 Days #60 tablet 07/04/19 Unknown Rx Sitagliptin Phosphate [Januvia] 50 mg PO QDDIAB 30 Days #30 tablet 07/04/19 Unknown Rx Sodium Bicarbonate 650 mg PO BID #60 tablet 07/04/19 Unknown Rx labetaloL [Labetalol 200mg TAB] 200 mg PO TID #90 tablet 07/04/19 Unknown Rx Nystatin Cream [Mycostatin Cream] 1 applic TP BID #1 tube 09/05/19 Unknown Rx hydrOXYzine PAMOATE [Vistaril] 25 mg PO Q6H PRN #20 capsule 02/17/20 Unknown Rx Active Meds: Active Medications Acetaminophen (Tylenol) 650 mg PO Q4H PRN PRN Reason: Pain MILD(1-3)/Fever >100.5/QUIÑONEZ Dextrose (D50w (25gm) Syringe) 50 ml IV Q30MIN PRN; Protocol PRN Reason: Hypoglycemia Heparin Sodium (Porcine) (Heparin) 5,000 unit SUB-Q Q8HR [facility] Hydralazine HCl (Apresoline) 10 mg IV Q4HR PRN PRN Reason: Blood Pressure Insulin Human Lispro (Humalog) 0 unit SUB-Q ACHS [facility]; Protocol Magnesium Hydroxide (Milk Of Magnesia) 30 ml PO Q4H PRN PRN Reason: Constipation Morphine Sulfate (Morphine) 2 mg IV Q4H PRN PRN Reason: Pain, Moderate (4-6) Ondansetron HCl (Zofran) 4 mg IV Q8H PRN PRN Reason: Nausea And Vomiting Sodium Chloride (Sodium Chloride Flush Syringe 10 Ml) 10 ml IV BID ELENO Sodium Chloride (Sodium Chloride Flush Syringe 10 Ml) 10 ml IV PRN PRN PRN Reason: LINE FLUSH Review of Systems Constitutional: no fever, no chills Cardiovascular: no chest pain, no palpitations Respiratory: no cough, no shortness of breath Gastrointestinal: abdominal pain, no nausea, no vomiting, no diarrhea Musculoskeletal: no neck pain, no low back pain Integumentary: no rash, no pruritis Neurological: no headaches, no confusion Exam - Constitutional Vitals: Temp Pulse Resp BP Pulse Ox 97.4 F L 74 22 165/76 100 10/06/19 16:00 10/06/19 16:00 10/06/19 16:00 10/06/19 16:00 10/06/19 16:00 General appearance: Present: no acute distress, well-nourished - EENT Eyes: Present: PERRL, EOM intact, scleral icterus ENT: hearing intact, clear oral mucosa, dentition normal - Neck Neck: Present: supple, normal ROM - Respiratory Respiratory effort: normal Respiratory: bilateral: CTA - Cardiovascular Rhythm: regular Heart Sounds: Present: S1 & S2 - Extremities Extremities: no ischemia, Full ROM Extremity abnormal: edema (1+ bilaterally) Peripheral Pulses: within normal limits - Abdominal General gastrointestinal: Present: soft, tender (Mildly), distended, normal bowel sounds - Integumentary Integumentary: Present: clear, warm, dry - Musculoskeletal Musculoskeletal: strength equal bilaterally - Psychiatric Psychiatric: appropriate mood/affect, intact judgment & insight, cooperative - Neurologic Neurologic: CNII-XII intact, moves all extremities Results - Labs CBC & Chem 7: 10/06/19 16:10 10/06/19 16:10 Labs: Abnormal lab results 10/06/19 10/06/19 10/06/19 Range/Units 16:08 16:10 16:10 RBC 2.16 L (3.65-5.03) M/mm3 Hgb 7.2 L (10.1-14.3) gm/dl Hct 22.7 L (30.3-42.9) % MCV 105 H (79-97) fl MCH 34 H (28-32) pg RDW 19.5 H (13.2-15.2) % Monocytes % (Manual) 16.0 H (0.0-7.3) % Monocytes # (Manual) 1.1 H (0.0-0.8) K/mm3 PT (12.2-14.9) Sec. INR (0.87-1.13) Sodium 132 L (137-145) mmol/L Potassium 5.2 H (3.6-5.0) mmol/L Carbon Dioxide 10 L (22-30) mmol/L BUN 56 H (7-17) mg/dL Creatinine 5.4 H (0.7-1.2) mg/dL Glucose 144 H (65-100) mg/dL POC Glucose 189 H (70-105) Calcium 8.3 L (8.4-10.2) mg/dL Total Bilirubin 6.40 H (0.1-1.2) mg/dL Direct Bilirubin 5.2 H (0-0.2) mg/dL AST 59 H (5-40) units/L ALT 60 H (7-56) units/L Alkaline Phosphatase 579 H (35-129) units/L Albumin 3.0 L (3.9-5) g/dL 10/06/19 Range/Units 16:10 RBC (3.65-5.03) M/mm3 Hgb (10.1-14.3) gm/dl Hct (30.3-42.9) % MCV (79-97) fl MCH (28-32) pg RDW (13.2-15.2) % Monocytes % (Manual) (0.0-7.3) % Monocytes # (Manual) (0.0-0.8) K/mm3 PT 16.4 H (12.2-14.9) Sec. INR 1.30 H (0.87-1.13) Sodium (137-145) mmol/L Potassium (3.6-5.0) mmol/L Carbon Dioxide (22-30) mmol/L BUN (7-17) mg/dL Creatinine (0.7-1.2) mg/dL Glucose (65-100) mg/dL POC Glucose (70-105) Calcium (8.4-10.2) mg/dL Total Bilirubin (0.1-1.2) mg/dL Direct Bilirubin (0-0.2) mg/dL AST (5-40) units/L ALT (7-56) units/L Alkaline Phosphatase (35-129) units/L Albumin (3.9-5) g/dL Assessment and Plan - Patient Problems (1) Abdominal pain Current Visit: Yes Status: Acute Qualifiers: Abdominal location: generalized Qualified Code(s): R10.84 - Generalized abdominal pain Plan to address problem: Possibly secondary to ascites. Patient placed on analgesic medication prn. (2) Abnormal LFTs (liver function tests) Current Visit: Yes Status: Acute Plan to address problem: Etiology is unclear however we will place a consult to gastroenterology for further evaluation and recommendation (3) Anemia Current Visit: Yes Status: Acute Qualifiers: Anemia type: unspecified type Qualified Code(s): D64.9 - Anemia, uns pecified Plan to address problem: Possibly chronic. Will monitor CBC. Patient will receive blood transfusion if needed (4) Elevated bilirubin Current Visit: Yes Status: Acute (5) Chronic renal insufficiency Current Visit: Yes Status: Chronic Qualifiers: Chronic kidney disease stage: unspecified stage Qualified Code(s): N18.9 - Chronic kidney disease, unspecified (6) Diabetes Current Visit: No Status: Acute Plan to address problem: We will monitor blood glucose and resume routine home medications. (7) DVT prophylaxis Current Visit: No Status: Acute Plan to address problem: Patient placed on subcutaneous heparin (8) Full code status Current Visit: No Status: Acute
[2019-10-07] MEDS: HEPARIN 5,000 UNIT/1 ML VIAL SUB-Q SCH ×3 (06:00→21:30)
[2019-10-07] MEDS: INSULIN LISPRO 100 UNIT/ML SUB-Q SCH ×4 (08:00→21:48)
[2019-10-07] MEDS: hydrALAZINE 20 MG/1 ML INJ IV PRN (11:28)
--- NOTE | 2019-10-07 14:43 | Consultation ---
History of Present Illness - Reason for Consult Consult date: 10/07/19 Abnormal LFTs Requesting physician: NELLY ALLEN III - History of Present Illness Ms. Araya is a 54-year-old woman who presents with a one-week history of jaundice and increasing abdominal girth. She denies abdominal pain nausea vomiting fevers chills or sweats. She denies any prior history of liver disease. She denies history of ethanol abuse or use. She denies any change in medications or unusual exposures. She is status post cholecystectomy. She denies any weight loss. Bowel movements are twice daily and unchanged. There is no GI bleeding. Meds reviewed. Past History Past Medical History: diabetes, hypertension, other (Diabetic gastroparesis) Past Surgical History: cholecystectomy Social history: no significant social history Family history: no significant family history Medications and Allergies Allergies Allergy/AdvReac Type Severity Reaction Status Date / Time cefadroxil hydrate Allergy Shortness Verified 12/13/18 18:46 [From [facility] [place]] of Breath Home Medications Medication Instructions Recorded Confirmed Last Taken Type Famotidine [Pepcid] 20 mg PO QDAY #30 tablet 07/04/19 10/07/19 10/06/19 Rx Metoclopramide [Reglan TAB] 10 mg PO ACHS #40 tablet 07/04/19 10/07/19 10/07/19 08:37 Rx NIFEdipine XL [Procardia Xl] 60 mg PO DAILY #30 tablet 07/04/19 10/07/19 10/06/19 Rx Ondansetron [Zofran Odt] 4 mg PO Q8HR #12 tab.rapdis 07/04/19 10/07/19 Unknown Rx Ranitidine HCl [Heartburn Relief] 150 mg PO BID 30 Days #60 tablet 07/04/19 10/07/19 Unknown Rx Sodium Bicarbonate 650 mg PO BID #60 tablet 07/04/19 10/07/19 Unknown Rx labetaloL [Labetalol 200mg TAB] 200 mg PO TID #90 tablet 07/04/19 10/07/19 10/06/19 Rx hydrOXYzine PAMOATE [Vistaril] 25 mg PO Q6H PRN #20 capsule 09/05/19 10/07/19 Unknown Rx Active Meds: Active Medications Acetaminophen (Tylenol) 650 mg PO Q4H PRN PRN Reason: Pain MILD(1-3)/Fever >100.5/QUIÑONEZ Dextrose (D50w (25gm) Syringe) 0 ml IV Q30MIN PRN; Protocol PRN Reason: Hypoglycemia Heparin Sodium (Porcine) (Heparin) 5,000 unit SUB-Q Q8HR [facility] Last Admin: 10/07/19 06:00 Dose: 5,000 unit Documented by: Hydralazine HCl (Apresoline) 10 mg IV Q4H PRN PRN Reason: Blood Pressure Last Admin: 10/07/19 11:28 Dose: 10 mg Documented by: Insulin Human Lispro (Humalog) 0 unit SUB-Q ACHS [facility]; Protocol Last Admin: 10/07/19 12:17 Dose: Not Given Documented by: Magnesium Hydroxide (Milk Of Magnesia) 30 ml PO Q4H PRN PRN Reason: Constipation Morphine Sulfate (Morphine) 2 mg IV Q4H PRN PRN Reason: Pain, Moderate (4-6) Ondansetron HCl (Zofran) 4 mg IV Q8H PRN PRN Reason: Nausea And Vomiting Sodium Chloride (Sodium Chloride Flush Syringe 10 Ml) 10 ml IV BID [facility] Last Admin: 10/07/19 11:29 Dose: 10 ml Documented by: Sodium Chloride (Sodium Chloride Flush Syringe 10 Ml) 10 ml IV PRN PRN PRN Reason: LINE FLUSH Review of Systems All systems: negative (as noted in HPI) Exam - Constitutional Vitals: Temp Pulse Resp BP Pulse Ox 97.4 F L 85 19 172/90 99 10/07/19 05:57 10/07/19 11:28 10/07/19 10:00 10/07/19 11:28 10/07/19 11:26 General appearance: Present: no acute distress, other (icteric) - EENT Eyes: Present: PERRL, EOM intact, scleral icterus ENT: hearing intact - Neck Neck: Present: supple - Respiratory Respiratory effort: normal Respiratory: bilateral: CTA - Cardiovascular Rhythm: regular Heart Sounds: Present: S1 & S2 - Extremities Extremity abnormal: edema (1+) - Abdominal General gastrointestinal: Present: soft, non-tender, distended - Psychiatric Psychiatric: appropriate mood/affect Results - Labs CBC & Chem 7: 10/06/19 16:10 10/06/19 16:10 Labs: Abnormal lab results 0310/06/19 10/06/19 Range/Units 16:08 16:10 16:10 RBC 2.16 L (3.65-5.03) M/mm3 Hgb 7.2 L (10.1-14.3) gm/dl Hct 22.7 L (30.3-42.9) % MCV 105 H (79-97) fl MCH 34 H (28-32) pg RDW 19.5 H (13.2-15.2) % Monocytes % (Manual) 16.0 H (0.0-7.3) % Monocytes # (Manual) 1.1 H (0.0-0.8) K/mm3 PT (12.2-14.9) Sec. INR (0.87-1.13) Sodium 132 L (137-145) mmol/L Potassium 5.2 H (3.6-5.0) mmol/L Carbon Dioxide 10 L (22-30) mmol/L BUN 56 H (7-17) mg/dL Creatinine 5.4 H (0.7-1.2) mg/dL Glucose 144 H (65-100) mg/dL POC Glucose 189 H (70-105) Calcium 8.3 L (8.4-10.2) mg/dL Total Bilirubin 6.40 H (0.1-1.2) mg/dL Direct Bilirubin 5.2 H (0-0.2) mg/dL AST 59 H (5-40) units/L ALT 60 H (7-56) units/L Alkaline Phosphatase 579 H (35-129) units/L Albumin 3.0 L (3.9-5) g/dL 10/06/19 10/07/19 10/07/19 Range/Units 16:10 09:22 12:21 RBC (3.65-5.03) M/mm3 Hgb (10.1-14.3) gm/dl Hct (30.3-42.9) % MCV (79-97) fl MCH (28-32) pg RDW (13.2-15.2) % Monocytes % (Manual) (0.0-7.3) % Monocytes # (Manual) (0.0-0.8) K/mm3 PT 16.4 H (12.2-14.9) Sec. INR 1.30 H (0.87-1.13) Sodium (137-145) mmol/L Potassium (3.6-5.0) mmol/L Carbon Dioxide (22-30) mmol/L BUN (7-17) mg/dL Creatinine (0.7-1.2) mg/dL Glucose (65-100) mg/dL POC Glucose 173 H 146 H (70-105) Calcium (8.4-10.2) mg/dL Total Bilirubin (0.1-1.2) mg/dL Direct Bilirubin (0-0.2) mg/dL AST (5-40) units/L ALT (7-56) units/L Alkaline Phosphatase (35-129) units/L Albumin (3.9-5) g/dL - Imaging and Cardiology CT scan - abdomen: report reviewed (Ascites, large amount.) US - abdomen: report reviewed (5.8 mm CBD) Assessment and Plan 1. Abnormal LFTs/ascites -etiology unclear. Liver enzymes were normal in June. Currently, AST is 59 with ALT 60, ALP 579, total bilirubin of 6.4 with 5.2 being direct. INR is minimally elevated at 1.3. Of note, her creatinine has jumped from 3.5 up to 5.4, since June. Venous thrombosis is a significant diagnostic consideration. Otherwise, neoplastic process is less likely. Acute liver failure for other reasons is also to be considered. -Will obtain liver ultrasound with Dopplers on an urgent basis to rule out PVT -will order diagnostic paracentesis at the same time. -Hepatitis serologies came back negative. -We will check PEPE -Give vitamin K, and follow-up on INR. -If labs worsen, and INR continues to go up, will need to try and arrange t ransfer to a tertiary liver center. 2. Elevated Cr -would recommend nephrology evaluation.
[2019-10-07] MEDS ORDERED: PHYTONADIONE(ADULT ONLY) 10 MG in SODIUM CHLORIDE 0.9% 50 ML IV ONE (15:00)
--- NOTE | 2019-10-07 15:54 | Procedure Note ---
Date of procedure: 10/07/19 Pre-op diagnosis: ascites Post-op diagnosis: same Procedure: Ultrasound guided paracentesis Anesthesia: local (5cc 1% epi) Surgeon: EASTON HELM Estimated blood loss: none Pathology: list (ascitic fluid) Specimen disposition: to lab Condition: stable Disposition: floor
--- NOTE | 2019-10-07 15:58 | Vascular Lab Report ---
Abdominal color Doppler INDICATION: portal vein thrombus. COMPARISON: CT abdomen and pelvis without contrast from 10/06/2019. FINDINGS: IVC: No significant abnormality. Portal vein: Patent with expected hepatopedal flow. Hepatic veins: No significant abnormality. Hepatic arteries: No significant abnormality. Additional findings: Trace free fluid is seen along the liver. IMPRESSION: 1. No significant sonographic abnormality of the portal vein or the other interrogated vessels as det epifanio above. 2. Trace ascites around the liver. Signer Name: Jermain Ruiz MD Signed: 10/07/2019 3:54 PM Workstation Name: [id number]
[2019-10-07 19:13] LABS: Total Cells Counted 10 /mm3
--- NOTE | 2019-10-07 20:22 | Progress Note ---
Assessment and Plan Assessment and plan: --Acute transaminitis ; acute liver failure : Current Visit: Yes Status: Acute acute hepatitis panel negative GI evaluation noted and appreciated Follow clinically. --Hyperbilirubinemia; Current Visit: Yes Status: Acute Secondary to acute liver failure Supportive care, follow liver functions tests --Ascites ; Current Visit: Yes Status: Acute Status post ultrasound-guided paracentesis Follow fluid analysis -- Anemia Current Visit: Yes Status: Acute Closely monitor H&H and transfuse as needed --Acute on chronic kidney disease stage IV Current Visit: Yes Status: Chronic Monitor renal function avoid nephrotoxins Nephrology consult --Type II diabetes Current Visit: No Status: Acute Accu-Cheks sliding scale coverage ADA diet, insulin as needed, check A1c --Moderate malnutrition/hypoalbuminemia Nutrition supplements, supportive care, nutrition consult -- DVT prophylaxis Current Visit: No Status: Acute. SCDs / subcutaneous heparin --Obesity; BMI 32.9 Current Visit: No Status: Acute Partly secondary to fluid overload Supportive care --Full code status Advance care 35 minutes follow consultations and recommendations Follow peritoneal fluid analysis Disposition; discharge when medically stable History Interval history: Patient was admitted early this morning Have seen and examined the patient at the bedside in her room Patient's charts, work-up, medications reviewed Patient complains of worsening edema and abdominal distention Initial work-up is consistent with acute transaminitis with hyperbilirubinemia Patient complains of shortness of breath and leg edema Alert awake oriented x3 Mild distress, vital signs reviewed Hospitalist Physical - Constitutional Vitals: Temp Pulse Resp BP Pulse Ox 97.3 F L 69 20 143/77 100 10/07/19 16:57 10/07/19 16:57 10/07/19 16:57 10/07/19 16:57 10/07/19 16:57 General appearance: Present: mild distress, well-nourished, obese, other (icteric) - EENT Eyes: Present: PERRL, EOM intact, scleral icterus - Neck Neck: Present: supple, normal ROM - Respiratory Respiratory effort: normal Respiratory: bilateral: diminished, rales, negative: rhonchi, wheezing - Cardiovascular Rhythm: regular Heart Sounds: Present: S1 & S2 - Extremities Extremities: no ischemia Extremity abnormal: edema - Abdominal General gastrointestinal: soft, non-tender, distended, normal bowel sounds, other (Ascites) - Integumentary Integumentary: Present: jaundice - Psychiatric Psychiatric: appropriate mood/affect, cooperative - Neurologic Neurologic: moves all extremities Results - Labs CBC & Chem 7: 10/06/19 16:10 10/06/19 16:10 Labs: Laboratory Last Values WBC 6.8 K/mm3 (4.5-11.0) 10/06/19 16:10 RBC 2.16 M/mm3 (3.65-5.03) L 10/06/19 16:10 Hgb 7.2 gm/dl (10.1-14.3) L 10/06/19 16:10 Hct 22.7 % (30.3-42.9) L 10/06/19 16:10 MCV 105 fl (79-97) H 10/06/19 16:10 MCH 34 pg (28-32) H 10/06/19 16:10 MCHC 32 % (30-34) 10/06/19 16:10 RDW 19.5 % (13.2-15.2) H 10/06/19 16:10 Plt Count 392 K/mm3 (140-440) 10/06/19 16:10 Add Manual Diff Complete 10/06/19 16:10 Total Counted 100 10/06/19 16:10 Seg Neuts % (Manual) 63.0 % (40.0-70.0) 10/06/19 16:10 Band Neutrophils % 0 % 10/06/19 16:10 Lymphocytes % (Manual) 18.0 % (13.4-35.0) 10/06/19 16:10 Reactive Lymphs % (Man) 0 % 10/06/19 16:10 Monocytes % (Manual) 16.0 % (0.0-7.3) H 10/06/19 16:10 Eosinophils % (Manual) 2.0 % (0.0-4.3) 10/06/19 16:10 Basophils % (Manual) 1.0 % (0.0-1.8) 10/06/19 16:10 Metamyelocytes % 0 % 10/06/19 16:10 Myelocytes % 0 % 10/06/19 16:10 Promyelocytes % 0 % 10/06/19 16:10 Blast Cells % 0 % 10/06/19 16:10 Nucleated RBC % Not Reportable 10/06/19 16:10 Seg Neutrophils # Man 4.3 K/mm3 (1.8-7.7) 10/06/19 16:10 Band Neutrophils # 0.0 K/mm3 10/06/19 16:10 Lymphocytes # (Manual) 1.2 K/mm3 (1.2-5.4) 10/06/19 16:10 Abs React Lymphs (Man) 0.0 K/mm3 10/06/19 16:10 Monocytes # (Manual) 1.1 K/mm3 (0.0-0.8) H 10/06/19 16:10 Eosinophils # (Manual) 0.1 K/mm3 (0.0-0.4) 10/06/19 16:10 Basophils # (Manual) 0.1 K/mm3 (0.0-0.1) 10/06/19 16:10 Metamyelocytes # 0.0 K/mm3 10/06/19 16:10 Myelocytes # 0.0 K/mm3 10/06/19 16:10 Promyelocytes # 0.0 K/mm3 10/06/19 16:10 Blast Cells # 0.0 K/mm3 10/06/19 16:10 WBC Morphology Not Reportable 10/06/19 16:10 Hypersegmented Neuts Not Reportable 10/06/19 16:10 Hyposegmented Neuts Not Reportable 10/06/19 16:10 Hypogranular Neuts Not Reportable 10/06/19 16:10 Smudge Cells Not Reportable 10/06/19 16:10 Toxic Granulation Not Reportable 10/06/19 16:10 Toxic Vacuolation Not Reportable 10/06/19 16:10 Dohle Bodies Not Reportable 10/06/19 16:10 Pelger-Huet Anomaly Not Reportable 10/06/19 16:10 Isael Rods Not Reportable 10/06/19 16:10 Platelet Estimate Not Reportable 10/06/19 16:10 Clumped Platelets Not Reportable 10/06/19 16:10 Plt Clumps, EDTA Not Reportable 10/06/19 16:10 Large Platelets Not Reportable 10/06/19 16:10 Giant Platelets Not Reportable 10/06/19 16:10 Platelet Satelliting Not Reportable 10/06/19 16:10 Plt Morphology Comment Not Reportable 10/06/19 16:10 RBC Morphology Not Reportable 10/06/19 16:10 Dimorphic RBCs Not Reportable 10/06/19 16:10 Polychromasia Not Reportable 10/06/19 16:10 Hypochromasia Not Reportable 10/06/19 16:10 Poikilocytosis Not Reportable 10/06/19 16:10 Anisocytosis 1+ 10/06/19 16:10 Microcytosis Not Reportable 10/06/19 16:10 Macrocytosis Not Reportable 10/06/19 16:10 Spherocytes Not Reportable 10/06/19 16:10 Pappenheimer Bodies Not Reportable 10/06/19 16:10 Sickle Cells Not Reportable 10/06/19 16:10 Target Cells Not Reportable 10/06/19 16:10 Tear Drop Cells Not Reportable 10/06/19 16:10 Ovalocytes Not Reportable 10/06/19 16:10 Helmet Cells Not Reportable 10/06/19 16:10 [place] Bodies Not Reportable 10/06/19 16:10 [place] Rings Not Reportable 10/06/19 16:10 Ruth Cells Not Reportable 10/06/19 16:10 Bite Cells Not Reportable 10/06/19 16:10 Crenated Cell Not Reportable 10/06/19 16:10 Elliptocytes Not Reportable 10/06/19 16:10 Acanthocytes (Spur) Not Reportable 10/06/19 16:10 Rouleaux Not Reportable 10/06/19 16:10 Hemoglobin C Crystals Not Reportable 10/06/19 16:10 Schistocytes Not Reportable 10/06/19 16:10 Malaria parasites Not Reportable 10/06/19 16:10 Nnamdi Bodies Not Reportable 10/06/19 16:10 Hem Pathologist Commnt No 10/06/19 16:10 PT 16.4 Sec. (12.2-14.9) H 10/06/19 16:10 INR 1.30 (0.87-1.13) H 10/06/19 16:10 APTT 28.8 Sec. (24.2-36.6) 10/06/19 16:10 Sodium 132 mmol/L (137-145) L 10/06/19 16:10 Potassium 5.2 mmol/L (3.6-5.0) H 10/06/19 16:10 Chloride 106.3 mmol/L (98-107) 10/06/19 16:10 Carbon Dioxide 10 mmol/L (22-30) L 10/06/19 16:10 Anion Gap 21 mmol/L 10/06/19 16:10 BUN 56 mg/dL (7-17) H 10/06/19 16:10 Creatinine 5.4 mg/dL (0.7-1.2) H 10/06/19 16:10 Estimated GFR 10 ml/min 10/06/19 16:10 BUN/Creatinine Ratio 10 % 10/06/19 16:10 Glucose 144 mg/dL (65-100) H 10/06/19 16:10 POC Glucose 93 (70-105) 10/07/19 17:10 Calcium 8.3 mg/dL (8.4-10.2) L 10/06/19 16:10 Total Bilirubin 6.40 mg/dL (0.1-1.2) H 10/06/19 16:10 Direct Bilirubin 5.2 mg/dL (0-0.2) H 10/06/19 16:10 Indirect Bilirubin 1.2 mg/dL 10/06/19 16:10 AST 59 units/L (5-40) H 10/06/19 16:10 ALT 60 units/L (7-56) H 10/06/19 16:10 Alkaline Phosphatase 579 units/L (35-129) H 10/06/19 16:10 Total Protein 7.0 g/dL (6.3-8.2) 10/06/19 16:10 Albumin 3.0 g/dL (3.9-5) L 10/06/19 16:10 Albumin/Globulin Ratio 0.8 % 10/06/19 16:10 Lipase 22 units/L (13-60) 10/06/19 16:10 Fluid Type Ascitic 10/07/19 Unknown Fluid Color Straw 10/07/19 Unknown Fluid Appearance Clear 10/07/19 Unknown Fluid WBC 73 /mm3 10/07/19 Unknown Fluid RBC 176 /mm3 10/07/19 Unknown Fluid Seg Neutrophils 10.0 % 10/07/19 Unknown Fluid Lymphocytes 60.0 % 10/07/19 Unknown Fluid Reactive Lymphs 0 % 10/07/19 Unknown Fluid Monocytes 30.0 % 10/07/19 Unknown Fluid Eosinophils 0 % 10/07/19 Unknown Fluid Basophils 0 % 10/07/19 Unknown Hepatitis A IgM Ab Non-reactive (NonReactive) 10/06/19 16:10 Hep Bs Antigen Non-reactive (Negative) 10/06/19 16:10 Hep B Core IgM Ab Non-reactive (NonReactive) 10/06/19 16:10 Hepatitis C Antibody Non-reactive (NonReactive) 10/06/19 16:10 Blood Type O POSITIVE 10/06/19 23:30 Antibody Screen Negative 10/06/19 23:30 Microbiology: Microbiology 10/07/19 Unknown Peritoneal Fluid Body Fluid Culture - Final Garcia/IV: Voiding Method Toilet IV Catheter Type [Right INT / Saline Lock Antecubital] Active Medications - Current Medications Current Medications: Generic Name Dose Route Start Last Admin Trade Name Freq PRN Reason Stop Dose Admin Acetaminophen 650 mg 10/07/19 04:26 Tylenol PO Q4H PRN Pain MILD(1-3)/Fever >100.5/QUIÑONEZ Dextrose 0 ml 10/07/19 04:26 D50w (25gm) Syringe IV Q30MIN PRN Hypoglycemia Protocol Heparin Sodium (Porcine) 5,000 unit 10/07/19 06:00 10/07/19 14:51 Heparin SUB-Q Not Given Q8HR [facility] Hydralazine HCl 10 mg 10/07/19 04:30 10/07/19 11:28 Apresoline IV 10 mg Q4H PRN Administration Blood Pressure Insulin Human Lispro 0 unit 10/07/19 07:30 10/07/19 16:59 Humalog SUB-Q Not Given ACHS [facility] Protocol Magnesium Hydroxide 30 ml 10/07/19 04:26 Milk Of Magnesia PO Q4H PRN Constipation Morphine Sulfate 2 mg 10/07/19 04:26 Morphine IV Q4H PRN Pain, Moderate (4-6) Ondansetron HCl 4 mg 10/07/19 04:26 Zofran IV Q8H PRN Nausea And Vomiting Sodium Chloride 10 ml 10/07/19 10:00 10/07/19 11:29 Sodium Chloride Flush Syringe 10 Ml IV 10 ml BID ELENO Administration Sodium Chloride 10 ml 10/07/19 04:26 Sodium Chloride Flush Syringe 10 Ml IV PRN PRN LINE FLUSH Nutrition/Malnutrition Assess - Dietary Evaluation Nutrition/Malnutrition Findings: Nutrition Notes Start: 10/07/19 12:57 Freq: Status: Active Protocol: Document 10/07/19 12:57 LM (Rec: 10/07/19 13:03 LM [id number]) Nutrition Notes Need for Assessment generated from: MD Order,Education,Low BMI Initial or Follow up Brief Note Subjective/Other Information MD consult for diet education and screen for low BMI. Wt corrected/ pt is not low BMI. Pt stated she is eating well and with no wt loss. Pt refused diet education. Nutrition Intervention Revisit per MD consult or patient Sign Off request:
[2019-10-07] MEDS ORDERED: hydrOXYzine PAMOATE 25 MG CAP PO PRN (20:44)
[2019-10-07] MEDS: METOCLOPRAMIDE 10 MG TAB PO SCH (21:29)
[2019-10-07] MEDS: ONDANSETRON 4 MG ODT TAB PO SCH (21:29)
[2019-10-08 01:33] LABS: Albumin 2.8 g/dL (3.9-5); Calcium 8.5 mg/dL (8.4-10.2)
[2019-10-08] MEDS ORDERED: SODIUM BICARB 8.4% 50 MEQ/50 ML SYRINGE IV ONE (03:00)
[2019-10-08] MEDS ORDERED: SODIUM POLYSTYRENE 15 GM/60 ML ORAL LIQD PO ONE ×2 (03:00→12:00)
[2019-10-08] MEDS: ONDANSETRON 4 MG ODT TAB PO SCH ×3 (05:39→22:34)
[2019-10-08] MEDS: HEPARIN 5,000 UNIT/1 ML VIAL SUB-Q SCH ×3 (05:39→21:24)
[2019-10-08 08:40] LABS: Bacteria,Urine 1+ /HPF (Negative); Bilirubin,Urine SM (Negative); Blood,Urine SM (Negative); Color,Urine Amber (Yellow); Mucus,Urine FEW /HPF
[2019-10-08 09:20] LABS: Ictotest,Urine Positive (Negative)
[2019-10-08] MEDS: METOCLOPRAMIDE 10 MG TAB PO SCH ×4 (09:35→21:23)
[2019-10-08] MEDS: INSULIN LISPRO 100 UNIT/ML SUB-Q SCH ×4 (09:36→22:42)
--- NOTE | 2019-10-08 10:49 | Progress Note ---
Assessment and Plan --Acute transaminitis ; acute liver failure : Current Visit: Yes Status: Acute acute hepatitis panel negative GI evaluation noted and appreciated Follow clinically. --Hyperbilirubinemia; Current Visit: Yes Status: Acute Secondary to acute liver failure Supportive care, follow liver functions tests --Ascites ; Current Visit: Yes Status: Acute Status post ultrasound-guided paracentesis Follow fluid analysis -- Anemia Current Visit: Yes Status: Acute Closely monitor H&H and transfuse as needed --Acute on chronic kidney disease stage IV Current Visit: Yes Status: Chronic Monitor renal function avoid nephrotoxins Nephrology consult --Type II diabetes Current Visit: No Status: Acute Accu-Cheks sliding scale coverage ADA diet, insulin as needed, check A1c --Moderate malnutrition/hypoalbuminemia Nutrition supplements, supportive care, nutrition consult -- DVT prophylaxis Current Visit: No Status: Acute. SCDs / subcutaneous heparin --Obesity; BMI 32.9 Current Visit: No Status: Acute Partly secondary to fluid overload Supportive care --Full code status Advance care 35 minutes follow consultations and recommendations Follow peritoneal fluid analysis Disposition; discharge when medically stable Subjective Date of service: 10/08/19 Principal diagnosis: MADISON,Transaminitis Interval history: 54-year-old female with known history of diabetes mellitus, chronic kidney disease presenting to the emergency room today complaining of abdominal pain and distention. This has been ongoing for the past few weeks. Patient decays that she took some laxative because she felt she was constipated without any relief. She has noticed that she has been having yellowish discoloration of eyes lately and abdominal pain and distention has not improved and therefore decided to check into the emergency room. She denies any fever or chills, no nausea vomiting and no diarrhea. She denies any history of hepatitis. Work-up in the emergency room reveals elevated liver enzymes, anemia and acute renal failure. Sx better Objective - Constitutional Vitals: Vital Signs - 12hr 10/08/19 05:07 Temperature 98.7 F Pulse Rate 81 Respiratory 16 Rate Blood Pressure 168/75 O2 Sat by Pulse 99 Oximetry General appearance: Present: no acute distress, well-nourished - EENT Eyes: PERRL, EOM intact ENT: hearing intact, clear oral mucosa Ears: bilateral: normal - Neck Neck: supple, normal ROM - Respiratory Respiratory effort: normal Respiratory: bilateral: CTA - Breasts Breasts: normal - Cardiovascular Rhythm: regular Heart Sounds: Present: S1 & S2. Absent: gallop, rub Extremities: pulses intact, No edema, normal color, Full ROM - Gastrointestinal General gastrointestinal: Present: soft, non-tender, non-distended, normal bowel sounds - Genitourinary Female genitourinary: normal - Integumentary Integumentary: clear, warm, dry - Musculoskeletal Musculoskeletal: 1, strength equal bilaterally - Neurologic Neurologic: moves all extremities - Psychiatric Psychiatric: memory intact, appropriate mood/affect, intact judgment & insight - Labs CBC & Chem 7: 10/11/19 04:48 10/11/19 04:48 Labs: Abnormal lab results 10/07/19 10/07/19 10/08/19 Range/Units 12:21 21:46 00:39 Sodium 136 L (137-145) mmol/L Potassium 5.6 H (3.6-5.0) mmol/L Chloride 110.3 H (98-107) mmol/L Carbon Dioxide 8 L* (22-30) mmol/L BUN 60 H (7-17) mg/dL Creatinine 5.0 H (0.7-1.2) mg/dL Glucose 134 H (65-100) mg/dL POC Glucose 146 H 120 H (70-105) Total Bilirubin 5.10 H (0.1-1.2) mg/dL AST 50 H (5-40) units/L Alkaline Phosphatase 580 H (35-129) units/L Albumin 2.8 L (3.9-5) g/dL
--- NOTE | 2019-10-08 11:26 | Consultation ---
History of Present Illness - Reason for Consult Consult date: 10/08/19 acute renal failure, chronic renal failure, hyperkalemia, metabolic acidosis Requesting physician: SYLWIA MITTAL - History of Present Illness 54-year-old female with known history of diabetes mellitus, hypertension, GERD, gastroparesis and chronic kidney disease. She presents with nausea and vomit ing; these symptoms improved overnight by time of consult. She notes that she has known CKD stage [address] De Santiago in [place]. ROS: Stated complaint: STOMACH PAINS Other details as noted in HPI Constitutional: denies: chills, fever Eyes: denies: eye pain, eye discharge, vision change ENT: denies: ear pain, throat pain Respiratory: denies: cough, shortness of breath, wheezing Cardiovascular: denies: chest pain, palpitations Endocrine: no symptoms reported Gastrointestinal: abdominal pain. denies: nausea, diarrhea Genitourinary: denies: urgency, dysuria, discharge Musculoskeletal: denies: back pain, joint swelling, arthralgia Skin: denies: rash, lesions Neurological: denies: headache, weakness, paresthesias Psychiatric: denies: anxiety, depression Hematological/Lymphatic: denies: easy bleeding, easy bruising - Past Medical History Previous Medical History?: Yes Hx Hypertension: Yes Hx Congestive Heart Failure: No Hx Diabetes: Yes Hx GERD: Yes Hx Renal Disease: Yes Hx Kidney Stones: Yes Hx Asthma: No Hx COPD: No Hx HIV: No Additional medical history: gastroparesis - Surgical History Past Surgical History?: Yes Hx Cholecystectomy: Yes - Family History Family history: no significant - Social History Smoking Status: Never Smoker Substance Use Type: None Past History Past Medical History: diabetes, hypertension, other (Diabetic gastroparesis) Past Surgical History: cholecystectomy Social history: no significant social history Family history: no significant family history Medications and Allergies Allergies Allergy/AdvReac Type Severity Reaction Status Date / Time cefadroxil hydrate Allergy Shortness Verified 12/13/18 18:46 [From José] of Breath Home Medications Medication Instructions Recorded Confirmed Last Taken Type Famotidine [Pepcid] 20 mg PO QDAY #30 tablet 07/04/19 10/07/19 10/06/19 Rx Metoclopramide [Reglan TAB] 10 mg PO ACHS #40 tablet 07/04/19 10/07/19 10/07/19 08:37 Rx NIFEdipine XL [Procardia Xl] 60 mg PO DAILY #30 tablet 07/04/19 10/07/19 10/06/19 Rx Ondansetron [Zofran Odt] 4 mg PO Q8HR #12 tab.rapdis 07/04/19 10/07/19 Unknown Rx Ranitidine HCl [Heartburn Relief] 150 mg PO BID 30 Days #60 tablet 07/04/19 10/07/19 Unknown Rx Sodium Bicarbonate 650 mg PO BID #60 tablet 07/04/19 10/07/19 Unknown Rx labetaloL [Labetalol 200mg TAB] 200 mg PO TID #90 tablet 07/04/19 10/07/19 0 10/06/19 Rx hydrOXYzine PAMOATE [Vistaril] 25 mg PO Q6H PRN #20 capsule 09/05/19 10/07/19 Unknown Rx Active Meds: Active Medications Acetaminophen (Tylenol) 650 mg PO Q4H PRN PRN Reason: Pain MILD(1-3)/Fever >100.5/QUIÑONEZ Dextrose (D50w (25gm) Syringe) 0 ml IV Q30MIN PRN; Protocol PRN Reason: Hypoglycemia Heparin Sodium (Porcine) (Heparin) 5,000 unit SUB-Q Q8HR [facility] Last Admin: 10/08/19 05:39 Dose: 5,000 unit Documented by: Hydralazine HCl (Apresoline) 10 mg IV Q4H PRN PRN Reason: Blood Pressure Last Admin: 10/07/19 11:28 Dose: 10 mg Documented by: Hydroxyzine Pamoate (Vistaril) 25 mg PO Q6H PRN PRN Reason: Itching Calcium Gluconate 2,000 mg/ (Sodium Chloride) 120 mls @ 660 mls/hr IV ONCE ONE Stop: 10/08/19 11:32 Insulin Human Lispro (Humalog) 0 unit SUB-Q [facility]; Protocol Last Admin: 10/08/19 09:36 Dose: Not Given Documented by: Labetalol HCl (Labetalol) 200 mg PO TID [facility] Last Admin: 10/08/19 09:35 Dose: 200 mg Documented by: Magnesium Hydroxide (Milk Of Magnesia) 30 ml PO Q4H PRN PRN Reason: Constipation Metoclopramide HCl (Reglan) 5 mg PO ACHS [facility] Last Admin: 10/08/19 09:35 Dose: 5 mg Documented by: Morphine Sulfate (Morphine) 2 mg IV Q4H PRN PRN Reason: Pain, Moderate (4-6) Ondansetron HCl (Zofran) 4 mg IV Q8H PRN PRN Reason: Nausea And Vomiting Ondansetron HCl (Zofran Odt) 4 mg PO Q8H [facility] Last Admin: 10/08/19 05:39 Dose: 4 mg Documented by: Sodium Chloride (Sodium Chloride Flush Syringe 10 Ml) 10 ml IV BID [facility] Last Admin: 10/08/19 09:35 Dose: 10 ml Documented by: Sodium Chloride (Sodium Chloride Flush Syringe 10 Ml) 10 ml IV PRN PRN PRN Reason: LINE FLUSH Sodium Polystyrene Sulfonate (Kionex) 30 gm PO ONCE ONE Stop: 10/08/19 11:04 Exam - Vital Signs Vital signs: Vital Signs Temp Pulse Resp BP Pulse Ox 97.4 F L 74 22 165/76 100 10/06/19 16:00 10/06/19 16:00 10/06/19 16:00 10/06/19 16:00 10/06/19 16:00 - Physical Exam Narrative exam: - General Limitations: No Limitations General appearance: alert, in no apparent distress - Head Head exam: Present: atraumatic, normocephalic - Eye Eye exam: Present: normal appearance, PERRL, EOMI, scleral icterus Pupils: Present: normal accommodation - ENT ENT exam: Present: mucous membranes dry - Neck Neck exam: Present: normal inspection - Respiratory Respiratory exam: Present: normal lung sounds bilaterally. Absent: respiratory distress, wheezes, rales - Cardiovascular Cardiovascular Exam: Present: regular rate, normal rhythm. Absent: systolic murmur, diastolic murmur, rubs, gallop - GI/Abdominal GI/Abdominal exam: Present: soft, distended, tenderness, normal bowel sounds. Absent: guarding - Rectal Rectal exam: Present: deferred - Extremities Exam Extremities exam: Present: normal inspection - Back Exam Back exam: Present: normal inspection - Neurological Exam Neurological exam: Present: alert, oriented X3 - Psychiatric Psychiatric exam: Present: normal affect, normal mood - Skin Skin exam: Present: warm, dry, intact, other (Skin jaundice). Absent: rash Results - Lab Results 10/06/19 16:10 10/08/19 00:39 Most recent lab results Calcium 8.5 mg/dL (8.4-10.2) 10/08/19 00:39 Assessment and Plan Impression: * MADISON on CKD 4 * nausea and emesis * metabolic acidosis * hyperkalememia * uremia * HTN: * Anemia * BMD: Plan: * may need renal replacement therapy if metabolic acidosis is refractory * follows with Dr. King in [place]; baseline cr 3.5a with possible MADISON in setting of vomiting/dehydration * follow up closely with her automatic line set up mechanic at discharge * check 24 hr crcl * will start iv sodium bicarbonate * follow up daily lytes * avoid nephrotoxins, renal diet and renally dose meds
[2019-10-08] MEDS ORDERED: CALCIUM GLUCONATE 2,000 MG in SODIUM CHLORIDE 0.9% 100 ML IV ONE (12:00)
[2019-10-08] MEDS ORDERED: SODIUM BICARBONATE 150 MEQ in DEXTROSE 5% IN WATER 1,000 ML IV SCH (12:00)
[2019-10-08 12:10] LABS: Bilirubin,Urine NEG (Negative); Blood,Urine SM (Negative); Color,Urine Amber (Yellow); Mucus,Urine FEW /HPF
[2019-10-08 12:58] LABS: Creatinine 24 Hour,Urine TNR (0.8-2.8); Creatinine,Urine TNR mg/dL (0.1-20.0); Total Volume,Urine TNR ml
--- NOTE | 2019-10-08 15:42 | Gastroenterology Progress Note ---
Assessment and Plan acute liver injury - no signs of liver failure given normal mentation. r/o autoimmune etiologies (PEPE, AMA, ASMA, iron studies). ? DILI although no obvious culprit. denies alcohol use. monitor daily labs/coags. Subjective Date of service: 10/08/19 Principal diagnosis: acute liver injury Interval history: pt seen and examined; s.p paracentesis. jaundice unchanged. denies abd complaints otherwise and feels better after paracentesis Objective - Constitutional Vitals: Temp Pulse Resp BP Pulse Ox 97.9 F 76 16 174/81 100 10/08/19 11:56 10/08/19 11:56 10/08/19 11:56 10/08/19 11:56 10/08/19 11:56 General appearance: no acute distress, obese - EENT Eyes: scleral icterus - Cardiovascular Heart Sounds: Present: S1 & S2 - Extremities Extremities: No edema - Gastrointestinal General gastrointestinal: Present: soft, non-tender, non-distended - Labs CBC & Chem 7: 10/06/19 16:10 10/08/19 00:39 Labs: Laboratory Results - last 24 hr 10/07/19 10/07/19 10/07/19 15:53 17:10 21:46 Sodium Potassium Chloride Carbon Dioxide Anion Gap BUN Creatinine Estimated GFR BUN/Creatinine Ratio Glucose POC Glucose 93 120 H Calcium Total Bilirubin AST ALT Alkaline Phosphatase Total Protein Albumin Albumin/Globulin Ratio Urine Color Jes Urine Turbidity Slightly-cloudy Urine pH 5.0 Ur Specific [place] 1.016 Urine Protein 100 mg/dl Urine Glucose (UA) 50 Urine Ketones Neg Urine Blood Sm Urine Nitrite Neg Urine Bilirubin Sm Urine Ictotest Positive Urine Urobilinogen 2.0 Ur Leukocyte Esterase Neg Urine WBC (Auto) 4.0 Urine RBC (Auto) 5.0 U Epithel Cells (Auto) 1.0 Urine Bacteria (Auto) 1+ Urine Mucus Few Urine Eosinophils Urine Total Volume Urine Creatinine Ur Creatinine 24 Hour Fluid Type Fluid Color Fluid Appearance Fluid WBC Fluid RBC Fluid Seg Neutrophils Fluid Lymphocytes Fluid Reactive Lymphs Fluid Monocytes Fluid Eosinophils Fluid Basophils 10/07/19 10/08/19 10/08/19 Unknown 00:39 08:10 Sodium 136 L Potassium 5.6 H Chloride 110.3 H Carbon Dioxide 8 L* Anion Gap 23 BUN 60 H Creatinine 5.0 H Estimated GFR 11 BUN/Creatinine Ratio 12 Glucose 134 H POC Glucose 90 Calcium 8.5 Total Bilirubin 5.10 H AST 50 H ALT 54 Alkaline Phosphatase 580 H Total Protein 6.4 Albumin 2.8 L Albumin/Globulin Ratio 0.8 Urine Color Urine Turbidity Urine pH Ur Specific [place] Urine Protein Urine Glucose (UA) Urine Ketones Urine Blood Urine Nitrite Urine Bilirubin Urine Ictotest Urine Urobilinogen Ur Leukocyte Esterase Urine WBC (Auto) Urine RBC (Auto) U Epithel Cells (Auto) Urine Bacteria (Auto) Urine Mucus Urine Eosinophils Urine Total Volume Urine Creatinine Ur Creatinine 24 Hour Fluid Type Ascitic Fluid Color Straw Fluid Appearance Clear Fluid WBC 73 Fluid RBC 176 Fluid Seg Neutrophils 10.0 Fluid Lymphocytes 60.0 Fluid Reactive Lymphs 0 Fluid Monocytes 30.0 Fluid Eosinophils 0 Fluid Basophils 0 10/08/19 10/08/19 10/08/19 11:49 11:49 11:49 Sodium Potassium Chloride Carbon Dioxide Anion Gap BUN Creatinine Estimated GFR BUN/Creatinine Ratio Glucose POC Glucose Calcium Total Bilirubin AST ALT Alkaline Phosphatase Total Protein Albumin Albumin/Globulin Ratio Urine Color Jes Urine Turbidity Clear Urine pH 5.0 Ur Specific [place] 1.014 Urine Protein 100 mg/dl Urine Glucose (UA) 50 Urine Ketones Neg Urine Blood Sm Urine Nitrite Neg Urine Bilirubin Neg Urine Ictotest Urine Urobilinogen 4.0 Ur Leukocyte Esterase Neg Urine WBC (Auto) 2.0 Urine RBC (Auto) 1.0 U Epithel Cells (Auto) < 1.0 Urine Bacteria (Auto) Urine Mucus Few Urine Eosinophils Rare Urine Total Volume TNR Urine Creatinine TNR Ur Creatinine 24 Hour TNR Fluid Type Fluid Color Fluid Appearance Fluid WBC Fluid RBC Fluid Seg Neutrophils Fluid Lymphocytes Fluid Reactive Lymphs Fluid Monocytes Fluid Eosinophils Fluid Basophils 10/08/19 12:04 Sodium Potassium Chloride Carbon Dioxide Anion Gap BUN Creatinine Estimated GFR BUN/Creatinine Ratio Glucose POC Glucose 145 H Calcium Total Bilirubin AST ALT Alkaline Phosphatase Total Protein Albumin Albumin/Globulin Ratio Urine Color Urine Turbidity Urine pH Ur Specific [place] Urine Protein Urine Glucose (UA) Urine Ketones Urine Blood Urine Nitrite Urine Bilirubin Urine Ictotest Urine Urobilinogen Ur Leukocyte Esterase Urine WBC (Auto) Urine RBC (Auto) U Epithel Cells (Auto) Urine Bacteria (Auto) Urine Mucus Urine Eosinophils Urine Total Volume Urine Creatinine Ur Creatinine 24 Hour Fluid Type Fluid Color Fluid Appearance Fluid WBC Fluid RBC Fluid Seg Neutrophils Fluid Lymphocytes Fluid Reactive Lymphs Fluid Monocytes Fluid Eosinophils Fluid Basophils
[2019-10-08 20:11] LABS: Hematocrit 21.6 % (30.3-42.9); Mean Corpuscular HGB Conc 32 % (30-34); Mean Corpuscular Volume 108 fl (79-97); Platelet Count 369 K/mm3 (140-440); Red Blood Count 2.01 M/mm3 (3.65-5.03); Red Cell Distribution Width 19.5 % (13.2-15.2)
[2019-10-08 20:22] LABS: INR 1.21 (0.87-1.13)
[2019-10-08 20:23] LABS: Partial Thromboplastin Time 28.1 Sec. (24.2-36.6)
[2019-10-08 20:25] LABS: Calcium 8.3 mg/dL (8.4-10.2)
[2019-10-08 21:16] LABS: Anisocytosis 1+; Hypochromasia 1+; Total Cells Counted 100
[2019-10-09] MEDS: hydrALAZINE 20 MG/1 ML INJ IV PRN (01:02)
[2019-10-09] MEDS: ONDANSETRON 4 MG ODT TAB PO SCH ×2 (05:27→16:48)
[2019-10-09] MEDS: HEPARIN 5,000 UNIT/1 ML VIAL SUB-Q SCH ×3 (05:27→22:57)
[2019-10-09] MEDS: INSULIN LISPRO 100 UNIT/ML SUB-Q SCH ×4 (08:30→22:44)
[2019-10-09] MEDS: METOCLOPRAMIDE 10 MG TAB PO SCH ×4 (10:46→22:57)
[2019-10-09 11:01] LABS: Calcium 8.4 mg/dL (8.4-10.2)
[2019-10-09] MEDS ORDERED: LACTULOSE 20 GM/30 ML ORAL LIQD PO PRN (11:10)
[2019-10-09 11:50] LABS: Hematocrit 20.7 % (30.3-42.9); Mean Corpuscular HGB Conc 34 % (30-34); Mean Corpuscular Volume 106 fl (79-97); Platelet Count 366 K/mm3 (140-440); Red Blood Count 1.95 M/mm3 (3.65-5.03); Red Cell Distribution Width 18.9 % (13.2-15.2)
[2019-10-09 12:42] LABS: Band Neutrophils # (Manual) 0.1 K/mm3; Hypochromasia Few; Myelocytes # (Manual) 0.1 K/mm3; Total Cells Counted 100
[2019-10-09 12:43] LABS: Platelet Estimate Consistent w Auto; Target Cells 1+
[2019-10-09 14:35] LABS: Creatinine,Urine 88.1 mg/dL (0.1-20.0)
[2019-10-09 14:47] LABS: Creatinine 24 Hour,Urine 0.6 (0.8-2.8)
[2019-10-09] MEDS ORDERED: SODIUM POLYSTYRENE 15 GM/60 ML ORAL LIQD PO ONE (15:47)
--- NOTE | 2019-10-09 15:49 | Progress Note ---
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 * nausea and emesis/uremia * metabolic acidosis * hyperkalememia * uremia * HTN: * Anemia * BMD: Plan: * will need renal replacement therapy as metabolic acidosis and hyperkalemia is refractory * needs volume removal, start lasix today * plans for perm cath placement and start hd in am * baseline cr 3.5a with possible MADISON in setting of vomiting/dehydration * check 24 hr crcl * continue sodium bicarbonate * follow up daily lytes * avoid nephrotoxins, renal diet and renally dose meds * outpatient dialysis placement, earl velás[facility] Subjective Date of service: 10/16/19 Principal diagnosis: acute liver injury Interval history: resting in bed today Objective - Exam Narrative Exam: - General Limitations: No Limitations General appearance: alert, in no apparent distress - Head Head exam: Present: atraumatic, normocephalic - Eye Eye exam: Present: normal appearance, PERRL, EOMI, scleral icterus Pupils: Present: normal accommodation - ENT ENT exam: Present: mucous membranes dry - Neck Neck exam: Present: normal inspection - Respiratory Respiratory exam: Present: normal lung sounds bilaterally. Absent: respiratory distress, wheezes, rales - Cardiovascular Cardiovascular Exam: Present: regular rate, normal rhythm. Absent: systolic murmur, diastolic murmur, rubs, gallop - GI/Abdominal GI/Abdominal exam: Present: soft, distended, tenderness, normal bowel sounds. Absent: guarding - Rectal Rectal exam: Present: deferred - Extremities Exam Extremities exam: Present: normal inspection - Back Exam Back exam: Present: normal inspection - Neurological Exam Neurological exam: Present: alert, oriented X3 - Psychiatric Psychiatric exam: Present: normal affect, normal mood - Skin Skin exam: Present: warm, dry, intact, other (Skin jaundice). Absent: rash - Vital Signs Vital signs: Vital Signs - 12hr 10/09/19 10/09/19 10/09/19 06:29 10:45 12:56 Temperature 98.9 F 98.1 F Pulse Rate 81 82 75 Respiratory 20 18 Rate Blood Pressure 174/82 179/82 O2 Sat by Pulse 96 100 Oximetry 10/09/19 15:24 Temperature 97.8 F Pulse Rate 82 Respiratory 22 Rate Blood Pressure 176/79 O2 Sat by Pulse 99 Oximetry - Lab 10/09/19 08:06 10/09/19 08:06 Most recent lab results Calcium 8.4 mg/dL (8.4-10.2) 10/09/19 08:06 Magnesium 2.50 mg/dL (1.7-2.3) H 10/08/19 19:18 Urine Creatinine 88.1 mg/dL (0.1-20.0) H 10/09/19 Unknown Medications & Allergies - Medications Allergies/Adverse Reactions: Allergies cefadroxil hydrate [From [facility]] Allergy (Verified 12/13/18 18:46) Shortness of Breath Home Medications: Home Medications Medication Instructions Recorded Confirmed Last Taken Type Famotidine [Pepcid] 20 mg PO QDAY #30 tablet 07/04/19 10/07/19 10/06/19 Rx Metoclopramide [Reglan TAB] 10 mg PO ACHS #40 tablet 07/04/19 10/07/19 10/07/19 08:37 Rx NIFEdipine XL [Procardia Xl] 60 mg PO DAILY #30 tablet 07/04/19 10/07/19 10/06/19 Rx Ondansetron [Zofran Odt] 4 mg PO Q8HR #12 tab.rapdis 07/04/19 10/07/19 Unknown Rx Ranitidine HCl [Heartburn Relief] 150 mg PO BID 30 Days #60 tablet 07/04/19 10/07/19 Unknown Rx Sodium Bicarbonate 650 mg PO BID #60 tablet 07/04/19 10/07/19 Unknown Rx labetaloL [Labetalol 200mg TAB] 200 mg PO TID #90 tablet 07/04/19 10/07/19 10/06/19 Rx hydrOXYzine PAMOATE [Vistaril] 25 mg PO Q6H PRN #20 capsule 09/05/19 10/07/19 Unknown Rx Active Medications: Generic Name Dose Route Start Last Admin Trade Name Freq PRN Reason Stop Dose Admin Acetaminophen 650 mg 10/07/19 04:26 Tylenol PO Q4H PRN Pain MILD(1-3)/Fever >100.5/QUIÑONEZ Dextrose 0 ml 10/07/19 04:26 D50w (25gm) Syringe IV Q30MIN PRN Hypoglycemia Protocol Heparin Sodium (Porcine) 5,000 unit 10/07/19 06:00 10/09/19 05:27 Heparin SUB-Q 5,000 unit Q8HR ELENO Administration Hydralazine HCl 10 mg 10/07/19 04:30 10/09/19 01:02 Apresoline IV 10 mg Q4H PRN Administration Blood Pressure Hydroxyzine Pamoate 25 mg 10/07/19 20:44 Vistaril PO Q6H PRN Itching Sodium Bicarbonate 150 meq/ 1,150 mls @ 75 mls/hr 10/08/19 12:00 10/08/19 12:22 Dextrose IV 75 mls/hr DIRECT ELENO Administration Insulin Human Lispro 0 unit 10/07/19 07:30 10/09/19 08:30 Humalog SUB-Q Not Given ACHS [facility] Protocol Labetalol HCl 200 mg 10/08/19 08:00 10/09/19 10:45 Labetalol PO 200 mg TID ELENO Administration Lactulose 20 gm 10/09/19 11:10 Cephulac PO Q8H PRN Constipation Metoclopramide HCl 5 mg 10/07/19 22:00 10/09/19 10:46 Reglan PO 5 mg ACHS ELENO Administration Morphine Sulfate 2 mg 10/07/19 04:26 Morphine IV Q4H PRN Pain, Moderate (4-6) Ondansetron HCl 4 mg 10/07/19 04:26 Zofran IV Q8H PRN Nausea And Vomiting Ondansetron HCl 4 mg 10/07/19 22:00 10/09/19 05:27 Zofran Odt PO 4 mg Q8H ELENO Administration Sodium Chloride 10 ml 10/07/19 10:00 10/09/19 10:47 Sodium Chloride Flush Syringe 10 Ml IV 10 ml BID ELENO Administration Sodium Chloride 10 ml 10/07/19 04:26 Sodium Chloride Flush Syringe 10 Ml IV PRN PRN LINE FLUSH
[2019-10-09] MEDS ORDERED: SODIUM CHLORIDE 0.9% 100 ML IV PRN (16:13)
[2019-10-09] MEDS ORDERED: ALBUMIN HUMAN 25% (25 GM/100 ML) INJ IV PRN (16:13)
[2019-10-09] MEDS: FUROSEMIDE 40 MG/4 ML INJ IV SCH ×2 (16:39→18:13)
[2019-10-09] MEDS: SODIUM BICARBONATE 650 MG TAB PO SCH ×2 (16:47→22:56)
--- NOTE | 2019-10-09 19:43 | Gastroenterology Progress Note ---
Assessment and Plan 1. Acute liver injury- unclear etiology. no signs of biliary obstruction on imaging. no signs of liver failure given normal mentation. labs for potential etiologies pending. monitor daily labs and coags. 2. Acute on chronic renal failure Subjective Date of service: 10/09/19 Principal diagnosis: acute liver injury Interval history: pt denies new complaints at this time; denies abd pain, n/v; no signs of mentation changes Objective - Constitutional Vitals: Temp Pulse Resp BP Pulse Ox 97.8 F 82 22 176/79 99 10/09/19 15:24 10/09/19 16:48 10/09/19 15:24 10/09/19 15:24 10/09/19 15:24 General appearance: no acute distress - EENT Eyes: scleral icterus - Respiratory Respiratory effort: normal Respiratory: bilateral: CTA - Cardiovascular Rhythm: regular Heart Sounds: Present: S1 & S2 - Gastrointestinal General gastrointestinal: Present: soft, non-tender, non-distended - Labs CBC & Chem 7: 10/09/19 08:06 10/09/19 08:06 Labs: Laboratory Results - last 24 hr 10/08/19 10/08/19 10/08/19 19:18 19:18 19:18 WBC 5.9 RBC 2.01 L Hgb 7.0 L Hct 21.6 L MCV 108 H MCH 35 H MCHC 32 RDW 19.5 H Plt Count 369 Add Manual Diff Complete Total Counted 100 Seg Neuts % (Manual) 73.0 H Band Neutrophils % 0 Lymphocytes % (Manual) 20.0 Reactive Lymphs % (Man) 0 Monocytes % (Manual) 4.0 Eosinophils % (Manual) 2.0 Basophils % (Manual) 1.0 Metamyelocytes % 0 Myelocytes % 0 Promyelocytes % 0 Blast Cells % 0 Nucleated RBC % Not Reportable Seg Neutrophils # Man 4.3 Band Neutrophils # 0.0 Lymphocytes # (Manual) 1.2 Abs React Lymphs (Man) 0.0 Monocytes # (Manual) 0.2 Eosinophils # (Manual) 0.1 Basophils # (Manual) 0.1 Metamyelocytes # 0.0 Myelocytes # 0.0 Promyelocytes # 0.0 Blast Cells # 0.0 WBC Morphology Not Reportable Hypersegmented Neuts Not Reportable Hyposegmented Neuts Not Reportable Hypogranular Neuts Not Reportable Smudge Cells Not Reportable Toxic Granulation Not Reportable Toxic Vacuolation Not Reportable Dohle Bodies Not Reportable Pelger-Huet Anomaly Not Reportable Isael Rods Not Reportable Platelet Estimate Not Reportable Clumped Platelets Not Reportable Plt Clumps, EDTA Not Reportable Large Platelets Not Reportable Giant Platelets Not Reportable Platelet Satelliting Not Reportable Plt Morphology Comment Not Reportable RBC Morphology Not Reportable Dimorphic RBCs Not Reportable Polychromasia Not Reportable Hypochromasia 1+ Poikilocytosis Not Reportable Anisocytosis 1+ Microcytosis Not Reportable Macrocytosis Not Reportable Spherocytes Not Reportable Pappenheimer Bodies Not Reportable Sickle Cells Not Reportable Target Cells Not Reportable Tear Drop Cells Not Reportable Ovalocytes Not Reportable Helmet Cells Not Reportable [place] Bodies Not Reportable [place] Rings Not Reportable [place] Cells Not Reportable Bite Cells Not Reportable Crenated Cell Not Reportable Elliptocytes Not Reportable Acanthocytes (Spur) Not Reportable Rouleaux Not Reportable Hemoglobin C Crystals Not Reportable Schistocytes Not Reportable Malaria parasites Not Reportable Nnamdi Bodies Not Reportable Hem Pathologist Commnt No PT INR APTT Sodium 132 L Potassium 5.3 H Chloride 105.9 Carbon Dioxide 10 L Anion Gap 21 BUN 57 H Creatinine 5.2 H Estimated GFR 10 BUN/Creatinine Ratio 11 Glucose 186 H POC Glucose Calcium 8.3 L Magnesium 2.50 H Ammonia 63.0 H Urine Total Volume Urine Creatinine Ur Creatinine 24 Hour Hep Bs Antigen Hepatitis C Antibody 10/08/19 10/08/19 10/08/19 19:36 19:36 19:36 WBC RBC Hgb Hct MCV MCH MCHC RDW Plt Count Add Manual Diff Total Counted Seg Neuts % (Manual) Band Neutrophils % Lymphocytes % (Manual) Reactive Lymphs % (Man) Monocytes % (Manual) Eosinophils % (Manual) Basophils % (Manual) Metamyelocytes % Myelocytes % Promyelocytes % Blast Cells % Nucleated RBC % Seg Neutrophils # Man Band Neutrophils # Lymphocytes # (Manual) Abs React Lymphs (Man) Monocytes # (Manual) Eosinophils # (Manual) Basophils # (Manual) Metamyelocytes # Myelocytes # Promyelocytes # Blast Cells # WBC Morphology Hypersegmented Neuts Hyposegmented Neuts Hypogranular Neuts Smudge Cells Toxic Granulation Toxic Vacuolation Dohle Bodies Pelger-Huet Anomaly Isael Rods Platelet Estimate Clumped Platelets Plt Clumps, EDTA Large Platelets Giant Platelets Platelet Satelliting Plt Morphology Comment RBC Morphology Dimorphic RBCs Polychromasia Hypochromasia Poikilocytosis Anisocytosis Microcytosis Macrocytosis Spherocytes Pappenheimer Bodies Sickle Cells Target Cells Tear Drop Cells Ovalocytes Helmet Cells [place] Bodies [place] Cells Bite Cells Crenated Cell Elliptocytes Acanthocytes (Sp[place]) Rouleaux Hemoglobin C Crystals Schistocytes Malaria parasites Nnamdi Bodies Hem Pathologist Commnt PT 15.5 H INR 1.21 H APTT 28.1 Sodium Potassium Chloride Carbon Dioxide Anion Gap BUN Creatinine Estimated GFR BUN/Creatinine Ratio Glucose POC Glucose Calcium Magnesium Ammonia Urine Total Volume Urine Creatinine Ur Creatinine 24 Hour Hep Bs Antigen Non-reactive Hepatitis C Antibody Non-reactive 10/08/19 10/09/19 10/09/19 22:43 08:06 08:06 WBC 5.5 RBC 1.95 L Hgb 7.0 L Hct 20.7 L MCV 106 H MCH 36 H MCHC 34 RDW 18.9 H Plt Count 366 Add Manual Diff Complete Total Counted 100 Seg Neuts % (Manual) 80.0 H Band Neutrophils % 1.0 Lymphocytes % (Manual) 8.0 L Reactive Lymphs % (Man) 0 Monocytes % (Manual) 7.0 Eosinophils % (Manual) 1.0 Basophils % (Manual) 1.0 Metamyelocytes % 1.0 Myelocytes % 1.0 Promyelocytes % 0 Blast Cells % 0 Nucleated RBC % Not Reportable Seg Neutrophils # Man 4.4 Band Neutrophils # 0.1 Lymphocytes # (Manual) 0.4 L Abs React Lymphs (Man) 0.0 Monocytes # (Manual) 0.4 Eosinophils # (Manual) 0.1 Basophils # (Manual) 0.1 Metamyelocytes # 0.1 Myelocytes # 0.1 Promyelocytes # 0.0 Blast Cells # 0.0 WBC Morphology Not Reportable Hypersegmented Neuts Not Reportable Hyposegmented Neuts Not Reportable Hypogranular Neuts Not Reportable Smudge Cells Not Reportable Toxic Granulation Not Reportable Toxic Vacuolation Not Reportable Dohle Bodies Not Reportable Pelger-Huet Anomaly Not Reportable Isael Rods Not Reportable Platelet Estimate Consistent w auto Clumped Platelets Not Reportable Plt Clumps, EDTA Not Reportable Large Platelets Not Reportable Giant Platelets Not Reportable Platelet Satelliting Not Reportable Plt Morphology Comment Not Reportable RBC Morphology Not Reportable Dimorphic RBCs Not Reportable Polychromasia Few Hypochromasia Few Poikilocytosis Not Reportable Anisocytosis Not Reportable Microcytosis Not Reportable Macrocytosis Not Reportable Spherocytes Not Reportable Pappenheimer Bodies Not Reportable Sickle Cells Not Reportable Target Cells 1+ Tear Drop Cells Not Reportable Ovalocytes Not Reportable Helmet Cells Not Reportable [place] Bodies Not Reportable [place] Rings Not Reportable [place] Cells Not Reportable Bite Cells Not Reportable Crenated Cell Not Reportable Elliptocytes Few Acanthocytes (Spur) Not Reportable Rouleaux Not Reportable Hemoglobin C Crystals Not Reportable Schistocytes Not Reportable Malaria parasites Not Reportable Nnamdi Bodies Not Reportable Hem Pathologist Commnt No PT INR APTT Sodium 137 Potassium 5.3 H Chloride 109.1 H Carbon Dioxide 10 L Anion Gap 23 BUN 58 H Creatinine 5.2 H Estimated GFR 10 BUN/Creatinine Ratio 11 Glucose 103 H POC Glucose 151 H Calcium 8.4 Magnesium Ammonia Urine Total Volume Urine Creatinine Ur Creatinine 24 Hour Hep Bs Antigen Hepatitis C Antibody 10/09/19 10/09/19 10/09/19 08:21 12:23 15:54 WBC RBC Hgb Hct MCV MCH MCHC RDW Plt Count Add Manual Diff Total Counted Seg Neuts % (Manual) Band Neutrophils % Lymphocytes % (Manual) Reactive Lymphs % (Man) Monocytes % (Manual) Eosinophils % (Manual) Basophils % (Manual) Metamyelocytes % Myelocytes % Promyelocytes % Blast Cells % Nucleated RBC % Seg Neutrophils # Man Band Neutrophils # Lymphocytes # (Manual) Abs React Lymphs (Man) Monocytes # (Manual) Eosinophils # (Manual) Basophils # (Manual) Metamyelocytes # Myelocytes # Promyelocytes # Blast Cells # WBC Morphology Hypersegmented Neuts Hyposegmented Neuts Hypogranular Neuts Smudge Cells Toxic Granulation Toxic Vacuolation Dohle Bodies Pelger-Huet Anomaly Isael Rods Platelet Estimate Clumped Platelets Plt Clumps, EDTA Large Platelets Giant Platelets Platelet Satelliting Plt Morphology Comment RBC Morphology Dimorphic RBCs Polychromasia Hypochromasia Poikilocytosis Anisocytosis Microcytosis Macrocytosis Spherocytes Pappenheimer Bodies Sickle Cells Target Cells Tear Drop Cells Ovalocytes Helmet Cells [place] Bodies [place] Cells Bite Cells Crenated Cell Elliptocytes Acanthocytes (Spur) Rouleaux Hemoglobin C Crystals Schistocytes Malaria parasites Nnamdi Bodies Hem Pathologist Commnt PT INR APTT Sodium Potassium Chloride Carbon Dioxide Anion Gap BUN Creatinine Estimated GFR BUN/Creatinine Ratio Glucose POC Glucose 118 H 136 H 212 H Calcium Magnesium Ammonia Urine Total Volume Urine Creatinine Ur Creatinine 24 Hour Hep Bs Antigen Hepatitis C Antibody 10/09/19 Unknown WBC RBC Hgb Hct MCV MCH MCHC RDW Plt Count Add Manual Diff Total Counted Seg Neuts % (Manual) Band Neutrophils % Lymphocytes % (Manual) Reactive Lymphs % (Man) Monocytes % (Manual) Eosinophils % (Manual) Basophils % (Manual) Metamyelocytes % Myelocytes % Promyelocytes % Blast Cells % Nucleated RBC % Seg Neutrophils # Man Band Neutrophils # Lymphocytes # (Manual) Abs React Lymphs (Man) Monocytes # (Manual) Eosinophils # (Manual) Basophils # (Manual) Metamyelocytes # Myelocytes # Promyelocytes # Blast Cells # WBC Morphology Hypersegmented Neuts Hyposegmented Neuts Hypogranular Neuts Smudge Cells Toxic Granulation Toxic Vacuolation Dohle Bodies Pelger-Huet Anomaly Isael Rods Platelet Estimate Clumped Platelets Plt Clumps, EDTA Large Platelets Giant Platelets Platelet Satelliting Plt Morphology Comment RBC Morphology Dimorphic RBCs Polychromasia Hypochromasia Poikilocytosis Anisocytosis Microcytosis Macrocytosis Spherocytes Pappenheimer Bodies Sickle Cells Target Cells Tear Drop Cells Ovalocytes Helmet Cells [place] Bodies [place] Cells Bite Cells Crenated Cell Elliptocytes Acanthocytes (Spur) Rouleaux Hemoglobin C Crystals Schistocytes Malaria parasites Nnamdi Bodies Hem Pathologist Commnt PT INR APTT Sodium Potassium Chloride Carbon Dioxide Anion Gap BUN Creatinine Estimated GFR BUN/Creatinine Ratio Glucose POC Glucose Calcium Magnesium Ammonia Urine Total Volume 700 Urine Creatinine 88.1 H Ur Creatinine 24 Hour 0.6 L Hep Bs Antigen Hepatitis C Antibody
[2019-10-09 20:14] LABS: % Iron Saturation 22.79 %
[2019-10-10] MEDS: ONDANSETRON 4 MG ODT TAB PO SCH ×3 (01:34→14:25)
[2019-10-10] MEDS: ALBUMIN HUMAN 25% (25 GM/100 ML) INJ IV SCH ×3 (01:35→22:26)
[2019-10-10] MEDS: HEPARIN 5,000 UNIT/1 ML VIAL SUB-Q SCH ×3 (05:10→22:28)
[2019-10-10] MEDS: FUROSEMIDE 40 MG/4 ML INJ IV SCH ×2 (05:17→18:11)
[2019-10-10] MEDS: hydrALAZINE 20 MG/1 ML INJ IV PRN (06:13)
--- NOTE | 2019-10-10 08:19 | Ultrasound Report ---
ULTRASOUND-GUIDED PARACENTESIS INDICATION: Ascites, acute liver failure. Diagnostic paracentesis. COMPARISON: 10/06/2019 CT abdomen FINDINGS: Ultrasound demonstrated a moderate volume of ascites. Consent for the paracentesis was obtained. A ti meout was called. Using ultrasound guidance, and a septic technique and a 5 Beng[place] Yueh catheter, 1.3 L of dark maurice fluid was removed. The patient tolerated the procedure well and there were no appare nt complications. Specimens were sent to the lab. IMPRESSION: 1. Uncomplicated ultrasound-guided paracentesis.. Signer Name: Lawrence Funk MD Signed: 10/10/2019 8:15 AM Workstation Name: [id number]
[2019-10-10] MEDS: METOCLOPRAMIDE 10 MG TAB PO SCH ×4 (08:29→22:28)
[2019-10-10] MEDS: INSULIN LISPRO 100 UNIT/ML SUB-Q SCH ×3 (08:29→17:10)
[2019-10-10 09:12] LABS: Hematocrit 20.4 % (30.3-42.9); Hemoglobin 6.8 gm/dl (10.1-14.3); Mean Corpuscular HGB Conc 33 % (30-34); Mean Corpuscular Volume 104 fl (79-97); Platelet Count 356 K/mm3 (140-440); Red Blood Count 1.95 M/mm3 (3.65-5.03); Red Cell Distribution Width 18.5 % (13.2-15.2)
[2019-10-10 09:28] LABS: Albumin 2.9 g/dL (3.9-5); Calcium 8.3 mg/dL (8.4-10.2)
[2019-10-10] MEDS ORDERED: HEPARIN/NS 5000 UNIT/500ML 1,000 ML IR ONE (09:59)
[2019-10-10] MEDS ORDERED: SODIUM CHLORIDE 0.9% 500 ML 500 ML ONE ×2 (09:59→10:00)
[2019-10-10] MEDS ORDERED: LIDOCAINE (2%) 20 MG/1 ML VIAL 20 ML MDV INFILTRATI ONE (09:59)
[2019-10-10] MEDS: SODIUM BICARBONATE 650 MG TAB PO SCH ×2 (10:09→22:27)
[2019-10-10 10:11] LABS: Basophils % (Manual) 0 % (0.0-1.8); Total Cells Counted 100
[2019-10-10 10:12] LABS: Anisocytosis 1+; Hypochromasia 1+; Platelet Estimate Consistent w Auto; Target Cells 1+
--- NOTE | 2019-10-10 10:45 | Event Note ---
Date: 10/10/19 Patient off the floor for perm cath placement for HD plans. will follow-up at later time; bilirubin trending down, serologies pending.
[2019-10-10] MEDS ORDERED: VANCOMYCIN/NS 1 GM/250 ML 1 GM/250 ML BAG IV NR (11:00)
--- NOTE | 2019-10-10 11:08 | Consultation ---
History of Present Illness - Reason for Consult Consult date: 10/10/19 ESRD requiring HD access Requesting physician: MARAL CHI - History of Present Illness 54-year-old female with known history of diabetes mellitus, hypertension, GERD, gastroparesis and chronic kidney disease. She presents with nausea and vomiting; these symptoms improved overnight by time of consult. She notes that she has known CKD stage [address] De Santiago in [place]. Vascular consulted for dialysis access. Discussed this in depth with patient who understands she will need to discuss this further with Dr. Clark to decide if she is a candidate for peritoneal versus hemodialysis. ROS: Stated complaint: STOMACH PAINS Other details as noted in HPI Constitutional: denies: chills, fever Eyes: denies: eye pain, eye discharge, vision change ENT: denies: ear pain, throat pain Respiratory: denies: cough, shortness of breath, wheezing Cardiovascular: denies: chest pain, palpitations Endocrine: no symptoms reported Gastrointestinal: abdominal pain. denies: nausea, diarrhea Genitourinary: denies: urgency, dysuria, discharge Musculoskeletal: denies: back pain, joint swelling, arthralgia Skin: denies: rash, lesions Neurological: denies: headache, weakness, paresthesias Psychiatric: denies: anxiety, depression Hematological/Lymphatic: denies: easy bleeding, easy bruising - Past Medical History Previous Medical History?: Yes Hx Hypertension: Yes Hx Congestive Heart Failure: No Hx Diabetes: Yes Hx GERD: Yes Hx Renal Disease: Yes Hx Kidney Stones: Yes Hx Asthma: No Hx COPD: No Hx HIV: No Additional medical history: gastroparesis - Surgical History Past Surgical History?: Yes Hx Cholecystectomy: Yes - Family History Family history: no significant - Social History Smoking Status: Never Smoker Substance Use Type: None Past History Past Medical History: diabetes, hypertension, other (Diabetic gastroparesis) Past Surgical History: cholecystectomy Social history: no significant social history Family history: no significant family history Medications and Allergies Allergies Allergy/AdvReac Type Severity Reaction Status Date / Time cefadroxil hydrate Allergy Shortness Verified 12/13/18 18:46 [From [facility]] of Breath Home Medications Medication Instructions Recorded Confirmed Last Taken Type Famotidine [Pepcid] 20 mg PO QDAY #30 tablet 07/04/19 10/07/19 10/06/19 Rx Metoclopramide [Reglan TAB] 10 mg PO ACHS #40 tablet 07/04/19 10/07/19 10/07/19 08:37 Rx NIFEdipine XL [Procardia Xl] 60 mg PO DAILY #30 tablet 07/04/19 10/07/19 10/06/19 Rx Ondansetron [Zofran Odt] 4 mg PO Q8HR #12 tab.rapdis 07/04/19 10/07/19 Unknown Rx Ranitidine HCl [Heartburn Relief] 150 mg PO BID 30 Days #60 tablet 07/04/19 10/07/19 Unknown Rx Sodium Bicarbonate 650 mg PO BID #60 tablet 07/04/19 10/07/19 Unknown Rx labetaloL [Labetalol 200mg TAB] 200 mg PO TID #90 tablet 07/04/19 10/07/19 10/06/19 Rx hydrOXYzine PAMOATE [Vistaril] 25 mg PO Q6H PRN #20 capsule 09/05/19 10/07/19 Unknown Rx Active Meds: Active Medications Acetaminophen (Tylenol) 650 mg PO Q4H PRN PRN Reason: Pain MILD(1-3)/Fever >100.5/QUIÑONEZ Albumin Human (Alburx 25% (Albumin)) 25 gm IV Q12HR [facility] Stop: 10/12/19 10:01 Last Admin: 10/10/19 01:35 Dose: 25 gm Documented by: Albumin Human (Alburx 25% (Albumin)) 25 gm IV MARIAMA PRN PRN Reason: Hypotension Dextrose (D50w (25gm) Syringe) 0 ml IV Q30MIN PRN; Protocol PRN Reason: Hypoglycemia Epoetin Erick (Procrit) 10,000 unit IV MARIAMA PRN PRN Reason: hemodialysis Furosemide (Lasix) 40 mg IV 0600,1800 [facility] Last Admin: 10/10/19 05:17 Dose: 40 mg Documented by: Heparin Sodium (Porcine) (Heparin) 5,000 unit SUB-Q Q8HR [facility] Last Admin: 10/10/19 05:10 Dose: Not Given Documented by: Hydralazine HCl (Apresoline) 10 mg IV Q4H PRN PRN Reason: Blood Pressure Last Admin: 10/10/19 06:13 Dose: 10 mg Documented by: Hydroxyzine Pamoate (Vistaril) 25 mg PO Q6H PRN PRN Reason: Itching Sodium Chloride (Nacl 0.9%) 100 mls @ 999 mls/hr IV MARIAMA PRN PRN Reason: Hypotension Vancomycin HCl (Vancomycin/Ns 1 Gm/250 Ml) 1 gm in 250 mls @ 166.667 mls/hr IV PREOP NR; Protocol Stop: 10/10/19 15:00 Insulin Human Lispro (Humalog) 0 unit SUB-Q [facility]; Protocol Last Admin: 10/10/19 08:29 Dose: Not Given Documented by: Labetalol HCl (Labetalol) 200 mg PO TID [facility] Last Admin: 10/10/19 08:43 Dose: 200 mg Documented by: Lactulose (Cephulac) 20 gm PO Q8H PRN PRN Reason: Constipation Last Admin: 10/09/19 16:47 Dose: 20 gm Documented by: Metoclopramide HCl (Reglan) 5 mg PO ACHS [facility] Last Admin: 10/10/19 08:29 Dose: Not Given Documented by: Morphine Sulfate (Morphine) 2 mg IV Q4H PRN PRN Reason: Pain, Moderate (4-6) Ondansetron HCl (Zofran) 4 mg IV Q8H PRN PRN Reason: Nausea And Vomiting Ondansetron HCl (Zofran Odt) 4 mg PO Q8H [facility] Last Admin: 10/10/19 06:13 Dose: 4 mg Documented by: Sodium Bicarbonate (Sodium Bicarbonate) 1,300 mg PO BID [facility] Last Admin: 10/09/19 22:56 Dose: 1,300 mg Documented by: Sodium Chloride (Sodium Chloride Flush Syringe 10 Ml) 10 ml IV BID [facility] Last Admin: 10/09/19 22:57 Dose: 10 ml Documented by: Sodium Chloride (Sodium Chloride Flush Syringe 10 Ml) 10 ml IV PRN PRN PRN Reason: LINE FLUSH Review of Systems All systems: negative (see HPI) Exam - Constitutional Vitals: Temp Pulse Resp BP Pulse Ox 98.4 F 82 20 170/78 100 10/10/19 06:05 10/10/19 06:13 10/10/19 06:05 10/10/19 08:43 10/10/19 06:05 General appearance: Present: no acute distress - EENT Eyes: Present: EOM intact ENT: hearing intact - Respiratory Respiratory effort: normal - Extremities Extremities: normal temperature, normal color Results - Labs CBC & Chem 7: 10/10/19 08:12 10/10/19 08:12 Labs: Abnormal lab results 10/09/19 10/09/19 10/09/19 Range/Units 08:06 12:23 15:54 RBC 1.95 L (3.65-5.03) M/mm3 Hgb 7.0 L (10.1-14.3) gm/dl Hct 20.7 L (30.3-42.9) % MCV 106 H (79-97) fl MCH 36 H (28-32) pg RDW 18.9 H (13.2-15.2) % Seg Neuts % (Manual) 80.0 H (40.0-70.0) % Lymphocytes % (Manual) 8.0 L (13.4-35.0) % Monocytes % (Manual) (0.0-7.3) % Lymphocytes # (Manual) 0.4 L (1.2-5.4) K/mm3 Sodium (137-145) mmol/L Carbon Dioxide (22-30) mmol/L BUN (7-17) mg/dL Creatinine (0.7-1.2) mg/dL Glucose (65-100) mg/dL POC Glucose 136 H 212 H (70-105) Calcium (8.4-10.2) mg/dL Total Bilirubin (0.1-1.2) mg/dL AST (5-40) units/L Alkaline Phosphatase (35-129) units/L Albumin (3.9-5) g/dL Urine Creatinine (0.1-20.0) mg/dL Ur Creatinine 24 Hour (0.8-2.8) 10/09/19 10/10/19 10/10/19 Range/Units Unknown 08:12 08:12 RBC 1.95 L (3.65-5.03) M/mm3 Hgb 6.8 L (10.1-14.3) gm/dl Hct 20.4 L (30.3-42.9) % MCV 104 H (79-97) fl MCH 35 H (28-32) pg RDW 18.5 H (13.2-15.2) % Seg Neuts % (Manual) 76.0 H (40.0-70.0) % Lymphocytes % (Manual) 13.0 L (13.4-35.0) % Monocytes % (Manual) 9.0 H (0.0-7.3) % Lymphocytes # (Manual) 0.8 L (1.2-5.4) K/mm3 Sodium 136 L (137-145) mmol/L Carbon Dioxide 12 L (22-30) mmol/L BUN 58 H (7-17) mg/dL Creatinine 5.1 H (0.7-1.2) mg/dL Glucose 122 H (65-100) mg/dL POC Glucose (70-105) Calcium 8.3 L (8.4-10.2) mg/dL Total Bilirubin 4.30 H (0.1-1.2) mg/dL AST 58 H (5-40) units/L Alkaline Phosphatase 574 H (35-129) units/L Albumin 2.9 L (3.9-5) g/dL Urine Creatinine 88.1 H (0.1-20.0) mg/dL Ur Creatinine 24 Hour 0.6 L (0.8-2.8) // Range/Units 08:33 RBC (3.65-5.03) M/mm3 Hgb (10.1-14.3) gm/dl Hct (30.3-42.9) % MCV (79-97) fl MCH (28-32) pg RDW (13.2-15.2) % Seg Neuts % (Manual) (40.0-70.0) % Lymphocytes % (Manual) (13.4-35.0) % Monocytes % (Manual) (0.0-7.3) % Lymphocytes # (Manual) (1.2-5.4) K/mm3 Sodium (137-145) mmol/L Carbon Dioxide (22-30) mmol/L BUN (7-17) mg/dL Creatinine (0.7-1.2) mg/dL Glucose (65-100) mg/dL POC Glucose 112 H (70-105) Calcium (8.4-10.2) mg/dL Total Bilirubin (0.1-1.2) mg/dL AST (5-40) units/L Alkaline Phosphatase (35-129) units/L Albumin (3.9-5) g/dL Urine Creatinine (0.1-20.0) mg/dL Ur Creatinine 24 Hour (0.8-2.8) Assessment and Plan 54-year-old female with chronic kidney disease who has progressed to end-stage renal disease requiring hemodialysis access. N.p.o. except sips of water with medication. PermCath placement. Preliminarily discussed peritoneal versus hemodialysis. Patient will further discuss this with her hand touch up painter. In the interim, I will obtain a vein mapping study, avoid IVs, BP cuffs and phlebotomy of the left upper extremity (patient is right-hand dominant). ELI card provided.
[2019-10-10] MEDS ORDERED: MIDAZOLAM 2 MG/2 ML INJ ONE (11:27)
[2019-10-10] MEDS ORDERED: fentaNYL 100 MCG/2 ML INJ ONE (11:28)
[2019-10-10] MEDS: LIDOCAINE 1%/EPINEPHRINE 1:100,000 VIAL (20 ML) INFILTRATI ONE ×2 (11:44→11:48)
[2019-10-10] MEDS: HEPARIN 10,000 UNITS/10 ML VIAL ONE ×4 (11:44→11:57)
--- NOTE | 2019-10-10 12:22 | Operative Report ---
Operative Report Operative Report: EXAM: 1. Ultrasound-guided puncture of the right internal jugular vein 2. Fluoroscopic-guided placement of a right internal jugular tunneled cuffed hemodialysis catheter. DATE: 10/10/2019 INDICATION: End-stage renal disease requiring hemodialysis access. MEDICATIONS: Please see nursing report for full details. DEVICES: 23 cm tip to cuff 15 Fr dual lumen hemodialysis catheter MEMBER OF THE LEGISLATIVE ASSEMBLY: HELEN GILMORE MD CONTRAST: None PROCEDURE: The risks, benefits, and alternatives were discussed and informed consent was obtained. The patient was transported to the angiography suite in satisfactory/stable condition and was transported onto the angiography table. The patient's right internal jugular vein was assessed with ultrasound and determined to be patent prior to procedure. The patient was prepped and draped in a sterile fashion. The puncture site was anesthetized. Under sonographic guidance, the right internal jugular vein was punctured with a 21-gauge micropuncture needle and a 0.018 inch wire was advanced into the inferior vena cava. The micropuncture needle was exchanged for a transitional dilator and the wire was retracted into the right atrium to tana intravascular distance. The wire and inner dilator were removed. 0.035 inch wire was advanced through the transitional dilator into the inferior vena cava. A suitable exit site was identified on the patient's chest inferior and lateral to the venotomy. The site was anesthetized with local anesthetic and the track was anesthetized. Dermatotomy was made. The PermCath was attached to the tunneling device and tunneled between the dermatotomy to the venotomy. Over the 0.035 inch wire, serial dilatation was performed with ultimate placement of a peel-away sheath. The catheter was advanced through the peel- away sheath after the wire was removed and positioned centrally under fluoroscopic guidance. The peel-away sheath was removed. 3-0 Vicryl suture was used to close the venotomy and Dermabond was then applied. 2-0 Ethilon suture was used to secure the catheter at the dermatotomy. The catheter was charged with heparin 1000 units/mL of space. Sterile dressing and Biopatch applied. The patient was transferred from the angiography suite back to the floor in stable condition. FINDINGS: 1. Excellent flow was obtained through the dialysis catheter with 20 mL syringes. 2. The catheter tip is in the right atrium. IMPRESSION: 1. Successful ultrasound and fluoroscopically guided placement of a right internal jugular tunneled cuffed hemodialysis catheter.
--- NOTE | 2019-10-10 12:32 | XRay Report ---
CHEST 1 VIEW INDICATION: R/O TB for dialysis placement. COMPARISON: 01/29/2019 FINDINGS: Support devices: A right Vas-Cath has been inserted since the last exam. The tip is at the cavoatrial junction. Heart: Stable mild cardiomegaly. Pulmonary vessels: Normal. Lungs/Pleura: Lungs are normally expanded and clear. Additional findings: None. IMPRESSION: 1. No acute findings. 2. Cardiomegaly but no CHF. 3. No evidence of acute or chronic TB. Signer Name: Lawrence Funk MD Signed: 10/10/2019 12:28 PM Workstation Name: [id number]
[2019-10-10 13:26] LABS: Hematocrit 20.1 % (30.3-42.9); Hemoglobin 6.8 gm/dl (10.1-14.3); Mean Corpuscular HGB Conc 34 % (30-34); Mean Corpuscular Volume 101 fl (79-97); Platelet Count 346 K/mm3 (140-440); Red Blood Count 1.99 M/mm3 (3.65-5.03)
[2019-10-10 13:33] LABS: Calcium 8.3 mg/dL (8.4-10.2)
[2019-10-10 14:51] LABS: Band Neutrophils # (Manual) 0.1 K/mm3; Basophils % (Manual) 0 % (0.0-1.8); Total Cells Counted 100
[2019-10-10 14:52] LABS: Anisocytosis 1+; Hypochromasia 2+; Platelet Estimate Consistent w Auto; Target Cells Few
[2019-10-10] MEDS ORDERED: SODIUM CHLORIDE*PRIMING MACHINE ONLY FOR DIALYSIS MC ONE (15:33)
[2019-10-10] MEDS: EPOETIN ALFA 10,000 UNIT/1 ML INJ IV PRN (16:00)
--- NOTE | 2019-10-10 21:24 | Progress Note ---
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 * nausea and emesis/uremia * metabolic acidosis * hyperkalememia * uremia * HTN * Anemia * BMD Plan: * continue renal replacement therapy as metabolic acidosis and hyperkalemia is refractory, new start to HD * plan for next HD on 10/11 unless otherwise indicated * UF as tolerated with HD * continue lasix * appreciate vascular for permacath placement * baseline cr 3.5 with possible MADISON in setting of vomiting/dehydration * f/u 24 hr crcl * continue sodium bicarbonate for now * follow up daily lytes * avoid nephrotoxins, renal diet and renally dose meds * outpatient dialysis placement at [facility] Date of service: 10/10/19 Principal diagnosis: acute liver injury Interval history: No acute events noted. Got permacath placed earlier in AM. Seen on HD- first session, no acute issues noted. Objective - Exam Narrative Exam: General appearance: alert, in no apparent distress Head exam: atraumatic, normocephalic Eye exam: normal appearance ENT exam: mucous membranes dry Neck exam: normal inspection Respiratory exam: normal lung sounds bilaterally Cardiovascular Exam: regular rate, normal rhythm GI/Abdominal exam: soft, distended, tenderness, normal bowel sounds Extremities exam: normal inspection Back exam: normal inspection Neurological exam: alert, oriented X3 Psychiatric exam: normal affect, normal mood Skin exam: warm, dry, intact - Vital Signs Vital signs: Vital Signs - 12hr 10/10/19 10/10/19 10/10/19 12:40 13:00 13:15 Temperature 98.4 F Pulse Rate 73 71 73 Respiratory 18 Rate Blood Pressure 185/92 182/85 188/89 10/10/19 10/10/19 10/10/19 13:30 13:45 14:00 Temperature Pulse Rate 76 74 80 Respiratory Rate Blood Pressure 176/92 174/92 186/96 10/10/19 10/10/19 10/10/19 14:15 14:30 14:45 Temperature Pulse Rate 81 80 97 H Respiratory Rate Blood Pressure 186/87 191/100 192/96 10/10/19 10/10/19 10/10/19 15:00 15:15 15:30 Temperature Pulse Rate 81 88 88 Respiratory Rate Blood Pressure 194/98 194/99 194/80 10/10/19 10/10/19 10/10/19 15:45 16:00 16:10 Temperature Pulse Rate 71 74 76 Respiratory Rate Blood Pressure 177/87 170/88 178/88 10/10/19 16:20 Temperature 98.6 F Pulse Rate 76 Respiratory 18 Rate Blood Pressure 178/88 Seen on HD: Qb 300ml/min via CVC, UF goal 2L - Lab 10/10/19 13:14 10/10/19 13:00 Most recent lab results Calcium 8.3 mg/dL (8.4-10.2) L 10/10/19 13:00 Magnesium 2.50 mg/dL (1.7-2.3) H 10/08/19 19:18 Urine Creatinine 88.1 mg/dL (0.1-20.0) H 10/09/19 Unknown Medications & Allergies - Medications Allergies/Adverse Reactions: Allergies cefadroxil hydrate [From [facility]] Allergy (Verified 12/13/18 18:46) Shortness of Breath Home Medications: Home Medications Medication Instructions Recorded Confirmed Last Taken Type Famotidine [Pepcid] 20 mg PO QDAY #30 tablet 07/04/19 10/07/19 10/06/19 Rx Metoclopramide [Reglan TAB] 10 mg PO ACHS #40 tablet 07/04/19 10/07/19 10/07/19 08:37 Rx NIFEdipine XL [Procardia Xl] 60 mg PO DAILY #30 tablet 07/04/19 10/07/19 10/06/19 Rx Ondansetron [Zofran Odt] 4 mg PO Q8HR #12 tab.rapdis 07/04/19 10/07/19 Unknown Rx Ranitidine HCl [Heartburn Relief] 150 mg PO BID 30 Days #60 tablet 07/04/19 10/07/19 Unknown Rx Sodium Bicarbonate 650 mg PO BID #60 tablet 07/04/19 10/07/19 Unknown Rx labetaloL [Labetalol 200mg TAB] 200 mg PO TID #90 tablet 07/04/19 10/07/19 10/06/19 Rx hydrOXYzine PAMOATE [Vistaril] 25 mg PO Q6H PRN #20 capsule 09/05/19 10/07/19 Unknown Rx Active Medications: Generic Name Dose Route Start Last Admin Trade Name Freq PRN Reason Stop Dose Admin Acetaminophen 650 mg 10/07/19 04:26 Tylenol PO Q4H PRN Pain MILD(1-3)/Fever >100.5/QUIÑONEZ Albumin Human 25 gm 10/09/19 22:00 10/10/19 10:40 Alburx 25% (Albumin) IV 10/12/19 10:01 Not Given Q12HR [facility] Albumin Human 25 gm 10/09/19 16:13 Alburx 25% (Albumin) IV MARIAMA PRN Hypotension Dextrose 0 ml 10/07/19 04:26 D50w (25gm) Syringe IV Q30MIN PRN Hypoglycemia Protocol Epoetin Erick 10,000 unit 10/09/19 16:13 10/10/19 16:00 Procrit IV 10,000 unit MARIAMA PRN Administration hemodialysis Furosemide 40 mg 10/09/19 18:00 10/10/19 18:11 Lasix IV 40 mg 0600,1800 ELENO Administration Heparin Sodium (Porcine) 5,000 unit 10/07/19 06:00 10/10/19 14:11 Heparin SUB-Q Not Given Q8HR [facility] Hydralazine HCl 10 mg 10/07/19 04:30 10/10/19 06:13 Apresoline IV 10 mg Q4H PRN Administration Blood Pressure Hydroxyzine Pamoate 25 mg 10/07/19 20:44 Vistaril PO Q6H PRN Itching Sodium Chloride 100 mls @ 999 mls/hr 10/09/19 16:13 Nacl 0.9% IV MARIAMA PRN Hypotension Insulin Human Lispro 0 unit 10/07/19 07:30 10/10/19 17:10 Humalog SUB-Q Not Given ACHS [facility] Protocol Labetalol HCl 200 mg 10/08/19 08:00 10/10/19 14:11 Labetalol PO Not Given TID [facility] Lactulose 20 gm 10/09/19 11:10 10/09/19 16:47 Cephulac PO 20 gm Q8H PRN Administration Constipation Metoclopramide HCl 5 mg 10/07/19 22:00 10/10/19 18:11 Reglan PO 5 mg ACHS [facility] Administration Morphine Sulfate 2 mg 10/07/19 04:26 Morphine IV Q4H PRN Pain, Moderate (4-6) Ondansetron HCl 4 mg 10/07/19 04:26 Zofran IV Q8H PRN Nausea And Vomiting Ondansetron HCl 4 mg 10/07/19 22:00 10/10/19 14:25 Zofran Odt PO Not Given Q8H [facility] Sodium Bicarbonate 1,300 mg 10/09/19 16:00 10/10/19 10:09 Sodium Bicarbonate PO Not Given BID [facility] Sodium Chloride 10 ml 10/07/19 10:00 10/10/19 18:11 Sodium Chloride Flush Syringe 10 Ml IV 10 ml BID [facility] Administration Sodium Chloride 10 ml 10/07/19 04:26 Sodium Chloride Flush Syringe 10 Ml IV PRN PRN LINE FLUSH
[2019-10-11] MEDS: ONDANSETRON 4 MG ODT TAB PO SCH ×4 (00:20→21:50)
[2019-10-11] MEDS: INSULIN LISPRO 100 UNIT/ML SUB-Q SCH ×5 (00:21→22:02)
[2019-10-11 05:30] LABS: Basophils # (Auto) 0.1 K/mm3 (0.0-0.1); Basophils % (Auto) 0.9 % (0.0-1.8); Eosinophils # (Auto) 0.2 K/mm3 (0.0-0.4); Eosinophils % (Auto) 2.9 % (0.0-4.3); Hemoglobin 6.7 gm/dl (10.1-14.3); Lymphocytes % (Auto) 14.7 % (13.4-35.0); Mean Corpuscular HGB Conc 34 % (30-34); Mean Corpuscular Volume 103 fl (79-97); Monocytes # (Auto) 0.7 K/mm3 (0.0-0.8); Platelet Count 332 K/mm3 (140-440); Red Blood Count 1.92 M/mm3 (3.65-5.03); Red Cell Distribution Width 18.1 % (13.2-15.2)
[2019-10-11 05:43] LABS: Hematocrit 19.8 % (30.3-42.9)
[2019-10-11 05:52] LABS: Calcium 8.4 mg/dL (8.4-10.2)
[2019-10-11] MEDS: FUROSEMIDE 40 MG/4 ML INJ IV SCH ×2 (06:07→17:28)
[2019-10-11] MEDS: HEPARIN 5,000 UNIT/1 ML VIAL SUB-Q SCH ×3 (06:07→21:51)
--- NOTE | 2019-10-11 07:29 | Progress Note ---
Assessment and Plan --Acute on chronic kidney disease stage IV Current Visit: Yes Status: Chronic Monitor renal function avoid nephrotoxins Nephrology consult appreciated Had vas cath placed today Had HD --Acute transaminitis ; acute liver failure : Current Visit: Yes Status: Acute acute hepatitis panel negative GI evaluation noted and appreciated Follow clinically. --Hyperbilirubinemia; Current Visit: Yes Status: Acute Secondary to acute liver failure Supportive care, follow liver functions tests --Ascites ; Current Visit: Yes Status: Acute Status post ultrasound-guided paracentesis Follow fluid analysis -- Anemia Current Visit: Yes Status: Acute Closely monitor H&H and transfuse as needed --Type II diabetes Current Visit: No Status: Acute Accu-Cheks sliding scale coverage ADA diet, insulin as needed, check A1c --Moderate malnutrition/hypoalbuminemia Nutrition supplements, supportive care, nutrition consult -- DVT prophylaxis Current Visit: No Status: Acute. SCDs / subcutaneous heparin --Obesity; BMI 32.9 Current Visit: No Status: Acute Partly secondary to fluid overload Supportive care --Full code status Advance care 35 minutes follow consultations and recommendations Follow peritoneal fluid analysis Disposition; discharge when medically stable Subjective Date of service: 10/10/19 Principal diagnosis: acute liver injury,MADISON Interval history: 54-year-old female with known history of diabetes mellitus, chronic kidney d isease presenting to the emergency room today complaining of abdominal pain and distention. This has been ongoing for the past few weeks. Patient decays that she took some laxative because she felt she was constipated without any relief. She has noticed that she has been having yellowish discoloration of eyes lately and abdominal pain and distention has not improved and therefore decided to sherry ck into the emergency room. She denies any fever or chills, no nausea vomiting and no diarrhea. She denies any history of hepatitis. Work-up in the emergency room reveals elevated liver enzymes, anemia and acute renal failure. Sx better Objective - Constitutional Vitals: Vital Signs - 12hr 10/10/19 10/10/19 10/11/19 21:24 22:27 01:10 Temperature 98.0 F 98.0 F Pulse Rate 82 80 80 Respiratory 20 18 Rate Blood Pressure 187/85 187/85 187/85 O2 Sat by Pulse 100 Oximetry 10/11/19 05:25 Temperature 99.3 F Pulse Rate 82 Respiratory 20 Rate Blood Pressure 159/69 O2 Sat by Pulse 96 Oximetry General appearance: Present: no acute distress, well-nourished - EENT Eyes: PERRL, EOM intact ENT: hearing intact, clear oral mucosa Ears: bilateral: normal - Neck Neck: supple, normal ROM - Respiratory Respiratory effort: normal Respiratory: bilateral: CTA - Breasts Breasts: normal - Cardiovascular Heart rate: 78 Rhythm: regular Heart Sounds: Present: S1 & S2. Absent: gallop, rub Extremities: pulses intact, No edema, normal color, Full ROM - Gastrointestinal General gastrointestinal: Present: soft, non-tender, non-distended, normal bowel sounds - Genitourinary Female genitourinary: normal - Integumentary Integumentary: clear, warm, dry - Musculoskeletal Musculoskeletal: 1, strength equal bilaterally - Neurologic Neurologic: moves all extremities - Psychiatric Psychiatric: memory intact, appropriate mood/affect, intact judgment & insight - Labs CBC & Chem 7: 10/11/19 04:48 10/11/19 04:48 Labs: Abnormal lab results 10/10/19 10/10/19 10/10/19 Range/Units 08:12 08:12 08:33 RBC 1.95 L (3.65-5.03) M/mm3 Hgb 6.8 L (10.1-14.3) gm/dl Hct 20.4 L (30.3-42.9) % MCV 104 H (79-97) fl MCH 35 H (28-32) pg RDW 18.5 H (13.2-15.2) % [place] % (Auto) (0.0-7.3) % Lymph # (1.2-5.4) K/mm3 Seg Neutrophils % (40.0-70.0) % Seg Neuts % (Manual) 76.0 H (40.0-70.0) % Lymphocytes % (Manual) 13.0 L (13.4-35.0) % Monocytes % (Manual) 9.0 H (0.0-7.3) % Eosinophils % (Manual) (0.0-4.3) % Lymphocytes # (Manual) 0.8 L (1.2-5.4) K/mm3 Sodium 136 L (137-145) mmol/L Carbon Dioxide 12 L (22-30) mmol/L BUN 58 H (7-17) mg/dL Creatinine 5.1 H (0.7-1.2) mg/dL Glucose 122 H (65-100) mg/dL POC Glucose 112 H (70-105) Calcium 8.3 L (8.4-10.2) mg/dL Total Bilirubin 4.30 H (0.1-1.2) mg/dL AST 58 H (5-40) units/L Alkaline Phosphatase 574 H (35-129) units/L Albumin 2.9 L (3.9-5) g/dL 10/10/19 10/10/19 10/10/19 Range/Units 13:00 13:14 16:29 RBC 1.99 L (3.65-5.03) M/mm3 Hgb 6.8 L (10.1-14.3) gm/dl Hct 20.1 L (30.3-42.9) % MCV 101 H (79-97) fl MCH 34 H (28-32) pg RDW 18.0 H (13.2-15.2) % [place] % (Auto) (0.0-7.3) % Lymph # (1.2-5.4) K/mm3 Seg Neutrophils % (40.0-70.0) % Seg Neuts % (Manual) 81.0 H (40.0-70.0) % Lymphocytes % (Manual) 5.0 L (13.4-35.0) % Monocytes % (Manual) 8.0 H (0.0-7.3) % Eosinophils % (Manual) 5.0 H (0.0-4.3) % Lymphocytes # (Manual) 0.3 L (1.2-5.4) K/mm3 Sodium 136 L (137-145) mmol/L Carbon Dioxide 14 L (22-30) mmol/L BUN 58 H (7-17) mg/dL Creatinine 5.1 H (0.7-1.2) mg/dL Glucose 136 H (65-100) mg/dL POC Glucose 111 H (70-105) Calcium 8.3 L (8.4-10.2) mg/dL Total Bilirubin 4.50 H (0.1-1.2) mg/dL AST 53 H (5-40) units/L Alkaline Phosphatase 571 H (35-129) units/L Albumin 3.0 L (3.9-5) g/dL 10/10/19 10/11/19 10/11/19 Range/Units 22:53 04:48 04:48 RBC 1.92 L (3.65-5.03) M/mm3 Hgb 6.7 L (10.1-14.3) gm/dl Hct 19.8 L* (30.3-42.9) % MCV 103 H (79-97) fl MCH 35 H (28-32) pg RDW 18.1 H (13.2-15.2) % [place] % (Auto) 11.0 H (0.0-7.3) % Lymph # 1.0 L (1.2-5.4) K/mm3 Seg Neutrophils % 70.5 H (40.0-70.0) % Seg Neuts % (Manual) (40.0-70.0) % Lymphocytes % (Manual) (13.4-35.0) % Monocytes % (Manual) (0.0-7.3) % Eosinophils % (Manual) (0.0-4.3) % Lymphocytes # (Manual) (1.2-5.4) K/mm3 Sodium (137-145) mmol/L Carbon Dioxide 20 L (22-30) mmol/L BUN 38 H (7-17) mg/dL Creatinine 3.8 H (0.7-1.2) mg/dL Glucose (65-100) mg/dL POC Glucose 155 H (70-105) Calcium (8.4-10.2) mg/dL Total Bilirubin (0.1-1.2) mg/dL AST (5-40) units/L Alkaline Phosphatase (35-129) units/L Albumin (3.9-5) g/dL
--- NOTE | 2019-10-11 07:31 | Progress Note ---
Assessment and Plan --Acute on chronic kidney disease stage IV Current Visit: Yes Status: Chronic Monitor renal function avoid nephrotoxins Nephrology consult appreciated For vas cath placed tomorrow --Acute transaminitis ; acute liver failure : Current Visit: Yes Status: Acute acute hepatitis panel negative GI evaluation noted and appreciated Follow clinically. --Hyperbilirubinemia; Current Visit: Yes Status: Acute Secondary to acute liver failure Supportive care, follow liver functions tests --Ascites ; Current Visit: Yes Status: Acute Status post ultrasound-guided paracentesis Follow fluid analysis -- Anemia Current Visit: Yes Status: Acute Closely monitor H&H and transfuse as needed --Type II diabetes Current Visit: No Status: Acute Accu-Cheks sliding scale coverage ADA diet, insulin as needed, check A1c --Moderate malnutrition/hypoalbuminemia Nutrition supplements, supportive care, nutrition consult -- DVT prophylaxis Current Visit: No Status: Acute. SCDs / subcutaneous heparin --Obesity; BMI 32.9 Current Visit: No Status: Acute Partly secondary to fluid overload Supportive care --Full code status Advance care 35 minutes follow consultations and recommendations Follow peritoneal fluid analysis Disposition; discharge when medically stable Subjective Date of service: 10/09/19 Principal diagnosis: acute liver injury,MADISON Interval history: 54-year-old female with known history of diabetes mellitus, chronic kidney dise ase presenting to the emergency room today complaining of abdominal pain and distention. This has been ongoing for the past few weeks. Patient decays that she took some laxative because she felt she was constipated without any relief. She has noticed that she has been having yellowish discoloration of eyes lately and abdominal pain and distention has not improved and therefore decided to check into the emergency room. She denies any fever or chills, no nausea vomiting and no diarrhea. She denies any history of hepatitis. Work-up in the emergency room reveals elevated liver enzymes, anemia and acute renal failure. Sx better Objective - Constitutional Vitals: Vital Signs - 12hr 10/10/19 10/10/19 10/11/19 21:24 22:27 01:10 Temperature 98.0 F 98.0 F Pulse Rate 82 80 80 Respiratory 20 18 Rate Blood Pressure 187/85 187/85 187/85 O2 Sat by Pulse 100 Oximetry 10/11/19 05:25 Temperature 99.3 F Pulse Rate 82 Respiratory 20 Rate Blood Pressure 159/69 O2 Sat by Pulse 96 Oximetry General appearance: Present: no acute distress, well-nourished - EENT Eyes: PERRL, EOM intact ENT: hearing intact, clear oral mucosa Ears: bilateral: normal - Neck Neck: supple, normal ROM - Respiratory Respiratory effort: normal Respiratory: bilateral: CTA - Breasts Breasts: normal - Cardiovascular Heart rate: 78 Rhythm: regular Heart Sounds: Present: S1 & S2. Absent: gallop, rub Extremities: pulses intact, No edema, normal color, Full ROM - Gastrointestinal General gastrointestinal: Present: soft, non-tender, non-distended, normal bowel sounds - Genitourinary Female genitourinary: normal - Integumentary Integumentary: clear, warm, dry - Musculoskeletal Musculoskeletal: 1, strength equal bilaterally - Neurologic Neurologic: moves all extremities - Psychiatric Psychiatric: memory intact, appropriate mood/affect, intact judgment & insight - Labs CBC & Chem 7: 10/11/19 04:48 10/11/19 04:48 Labs: Abnormal lab results 10/10/19 10/10/19 10/10/19 Range/Units 08:12 08:12 08:33 RBC 1.95 L (3.65-5.03) M/mm3 Hgb 6.8 L (10.1-14.3) gm/dl Hct 20.4 L (30.3-42.9) % MCV 104 H (79-97) fl MCH 35 H (28-32) pg RDW 18.5 H (13.2-15.2) % Union % (Auto) (0.0-7.3) % Lymph # (1.2-5.4) K/mm3 Seg Neutrophils % (40.0-70.0) % Seg Neuts % (Manual) 76.0 H (40.0-70.0) % Lymphocytes % (Manual) 13.0 L (13.4-35.0) % Monocytes % (Manual) 9.0 H (0.0-7.3) % Eosinophils % (Manual) (0.0-4.3) % Lymphocytes # (Manual) 0.8 L (1.2-5.4) K/mm3 Sodium 136 L (137-145) mmol/L Carbon Dioxide 12 L (22-30) mmol/L BUN 58 H (7-17) mg/dL Creatinine 5.1 H (0.7-1.2) mg/dL Glucose 122 H (65-100) mg/dL POC Glucose 112 H (70-105) Calcium 8.3 L (8.4-10.2) mg/dL Total Bilirubin 4.30 H (0.1-1.2) mg/dL AST 58 H (5-40) units/L Alkaline Phosphatase 574 H (35-129) units/L Albumin 2.9 L (3.9-5) g/dL 10/10/19 10/10/19 10/10/19 Range/Units 13:00 13:14 16:29 RBC 1.99 L (3.65-5.03) M/mm3 Hgb 6.8 L (10.1-14.3) gm/dl Hct 20.1 L (30.3-42.9) % MCV 101 H (79-97) fl MCH 34 H (28-32) pg RDW 18.0 H (13.2-15.2) % Union % (Auto) (0.0-7.3) % Lymph # (1.2-5.4) K/mm3 Seg Neutrophils % (40.0-70.0) % Seg Neuts % (Manual) 81.0 H (40.0-70.0) % Lymphocytes % (Manual) 5.0 L (13.4-35.0) % Monocytes % (Manual) 8.0 H (0.0-7.3) % Eosinophils % (Manual) 5.0 H (0.0-4.3) % Lymphocytes # (Manual) 0.3 L (1.2-5.4) K/mm3 Sodium 136 L (137-145) mmol/L Carbon Dioxide 14 L (22-30) mmol/L BUN 58 H (7-17) mg/dL Creatinine 5.1 H (0.7-1.2) mg/dL Glucose 136 H (65-100) mg/dL POC Glucose 111 H (70-105) Calcium 8.3 L (8.4-10.2) mg/dL Total Bilirubin 4.50 H (0.1-1.2) mg/dL AST 53 H (5-40) units/L Alkaline Phosphatase 571 H (35-129) units/L Albumin 3.0 L (3.9-5) g/dL 10/10/19 10/11/19 10/11/19 Range/Units 22:53 04:48 04:48 RBC 1.92 L (3.65-5.03) M/mm3 Hgb 6.7 L (10.1-14.3) gm/dl Hct 19.8 L* (30.3-42.9) % MCV 103 H (79-97) fl MCH 35 H (28-32) pg RDW 18.1 H (13.2-15.2) % Union % (Auto) 11.0 H (0.0-7.3) % Lymph # 1.0 L (1.2-5.4) K/mm3 Seg Neutrophils % 70.5 H (40.0-70.0) % Seg Neuts % (Manual) (40.0-70.0) % Lymphocytes % (Manual) (13.4-35.0) % Monocytes % (Manual) (0.0-7.3) % Eosinophils % (Manual) (0.0-4.3) % Lymphocytes # (Manual) (1.2-5.4) K/mm3 Sodium (137-145) mmol/L Carbon Dioxide 20 L (22-30) mmol/L BUN 38 H (7-17) mg/dL Creatinine 3.8 H (0.7-1.2) mg/dL Glucose (65-100) mg/dL POC Glucose 155 H (70-105) Calcium (8.4-10.2) mg/dL Total Bilirubin (0.1-1.2) mg/dL AST (5-40) units/L Alkaline Phosphatase (35-129) units/L Albumin (3.9-5) g/dL
[2019-10-11] MEDS: METOCLOPRAMIDE 10 MG TAB PO SCH ×4 (08:43→21:50)
--- NOTE | 2019-10-11 09:14 | Progress Note ---
Assessment and Plan Impression: * MADISON on CKD 5, likely progression to ESRD * nausea and emesis/uremia * metabolic acidosis * hyperkalememia * uremia * HTN * Anemia * BMD Plan: * continue renal replacement therapy as metabolic acidosis and hyperkalemia is refractory, new start to HD * spent much time today to discuss assisted HD plans; patient is amenable to continuing dialysis as needed and all questions/concerns answered. Patient has good understanding of renal prognosis at this time * plan for next HD on 10/11 unless otherwise indicated, can hold off for today * UF as tolerated with HD * continue lasix as she remains non-oliguric * appreciate vascular for permacath placement * baseline cr 3.5 with possible MADISON in setting of vomiting/dehydration, follow labs * f/u 24 hr crcl * continue sodium bicarbonate for now * follow up daily lytes * avoid nephrotoxins, renal diet and renally dose meds * outpatient dialysis placement at [facility] Date of service: 10/11/19 Principal diagnosis: MADISON,Transaminitis Interval history: No acute events noted. Had first HD session yesterday, no issues noted. No cramping, dyspnea, chest pain, dizziness noted. Objective - Exam Narrative Exam: General appearance: alert, in no apparent distress Head exam: atraumatic, normocephalic Eye exam: normal appearance ENT exam: mucous membranes dry Neck exam: normal inspection Respiratory exam: normal lung sounds bilaterally Cardiovascular Exam: regular rate, normal rhythm GI/Abdominal exam: soft, distended, tenderness, normal bowel sounds Extremities exam: normal inspection Back exam: normal inspection Neurological exam: alert, oriented X3 Psychiatric exam: normal affect, normal mood Skin exam: warm, dry, intact - Vital Signs Vital signs: Vital Signs - 12hr 10/10/19 10/10/19 10/11/19 21:24 22:27 01:10 Temperature 98.0 F 98.0 F Pulse Rate 82 80 80 Respiratory 20 18 Rate Blood Pressure 187/85 187/85 187/85 O2 Sat by Pulse 100 Oximetry 10/11/19 10/11/19 05:25 08:44 Temperature 99.3 F Pulse Rate 82 82 Respiratory 20 Rate Blood Pressure 159/69 O2 Sat by Pulse 96 Oximetry - Lab 10/11/19 04:48 10/11/19 04:48 Most recent lab results Calcium 8.4 mg/dL (8.4-10.2) 10/11/19 04:48 Magnesium 2.50 mg/dL (1.7-2.3) H 10/08/19 19:18 Urine Creatinine 88.1 mg/dL (0.1-20.0) H 10/09/19 Unknown Medications & Allergies - Medications Allergies/Adverse Reactions: Allergies cefadroxil hydrate [From [facility] [place]] Allergy (Verified 12/13/18 18:46) Shortness of Breath Home Medications: Home Medications Medication Instructions Recorded Confirmed Last Taken Type Famotidine [Pepcid] 20 mg PO QDAY #30 tablet 07/04/19 10/07/19 10/06/19 Rx Metoclopramide [Reglan TAB] 10 mg PO ACHS #40 tablet 07/04/19 10/07/19 10/07/19 08:37 Rx NIFEdipine XL [Procardia Xl] 60 mg PO DAILY #30 tablet 07/04/19 10/07/19 10/06/19 Rx Ondansetron [Zofran Odt] 4 mg PO Q8HR #12 tab.rapdis 07/04/19 10/07/19 Unknown Rx Ranitidine HCl [Heartburn Relief] 150 mg PO BID 30 Days #60 tablet 07/04/19 10/07/19 Unknown Rx Sodium Bicarbonate 650 mg PO BID #60 tablet 07/04/19 10/07/19 Unknown Rx labetaloL [Labetalol 200mg TAB] 200 mg PO TID #90 tablet 07/04/19 10/07/19 10/06/19 Rx hydrOXYzine PAMOATE [Vistaril] 25 mg PO Q6H PRN #20 capsule 09/05/19 10/07/19 Unknown Rx Active Medications: Generic Name Dose Route Start Last Admin Trade Name Freq PRN Reason Stop Dose Admin Acetaminophen 650 mg 10/07/19 04:26 Tylenol PO Q4H PRN Pain MILD(1-3)/Fever >100.5/QUIÑONEZ Albumin Human 25 gm 10/09/19 22:00 10/10/19 22:26 Alburx 25% (Albumin) IV 10/12/19 10:01 25 gm Q12HR ELENO Administration Albumin Human 25 gm 10/09/19 16:13 Alburx 25% (Albumin) IV MARIAMA PRN Hypotension Dextrose 0 ml 10/07/19 04:26 D50w (25gm) Syringe IV Q30MIN PRN Hypoglycemia Protocol Epoetin Erick 10,000 unit 10/09/19 16:13 10/10/19 16:00 Procrit IV 10,000 unit MARIAMA PRN Administration hemodialysis Furosemide 40 mg 10/09/19 18:00 10/11/19 06:07 Lasix IV 40 mg 0600,1800 ELENO Administration Heparin Sodium (Porcine) 5,000 unit 10/07/19 06:00 10/11/19 06:07 Heparin SUB-Q 5,000 unit Q8HR ELENO Administration Hydralazine HCl 10 mg 10/07/19 04:30 10/10/19 06:13 Apresoline IV 10 mg Q4H PRN Administration Blood Pressure Hydroxyzine Pamoate 25 mg 10/07/19 20:44 Vistaril PO Q6H PRN Itching Sodium Chloride 100 mls @ 999 mls/hr 10/09/19 16:13 Nacl 0.9% IV MARIAMA PRN Hypotension Insulin Human Lispro 0 unit 10/07/19 07:30 10/11/19 08:44 Humalog SUB-Q Not Given ACHS ELENO Protocol Labetalol HCl 200 mg 10/08/19 08:00 10/11/19 08:44 Labetalol PO 200 mg TID ELENO Administration Lactulose 20 gm 10/09/19 11:10 10/09/19 16:47 Cephulac PO 20 gm Q8H PRN Administration Constipation Metoclopramide HCl 5 mg 10/07/19 22:00 10/11/19 08:43 Reglan PO 5 mg ACHS ELENO Administration Morphine Sulfate 2 mg 10/07/19 04:26 Morphine IV Q4H PRN Pain, Moderate (4-6) Ondansetron HCl 4 mg 10/07/19 04:26 Zofran IV Q8H PRN Nausea And Vomiting Ondansetron HCl 4 mg 10/07/19 22:00 10/11/19 06:07 Zofran Odt PO 4 mg Q8H ELENO Administration Sodium Bicarbonate 1,300 mg 10/09/19 16:00 10/10/19 22:27 Sodium Bicarbonate PO 1,300 mg BID ELENO Administration Sodium Chloride 10 ml 10/07/19 10:00 10/10/19 22:35 Sodium Chloride Flush Syringe 10 Ml IV 10 ml BID ELENO Administration Sodium Chloride 10 ml 10/07/19 04:26 Sodium Chloride Flush Syringe 10 Ml IV PRN PRN LINE FLUSH
--- NOTE | 2019-10-11 09:26 | Gastroenterology Progress Note ---
Assessment and Plan 1. Acute liver injury/jaundice - bilirubin trending down, f/u labs pending. viral hep serologies negative, awaiting autoimmune markers/further labs. r/o congestive hepatopathy (echo if not recently done). no mental status changes. if continuing to trend down, pt can f/u in GI clinic in 2 weeks for f/u labs and further management of elevated liver enzymes at that time. will sign off, f/u in gi clinic in 2 weeks. call as needed or with questions Subjective Date of service: 10/11/19 Principal diagnosis: MADISON,Transaminitis Interval history: pt seen and examined; no new gi complaints. received hd yesterday Objective - Constitutional Vitals: Temp Pulse Resp BP Pulse Ox 99.3 F 82 20 159/69 96 10/11/19 05:25 10/11/19 08:44 10/11/19 05:25 10/11/19 05:25 10/11/19 05:25 General appearance: no acute distress - EENT Eyes: scleral icterus - Respiratory Respiratory effort: normal Respiratory: bilateral: CTA - Cardiovascular Heart Sounds: Present: S1 & S2 - Gastrointestinal General gastrointestinal: Present: soft, non-tender, non-distended - Labs CBC & Chem 7: 10/11/19 04:48 10/11/19 04:48 Labs: Laboratory Results - last 24 hr 10/07/19 10/10/19 10/10/19 Unknown 08:12 08:12 WBC RBC Hgb Hct MCV MCH MCHC RDW Plt Count Lymph % (Auto) Cocke % (Auto) Eos % (Auto) Baso % (Auto) Lymph # Cocke # Eos # Baso # Add Manual Diff Complete Total Counted 100 Seg Neutrophils % Seg Neuts % (Manual) 76.0 H Band Neutrophils % 0 Lymphocytes % (Manual) 13.0 L Reactive Lymphs % (Man) 0 Monocytes % (Manual) 9.0 H Eosinophils % (Manual) 2.0 Basophils % (Manual) 0 Metamyelocytes % 0 Myelocytes % 0 Promyelocytes % 0 Blast Cells % 0 Nucleated RBC % Not Reportable Seg Neutrophils # Seg Neutrophils # Man 4.9 Band Neutrophils # 0.0 Lymphocytes # (Manual) 0.8 L Abs React Lymphs (Man) 0.0 Monocytes # (Manual) 0.6 Eosinophils # (Manual) 0.1 Basophils # (Manual) 0.0 Metamyelocytes # 0.0 Myelocytes # 0.0 Promyelocytes # 0.0 Blast Cells # 0.0 WBC Morphology Not Reportable Hypersegmented Neuts Not Reportable Hyposegmented Neuts Not Reportable Hypogranular Neuts Not Reportable Smudge Cells Not Reportable Toxic Granulation Not Reportable Toxic Vacuolation Not Reportable Dohle Bodies Not Reportable Pelger-Huet Anomaly Not Reportable Isael Rods Not Reportable Platelet Estimate Consistent w auto Clumped Platelets Not Reportable Plt Clumps, EDTA Not Reportable Large Platelets Not Reportable Giant Platelets Not Reportable Platelet Satelliting Not Reportable Plt Morphology Comment Not Reportable RBC Morphology Not Reportable Dimorphic RBCs Not Reportable Polychromasia Not Reportable Hypochromasia 1+ Poikilocytosis Not Reportable Anisocytosis 1+ Microcytosis Not Reportable Macrocytosis Not Reportable Spherocytes Not Reportable Pappenheimer Bodies Not Reportable Sickle Cells Not Reportable Target Cells 1+ Tear Drop Cells Not Reportable Ovalocytes Not Reportable Helmet Cells Not Reportable Schumacher[place] Bodies Not Reportable Winston Rings Not Reportable Mathew Cells Not Reportable Bite Cells Not Reportable Crenated Cell Not Reportable Elliptocytes Not Reportable Acanthocytes (Spur) Not Reportable Rouleaux Not Reportable Hemoglobin C Crystals Not Reportable Schistocytes Not Reportable Malaria parasites Not Reportable Nnamdi Bodies Not Reportable Hem Pathologist Commnt No Sodium 136 L Potassium 4.5 Chloride 106.5 Carbon Dioxide 12 L Anion Gap 22 BUN 58 H Creatinine 5.1 H Estimated GFR 11 BUN/Creatinine Ratio 11 Glucose 122 H POC Glucose Calcium 8.3 L Total Bilirubin 4.30 H AST 58 H ALT 53 Alkaline Phosphatase 574 H Ammonia Total Protein 6.4 Albumin 2.9 L Albumin/Globulin Ratio 0.8 Fluid Diff Comment 10/10/19 10/10/19 10/10/19 08:12 13:00 13:14 WBC 6.3 RBC 1.99 L Hgb 6.8 L Hct 20.1 L MCV 101 H MCH 34 H MCHC 34 RDW 18.0 H Plt Count 346 Lymph % (Auto) Cocke % (Auto) Eos % (Auto) Baso % (Auto) Lymph # Cocke # Eos # Baso # Add Manual Diff Complete Total Counted 100 Seg Neutrophils % Seg Neuts % (Manual) 81.0 H Band Neutrophils % 1.0 Lymphocytes % (Manual) 5.0 L Reactive Lymphs % (Man) 0 Monocytes % (Manual) 8.0 H Eosinophils % (Manual) 5.0 H Basophils % (Manual) 0 Metamyelocytes % 0 Myelocytes % 0 Promyelocytes % 0 Blast Cells % 0 Nucleated RBC % Not Reportable Seg Neutrophils # Seg Neutrophils # Man 5.1 Band Neutrophils # 0.1 Lymphocytes # (Manual) 0.3 L Abs React Lymphs (Man) 0.0 Monocytes # (Manual) 0.5 Eosinophils # (Manual) 0.3 Basophils # (Manual) 0.0 Metamyelocytes # 0.0 Myelocytes # 0.0 Promyelocytes # 0.0 Blast Cells # 0.0 WBC Morphology Not Reportable Hypersegmented Neuts Not Reportable Hyposegmented Neuts Not Reportable Hypogranular Neuts Not Reportable Smudge Cells Not Reportable Toxic Granulation Not Reportable Toxic Vacuolation Not Reportable Dohle Bodies Not Reportable Pelger-Huet Anomaly Not Reportable Isael Rods Not Reportable Platelet Estimate Consistent w auto Clumped Platelets Not Reportable Plt Clumps, EDTA Not Reportable Large Platelets Not Reportable Giant Platelets Not Reportable Platelet Satelliting Not Reportable Plt Morphology Comment Not Reportable RBC Morphology Not Reportable Dimorphic RBCs Not Reportable Polychromasia Not Reportable Hypochromasia 2+ Poikilocytosis Not Reportable Anisocytosis 1+ Microcytosis Not Reportable Macrocytosis Not Reportable Spherocytes Not Reportable Pappenheimer Bodies Not Reportable Sickle Cells Not Reportable Target Cells Few Tear Drop Cells Not Reportable Ovalocytes Not Reportable Helmet Cells Not Reportable Schumacher-[place] Bodies Not Reportable [place] Rings Not Reportable Mathew Cells Not Reportable Bite Cells Not Reportable Crenated Cell Not Reportable Elliptocytes Not Reportable Acanthocytes (Spur) Not Reportable Rouleaux Not Reportable Hemoglobin C Crystals Not Reportable Schistocytes Not Reportable Malaria parasites Not Reportable Nnamdi Bodies Not Reportable Hem Pathologist Commnt No Sodium 136 L Potassium 4.6 Chloride 105.8 Carbon Dioxide 14 L Anion Gap 21 BUN 58 H Creatinine 5.1 H Estimated GFR 11 BUN/Creatinine Ratio 11 Glucose 136 H POC Glucose Calcium 8.3 L Total Bilirubin 4.50 H AST 53 H ALT 53 Alkaline Phosphatase 571 H Ammonia 42.0 Total Protein 6.5 Albumin 3.0 L Albumin/Globulin Ratio 0.9 Fluid Diff Comment 10/10/19 10/10/19 10/11/19 16:29 22:53 04:48 WBC 6.6 RBC 1.92 L Hgb 6.7 L Hct 19.8 L* MCV 103 H MCH 35 H MCHC 34 RDW 18.1 H Plt Count 332 Lymph % (Auto) 14.7 Cocke % (Auto) 11.0 H Eos % (Auto) 2.9 Baso % (Auto) 0.9 Lymph # 1.0 L Cocke # 0.7 Eos # 0.2 Baso # 0.1 Add Manual Diff Total Counted Seg Neutrophils % 70.5 H Seg Neuts % (Manual) Band Neutrophils % Lymphocytes % (Manual) Reactive Lymphs % (Man) Monocytes % (Manual) Eosinophils % (Manual) Basophils % (Manual) Metamyelocytes % Myelocytes % Promyelocytes % Blast Cells % Nucleated RBC % Seg Neutrophils # 4.6 Seg Neutrophils # Man Band Neutrophils # Lymphocytes # (Manual) Abs React Lymphs (Man) Monocytes # (Manual) Eosinophils # (Manual) Basophils # (Manual) Metamyelocytes # Myelocytes # Promyelocytes # Blast Cells # WBC Morphology Hypersegmented Neuts Hyposegmented Neuts Hypogranular Neuts Smudge Cells Toxic Granulation Toxic Vacuolation Dohle Bodies Pelger-Huet Anomaly Isael Rods Platelet Estimate Clumped Platelets Plt Clumps, EDTA Large Platelets Giant Platelets Platelet Satelliting Plt Morphology Comment RBC Morphology Dimorphic RBCs Polychromasia Hypochromasia Poikilocytosis Anisocytosis Microcytosis Macrocytosis Spherocytes Pappenheimer Bodies Sickle Cells Target Cells Tear Drop Cells Ovalocytes Helmet Cells Schumacher[place] Bodies Winston Rings Mathew Cells Bite Cells Crenated Cell Elliptocytes Acanthocytes (Spur) Rouleaux Hemoglobin C Crystals Schistocytes Malaria parasites Nnamdi Bodies Hem Pathologist Commnt Sodium Potassium Chloride Carbon Dioxide Anion Gap BUN Creatinine Estimated GFR BUN/Creatinine Ratio Glucose POC Glucose 111 H 155 H Calcium Total Bilirubin AST ALT Alkaline Phosphatase Ammonia Total Protein Albumin Albumin/Globulin Ratio Fluid Diff Comment 10/11/19 10/11/19 04:48 08:38 WBC RBC Hgb Hct MCV MCH MCHC RDW Plt Count Lymph % (Auto) Cocke % (Auto) Eos % (Auto) Baso % (Auto) Lymph # Cocke # Eos # Baso # Add Manual Diff Total Counted Seg Neutrophils % Seg Neuts % (Manual) Band Neutrophils % Lymphocytes % (Manual) Reactive Lymphs % (Man) Monocytes % (Manual) Eosinophils % (Manual) Basophils % (Manual) Metamyelocytes % Myelocytes % Promyelocytes % Blast Cells % Nucleated RBC % Seg Neutrophils # Seg Neutrophils # Man Band Neutrophils # Lymphocytes # (Manual) Abs React Lymphs (Man) Monocytes # (Manual) Eosinophils # (Manual) Basophils # (Manual) Metamyelocytes # Myelocytes # Promyelocytes # Blast Cells # WBC Morphology Hypersegmented Neuts Hyposegmented Neuts Hypogranular Neuts Smudge Cells Toxic Granulation Toxic Vacuolation Dohle Bodies Pelger-Huet Anomaly Isael Rods Platelet Estimate Clumped Platelets Plt Clumps, EDTA Large Platelets Giant Platelets Platelet Satelliting Plt Morphology Comment RBC Morphology Dimorphic RBCs Polychromasia Hypochromasia Poikilocytosis Anisocytosis Microcytosis Macrocytosis Spherocytes Pappenheimer Bodies Sickle Cells Target Cells Tear Drop Cells Ovalocytes Helmet Cells Schumacher-[place] Bodies Winston Rings Mathew Cells Bite Cells Crenated Cell Elliptocytes Acanthocytes (Spur) Rouleaux Hemoglobin C Crystals Schistocytes Malaria parasites Nnamdi Bodies Hem Pathologist Commnt Sodium 138 Potassium 4.1 Chloride 102.6 Carbon Dioxide 20 L Anion Gap 20 BUN 38 H Creatinine 3.8 H Estimated GFR 15 BUN/Creatinine Ratio 10 Glucose 91 POC Glucose 93 Calcium 8.4 Total Bilirubin AST ALT Alkaline Phosphatase Ammonia Total Protein Albumin Albumin/Globulin Ratio Fluid Diff Comment
[2019-10-11] MEDS: SODIUM BICARBONATE 650 MG TAB PO SCH ×2 (09:36→21:50)
[2019-10-11] MEDS ORDERED: SODIUM CHLORIDE 0.9% 500 ML 500 ML IV NR (10:49)
--- NOTE | 2019-10-11 10:56 | Progress Note ---
Assessment and Plan Assessment and plan: --Acute on CKD V, progression to ESRD Current Visit: Yes Status: Chronic Nephrology initiated hemodialysis HD per schedule, CM assisting with Outpatient HD chair scheduling --Acute transaminitis ; acute liver failure : Current Visit: Yes Status: Acute acute hepatitis panel negative GI evaluation noted and appreciated Currently improved --Hyperbilirubinemia; Current Visit: Yes Status: Acute Secondary to acute liver failure Supportive care, follow liver functions tests --Ascites ; Current Visit: Yes Status: Acute Status post ultrasound-guided paracentesis Follow fluid analysis -- Anemia Current Visit: Yes Status: Acute Closely monitor H&H and transfuse as needed --Type II diabetes Current Visit: No Status: Acute Accu-Cheks sliding scale coverage ADA diet, insulin as needed, check A1c --Moderate malnutrition/hypoalbuminemia Nutrition supplements, supportive care, nutrition consult -- DVT prophylaxis Current Visit: No Status: Acute. SCDs / subcutaneous heparin --Obesity; BMI 32.9 Current Visit: No Status: Acute Partly secondary to fluid overload Supportive care --Full code status Outpatient HD chair scheduling per case management follow consultations and recommendations Follow peritoneal fluid analysis Disposition; discharge when medically stable History Interval history: Patient seen and examined at the bedside Patient's chart and medications reviewed Feels slightly better Vital signs noted Newly initiated dialysis Receiving dialysis per schedule Hospitalist Physical - Constitutional Vitals: Temp Pulse Resp BP Pulse Ox 99.3 F 82 20 159/69 96 10/11/19 05:25 10/11/19 08:44 10/11/19 05:25 10/11/19 05:25 10/11/19 05:25 General appearance: Present: no acute distress, well-nourished - EENT Eyes: Present: PERRL, EOM intact - Neck Neck: Present: supple, normal ROM - Respiratory Respiratory effort: normal Respiratory: bilateral: diminished, negative: rales, rhonchi, wheezing - Cardiovascular Rhythm: regular Heart Sounds: Present: S1 & S2 - Extremities Extremities: no ischemia, No edema - Abdominal General gastrointestinal: soft, non-tender, non-distended, normal bowel sounds - Integumentary Integumentary: Present: clear, warm - Psychiatric Psychiatric: appropriate mood/affect, agitated - Neurologic Neurologic: CNII-XII intact, moves all extremities Results - Labs CBC & Chem 7: 10/11/19 04:48 10/11/19 04:48 Labs: Laboratory Last Values WBC 6.6 K/mm3 (4.5-11.0) 10/11/19 04:48 RBC 1.92 M/mm3 (3.65-5.03) L 10/11/19 04:48 Hgb 6.7 gm/dl (10.1-14.3) L 10/11/19 04:48 Hct 19.8 % (30.3-42.9) L* 10/11/19 04:48 MCV 103 fl (79-97) H 10/11/19 04:48 MCH 35 pg (28-32) H 10/11/19 04:48 MCHC 34 % (30-34) 10/11/19 04:48 RDW 18.1 % (13.2-15.2) H 10/11/19 04:48 Plt Count 332 K/mm3 (140-440) 10/11/19 04:48 Lymph % (Auto) 14.7 % (13.4-35.0) 10/11/19 04:48 [place] % (Auto) 11.0 % (0.0-7.3) H 10/11/19 04:48 Eos % (Auto) 2.9 % (0.0-4.3) 10/11/19 04:48 Baso % (Auto) 0.9 % (0.0-1.8) 10/11/19 04:48 Lymph # 1.0 K/mm3 (1.2-5.4) L 10/11/19 04:48 [place] # 0.7 K/mm3 (0.0-0.8) 10/11/19 04:48 Eos # 0.2 K/mm3 (0.0-0.4) 10/11/19 04:48 Baso # 0.1 K/mm3 (0.0-0.1) 10/11/19 04:48 Add Manual Diff Complete 10/10/19 13:14 Total Counted 100 10/10/19 13:14 Seg Neutrophils % 70.5 % (40.0-70.0) H 10/11/19 04:48 Seg Neuts % (Manual) 81.0 % (40.0-70.0) H 10/10/19 13:14 Band Neutrophils % 1.0 % 10/10/19 13:14 Lymphocytes % (Manual) 5.0 % (13.4-35.0) L 10/10/19 13:14 Reactive Lymphs % (Man) 0 % 10/10/19 13:14 Monocytes % (Manual) 8.0 % (0.0-7.3) H 10/10/19 13:14 Eosinophils % (Manual) 5.0 % (0.0-4.3) H 10/10/19 13:14 Basophils % (Manual) 0 % (0.0-1.8) 10/10/19 13:14 Metamyelocytes % 0 % 10/10/19 13:14 Myelocytes % 0 % 10/10/19 13:14 Promyelocytes % 0 % 10/10/19 13:14 Blast Cells % 0 % 10/10/19 13:14 Nucleated RBC % Not Reportable 10/10/19 13:14 Seg Neutrophils # 4.6 K/mm3 (1.8-7.7) 10/11/19 04:48 Seg Neutrophils # Man 5.1 K/mm3 (1.8-7.7) 10/10/19 13:14 Band Neutrophils # 0.1 K/mm3 10/10/19 13:14 Lymphocytes # (Manual) 0.3 K/mm3 (1.2-5.4) L 10/10/19 13:14 Abs React Lymphs (Man) 0.0 K/mm3 10/10/19 13:14 Monocytes # (Manual) 0.5 K/mm3 (0.0-0.8) 10/10/19 13:14 Eosinophils # (Manual) 0.3 K/mm3 (0.0-0.4) 10/10/19 13:14 Basophils # (Manual) 0.0 K/mm3 (0.0-0.1) 10/10/19 13:14 Metamyelocytes # 0.0 K/mm3 10/10/19 13:14 Myelocytes # 0.0 K/mm3 10/10/19 13:14 Promyelocytes # 0.0 K/mm3 10/10/19 13:14 Blast Cells # 0.0 K/mm3 10/10/19 13:14 WBC Morphology Not Reportable 10/10/19 13:14 Hypersegmented Neuts Not Reportable 10/10/19 13:14 Hyposegmented Neuts Not Reportable 10/10/19 13:14 Hypogranular Neuts Not Reportable 10/10/19 13:14 Smudge Cells Not Reportable 10/10/19 13:14 Toxic Granulation Not Reportable 10/10/19 13:14 Toxic Vacuolation Not Reportable 10/10/19 13:14 Dohle Bodies Not Reportable 10/10/19 13:14 Pelger-Huet Anomaly Not Reportable 10/10/19 13:14 Isael Rods Not Reportable 10/10/19 13:14 Platelet Estimate Consistent w auto 10/10/19 13:14 Clumped Platelets Not Reportable 10/10/19 13:14 Plt Clumps, EDTA Not Reportable 10/10/19 13:14 Large Platelets Not Reportable 10/10/19 13:14 Giant Platelets Not Reportable 10/10/19 13:14 Platelet Satelliting Not Reportable 10/10/19 13:14 Plt Morphology Comment Not Reportable 10/10/19 13:14 RBC Morphology Not Reportable 10/10/19 13:14 Dimorphic RBCs Not Reportable 10/10/19 13:14 Polychromasia Not Reportable 10/10/19 13:14 Hypochromasia 2+ 10/10/19 13:14 Poikilocytosis Not Reportable 10/10/19 13:14 Anisocytosis 1+ 10/10/19 13:14 Microcytosis Not Reportable 10/10/19 13:14 Macrocytosis Not Reportable 10/10/19 13:14 Spherocytes Not Reportable 10/10/19 13:14 Pappenheimer Bodies Not Reportable 10/10/19 13:14 Sickle Cells Not Reportable 10/10/19 13:14 Target Cells Few 10/10/19 13:14 Tear Drop Cells Not Reportable 10/10/19 13:14 Ovalocytes Not Reportable 10/10/19 13:14 Helmet Cells Not Reportable 10/10/19 13:14 [place] Bodies Not Reportable 10/10/19 13:14 [place] Rings Not Reportable 10/10/19 13:14 Mathew Cells Not Reportable 10/10/19 13:14 Bite Cells Not Reportable 10/10/19 13:14 Crenated Cell Not Reportable 10/10/19 13:14 Elliptocytes Not Reportable 10/10/19 13:14 Acanthocytes (Spur) Not Reportable 10/10/19 13:14 Rouleaux Not Reportable 10/10/19 13:14 Hemoglobin C Crystals Not Reportable 10/10/19 13:14 Schistocytes Not Reportable 10/10/19 13:14 Malaria parasites Not Reportable 10/10/19 13:14 Nnamdi Bodies Not Reportable 10/10/19 13:14 Hem Pathologist Commnt No 10/10/19 13:14 PT 15.5 Sec. (12.2-14.9) H 10/08/19 19:36 INR 1.21 (0.87-1.13) H 10/08/19 19:36 APTT 28.1 Sec. (24.2-36.6) 10/08/19 19:36 Sodium 138 mmol/L (137-145) 10/11/19 04:48 Potassium 4.1 mmol/L (3.6-5.0) 10/11/19 04:48 Chloride 102.6 mmol/L (98-107) 10/11/19 04:48 Carbon Dioxide 20 mmol/L (22-30) L 10/11/19 04:48 Anion Gap 20 mmol/L 10/11/19 04:48 BUN 38 mg/dL (7-17) H 10/11/19 04:48 Creatinine 3.8 mg/dL (0.7-1.2) H 10/11/19 04:48 Estimated GFR 15 ml/min 10/11/19 04:48 BUN/Creatinine Ratio 10 % 10/11/19 04:48 Glucose 91 mg/dL (65-100) 10/11/19 04:48 POC Glucose 93 (70-105) 10/11/19 08:38 Calcium 8.4 mg/dL (8.4-10.2) 10/11/19 04:48 Magnesium 2.50 mg/dL (1.7-2.3) H 10/08/19 19:18 Iron 62 ug/dL (37-170) 10/09/19 19:19 TIBC 272 mcg/dL (250-450) 10/09/19 19:19 % Saturation 22.79 % 10/09/19 19:19 Transferrin 222 mg/dl (192-382) 10/09/19 19:19 Ferritin 111.2 ng/mL (13.0-400.0) 10/09/19 19:19 Total Bilirubin 4.50 mg/dL (0.1-1.2) H 10/10/19 13:00 Direct Bilirubin 5.2 mg/dL (0-0.2) H 10/06/19 16:10 Indirect Bilirubin 1.2 mg/dL 10/06/19 16:10 AST 53 units/L (5-40) H 10/10/19 13:00 ALT 53 units/L (7-56) 10/10/19 13:00 Alkaline Phosphatase 571 units/L (35-129) H 10/10/19 13:00 Ammonia 42.0 umol/L (25-60) 10/10/19 08:12 Total Protein 6.5 g/dL (6.3-8.2) 10/10/19 13:00 Albumin 3.0 g/dL (3.9-5) L 10/10/19 13:00 Albumin/Globulin Ratio 0.9 % 10/10/19 13:00 Lipase 22 units/L (13-60) 10/06/19 16:10 Urine Color Jes (Yellow) 10/08/19 11:49 Urine Turbidity Clear (Clear) 10/08/19 11:49 Urine pH 5.0 (5.0-7.0) 10/08/19 11:49 Ur Specific [place] 1.014 (1.003-1.030) 10/08/19 11:49 Urine Protein 100 mg/dl mg/dL (Negative) 10/08/19 11:49 Urine Glucose (UA) 50 mg/dL (Negative) 10/08/19 11:49 Urine Ketones Neg mg/dL (Negative) 10/08/19 11:49 Urine Blood Sm (Negative) 10/08/19 11:49 Urine Nitrite Neg (Negative) 10/08/19 11:49 Urine Bilirubin Neg (Negative) 10/08/19 11:49 Urine Ictotest Positive (Negative) 10/07/19 15:53 Urine Urobilinogen 4.0 mg/dL (<2.0) 10/08/19 11:49 Ur Leukocyte Esterase Neg (Negative) 10/08/19 11:49 Urine WBC (Auto) 2.0 /HPF (0.0-6.0) 10/08/19 11:49 Urine RBC (Auto) 1.0 /HPF (0.0-6.0) 10/08/19 11:49 U Epithel Cells (Auto) < 1.0 /HPF (0-13.0) 10/08/19 11:49 Urine Bacteria (Auto) 1+ /HPF (Negative) 10/07/19 15:53 Urine Mucus Few /HPF 10/08/19 11:49 Urine Eosinophils Rare (None Seen) 10/08/19 11:49 Urine Total Volume 700 ml 10/09/19 Unknown Urine Creatinine 88.1 mg/dL (0.1-20.0) H 10/09/19 Unknown Ur Creatinine 24 Hour 0.6 (0.8-2.8) L 10/09/19 Unknown Fluid Type Ascitic 10/07/19 Unknown Fluid Color Straw 10/07/19 Unknown Fluid Appearance Clear 10/07/19 Unknown Fluid WBC 73 /mm3 10/07/19 Unknown Fluid RBC 176 /mm3 10/07/19 Unknown Fluid Diff Comment 10/07/19 Unknown Fluid Seg Neutrophils 10.0 % 10/07/19 Unknown Fluid Lymphocytes 60.0 % 10/07/19 Unknown Fluid Reactive Lymphs 0 % 10/07/19 Unknown Fluid Monocytes 30.0 % 10/07/19 Unknown Fluid Eosinophils 0 % 10/07/19 Unknown Fluid Basophils 0 % 10/07/19 Unknown Hepatitis A IgM Ab Non-reactive (NonReactive) 10/06/19 16:10 Hep Bs Antigen Non-reactive (Negative) 10/08/19 19:36 Hep B Core IgM Ab Non-reactive (NonReactive) 10/06/19 16:10 Hepatitis C Antibody Non-reactive (NonReactive) 10/08/19 19:36 Blood Type O POSITIVE 10/06/19 23:30 Antibody Screen Negative 10/06/19 23:30 Garcia/IV: Voiding Method Toilet IV Catheter Type [Right INT / Saline Lock Antecubital] Active Medications - Current Medications Current Medications: Generic Name Dose Route Start Last Admin Trade Name Freq PRN Reason Stop Dose Admin Acetaminophen 650 mg 10/07/19 04:26 Tylenol PO Q4H PRN Pain MILD(1-3)/Fever >100.5/QUIÑONEZ Albumin Human 25 gm 10/09/19 22:00 10/10/19 22:26 Alburx 25% (Albumin) IV 10/12/19 10:01 25 gm Q12HR ELENO Administration Albumin Human 25 gm 10/09/19 16:13 Alburx 25% (Albumin) IV MARIAMA PRN Hypotension Dextrose 0 ml 10/07/19 04:26 D50w (25gm) Syringe IV Q30MIN PRN Hypoglycemia Protocol Epoetin Erick 10,000 unit 10/09/19 16:13 10/10/19 16:00 Procrit IV 10,000 unit MARIAMA PRN Administration hemodialysis Furosemide 40 mg 10/09/19 18:00 10/11/19 06:07 Lasix IV 40 mg 0600,1800 ELENO Administration Heparin Sodium (Porcine) 5,000 unit 10/07/19 06:00 10/11/19 06:07 Heparin SUB-Q 5,000 unit Q8HR ELENO Administration Hydralazine HCl 10 mg 10/07/19 04:30 10/10/19 06:13 Apresoline IV 10 mg Q4H PRN Administration Blood Pressure Hydroxyzine Pamoate 25 mg 10/07/19 20:44 10/11/19 09:36 Vistaril PO 25 mg Q6H PRN Administration Itching Sodium Chloride 100 mls @ 999 mls/hr 10/09/19 16:13 Nacl 0.9% IV MARIAMA PRN Hypotension Sodium Chloride 500 mls @ 0 mls/hr 10/11/19 10:49 Nacl 0.9% 500 Ml IV 10/11/19 10:50 ONCE ONE As Directed Insulin Human Lispro 0 unit 10/07/19 07:30 10/11/19 08:44 Humalog SUB-Q Not Given ACHS [facility] Protocol Labetalol HCl 200 mg 10/08/19 08:00 10/11/19 08:44 Labetalol PO 200 mg TID ELENO Administration Lactulose 20 gm 10/09/19 11:10 10/09/19 16:47 Cephulac PO 20 gm Q8H PRN Administration Constipation Metoclopramide HCl 5 mg 10/07/19 22:00 10/11/19 08:43 Reglan PO 5 mg ACHS ELENO Administration Morphine Sulfate 2 mg 10/07/19 04:26 Morphine IV Q4H PRN Pain, Moderate (4-6) Ondansetron HCl 4 mg 10/07/19 04:26 Zofran IV Q8H PRN Nausea And Vomiting Ondansetron HCl 4 mg 10/07/19 22:00 10/11/19 06:07 Zofran Odt PO 4 mg Q8H ELENO Administration Sodium Bicarbonate 1,300 mg 10/09/19 16:00 10/11/19 09:36 Sodium Bicarbonate PO 1,300 mg BID ELENO Administration Sodium Chloride 10 ml 10/07/19 10:00 10/11/19 09:37 Sodium Chloride Flush Syringe 10 Ml IV 10 ml BID ELENO Administration Sodium Chloride 10 ml 10/07/19 04:26 Sodium Chloride Flush Syringe 10 Ml IV PRN PRN LINE FLUSH Nutrition/Malnutrition Assess - Dietary Evaluation Nutrition/Malnutrition Findings: Nutrition Notes Start: 10/07/19 12:57 Freq: Status: Active Protocol: Document 10/07/19 12:57 LM (Rec: 10/07/19 13:03 LM [id number]) Nutrition Notes Need for Assessment generated from: MD Order,Education,Low BMI Initial or Follow up Brief Note Subjective/Other Information MD consult for diet education and screen for low BMI. Wt corrected/ pt is not low BMI. Pt stated she is eating well and with no wt loss. Pt refused diet education. Nutrition Intervention Revisit per MD consult or patient Sign Off request:
[2019-10-11] MEDS: ALBUMIN HUMAN 25% (25 GM/100 ML) INJ IV SCH (12:43)
--- NOTE | 2019-10-11 13:15 | Vascular Lab Report ---
DOPPLER ULTRASOUND UPPER EXTREMITY VENOUS MAPPING, BILATERAL INDICATION / CLINICAL INFORMATION: vein mapping for ESRD TECHNIQUE: Grayscale, color and spectral Doppler imaging of the venous system of the right and left upper extrem ities was performed. COMPARISON: None available. FINDINGS: RIGHT UPPER EXTREMITY: Internal jugular vein: Patent and measures 1.3 cm in diameter. Subclavian Vein: Patent and measures 0.74 cm in diameter. Axillary Vein: Patent and measures 0.66 cm in diameter Right brachial vein (diameter in millimeters): Proximal: 7.7/5.0 Mid: 3.3/3.4 Distal: 3.3/3 point Cephalic Vein (Diameter, in mm): - Upper Arm: 3.3 - Mid Arm: 2.6 - Antecubital: Occluded with thrombus. 5.0 - Upper Forearm: 2.4 - Mid Forearm: 2.0 - Wrist: 1.5 Basilic Vein (Diameter, in mm): - Upper Arm: 3.0 - Mid Arm: 8.3 - Antecubital: 2.5/1.9 - Upper Forearm: 3.1 - Mid Forearm: 2.7 - Wrist: 1.6 Brachial Artery PSV (cm/sec): 104 Radial Artery (Diameter, in mm): 2.1. Peak systolic velocity measures 100 cm/s. LEFT UPPER EXTREMITY: Internal jugular vein: Patent and measures 1.2 cm in diameter Subclavian Vein: Patent and measures 0.71 cm in diameter Axillary Vein: Patent and measures 0.73 cm in diameter Brachial vein diameter, in millimeters: Proximal: 6.6/7.5 Mid: 2.8/3.8 Distal: 3.2/3.0 Cephalic Vein (Diameter, in mm): - Upper Arm: 2.5 - Mid Arm: 1.6/1.5 - Antecubital: 2.0 - Upper Forearm: 2.0 - Mid Forearm: 2.0 - Wrist: 1.3 Basilic Vein (Diameter, in mm): - Upper Arm: 3.4 - Mid Arm: 3.4 - Antecubital: 2.4/1.9 - Upper Forearm: 2.1 - Mid Forearm: 2.2 - Wrist: 2.1 Brachial Artery PSV (cm/sec): 116 Radial Artery (Diameter, in mm): 1.7. Peak systolic velocity measures 102 cm/s Additional Findings: None. IMPRESSION: 1. Superficial venous thrombosis is identified in the right cephalic vein at the distal biceps up to the antecubital fossa. 2. Upper extremity venous mapping as above. Signer Name: Mike Diallo Jr, MD Signed: 10/11/2019 1:10 PM Workstation Name: [id number]
[2019-10-12] MEDS: ALBUMIN HUMAN 25% (25 GM/100 ML) INJ IV SCH ×2 (00:04→14:02)
[2019-10-12] MEDS ORDERED: ZOLPIDEM 5 MG TAB PO ONE (01:17)
[2019-10-12] MEDS: ONDANSETRON 4 MG ODT TAB PO SCH ×2 (05:21→14:30)
[2019-10-12] MEDS: FUROSEMIDE 40 MG/4 ML INJ IV SCH ×2 (05:21→17:58)
[2019-10-12] MEDS: HEPARIN 5,000 UNIT/1 ML VIAL SUB-Q SCH ×2 (05:21→14:01)
[2019-10-12 06:32] LABS: Basophils % (Auto) 0.4 % (0.0-1.8); Eosinophils # (Auto) 0.2 K/mm3 (0.0-0.4); Eosinophils % (Auto) 3.5 % (0.0-4.3); Hemoglobin 6.5 gm/dl (10.1-14.3); Lymphocytes % (Auto) 17.1 % (13.4-35.0); Mean Corpuscular HGB Conc 33 % (30-34); Mean Corpuscular Volume 106 fl (79-97); Monocytes # (Auto) 0.8 K/mm3 (0.0-0.8); Monocytes % (Auto) 14.2 % (0.0-7.3); Platelet Count 309 K/mm3 (140-440); Red Blood Count 1.86 M/mm3 (3.65-5.03)
[2019-10-12 06:49] LABS: Calcium 8.6 mg/dL (8.4-10.2); Hematocrit 19.7 % (30.3-42.9)
[2019-10-12] MEDS: INSULIN LISPRO 100 UNIT/ML SUB-Q SCH ×3 (08:36→17:12)
[2019-10-12] MEDS: METOCLOPRAMIDE 10 MG TAB PO SCH ×3 (08:49→17:58)
[2019-10-12] MEDS: SODIUM BICARBONATE 650 MG TAB PO SCH (09:32)
--- NOTE | 2019-10-12 11:32 | Progress Note ---
Assessment and Plan Impression: * MADISON on CKD 5, likely progression to ESRD * nausea and emesis/uremia * metabolic acidosis * hyperkalememia * uremia * HTN * Anemia * BMD Plan: * continue renal replacement therapy as metabolic acidosis and hyperkalemia has been refractory, new start to HD * seen on HD today, no issues noted * plan for next HD on 10/13 if remains inpatient * UF as tolerated with HD * continue lasix as she remains non-oliguric * appreciate vascular for permacath placement * baseline cr 3.5 with possible MADISON in setting of vomiting/dehydration, follow labs (creatinine continuing to uptrend off HD) * f/u 24 hr crcl * continue sodium bicarbonate for now, likely can hold now that on HD * follow up daily lytes * avoid nephrotoxins, renal diet and renally dose meds * outpatient dialysis placement at [facility] Date of service: 10/12/19 Principal diagnosis: MADISON,Transaminitis Interval history: No acute events noted. Seen on HD today, no cramping, dyspnea, chest pain, dizziness noted. Objective - Exam Narrative Exam: General appearance: alert, in no apparent distress Head exam: atraumatic, normocephalic Eye exam: normal appearance ENT exam: mucous membranes dry Neck exam: normal inspection Respiratory exam: normal lung sounds bilaterally Cardiovascular Exam: regular rate, normal rhythm GI/Abdominal exam: soft, distended, tenderness, normal bowel sounds Extremities exam: normal inspection Back exam: normal inspection Neurological exam: alert, oriented X3 Psychiatric exam: normal affect, normal mood Skin exam: warm, dry, intact - Vital Signs Vital signs: Vital Signs - 12hr 10/12/19 10/12/19 10/12/19 00:05 04:43 08:50 Temperature 98.3 F 98.3 F Pulse Rate 82 79 85 Respiratory 17 20 Rate Blood Pressure 166/78 189/87 O2 Sat by Pulse 98 Oximetry Seen on HD: Qb 300ml/min; BP high initially. UF goal 3.5L - Lab 10/12/19 05:58 10/12/19 05:58 Most recent lab results Calcium 8.6 mg/dL (8.4-10.2) 10/12/19 05:58 Magnesium 2.50 mg/dL (1.7-2.3) H 10/08/19 19:18 Urine Creatinine 88.1 mg/dL (0.1-20.0) H 10/09/19 Unknown Medications & Allergies - Medications Allergies/Adverse Reactions: Allergies cefadroxil hydrate [From [facility] [place]] Allergy (Verified 12/13/18 18:46) Shortness of Breath Home Medications: Home Medications Medication Instructions Recorded Confirmed Last Taken Type Famotidine [Pepcid] 20 mg PO QDAY #30 tablet 07/04/19 10/07/19 10/06/19 Rx Metoclopramide [Reglan TAB] 10 mg PO ACHS #40 tablet 07/04/19 10/07/19 10/07/19 08:37 Rx NIFEdipine XL [Procardia Xl] 60 mg PO DAILY #30 tablet 07/04/19 10/07/19 10/06/19 Rx Ondansetron [Zofran Odt] 4 mg PO Q8HR #12 tab.rapdis 07/04/19 10/07/19 Unknown Rx Ranitidine HCl [Heartburn Relief] 150 mg PO BID 30 Days #60 tablet 07/04/19 10/07/19 Unknown Rx Sodium Bicarbonate 650 mg PO BID #60 tablet 07/04/19 10/07/19 Unknown Rx labetaloL [Labetalol 200mg TAB] 200 mg PO TID #90 tablet 07/04/19 10/07/19 10/06/19 Rx hydrOXYzine PAMOATE [Vistaril] 25 mg PO Q6H PRN #20 capsule 09/05/19 10/07/19 Unknown Rx Active Medications: Generic Name Dose Route Start Last Admin Trade Name Freq PRN Reason Stop Dose Admin Acetaminophen 650 mg 10/07/19 04:26 Tylenol PO Q4H PRN Pain MILD(1-3)/Fever >100.5/QUIÑONEZ Albumin Human 25 gm 10/09/19 16:13 Alburx 25% (Albumin) IV MARIAMA PRN Hypotension Dextrose 0 ml 10/07/19 04:26 D50w (25gm) Syringe IV Q30MIN PRN Hypoglycemia Protocol Epoetin Erick 10,000 unit 10/09/19 16:13 10/10/19 16:00 Procrit IV 10,000 unit MARIAMA PRN Administration hemodialysis Furosemide 40 mg 10/09/19 18:00 10/12/19 05:21 Lasix IV 40 mg 0600,1800 ELENO Administration Heparin Sodium (Porcine) 5,000 unit 10/07/19 06:00 10/12/19 05:21 Heparin SUB-Q 5,000 unit Q8HR ELENO Administration Hydralazine HCl 10 mg 10/07/19 04:30 10/10/19 06:13 Apresoline IV 10 mg Q4H PRN Administration Blood Pressure Hydroxyzine Pamoate 25 mg 10/07/19 20:44 10/11/19 09:36 Vistaril PO 25 mg Q6H PRN Administration Itching Sodium Chloride 100 mls @ 999 mls/hr 10/09/19 16:13 Nacl 0.9% IV MARIAMA PRN Hypotension Insulin Human Lispro 0 unit 10/07/19 07:30 10/12/19 08:36 Humalog SUB-Q Not Given ACHS [facility] Protocol Labetalol HCl 200 mg 10/08/19 08:00 10/12/19 08:50 Labetalol PO 200 mg TID ELENO Administration Lactulose 20 gm 10/09/19 11:10 10/09/19 16:47 Cephulac PO 20 gm Q8H PRN Administration Constipation Metoclopramide HCl 5 mg 10/07/19 22:00 10/12/19 08:49 Reglan PO 5 mg ACHS ELENO Administration Morphine Sulfate 2 mg 10/07/19 04:26 Morphine IV Q4H PRN Pain, Moderate (4-6) Ondansetron HCl 4 mg 10/07/19 04:26 Zofran IV Q8H PRN Nausea And Vomiting Ondansetron HCl 4 mg 10/07/19 22:00 10/12/19 05:21 Zofran Odt PO 4 mg Q8H ELENO Administration Sodium Bicarbonate 1,300 mg 10/09/19 16:00 10/12/19 09:32 Sodium Bicarbonate PO 1,300 mg BID ELENO Administration Sodium Chloride 10 ml 10/07/19 10:00 10/12/19 09:32 Sodium Chloride Flush Syringe 10 Ml IV 10 ml BID ELENO Administration Sodium Chloride 10 ml 10/07/19 04:26 Sodium Chloride Flush Syringe 10 Ml IV PRN PRN LINE FLUSH
[2019-10-12] MEDS ORDERED: SODIUM CHLORIDE*PRIMING MACHINE ONLY FOR DIALYSIS MC ONE (11:40)
[2019-10-12] MEDS: hydrALAZINE 20 MG/1 ML INJ IV PRN (11:45)
[2019-10-12 11:56] LABS: ANA Screen, IFA Negative (Negative)
[2019-10-12] MEDS: EPOETIN ALFA 10,000 UNIT/1 ML INJ IV PRN (13:21)
--- NOTE | 2019-10-12 14:11 | Progress Note ---
Assessment and Plan Assessment and plan: --Acute on CKD V, progression to ESRD Current Visit: Yes Status: Chronic Nephrology initiated hemodialysis HD per schedule, CM assisting with Outpatient HD chair scheduling --Acute transaminitis ; acute liver failure : Current Visit: Yes Status: Acute acute hepatitis panel negative GI evaluation noted and appreciated Currently improved --Hyperbilirubinemia; Current Visit: Yes Status: Acute Secondary to acute liver failure Supportive care, follow liver functions tests --Ascites ; Current Visit: Yes Status: Acute Status post ultrasound-guided paracentesis Follow fluid analysis --Type II diabetes Current Visit: No Status: Acute Accu-Cheks sliding scale coverage ADA diet, insulin as needed, check A1c --Moderate malnutrition/hypoalbuminemia Nutrition supplements, supportive care, nutrition consult -- DVT prophylaxis Current Visit: No Status: Acute. SCDs / subcutaneous heparin --Obesity; BMI 32.9 Current Visit: No Status: Acute Partly secondary to fluid overload Supportive care --Full code status Outpatient HD chair scheduling per case management follow consultations and recommendations Follow peritoneal fluid analysis Disposition; discharge when medically stable Hospitalist Physical - Constitutional Vitals: Temp Pulse Resp BP Pulse Ox 98.4 F 78 18 187/80 98 10/12/19 11:08 10/12/19 13:00 10/12/19 11:08 10/12/19 14:01 10/12/19 04:43 General appearance: Present: no acute distress, well-nourished Results - Labs CBC & Chem 7: 10/12/19 05:58 10/12/19 05:58 Labs: Laboratory Last Values WBC 5.8 K/mm3 (4.5-11.0) 10/12/19 05:58 RBC 1.86 M/mm3 (3.65-5.03) L 10/12/19 05:58 Hgb 6.5 gm/dl (10.1-14.3) L 10/12/19 05:58 Hct 19.7 % (30.3-42.9) L* 10/12/19 05:58 MCV 106 fl (79-97) H 10/12/19 05:58 MCH 35 pg (28-32) H 10/12/19 05:58 MCHC 33 % (30-34) 10/12/19 05:58 RDW 18.0 % (13.2-15.2) H 10/12/19 05:58 Plt Count 309 K/mm3 (140-440) 10/12/19 05:58 Lymph % (Auto) 17.1 % (13.4-35.0) 10/12/19 05:58 Bandera % (Auto) 14.2 % (0.0-7.3) H 10/12/19 05:58 Eos % (Auto) 3.5 % (0.0-4.3) 10/12/19 05:58 Baso % (Auto) 0.4 % (0.0-1.8) 10/12/19 05:58 Lymph # 1.0 K/mm3 (1.2-5.4) L 10/12/19 05:58 Bandera # 0.8 K/mm3 (0.0-0.8) 10/12/19 05:58 Eos # 0.2 K/mm3 (0.0-0.4) 10/12/19 05:58 Baso # 0.0 K/mm3 (0.0-0.1) 10/12/19 05:58 Add Manual Diff Complete 10/10/19 13:14 Total Counted 100 10/10/19 13:14 Seg Neutrophils % 64.8 % (40.0-70.0) 10/12/19 05:58 Seg Neuts % (Manual) 81.0 % (40.0-70.0) H 10/10/19 13:14 Band Neutrophils % 1.0 % 10/10/19 13:14 Lymphocytes % (Manual) 5.0 % (13.4-35.0) L 10/10/19 13:14 Reactive Lymphs % (Man) 0 % 10/10/19 13:14 Monocytes % (Manual) 8.0 % (0.0-7.3) H 10/10/19 13:14 Eosinophils % (Manual) 5.0 % (0.0-4.3) H 10/10/19 13:14 Basophils % (Manual) 0 % (0.0-1.8) 10/10/19 13:14 Metamyelocytes % 0 % 10/10/19 13:14 Myelocytes % 0 % 10/10/19 13:14 Promyelocytes % 0 % 10/10/19 13:14 Blast Cells % 0 % 10/10/19 13:14 Nucleated RBC % Not Reportable 10/10/19 13:14 Seg Neutrophils # 3.8 K/mm3 (1.8-7.7) 10/12/19 05:58 Seg Neutrophils # Man 5.1 K/mm3 (1.8-7.7) 10/10/19 13:14 Band Neutrophils # 0.1 K/mm3 10/10/19 13:14 Lymphocytes # (Manual) 0.3 K/mm3 (1.2-5.4) L 10/10/19 13:14 Abs React Lymphs (Man) 0.0 K/mm3 10/10/19 13:14 Monocytes # (Manual) 0.5 K/mm3 (0.0-0.8) 10/10/19 13:14 Eosinophils # (Manual) 0.3 K/mm3 (0.0-0.4) 10/10/19 13:14 Basophils # (Manual) 0.0 K/mm3 (0.0-0.1) 10/10/19 13:14 Metamyelocytes # 0.0 K/mm3 10/10/19 13:14 Myelocytes # 0.0 K/mm3 10/10/19 13:14 Promyelocytes # 0.0 K/mm3 10/10/19 13:14 Blast Cells # 0.0 K/mm3 10/10/19 13:14 WBC Morphology Not Reportable 10/10/19 13:14 Hypersegmented Neuts Not Reportable 10/10/19 13:14 Hyposegmented Neuts Not Reportable 10/10/19 13:14 Hypogranular Neuts Not Reportable 10/10/19 13:14 Smudge Cells Not Reportable 10/10/19 13:14 Toxic Granulation Not Reportable 10/10/19 13:14 Toxic Vacuolation Not Reportable 10/10/19 13:14 Dohle Bodies Not Reportable 10/10/19 13:14 Pelger-Huet Anomaly Not Reportable 10/10/19 13:14 Isael Rods Not Reportable 10/10/19 13:14 Platelet Estimate Consistent w auto 10/10/19 13:14 Clumped Platelets Not Reportable 10/10/19 13:14 Plt Clumps, EDTA Not Reportable 10/10/19 13:14 Large Platelets Not Reportable 10/10/19 13:14 Giant Platelets Not Reportable 10/10/19 13:14 Platelet Satelliting Not Reportable 10/10/19 13:14 Plt Morphology Comment Not Reportable 10/10/19 13:14 RBC Morphology Not Reportable 10/10/19 13:14 Dimorphic RBCs Not Reportable 10/10/19 13:14 Polychromasia Not Reportable 10/10/19 13:14 Hypochromasia 2+ 10/10/19 13:14 Poikilocytosis Not Reportable 10/10/19 13:14 Anisocytosis 1+ 10/10/19 13:14 Microcytosis Not Reportable 10/10/19 13:14 Macrocytosis Not Reportable 10/10/19 13:14 Spherocytes Not Reportable 10/10/19 13:14 Pappenheimer Bodies Not Reportable 10/10/19 13:14 Sickle Cells Not Reportable 10/10/19 13:14 Target Cells Few 10/10/19 13:14 Tear Drop Cells Not Reportable 10/10/19 13:14 Ovalocytes Not Reportable 10/10/19 13:14 Helmet Cells Not Reportable 10/10/19 13:14 Schumacher-Duque Bodies Not Reportable 10/10/19 13:14 Northridge Rings Not Reportable 10/10/19 13:14 Purlear Cells Not Reportable 10/10/19 13:14 Bite Cells Not Reportable 10/10/19 13:14 Crenated Cell Not Reportable 10/10/19 13:14 Elliptocytes Not Reportable 10/10/19 13:14 Acanthocytes (Spur) Not Reportable 10/10/19 13:14 Rouleaux Not Reportable 10/10/19 13:14 Hemoglobin C Crystals Not Reportable 10/10/19 13:14 Schistocytes Not Reportable 10/10/19 13:14 Malaria parasites Not Reportable 10/10/19 13:14 Nnamdi Bodies Not Reportable 10/10/19 13:14 Hem Pathologist Commnt No 10/10/19 13:14 PT 15.5 Sec. (12.2-14.9) H 10/08/19 19:36 INR 1.21 (0.87-1.13) H 10/08/19 19:36 APTT 28.1 Sec. (24.2-36.6) 10/08/19 19:36 Sodium 137 mmol/L (137-145) 10/12/19 05:58 Potassium 4.1 mmol/L (3.6-5.0) 10/12/19 05:58 Chloride 101.4 mmol/L (98-107) 10/12/19 05:58 Carbon Dioxide 18 mmol/L (22-30) L 10/12/19 05:58 Anion Gap 22 mmol/L 10/12/19 05:58 BUN 40 mg/dL (7-17) H 10/12/19 05:58 Creatinine 4.1 mg/dL (0.7-1.2) H 10/12/19 05:58 Estimated GFR 14 ml/min 10/12/19 05:58 BUN/Creatinine Ratio 10 % 10/12/19 05:58 Glucose 108 mg/dL (65-100) H 10/12/19 05:58 POC Glucose 88 (70-105) 10/12/19 08:22 Calcium 8.6 mg/dL (8.4-10.2) 10/12/19 05:58 Magnesium 2.50 mg/dL (1.7-2.3) H 10/08/19 19:18 Iron 62 ug/dL (37-170) 10/09/19 19:19 TIBC 272 mcg/dL (250-450) 10/09/19 19:19 % Saturation 22.79 % 10/09/19 19:19 Transferrin 222 mg/dl (192-382) 10/09/19 19:19 Ferritin 111.2 ng/mL (13.0-400.0) 10/09/19 19:19 Total Bilirubin 4.50 mg/dL (0.1-1.2) H 10/10/19 13:00 Direct Bilirubin 5.2 mg/dL (0-0.2) H 10/06/19 16:10 Indirect Bilirubin 1.2 mg/dL 10/06/19 16:10 AST 53 units/L (5-40) H 10/10/19 13:00 ALT 53 units/L (7-56) 10/10/19 13:00 Alkaline Phosphatase 571 units/L (35-129) H 10/10/19 13:00 Ammonia 42.0 umol/L (25-60) 10/10/19 08:12 Total Protein 6.5 g/dL (6.3-8.2) 10/10/19 13:00 Albumin 3.0 g/dL (3.9-5) L 10/10/19 13:00 Albumin/Globulin Ratio 0.9 % 10/10/19 13:00 Lipase 22 units/L (13-60) 10/06/19 16:10 Urine Color Jes (Yellow) 10/08/19 11:49 Urine Turbidity Clear (Clear) 10/08/19 11:49 Urine pH 5.0 (5.0-7.0) 10/08/19 11:49 Ur Specific [place] 1.014 (1.003-1.030) 10/08/19 11:49 Urine Protein 100 mg/dl mg/dL (Negative) 10/08/19 11:49 Urine Glucose (UA) 50 mg/dL (Negative) 10/08/19 11:49 Urine Ketones Neg mg/dL (Negative) 10/08/19 11:49 Urine Blood Sm (Negative) 10/08/19 11:49 Urine Nitrite Neg (Negative) 10/08/19 11:49 Urine Bilirubin Neg (Negative) 10/08/19 11:49 Urine Ictotest Positive (Negative) 10/07/19 15:53 Urine Urobilinogen 4.0 mg/dL (<2.0) 10/08/19 11:49 Ur Leukocyte Esterase Neg (Negative) 10/08/19 11:49 Urine WBC (Auto) 2.0 /HPF (0.0-6.0) 10/08/19 11:49 Urine RBC (Auto) 1.0 /HPF (0.0-6.0) 10/08/19 11:49 U Epithel Cells (Auto) < 1.0 /HPF (0-13.0) 10/08/19 11:49 Urine Bacteria (Auto) 1+ /HPF (Negative) 10/07/19 15:53 Urine Mucus Few /HPF 10/08/19 11:49 Urine Eosinophils Rare (None Seen) 10/08/19 11:49 Urine Total Volume 700 ml 10/09/19 Unknown Urine Creatinine 88.1 mg/dL (0.1-20.0) H 10/09/19 Unknown Ur Creatinine 24 Hour 0.6 (0.8-2.8) L 10/09/19 Unknown Fluid Type Ascitic 10/07/19 Unknown Fluid Color Straw 10/07/19 Unknown Fluid Appearance Clear 10/07/19 Unknown Fluid WBC 73 /mm3 10/07/19 Unknown Fluid RBC 176 /mm3 10/07/19 Unknown Fluid Diff Comment 10/07/19 Unknown Fluid Seg Neutrophils 10.0 % 10/07/19 Unknown Fluid Lymphocytes 60.0 % 10/07/19 Unknown Fluid Reactive Lymphs 0 % 10/07/19 Unknown Fluid Monocytes 30.0 % 10/07/19 Unknown Fluid Eosinophils 0 % 10/07/19 Unknown Fluid Basophils 0 % 10/07/19 Unknown Fluid Albumin 1.6 g/dL 10/07/19 Unknown PEPE Screen Negative (Negative) 10/09/19 20:12 Mitochondria M2 Ab <=20.0 U (<=20.0) 10/09/19 20:12 Hepatitis A IgM Ab Non-reactive (NonReactive) 10/06/19 16:10 Hep Bs Antigen Non-reactive (Negative) 10/08/19 19:36 Hep B Core IgM Ab Non-reactive (NonReactive) 10/06/19 16:10 Hepatitis C Antibody Non-reactive (NonReactive) 10/08/19 19:36 Blood Type O POSITIVE 10/11/19 13:07 Antibody Screen Negative 10/11/19 13:07 Crossmatch See Detail 10/11/19 13:07 Microbiology: Microbiology 10/07/19 Unknown Peritoneal Fluid Body Fluid Culture - Preliminary Garcia/IV: Voiding Method Toilet IV Catheter Type [Right INT / Saline Lock Antecubital] Active Medications - Current Medications Current Medications: Generic Name Dose Route Start Last Admin Trade Name Freq PRN Reason Stop Dose Admin Acetaminophen 650 mg 10/07/19 04:26 Tylenol PO Q4H PRN Pain MILD(1-3)/Fever >100.5/QUIÑONEZ Albumin Human 25 gm 10/09/19 16:13 Alburx 25% (Albumin) IV MARIAMA PRN Hypotension Dextrose 0 ml 10/07/19 04:26 D50w (25gm) Syringe IV Q30MIN PRN Hypoglycemia Protocol Epoetin Erick 10,000 unit 10/09/19 16:13 10/12/19 13:21 Procrit IV 10,000 unit MARIAMA PRN Administration hemodialysis Furosemide 40 mg 10/09/19 18:00 10/12/19 05:21 Lasix IV 40 mg 0600,1800 ELENO Administration Heparin Sodium (Porcine) 5,000 unit 10/07/19 06:00 10/12/19 14:01 Heparin SUB-Q 5,000 unit Q8HR ELENO Administration Hydralazine HCl 10 mg 10/07/19 04:30 10/12/19 11:45 Apresoline IV 10 mg Q4H PRN Administration Blood Pressure Hydroxyzine Pamoate 25 mg 10/07/19 20:44 10/11/19 09:36 Vistaril PO 25 mg Q6H PRN Administration Itching Sodium Chloride 100 mls @ 999 mls/hr 10/09/19 16:13 Nacl 0.9% IV MARIAMA PRN Hypotension Insulin Human Lispro 0 unit 10/07/19 07:30 10/12/19 12:42 Humalog SUB-Q Not Given ACHS ELENO Protocol Labetalol HCl 200 mg 10/08/19 08:00 10/12/19 14:01 Labetalol PO 200 mg TID ELENO Administration Lactulose 20 gm 10/09/19 11:10 10/09/19 16:47 Cephulac PO 20 gm Q8H PRN Administration Constipation Metoclopramide HCl 5 mg 10/07/19 22:00 10/12/19 14:02 Reglan PO 5 mg ACHS ELENO Administration Morphine Sulfate 2 mg 10/07/19 04:26 Morphine IV Q4H PRN Pain, Moderate (4-6) Ondansetron HCl 4 mg 10/07/19 04:26 Zofran IV Q8H PRN Nausea And Vomiting Ondansetron HCl 4 mg 10/07/19 22:00 10/12/19 05:21 Zofran Odt PO 4 mg Q8H ELENO Administration Sodium Bicarbonate 1,300 mg 10/09/19 16:00 10/12/19 09:32 Sodium Bicarbonate PO 1,300 mg BID ELENO Administration Sodium Chloride 10 ml 10/07/19 10:00 10/12/19 09:32 Sodium Chloride Flush Syringe 10 Ml IV 10 ml BID ELENO Administration Sodium Chloride 10 ml 10/07/19 04:26 Sodium Chloride Flush Syringe 10 Ml IV PRN PRN LINE FLUSH Nutrition/Malnutrition Assess - Dietary Evaluation Nutrition/Malnutrition Findings: Nutrition Notes Start: 10/07/19 1 2:57 Freq: Status: Active Protocol: Document 10/07/19 12:57 LM (Rec: 10/07/19 13:03 LM [id number]) Nutrition Notes Need for Assessment generated from: MD Order,Education,Low BMI Initial or Follow up Brief Note Subjective/Other Information MD consult for diet education and screen for low BMI. Wt corrected/ pt is not low BMI. Pt stated she is eating well and with no wt loss. Pt refused diet education. Nutrition Intervention Revisit per MD consult or patient Sign Off request:
--- NOTE | 2019-10-12 15:48 | Discharge Summary ---
Providers - Providers Date of Admission: 10/07/19 04:00 Date of discharge: 10/12/19 Attending physician: TOMMIE HOOKS 10/07/19 03:11 Consult to Physician [CONS] Routine Comment: Consulting Provider: MEAGHAN MEJIA Physician Instructions: Reason For Exam: abn lft 10/07/19 04:27 Consult to Dietitian/Nutrition [CONS] Routine Physician Instructions: Reason For Exam: Reason for Consult: Diet education 10/07/19 14:52 Consult to Physician [CONS] Routine Comment: Consulting Provider: CANDICE GOMEZ Physician Instructions: Reason For Exam: Chronic kidney disease 10/08/19 11:01 Consult to Physician [CONS] Routine Comment: Consulting Provider: CANDICE GOMEZ Physician Instructions: Reason For Exam: [place]/CKD 10/09/19 16:16 Consult to Case Management [CONS] Routine Services Needed at Discharge: Other Notified:: cm Comment:: dialysis placement--[facility] Consult to Physician [CONS] Routine Comment: Consulting Provider: CARIE REAVES Physician Instructions: Reason For Exam: perm cath placement Hospitalization Condition: Fair Hospital course: --Acute on CKD V, progression to ESRD Current Visit: Yes Status: Chronic Nephrology initiated hemodialysis HD per schedule, CM assisting with Outpatient HD chair scheduling --Acute transaminitis ; acute liver failure : Current Visit: Yes Status: Acute acute hepatitis panel negative GI evaluation noted and appreciated Currently improved --Hyperbilirubinemia; Current Visit: Yes Status: Acute Secondary to acute liver failure Supportive care, follow liver functions tests --Ascites ; Current Visit: Yes Status: Acute Status post ultrasound-guided paracentesis Follow fluid analysis --Type II diabetes Current Visit: No Status: Acute Accu-Cheks sliding scale coverage ADA diet, insulin as needed, check A1c --Moderate malnutrition/hypoalbuminemia Nutrition supplements, supportive care, nutrition consult -- DVT prophylaxis Current Visit: No Status: Acute. SCDs / subcutaneous heparin --Obesity; BMI 32.9 Current Visit: No Status: Acute Partly secondary to fluid overload Supportive care --Full code status Outpatient HD chair scheduling per case management follow consultations and recommendations Follow peritoneal fluid analysis Disposition; discharge when medically stable Disposition: - TO HOME OR SELFCARE Time spent for discharge: 34 min Core Measure Documentation - Palliative Care Palliative Care/ Comfort Measures: Not Applicable - Core Measures Any of the following diagnoses?: none Exam - Constitutional Vitals: Temp Pulse Resp BP Pulse Ox 98.6 F 84 18 187/80 98 10/12/19 14:00 10/12/19 14:00 10/12/19 14:00 10/12/19 14:01 10/12/19 04:43 General appearance: Present: no acute distress - EENT Eyes: Present: PERRL, EOM intact - Neck Neck: Present: supple, normal ROM - Respiratory Respiratory effort: normal Respiratory: bilateral: diminished, rales, negative: rhonchi, wheezing - Cardiovascular Rhythm: regular Heart Sounds: Present: S1 & S2 - Extremities Extremities: no ischemia, No edema - Abdominal General gastrointestinal: Present: soft, non-tender, non-distended, normal bowel sounds - Integumentary Integumentary: Present: clear, warm - Musculoskeletal Musculoskeletal: strength equal bilaterally, generalized weakness - Psychiatric Psychiatric: appropriate mood/affect, cooperative - Neurologic Neurologic: CNII-XII intact, moves all extremities Plan Activity: advance as tolerated Diet: renal Additional Instructions: Follow renal and hemodialysis per schedule Follow up with: [facility] [Other] - 3-5 Days CLARISSE MONDRAGON MD [Staff Physician] - 7 Days Prescriptions: hydrALAZINE [Apresoline TAB] 25 mg PO Q8HR #90 tablet Ferrous Sulfate [Feosol 325 MG tab] 325 mg PO BID #60 tablet
[2019-10-12] MEDS ORDERED: hydrALAZINE 20 MG/1 ML INJ IV ONE (16:00)
[2019-10-12] MEDS ORDERED: hydrALAZINE 25 MG TAB PO SCH (16:00)
[2019-10-12 16:40] LABS: Hematocrit 23.2 % (30.3-42.9)
[2019-10-12 18:03] VITALS: BP 178/75
== END 2019-10-12 18:50 | disposition home or self-care (01) | DRG 673 ==
LOC: ED 15:46 → 3A 10-07 04:00
PROVIDERS: ADMIT Internal Medicine Geriatric Medicine; ATTEND Internal Medicine
PROC: 0W9G3ZZ Drainage of Peritoneal Cavity, Percutaneous Approach (ICD-10-PCS; 2019-10-07)
PROC: 0JH63XZ Insertion of Tunneled Vascular Access Device into Chest Subcutaneous Tissue and Fascia, Percutaneous Approach (ICD-10-PCS; principal; 2019-10-10)
PROC: 02H633Z Insertion of Infusion Device into Right Atrium, Percutaneous Approach (ICD-10-PCS; 2019-10-10)
PROC: B5181ZA Fluoroscopy of Superior Vena Cava using Low Osmolar Contrast, Guidance (ICD-10-PCS; 2019-10-10)
PROC: B548ZZA Ultrasonography of Superior Vena Cava, Guidance (ICD-10-PCS; 2019-10-10)
PROC: 5A1D70Z Performance of Urinary Filtration, Intermittent, Less than 6 Hours Per Day (ICD-10-PCS; 2019-10-10)
PROC: 5A1D70Z Performance of Urinary Filtration, Intermittent, Less than 6 Hours Per Day (ICD-10-PCS; 2019-10-12)
PROC: 30233N1 Transfusion of Nonautologous Red Blood Cells into Peripheral Vein, Percutaneous Approach (ICD-10-PCS; 2019-10-12)
DX: I12.0 Hypertensive chronic kidney disease with stage 5 chronic kidney disease or end stage renal disease (principal); N18.6 End stage renal disease; N17.9 Acute kidney failure, unspecified; E44.0 Moderate protein-calorie malnutrition; E87.2 Acidosis; R18.8 Other ascites; K72.90 Hepatic failure, unspecified without coma; R94.5 Abnormal results of liver function studies; E66.9 Obesity, unspecified; E11.43 Type 2 diabetes mellitus with diabetic autonomic (poly)neuropathy; K31.84 Gastroparesis; E87.5 Hyperkalemia; R10.9 Unspecified abdominal pain; D64.9 Anemia, unspecified; Z87.442 Personal history of urinary calculi; Z90.49 Acquired absence of other specified parts of digestive tract; E11.22 Type 2 diabetes mellitus with diabetic chronic kidney disease; K21.9 Gastro-esophageal reflux disease without esophagitis; Z88.1 Allergy status to other antibiotic agents; Z68.32 Body mass index [BMI] 32.0-32.9, adult; Z79.84 Long term (current) use of oral hypoglycemic drugs
CPT/HCPCS: 36415; 36430; 36558; 49083; 71045; 74176; 76705; 77001; 80048; 80053; 80074; 80076; 81001; 82040; 82140; 82570; 82728; 82962; 83520; 83550; 83690; 83735; 85007; 85014; 85018; 85025; 85610; 85730; 86038; 86235; 86706; 86803; 86850; 86900; 86901; 86920; 87116; 88112; 88305; 88341; 88342; 89050; 89051; 93970; 93979; G0378; C1750; J0360; J0610; J0885; J1644; J1815; J1940; J2250; J2405; J3010; J3370; J3430; J7030; J7040; J7070; P9016; P9047; Q0162; Q0177

== ENCOUNTER 2019-10-21 11:56 | Emergency (ER) | payer SELFPAY ==
[2019-10-21] MEDS ORDERED: HYDROcodone/ACETAMINOPHEN 7.5-325MG TAB PO ONE (12:31)
--- NOTE | 2019-10-21 13:30 | XRay Report ---
X-RAY LEFT TIBIA FIBULA, 2 VIEWS INDICATION / CLINICAL INFORMATION: pain after fall COMPARISON: None available. FINDINGS: BONES / JOINT(S): There is a comminuted and minimally displaced fracture of the proximal tibial metap hysis with intra-articular extension to the knee at the level of the intercondylar eminence. Addition ally, there is a comminuted and mildly displaced fracture of the proximal fibular metaphysis. SOFT TISSUES: Diffuse soft tissue swelling about the leg. ADDITIONAL FINDINGS: None. Signer Name: Faustina Aguilera MD Signed: 10/21/2019 1:26 PM Workstation Name: [id number]
[2019-10-21 14:03] LABS: Basophils % (Auto) 0.6 % (0.0-1.8); Eosinophils # (Auto) 0.4 K/mm3 (0.0-0.4); Eosinophils % (Auto) 6.1 % (0.0-4.3); Hemoglobin 8.5 gm/dl (10.1-14.3); Lymphocytes # (Auto) 0.8 K/mm3 (1.2-5.4); Lymphocytes % (Auto) 11.4 % (13.4-35.0); Mean Corpuscular HGB Conc 33 % (30-34); Mean Corpuscular Volume 104 fl (79-97); Monocytes # (Auto) 0.6 K/mm3 (0.0-0.8); Monocytes % (Auto) 9.2 % (0.0-7.3); Platelet Count 333 K/mm3 (140-440); Red Blood Count 2.51 M/mm3 (3.65-5.03); Red Cell Distribution Width 17.3 % (13.2-15.2)
[2019-10-21 14:54] LABS: Calcium 8.8 mg/dL (8.4-10.2)
[2019-10-21 16:21] VITALS: BP 207/102
[2019-10-21] MEDS: MORPHINE 4 MG/1 ML INJ IV ONE ×2 (16:21→16:31)
--- NOTE | 2019-10-21 16:47 | Emergency Department Report ---
ED Extremity Problem HPI - General Chief complaint: Fall Stated complaint: FALL FROM STANDING POS Time Seen by Provider: 10/21/19 12:23 Source: patient Mode of arrival: Stretcher Limitations: No Limitations - History of Present Illness Initial comments: Patient is a 54-year-old F Luxembour[place] female with past medical history of hypertension end-stage renal disease who was at dialysis today and suffered a fall. Patient has pain from the left knee down to the ankle. She is unable to bear weight. Patient denies any head injury. States the pain is 8 out of 10 in severity is worse with movement better with rest. Severity scale (0 -10): 8 - Related Data Previous Rx's Medication Instructions Recorded Last Taken Type Famotidine [Pepcid] 20 mg PO QDAY #30 tablet 07/04/19 10/06/19 Rx Metoclopramide [Reglan TAB] 10 mg PO ACHS #40 tablet 07/04/19 10/07/19 08:37 Rx NIFEdipine XL [Procardia Xl] 60 mg PO DAILY #30 tablet 07/04/19 10/06/19 Rx Ondansetron [Zofran ODT TAB] 4 mg PO Q8HR #12 tab.rapdis 07/04/19 Unknown Rx Ranitidine HCl [Heartburn Relief] 150 mg PO BID 30 Days #60 tablet 07/04/19 Unknown Rx Sodium Bicarbonate 650 mg PO BID #60 tablet 07/04/19 Unknown Rx labetaloL [Labetalol 200mg TAB] 200 mg PO TID #90 tablet 07/04/19 10/06/19 Rx hydrOXYzine PAMOATE [Vistaril] 25 mg PO Q6H PRN #20 capsule 09/05/19 Unknown Rx Ferrous Sulfate [Feosol 325 MG tab] 325 mg PO BID #60 tablet 10/12/19 Unknown Rx hydrALAZINE [Apresoline TAB] 25 mg PO Q8HR #90 tablet 10/12/19 Unknown Rx HYDROcodone/APAP 5-325 [Bartlett 1 each PO Q6HR PRN #14 tablet 10/21/19 Unknown Rx 5/325] Ibuprofen [Motrin 600 MG tab] 600 mg PO Q8H PRN #14 tablet 10/21/19 Unknown Rx Allergies Allergy/AdvReac Type Severity Reaction Status Date / Time cefadroxil hydrate Allergy Shortness Verified 12/13/18 18:46 [From Duricef] of Breath ED Review of Systems ROS: Stated complaint: FALL FROM STANDING POS Other details as noted in HPI Comment: All other systems reviewed and negative ED Past Medical Hx - Past Medical History Hx Hypertension: Yes Hx Congestive Heart Failure: No Hx Diabetes: Yes Hx GERD: Yes Hx Renal Disease: Yes Hx Kidney Stones: Yes Hx Asthma: No Hx COPD: No Hx HIV: No Additional medical history: gastroparesis - Surgical History Hx Cholecystectomy: Yes - Social History Smoking Status: Never Smoker Substance Use Type: None - Medications Home Medications: Home Medications Medication Instructions Recorded Confirmed Last Taken Type Famotidine [Pepcid] 20 mg PO QDAY #30 tablet 07/04/19 10/07/19 10/06/19 Rx Metoclopramide [Reglan TAB] 10 mg PO ACHS #40 tablet 07/04/19 10/07/19 10/07/19 08:37 Rx NIFEdipine XL [Procardia Xl] 60 mg PO DAILY #30 tablet 07/04/19 10/07/19 10/06/19 Rx Ondansetron [Zofran ODT TAB] 4 mg PO Q8HR #12 tab.rapdis 07/04/19 10/07/19 Unknown Rx Ranitidine HCl [Heartburn Relief] 150 mg PO BID 30 Days #60 tablet 07/04/19 10/07/19 Unknown Rx Sodium Bicarbonate 650 mg PO BID #60 tablet 07/04/19 10/07/19 Unknown Rx labetaloL [Labetalol 200mg TAB] 200 mg PO TID #90 tablet 07/04/19 10/07/19 10/06/19 Rx hydrOXYzine PAMOATE [Vistaril] 25 mg PO Q6H PRN #20 capsule 09/05/19 10/07/19 Unknown Rx Ferrous Sulfate [Feosol 325 MG tab] 325 mg PO BID #60 tablet 10/12/19 Unknown Rx hydrALAZINE [Apresoline TAB] 25 mg PO Q8HR #90 tablet 10/12/19 Unknown Rx HYDROcodone/APAP 5-325 [Bartlett 1 each PO Q6HR PRN #14 tablet 10/21/19 Unknown Rx 5/325] Ibuprofen [Motrin 600 MG tab] 600 mg PO Q8H PRN #14 tablet 10/21/19 Unknown Rx ED Physical Exam - General Limitations: No Limitations General appearance: alert, in no apparent distress - Head Head exam: Present: atraumatic, normocephalic - Eye Eye exam: Present: normal appearance, PERRL, EOMI - ENT ENT exam: Present: normal orophraynx, mucous membranes moist - Neck Neck exam: Present: normal inspection - Respiratory Respiratory exam: Present: normal lung sounds bilaterally. Absent: respiratory distress, wheezes, rales, rhonchi - Cardiovascular Cardiovascular Exam: Present: regular rate, normal rhythm, normal heart sounds. Absent: systolic murmur, diastolic murmur, rubs, gallop - GI/Abdominal GI/Abdominal exam: Present: soft, normal bowel sounds. Absent: distended, tenderness, guarding - Extremities Exam Extremities exam: Present: normal inspection - Expanded Lower Extremity Exam Left Hip exam: Present: normal inspection, full ROM Upper Leg exam: Present: normal inspection, full ROM Knee exam: Present: tenderness, swelling. Absent: full ROM Lower Leg exam: Present: tenderness Ankle exam: Present: tenderness, swelling (Patient has some baseline 1+ edema to her bilateral ankles. There is mild tenderness present as well on the left) - Back Exam Back exam: Present: normal inspection - Neurological Exam Neurological exam: Present: alert, oriented X3 - Psychiatric Psychiatric exam: Present: normal affect, normal mood - Skin Skin exam: Present: warm, dry, intact, normal color. Absent: rash ED Course Vital Signs 10/21/19 10/21/19 10/21/19 12:43 12:45 13:00 Temperature 98.2 F Pulse Rate 86 86 Respiratory 16 14 Rate Blood Pressure 190/94 203/101 O2 Sat by Pulse 100 100 100 Oximetry 10/21/19 10/21/19 10/21/19 14:00 15:00 16:00 Temperature Pulse Rate 91 H 93 H 92 H Respiratory 15 14 13 Rate Blood Pressure 204/100 189/94 207/102 O2 Sat by Pulse 100 99 98 Oximetry ED Medical Decision Making - Lab Data Result diagrams: 10/21/19 13:17 10/21/19 13:17 Lab Results 10/21/19 10/21/19 Range/Units 13:17 13:17 WBC 6.9 (4.5-11.0) K/mm3 RBC 2.51 L (3.65-5.03) M/mm3 Hgb 8.5 L (10.1-14.3) gm/dl Hct 26.0 L (30.3-42.9) % MCV 104 H (79-97) fl MCH 34 H (28-32) pg MCHC 33 (30-34) % RDW 17.3 H (13.2-15.2) % Plt Count 333 (140-440) K/mm3 Lymph % (Auto) 11.4 L (13.4-35.0) % [place] % (Auto) 9.2 H (0.0-7.3) % Eos % (Auto) 6.1 H (0.0-4.3) % Baso % (Auto) 0.6 (0.0-1.8) % Lymph # 0.8 L (1.2-5.4) K/mm3 [place] # 0.6 (0.0-0.8) K/mm3 Eos # 0.4 (0.0-0.4) K/mm3 Baso # 0.0 (0.0-0.1) K/mm3 Seg Neutrophils % 72.7 H (40.0-70.0) % Seg Neutrophils # 5.0 (1.8-7.7) K/mm3 Sodium 141 (137-145) mmol/L Potassium 4.1 (3.6-5.0) mmol/L Chloride 105.6 (98-107) mmol/L Carbon Dioxide 23 (22-30) mmol/L Anion Gap 17 mmol/L BUN 30 H (7-17) mg/dL Creatinine 3.8 H (0.7-1.2) mg/dL Estimated GFR 15 ml/min BUN/Creatinine Ratio 8 % Glucose 212 H (65-100) mg/dL Calcium 8.8 (8.4-10.2) mg/dL - Radiology Data [facility] [address] [place] [address] XRay Report Signed Patient: MARIE YANEZ MR #: [id number] : 1965 Acct:[id number] Age/Sex: 54 / F ADM Date: 10/21/19 Loc: ED Attending Dr: Ordering Physician: KRYSTEN GARIBAY MD Date of Service: 10/21/19 Procedure(s): XR tibia fibula 2V LT Accession Number(s): [id number] cc: KRYSTEN GARIBAY MD Fluoro Time In Minutes: X-RAY LEFT TIBIA FIBULA, 2 VIEWS INDICATION / CLINICAL INFORMATION: pain after fall COMPARISON: None available. FINDINGS: BONES / JOINT(S): There is a comminuted and minimally displaced fracture of the proximal tibial metaphysis with intra-articular extension to the knee at the level of the intercondylar eminence. Additionally, there is a comminuted and mildly displaced fracture of the proximal fibular metaphysis. SOFT TISSUES: Diffuse soft tissue swelling about the leg. ADDITIONAL FINDINGS: None. Signer Name: Faustina Aguilera MD Signed: 10/21/2019 1:26 PM Workstation Name: [id number] - Medical Decision Making Dr. Leung with orthopedics was consulted and did look at the patient sounds. He does not believe that the patient is a surgical candidate at this time. Patient will be placed in a knee immobilizer and given crutches. Patient is to follow-up with Dr. Leung within the next week as an outpatient. Patient given pain medications here in emergency department as well as at home. This constitutes the patient's fracture care. Regarding the patient is missed clarke lysis today her potassium is fine she has no evidence of any fluid overload and I do believe she will be fine to follow-up with her dialysis center on Thursday. Critical care attestation.: If time is entered above; I have spent that time in minutes in the direct care of this critically ill patient, excluding procedure time. ED Disposition Clinical Impression: ESRD (end stage renal disease) Tibial plateau fracture, left Qualifiers: Encounter type: initial encounter Fracture type: closed Qualified Code(s): S82.142A - Displaced bicondylar fracture of left tibia, initial encounter for closed fracture Fracture, fibula, proximal Qualifiers: Encounter type: initial encounter Fracture type: closed Fracture morphology: unspecified fracture morphology Laterality: left Qualified Code(s): S82.832A - Other fracture of upper and lower end of left fibula, initial encounter for clos ed fracture Disposition: TO HOME OR SELFCARE Is pt being admited?: No Does the pt Need Aspirin: No Condition: Stable Instructions: Leg Fracture (ED) Referrals: TY LEUNG MD [Staff Physician] - 3-5 Days Time of Disposition: 16:47
== END 2019-10-21 17:55 | disposition home or self-care (01) ==
LOC: ED 11:56
DX: S82.142A Displaced bicondylar fracture of left tibia, initial encounter for closed fracture (principal); S82.832A Other fracture of upper and lower end of left fibula, initial encounter for closed fracture; E11.22 Type 2 diabetes mellitus with diabetic chronic kidney disease; I12.0 Hypertensive chronic kidney disease with stage 5 chronic kidney disease or end stage renal disease; N18.6 End stage renal disease; N20.0 Calculus of kidney; Z90.49 Acquired absence of other specified parts of digestive tract; Z79.1 Long term (current) use of non-steroidal anti-inflammatories (NSAID); Z79.899 Other long term (current) drug therapy; Z88.8 Allergy status to other drugs, medicaments and biological substances; W19.XXXA Unspecified fall, initial encounter; Y93.89 Activity, other specified; Y92.89 Other specified places as the place of occurrence of the external cause; Y99.8 Other external cause status
CPT/HCPCS: 29505; 36415; 73590; 80048; 85025; 96374; 99284; J2270

== ENCOUNTER 2019-11-10 14:45 | Inpatient (IN) | payer SELFPAY ==
--- NOTE | 2019-11-10 15:23 | Emergency Department Report ---
HPI - General Chief Complaint: Neuro Symptoms/Deficit Time Seen by Provider: 11/10/19 15:05 - HPI HPI: Room 23 The patient is a 54-year-old female present with a chief complaint of fall from sofa. Per EMS the patient was at home when she fell from the sofa. The patient was reportedly "altered" since the fall. There is no one else at bedside able to provide history. Patient appears confused and emotionally labile. Patient states she broke her left knee but does not remember when. ED Past Medical Hx - Past Medical History Previous Medical History?: Yes Hx Hypertension: Yes Hx Diabetes: Yes Hx GERD: Yes Hx Renal Disease: Yes Hx Kidney Stones: Yes Additional medical history: gastroparesis - Surgical History Past Surgical History?: Yes Hx Cholecystectomy: Yes - Family History Family history: no significant - Social History Smoking Status: Unknown if ever smoked Substance Use Type: None - Medications Home Medications: Home Medications Medication Instructions Recorded Confirmed Last Taken Type RX: Famotidine [Pepcid] 20 mg PO QDAY #30 tablet 07/04/19 10/07/19 10/06/19 Rx RX: Metoclopramide [Reglan TAB] 10 mg PO ACHS #40 tablet 07/04/19 10/07/19 10/07/19 08:37 Rx RX: NIFEdipine XL [Procardia Xl] 60 mg PO DAILY #30 tablet 07/04/19 10/07/19 10/06/19 Rx RX: Ondansetron [Zofran ODT TAB] 4 mg PO Q8HR #12 tab.rapdis 07/04/19 10/07/19 Unknown Rx RX: Ranitidine HCl [Heartburn 150 mg PO BID 30 Days #60 tablet 07/04/19 10/07/19 Unknown Rx Relief] RX: Sodium Bicarbonate 650 mg PO BID #60 tablet 07/04/19 10/07/19 Unknown Rx RX: labetaloL [Labetalol 200mg TAB] 200 mg PO TID #90 tablet 07/04/19 10/07/19 10/06/19 Rx RX: hydrOXYzine PAMOATE [Vistaril] 25 mg PO Q6H PRN #20 capsule 09/05/19 10/07/19 Unknown Rx RX: Ferrous Sulfate [Feosol 325 MG 325 mg PO BID #60 tablet 10/12/19 Unknown Rx tab] RX: hydrALAZINE [Apresoline TAB] 25 mg PO Q8HR #90 tablet 10/12/19 Unknown Rx HYDROcodone/APAP 5-325 [[place] 1 each PO Q6HR PRN #14 tablet 10/21/19 Unknown Rx 5/325] RX: Ibuprofen [Motrin 600 MG tab] 600 mg PO Q8H PRN #14 tablet 10/21/19 Unknown Rx ED Review of Systems ROS: Stated complaint: AMS Other details as noted in HPI Comment: Unobtainable due to pts medical conditions Physical Exam - Physical Exam Vital Signs: Vital Signs 11/10/19 11/10/19 11/10/19 14:48 14:53 15:00 Temperature 97.5 F L Pulse Rate 110 H 109 H Respiratory 16 30 H Rate Blood Pressure 151/81 155/78 O2 Sat by Pulse 93 93 96 Oximetry Physical Exam: GENERAL: The patient is well-developed well-nourished female lying on stretcher appearing confused but in no acute distress. [] HEENT: Normocephalic. Atraumatic. Extraocular motions are intact. Icteric sclera NECK: Supple. Trachea midline. Fullness to the left neck possibly thyromegaly CHEST/LUNGS: Clear to auscultation. There is no respiratory distress noted. HEART/CARDIOVASCULAR: Regular. There is no tachycardia. There is no gallop rub or murmur. ABDOMEN: Abdomen is soft, nontender. Patient has normal bowel sounds. There is no abdominal distention. SKIN: There is no rash. There is no edema. There is no diaphoresis. NEURO: The patient is awake, alert, and oriented. The patient is cooperative. The patient has no focal neurologic deficits. The patient has normal speech. Cranial nerves II through XII grossly intact MUSCULOSKELETAL: The left knee is in a knee immobilizer. ED Course Vital Signs 11/10/19 11/10/19 11/10/19 14:48 14:53 15:00 Temperature 97.5 F L Pulse Rate 110 H 109 H Respiratory 16 30 H Rate Blood Pressure 151/81 155/78 O2 Sat by Pulse 93 93 96 Oximetry - Consultations Consultation #1: 11/10/19 17:08 Case discussed with hospitalist Dr. Sampson- requests CT abdomen pelvis to be performed in addition to CT chest - EJ/Peripheral Line Neck L Time Out Performed: No Indications: nurses unable to establis Skin Cleansed in Sterile Fashion: Yes Size: 20 Dressing Placed: Tegaderm Patient Tolerated Procedure: no complications ED Medical Decision Making - Lab Data Result diagrams: 11/10/19 15:12 11/10/19 15:22 - EKG Data -: EKG Interpreted by Me EKG shows normal: sinus rhythm Rate: tachycardia (110 bpm) - EKG Data When compared to previous EKG there are: previous EKG unavailable Interpretation: nonspecific ST-T wave hernando - Radiology Data Radiology results: pending (CT chest, CT abdomen pelvis), report reviewed (Chest x-ray, left tib-fib x-ray, CT head, CT cervical spine), image reviewed (Chest x-ray, left knee x-ray, CT head, CT cervical spine) interpreted by me: Chest x-ray-no focal infiltrates, no pneumothorax Left tib-fib [id number] seen tib-fib fracture still present Findings [facility] [address] [place] [address] XRay Report Signed Patient: MARIE YANEZ MR #: [id number] : 1965 Acct:[id number] Age/Sex: 54 / F ADM Date: 11/10/19 Loc: ED Attending Dr: Ordering Physician: ALEXIS MANRIQUE MD Date of Service: 11/10/19 Procedure(s): XR chest 1V ap Accession Number(s): [id number] cc: ALEXSI MANRIQUE MD Fl uoro Time In Minutes: CHEST 1 VIEW 11/10/2019 3:16 PM INDICATION / CLINICAL INFORMATION: Hypoxia. Shortness of breath. COMPARISON: One view of the chest from 10/10/2019. FINDINGS: SUPPORT DEVICES: Stable right internal jugular vein PermCath. HEART / MEDIASTINUM: No significant abnormality. LUNGS / PLEURA: No significant pulmonary or pleural abnormality. No pneumothorax. ADDITIONAL FINDINGS: No significant additional findings. IMPRESSION: 1. No acute abnormality of the chest. Signer Name: Jermain Ruiz MD Signed: 11/10/2019 4:20 PM Workstation Name: [id number] Transcribed By: MN Dictated By: Jermain uRiz MD Electronically Authenticated By: Jermain Ruiz MD Signed Date/Time: 11/10/191619 DD/ 19 TD/TT: Findings [address] [address] XRay Report Signed Patient: MARIE YANEZ MR #: [id number] : 1965 Acct:[id number] Age/Sex: 54 / F ADM Date: 11/10/19 Loc: ED Attending Dr: Ordering Physician: ALEXIS MANRIQUE MD Date of Service: 11/10/19 Proc edure(s): XR knee 1-2V LT Accession Number(s): [id number] cc: ALEXIS MANRIQUE MD Fluoro Time In Minutes: LEFT KNEE 3 VIEWS INDICATION / CLINICAL INFORMATION: Left knee pain after fall. History of left tibial/fibular fractures. COMPARISON: Left tibia/fibula series from 10/21/2019. FINDINGS: BONES and JOINT(S): The recently seen fractures of the proximal tibia and fibula appear worse with increased fragmentation and mildly increased displacement of the tibial fracture. The fibular fracture is similar in alignment. No dislocation is seen. SOFT TISSUES: Diffuse edema is seen along the included portions of the left lower extremity. ADDITIONAL FINDINGS: None. IMPRESSION: Interval worsening of the previously seen left tibial and fibular fractures as above. Signer Name: Jermain Ruiz MD Signed: 11/10/2019 4:24 PM Workstation Name: [id number] Transcribed By: MN Dictated By: Jermain Ruiz MD Electronically Authenticated By: Jermain Ruiz MD Signed Date/Time: 11/10/191623 DD/ 19 TD/TT: [address] [address] Cat Scan Report Signed Patient: MARIE YANEZ MR #: [id number] : Acct:[id number] Age/Sex: 54 / F ADM Date: 11/10/19 Loc: ED Attending Dr: Ordering Physician: ALEXIS MANRIQUE MD Date of Service: 11/10/19 Procedure(s): CT head/brain wo con Accession Number(s): [id number] cc: ALEXIS MANRIQUE MD NONENHANCED CT SCAN OF THE HEAD: INDICATION / CLINICAL INFORMATION: 54 years Female; Fall from bed. TECHNIQUE: Routine CT head without contrast. All CT scans at this location are performed using CT dose reduction for ALARA by means of automated exposure control. COMPARISON: CT scan of the head from 12/31/2017 FINDINGS: BRAIN / INTRACRANIAL CONTENTS: No intracranial sequela from the trauma. No scalp hematoma; no air-fluid level in the visualized portions of the paranasal sinuses. No acute hemorrhage, mass effect, midline shift, hydrocephalus, or acute, large territorial infarct. Chronic lacunae are seen bilaterally. CRANIOCERVICAL JUNCTION: No significant abnormality. ORBITS: No significant abnormality of visualized orbits. SINUSES / MASTOIDS: No significant abnormality of the visualized paranasal sinuses or mastoid air cells. ADDITIONAL FINDINGS: None. IMPRESSION: No intracranial sequela from the trauma. Signer Name: Derek Frye MD Signed: 11/10/2019 4:57 PM Workstation Name: [id number] Transcribed By: BS Dictated By: Derek Aldridge MD Electronically Authenticated By: Derek Aldridge MD Signed Date/Time: 11/10/191656 DD/ 49 TD/TT: [facility] [address] [place] [address] Cat Scan Report Signed Patient: MARIE YANEZ MR #: [id number] : 1965 Acct:[id number] Age/Sex: 54 / F ADM Date: 11/10/19 Loc: ED Attending Dr: Ordering Physician: ALEXIS MANRIQUE MD Date of Service: 11/10/19 Procedure(s): CT cervical spine wo con Accession Number(s): [id number] cc: ALEXIS MANRIQUE MD CT CERVICAL SPINE WITHOUT CONTRAST INDICATION: Fall from bed. TECHNIQUE: Axial CT images of the spine were obtained. Sagittal and coronal reformatted images were produced. All CT scans at this location are performed using CT dose reduction for ALARA by means of automated exposure control. COMPARISON: None available. FINDINGS: ACUTE FRACTURE(S) OR SUBLUXATION: None. SPINAL DEGENERATIVE CHANGES: No significant degenerative changes. PARASPINAL SOF T TISSUES: No soft tissue swelling or other acute abnormalities. ADDITIONAL FINDINGS: There is a developmental os terminale. There is a 1 cm cavitary nodule in the left lung apex. IMPRESSION: 1. No acute fracture or subluxation in the spine in neutral position. 2. A 1 cm cavitary nodule is seen in the left upper lobe of the lungs. Further evaluation with chest CT is recommended. Signer Name: Jon Alston MD Signed: 11/10/2019 4:54 PM Workstation Name: [id number] Transcribed By: CHRISTINA Dictated By: Jon Alston MD Electronically Authenticated By: Jon Alston MD Signed Date/Time: 11/10/191653 DD/ 51 TD/TT: - Differential Diagnosis Close head injury, hepatic encephalopathy, ICH, Critical care attestation.: If time is entered above; I have spent that time in minutes in the direct care of this critically ill patient, excluding procedure time. ED Disposition Clinical Impression: Altered mental status, Hyperbilirubinemia, Leukocytosis, Fracture of left tibia and fibula Disposition: DC-09 OP ADMIT IP TO THIS HOSP Is pt being admited?: Yes Does the pt Need Aspirin: No Condition: Fair Referrals: SOHA ALVESLATHAM MD JERO [Primary Care Provider] - 3-5 Days Time of Disposition: 17:05 (Hospitalist paged (Dr Sampson))
[2019-11-10 15:37] LABS: Hematocrit 30.7 % (30.3-42.9); Hemoglobin 9.7 gm/dl (10.1-14.3); Mean Corpuscular HGB Conc 32 % (30-34); Mean Corpuscular Volume 100 fl (79-97); Platelet Count 207 K/mm3 (140-440); Red Blood Count 3.08 M/mm3 (3.65-5.03); Red Cell Distribution Width 17.1 % (13.2-15.2)
[2019-11-10 15:45] LABS: INR 1.27 (0.87-1.13)
[2019-11-10 15:46] LABS: Partial Thromboplastin Time 28.1 Sec. (24.2-36.6)
[2019-11-10 16:03] LABS: Albumin 2.4 g/dL (3.9-5); Calcium 8.8 mg/dL (8.4-10.2)
[2019-11-10 16:09] LABS: Free T4 (Free Thyroxine) 0.85 ng/dL (0.76-1.46)
[2019-11-10 16:21] LABS: Basophils % (Manual) 0 % (0.0-1.8); Eosinophils % (Manual) 0 % (0.0-4.3); Total Cells Counted 100
[2019-11-10 16:22] LABS: RBC Morphology Normal
--- NOTE | 2019-11-10 16:25 | XRay Report ---
CHEST 1 VIEW 11/10/2019 3:16 PM INDICATION / CLINICAL INFORMATION: Hypoxia. Shortness of breath. COMPARISON: One view of the chest from 10/10/2019. FINDINGS: SUPPORT DEVICES: Stable right internal jugular vein PermCath. HEART / MEDIASTINUM: No significant abnormality. LUNGS / PLEURA: No significant pulmonary or pleural abnormality. No pneumothorax. ADDITIONAL FINDINGS: No significant additional findings. IMPRESSION: 1. No acute abnormality of the chest. Signer Name: Jermain Ruiz MD Signed: 11/10/2019 4:20 PM Workstation Name: [id number]
--- NOTE | 2019-11-10 16:28 | XRay Report ---
LEFT KNEE 3 VIEWS INDICATION / CLINICAL INFORMATION: Left knee pain after fall. History of left tibial/fibular fractures. COMPARISON: Left tibia/fibula series from 10/21/2019. FINDINGS: BONES and JOINT(S): The recently seen fractures of the proximal tibia and fibula appear worse with in creased fragmentation and mildly increased displacement of the tibial fracture. The fibular fracture is similar in alignment. No dislocation is seen. SOFT TISSUES: Diffuse edema is seen along the included portions of the left lower extremity. ADDITIONAL FINDINGS: None. IMPRESSION: Interval worsening of the previously seen left tibial and fibular fractures as above. Signer Name: Jermain Ruiz MD Signed: 11/10/2019 4:24 PM Workstation Name: [id number]
--- NOTE | 2019-11-10 16:58 | Cat Scan Report ---
CT CERVICAL SPINE WITHOUT CONTRAST INDICATION: Fall from bed. TECHNIQUE: Axial CT images of the spine were obtained. Sagittal and coronal reformatted images were produced. Al l CT scans at this location are performed using CT dose reduction for ALARA by means of automated exp osure control. COMPARISON: None available. FINDINGS: ACUTE FRACTURE(S) OR SUBLUXATION: None. SPINAL DEGENERATIVE CHANGES: No significant degenerative changes. PARASPINAL SOFT TISSUES: No soft tissue swelling or other acute abnormalities. ADDITIONAL FINDINGS: There is a developmental os terminale. There is a 1 cm cavitary nodule in the le ft lung apex. IMPRESSION: 1. No acute fracture or subluxation in the spine in neutral position. 2. A 1 cm cavitary nodule is seen in the left upper lobe of the lungs. Further evaluation with chest CT is recommended. Signer Name: Jon Alston MD Signed: 11/10/2019 4:54 PM Workstation Name: [id number]
--- NOTE | 2019-11-10 17:01 | Cat Scan Report ---
NONENHANCED CT SCAN OF THE HEAD: INDICATION / CLINICAL INFORMATION: 54 years Female; Fall from bed. TECHNIQUE: Routine CT head without contrast. All CT scans at this location are performed using CT dos e reduction for ALARA by means of automated exposure control. COMPARISON: CT scan of the head from 12/31/2017 FINDINGS: BRAIN / INTRACRANIAL CONTENTS: No intracranial sequela from the trauma. No scalp hematoma; no air-flu id level in the visualized portions of the paranasal sinuses. No acute hemorrhage, mass effect, midli ne shift, hydrocephalus, or acute, large territorial infarct. Chronic lacunae are seen bilaterally. CRANIOCERVICAL JUNCTION: No significant abnormality. ORBITS: No significant abnormality of visualized orbits. SINUSES / MASTOIDS: No significant abnormality of the visualized paranasal sinuses or mastoid air lexx ls. ADDITIONAL FINDINGS: None. IMPRESSION: No intracranial sequela from the trauma. Signer Name: Derek Frye MD Signed: 11/10/2019 4:57 PM Workstation Name: [id number]
[2019-11-10] MEDS ORDERED: hydrOXYzine PAMOATE 25 MG CAP PO PRN (20:59)
--- NOTE | 2019-11-10 21:03 | Cat Scan Report ---
CT CHEST WITHOUT CONTRAST INDICATION / CLINICAL INFORMATION: Cavitary lesion seen on cervical CT. TECHNIQUE: Axial CT images were obtained through the chest without contrast. All CT scans at this location are p erformed using CT dose reduction for ALARA by means of automated exposure control. COMPARISON: Chest radiograph acquired earlier the same day FINDINGS: HEART: Mild cardiomegaly. No significant volume of pericardial fluid. THORACIC AORTA: No significant abnormality within limitations imposed by noncontrast technique. MEDIASTINUM and ANGIE: Several mildly prominent nodes are present in the mediastinum, but there is no overtly enlarged or necrotic lymphadenopathy. Abnormal soft tissue attenuation in the upper anterior mediastinum is noted, as further described below. LUNGS: In addition to the cavitary nodule seen at the left lung apex on the recent cervical spine CT, there are additional solid nodules and other cavitary nodules scattered in both lungs, the largest m easuring 2.2 cm in greatest dimension in the right upper lobe on series 106 image 40. There is also a n area of consolidated parenchyma at the base of the left lower lobe. Mild, smooth thickening of inte rlobular septa with apical predominance is also noted. PLEURA: No pleural fluid. No pneumothorax. ADDITIONAL FINDINGS: Right-sided tunneled dialysis catheter in satisfactory position with distal tip in the right atrium. A large collection with a thick wall and heterogeneous internal contents including foci of gas is not ed in the subpectoral area of the left chest wall, extending to the low neck overlying the left thyro id lobe (series 106 image 1. The collection has a maximum depth of about 2.5 cm and transverse width of at least 13 cm craniocaudal dimension is greater than 11 cm. There is associated destructive brasher e in the manubrium of the sternum, crossing both the outer and inner cortices and worrisome for exten shane into the anterior mediastinum. Diffuse body wall edema on the left side. UPPER ABDOMEN: Small ascites is noted. SKELETAL SYSTEM: Focal erosion through the manubrium of the sternum as described above. No other acut e skeletal abnormality. IMPRESSION: 1. Multiple cavitary nodules and an area of consolidation in the lungs are most suggestive of pneumo destiny, likely with septic emboli. Further evaluation with echocardiography is recommended. 2. Large collection in the subpectoral region of the left chest with a thick wall and foci of gas in ternally appears to erode through the anterior chest wall and sternal manubrium, concerning for an ag gressive infection with large abscess and potential for mediastinitis. There is also extension into t he superficial soft tissues of the anterior neck on the left. I discussed these findings with Dr. Sampson by telephone at the time of dictation. Signer Name: Nestor Garza MD Signed: 11/10/2019 8:58 PM Workstation Name: [id number]
--- NOTE | 2019-11-10 21:20 | Cat Scan Report ---
CT ABDOMEN AND PELVIS WITHOUT CONTRAST INDICATION / CLINICAL INFORMATION: Hyperbilirubinemia. TECHNIQUE: Axial CT images were obtained through the abdomen and pelvis without IV contrast. All CT scans at [facility] location are performed using CT dose reduction for ALARA by means of automated exposure control. COMPARISON: Abdominal CT scan of 10/06/2019 FINDINGS: LOWER CHEST: Please see the separately dictated chest CT report. LIVER: Stable hepatomegaly. Right lobe measures 21 cm in craniocaudal length. GALLBLADDER: Surgically removed. BILE DUCTS: No significant abnormality. PANCREAS: No significant abnormality. SPLEEN: Upper limit of normal size but otherwise unremarkable by noncontrast evaluation. ADRENALS: No significant abnormality. RIGHT KIDNEY and URETER: Grossly unremarkable on limited evaluation. LEFT KIDNEY and URETER: Grossly unremarkable on limited evaluation. STOMACH and SMALL BOWEL: No evidence of intestinal obstruction. COLON: No significant abnormality. APPENDIX: Normal PERITONEUM: Small volume of ascites, diminished compared to 10/06/2019. No free air. No fluid collecti on. Mesenteric edema is present. LYMPH NODES: No lymphadenopathy appreciated within limitations of the study. AORTA and ARTERIES: No significant abnormality. IVC and VEINS: No significant abnormality. URINARY BLADDER: No significant abnormality. REPRODUCTIVE ORGANS: No significant abnormality. ADDITIONAL FINDINGS: Diffuse body wall edema. Tiny, fat-containing umbilical hernia. SKELETAL SYSTEM: No significant abnormality. IMPRESSION: 1. Anasarca and small volume of ascites, both less severe than on 10/06/2019. 2. Stable hepatomegaly. Signer Name: Nestor Garza MD Signed: 11/10/2019 9:16 PM Workstation Name: [id number]
[2019-11-10] MEDS: NIFEdipine XL 60 MG TAB PO SCH (21:53)
[2019-11-10] MEDS: hydrALAZINE 25 MG TAB PO SCH (21:53)
[2019-11-10] MEDS: FAMOTIDINE 20 MG TAB PO SCH (21:54)
[2019-11-10] MEDS ORDERED: RANITIDINE HCL 150 MG PO SCH (22:00)
[2019-11-10] MEDS ORDERED: VANCOMYCIN PHARMACY TO DOSE IV SCH (23:45)
[2019-11-10] MEDS ORDERED: CEFEPIME/NS 2 GM/100 ML 2 GM/100 ML BAG IV SCH (23:45)
--- NOTE | 2019-11-10 23:59 | Event Note ---
Date: 11/10/19 See history and physical in the reports Acute encephalopathy Sepsis Multiple cavitary lesions on the lung Chest abscess
[2019-11-11] MEDS ORDERED: VANCOMYCIN 1,750 MG in SODIUM CHLORIDE 0.9% 500 ML 500 ML IV ONE (00:30)
[2019-11-11] MEDS ORDERED: CEFEPIME/NS 1 GM/100 ML 1 GM/100 ML BAG IV SCH ×2 (01:00→20:00)
[2019-11-11] MEDS: HEPARIN 5,000 UNIT/1 ML VIAL SUB-Q SCH ×3 (03:02→21:44)
[2019-11-11] MEDS: oxyCODONE /ACETAMINOPHEN 5-325MG TAB PO PRN ×3 (04:44→21:43)
[2019-11-11] MEDS: hydrALAZINE 25 MG TAB PO SCH ×3 (05:36→21:43)
[2019-11-11] MEDS: FAMOTIDINE 20 MG TAB PO SCH (09:58)
[2019-11-11] MEDS: NIFEdipine XL 60 MG TAB PO SCH (09:58)
[2019-11-11] MEDS: SODIUM CHLORIDE 0.9% 1000 ML 1,000 ML IV SCH (11:40)
--- NOTE | 2019-11-11 11:55 | History and Physical Report ---
CHIEF COMPLAINT: Altered mental status. HISTORY OF PRESENT ILLNESS: A 54-year-old with history of hypertension, diabetes, brought in for altered mental status. The patient apparently fell from sofa and since then she has been altered. The patient is lethargic and confused. Not talking. The patient apparently broke her leg recently and is healing from it. PAST MEDICAL HISTORY: Significant for hypertension, diabetes, kidney disease and kidney stones and gastroparesis. PAST SURGICAL HISTORY: Cholecystectomy. FAMILY HISTORY: No significant family history. SOCIAL HISTORY: Unknown if ever smoked. CURRENT MEDICATIONS: On the chart. REVIEW OF SYSTEMS: Significant for decreased responsiveness and altered sensorium. No fever. PHYSICAL EXAMINATION: GENERAL: Middle-aged female, cooperative, lethargic. VITAL SIGNS: Blood pressure is 151/81, temperature is 97.5, pulse is 110, respirations are 16. HEENT: Unremarkable. Dry mucous membranes. NECK: Supple, no lymphadenopathy, no thyromegaly. LUNGS: Clear to auscultation and percussions. Scattered rhonchi. CARDIOVASCULAR: S1, S2 heard. No gallop, no murmur, no rub. Apical impulse in left fifth intercostal space and midclavicular line. ABDOMEN: Soft and benign. No hepatosplenomegaly. No guarding, no rigidity. Hernial orifices are normal. EXTREMITIES: Good pedal pulses. No pedal edema. Also, left leg swollen and tender. CENTRAL NERVOUS SYSTEM: Alert and oriented x4, nonfocal exam. IMAGING AND LABORATORY DATA: Left knee x-ray shows ____ increased fragmentation. Mildly displaced tibial fracture. No dislocation is seen. The last left lower extremity x-rays were done was on 10/21/2019. Head CT, no acute abnormalities. Chest CT shows a complicated CAT scan. Multiple cavitary nodules and an area of consolidation in the lung, most suggestive of pneumonia, likely septic emboli. Large collection of subpectoral region of the left chest with a thick wall and foci of gas in the ____ to the anterior chest wall and sternal manubrium concerning for an aggressive infection with large abscess and potential for mediastinitis. There is also extension into the superficial soft tissue of the anterior neck on the left. Chest x-ray shows no acute abnormality of the chest. Abdominal and pelvic CT shows ____. Labs are significant for white count of 28,000. H and H is 9.7 and 30.7, platelet count is 207. Sodium is 132, BUN and creatinine are 36 and 3.3, glucose is 356. Albumin is 2.4. ASSESSMENT AND PLAN: 1. Severe sepsis. The patient started on cefepime and vancomycin. ID consult requested. 2. Septic emboli with cavitation. Again, ID consult and cefepime and vancomycin. Mediastinitis and left chest wall abscess. A surgical consult requested. If necessary, we will transfer to a tertiary care center depending on the response of the patient. 3. Hypertension. We will continue antihypertensives as tolerated. 4. Gastroesophageal reflux disease. Continue famotidine. 5. Acute kidney injury secondary to vasomotor nephropathy. IV fluids for now. 6. Malnutrition. Dietitian consult requested. 7. Type 2 diabetes. Insulin coverage for now. 8. Hyponatremia. IV fluids for now. 9. Metabolic acidosis secondary to sepsis. 10. Deep venous thrombosis prophylaxis, heparin 5000 q. 12. JOB# [id number] VSM/NTS
--- NOTE | 2019-11-11 13:06 | Consultation ---
History of Present Illness Consult date: 11/11/19 Reason for consult: other (chest wall abscess) Requesting physician: SYLWIA MITTAL Chief complaint: patient unable to participate - History of present illness History of present illness: 54yo F with possible chest wall abscess based on CT report. Patient is unable to participate in the interview therefore the history was obtained from the chart. Per the ED - The patient is a 54-year-old female present with a chief complaint of fall from sofa. Per EMS the patient was at home when she fell from the sofa. The patient was reportedly "altered" since the fall. There is no one else at bedside able to provide history. Patient appears confused and emotionally la bile. Patient states she broke her left knee but does not remember when. As part of her trauma evaluation, multiple CT scans were done. CT of the chest showed air tracking from the neck under the left pectoral muscle. There was concern for possible abscess. General surgery was consulted. Past History Past Medical History: other (unknown) Past Surgical History: Other (unknown) Social history: other (unknown) Family history: other (unknown) Medications and Allergies Allergies Allergy/AdvReac Type Severity Reaction Status Date / Time cefadroxil hydrate Allergy Shortness Verified 12/13/18 18:46 [From [facility] [place]] of Breath Home Medications Medication Instructions Recorded Confirmed Last Taken Type Famotidine [Pepcid] 20 mg PO QDAY #30 tablet 07/04/19 11/10/19 10/06/19 Rx NIFEdipine XL [Procardia Xl] 60 mg PO DAILY #30 tablet 07/04/19 11/10/19 10/06/19 Rx Ranitidine HCl [Heartburn Relief] 150 mg PO BID 30 Days #60 tablet 07/04/19 11/10/19 Unknown Rx hydrOXYzine PAMOATE [Vistaril] 25 mg PO Q6H PRN #20 capsule 09/05/19 11/10/19 Unknown Rx Ferrous Sulfate [Feosol 325 MG tab] 325 mg PO BID #60 tablet 10/12/19 11/10/19 Unknown Rx hydrALAZINE [Apresoline TAB] 25 mg PO Q8HR #90 tablet 10/12/19 11/10/19 Unknown Rx HYDROcodone/APAP 5-325 [[place] 1 each PO Q6HR PRN #14 tablet 10/21/19 11/10/19 Unknown Rx 5/325] Ibuprofen [Motrin 600 MG tab] 600 mg PO Q8H PRN #14 tablet 10/21/19 11/10/19 Unknown Rx Active Meds: Active Medications Famotidine (Pepcid) 20 mg PO QDAY [facility] Last Admin: 11/11/19 09:58 Dose: 20 mg Documented by: Heparin Sodium (Porcine) (Heparin) 5,000 unit SUB-Q Q12HR [facility] Last Admin: 11/11/19 03:02 Dose: 5,000 unit Documented by: Hydralazine HCl (Apresoline) 25 mg PO Q8HR [facility] Last Admin: 11/11/19 05:36 Dose: 25 mg Documented by: Hydroxyzine Pamoate (Vistaril) 25 mg PO Q6H PRN PRN Reason: Itching Sodium Chloride (Nacl 0.9% 1000 Ml) 1,000 mls @ 100 mls/hr IV DIRECT [facility] Last Admin: 11/11/19 11:40 Dose: 100 mls/hr Documented by: Cefepime HCl (Cefepime/Ns 2 Gm/100 Ml) 2 gm in 100 mls @ 200 mls/hr IV Q24HR [place]; Protocol Nifedipine (Procardia Xl) 60 mg PO DAILY [facility] Last Admin: 11/11/19 09:58 Dose: 60 mg Documented by: Oxycodone/Acetaminophen (Percocet 5/325) 1 tab PO Q4H PRN PRN Reason: Pain, Moderate (4-6) Last Admin: 11/11/19 09:58 Dose: 1 tab Documented by: Review of Systems ROS unobtainable: due to mental status Exam Vital Signs Temp Pulse Resp BP Pulse Ox 97.5 F L 110 H 16 151/81 93 11/10/19 14:48 11/10/19 14:48 11/10/19 14:48 11/10/19 14:48 11/10/19 14:48 - General physical appearance Positive: no distress, no pain, other (able to be awakened, but can not communicate well) - Neck Positive: other (IV in left side of neck with some swelling. No induration. No erythema on neck or chest) - Respiratory Positive: normal expansion, normal respiratory effort - Cardiovascular Rhythm: regular - Integumentary no rash, no abnormal pigmentation - Psychiatric Psychiatric: other (appears altered) Results - Labs 11/10/19 15:12 11/10/19 15:22 Abnormal lab results 11/10/19 11/10/19 11/10/19 Range/Units 15:12 15:20 15:22 WBC 28.1 H (4.5-11.0) K/mm3 RBC 3.08 L (3.65-5.03) M/mm3 Hgb 9.7 L (10.1-14.3) gm/dl MCV 100 H (79-97) fl RDW 17.1 H (13.2-15.2) % Seg Neuts % (Manual) 90.0 H (40.0-70.0) % Lymphocytes % (Manual) 6.0 L (13.4-35.0) % Seg Neutrophils # Man 25.3 H (1.8-7.7) K/mm3 Monocytes # (Manual) 1.1 H (0.0-0.8) K/mm3 PT 16.1 H (12.2-14.9) Sec. INR 1.27 H (0.87-1.13) Sodium (137-145) mmol/L Chloride (98-107) mmol/L Carbon Dioxide (22-30) mmol/L BUN (7-17) mg/dL Creatinine (0.7-1.2) mg/dL Glucose (65-100) mg/dL POC Glucose 293 H (70-105) Total Bilirubin (0.1-1.2) mg/dL Alkaline Phosphatase (35-129) units/L Albumin (3.9-5) g/dL 11/10/19 11/10/19 11/11/19 Range/Units 15:22 22:31 07:26 WBC (4.5-11.0) K/mm3 RBC (3.65-5.03) M/mm3 Hgb (10.1-14.3) gm/dl MCV (79-97) fl RDW (13.2-15.2) % Seg Neuts % (Manual) (40.0-70.0) % Lymphocytes % (Manual) (13.4-35.0) % Seg Neutrophils # Man (1.8-7.7) K/mm3 Monocytes # (Manual) (0.0-0.8) K/mm3 PT (12.2-14.9) Sec. INR (0.87-1.13) Sodium 132 L (137-145) mmol/L Chloride 94.5 L (98-107) mmol/L Carbon Dioxide 19 L (22-30) mmol/L BUN 36 H (7-17) mg/dL Creatinine 3.3 H (0.7-1.2) mg/dL Glucose 266 H (65-100) mg/dL POC Glucose 287 H 247 H (70-105) Total Bilirubin 8.70 H (0.1-1.2) mg/dL Alkaline Phosphatase 336 H (35-129) units/L Albumin 2.4 L (3.9-5) g/dL 11/11/19 Range/Units 11:42 WBC (4.5-11.0) K/mm3 RBC (3.65-5.03) M/mm3 Hgb (10.1-14.3) gm/dl MCV (79-97) fl RDW (13.2-15.2) % Seg Neuts % (Manual) (40.0-70.0) % Lymphocytes % (Manual) (13.4-35.0) % Seg Neutrophils # Man (1.8-7.7) K/mm3 Monocytes # (Manual) (0.0-0.8) K/mm3 PT (12.2-14.9) Sec. INR (0.87-1.13) Sodium (137-145) mmol/L Chloride (98-107) mmol/L Carbon Dioxide (22-30) mmol/L BUN (7-17) mg/dL Creatinine (0.7-1.2) mg/dL Glucose (65-100) mg/dL POC Glucose 251 H (70-105) Total Bilirubin (0.1-1.2) mg/dL Alkaline Phosphatase (35-129) units/L Albumin (3.9-5) g/dL Diabetes panel 11/10/19 Range/Units 15:22 Sodium 132 L (137-145) mmol/L Potassium 3.9 (3.6-5.0) mmol/L Chloride 94.5 L (98-107) mmol/L Carbon Dioxide 19 L (22-30) mmol/L BUN 36 H (7-17) mg/dL Creatinine 3.3 H (0.7-1.2) mg/dL Glucose 266 H (65-100) mg/dL Calcium 8.8 (8.4-10.2) mg/dL AST 27 (5-40) units/L ALT 27 (7-56) units/L Alkaline Phosphatase 336 H (35-129) units/L Total Protein 6.6 (6.3-8.2) g/dL Albumin 2.4 L (3.9-5) g/dL Thyroid panel 11/10/19 Range/Units 15: TSH 1.050 (0.270-4.200) mlU/mL Calcium panel 11/10/19 Range/Units 15: Calcium 8.8 (8.4-10.2) mg/dL Albumin 2.4 L (3.9-5) g/dL Pituitary panel 11/10/19 11/10/19 Range/Units 15: 15:22 Sodium 132 L (137-145) mmol/L Potassium 3.9 (3.6-5.0) mmol/L Chloride 94.5 L (98-107) mmol/L Carbon Dioxide 19 L (22-30) mmol/L BUN 36 H (7-17) mg/dL Creatinine 3.3 H (0.7-1.2) mg/dL Glucose 266 H (65-100) mg/dL Calcium 8.8 (8.4-10.2) mg/dL TSH 1.050 (0.270-4.200) mlU/mL Adrenal panel 11/10/19 Range/Units 15:22 Sodium 132 L (137-145) mmol/L Potassium 3.9 (3.6-5.0) mmol/L Chloride 94.5 L (98-107) mmol/L Carbon Dioxide 19 L (22-30) mmol/L BUN 36 H (7-17) mg/dL Creatinine 3.3 H (0.7-1.2) mg/dL Glucose 266 H (65-100) mg/dL Calcium 8.8 (8.4-10.2) mg/dL Total Bilirubin 8.70 H (0.1-1.2) mg/dL AST 27 (5-40) units/L ALT 27 (7-56) units/L Alkaline Phosphatase 336 H (35-129) units/L Total Protein 6.6 (6.3-8.2) g/dL Albumin 2.4 L (3.9-5) g/dL - Imaging CT scan - abdomen: report reviewed, image reviewed CT scan - chest: report reviewed, image reviewed CT scan - pelvis: report reviewed, image reviewed Additional studies: Ct neck images and report reviewed Assessment and Plan - Patient Problems (1) Abnormal CT of the chest Current Visit: Yes Status: Acute Plan to address problem: Patient has the appearance of a polytrauma patient with possible head injury to account for her altered mental status. She is unable to give any history and there is no family available. I reviewed the CT scans very carefully to try to determine the cause of the multiple points of air in the soft tissue. It is very unusual to have this air and fluid underneath the left pectoral muscle without some sort of intervention or trauma. I wonder if the manubrial fracture and left tibial and patella fractures are subacute in nature. I do not see much swelling on the plain films of the left lower extremity which makes me think that these injuries may not have just occurred. I do not see much inflammation around the manubrium or the tract of fluid and air in the chest and neck. There is also no bruising or inflammation on the chest. This also makes me think that we may not have an acute process. My suspicion is that the air is as a result of infiltration from the left neck IV. The air bubbles can be seen beginning at the neck level and extend all the way down to the chest on the left side underneath the pectoral m uscle. There is one area near the base of the neck where the area of swelling with air is very close to the skin surface. At that area I would expect some induration and erythema to reflect underlying infection. There is absolutely nothing on clinical exam to support this. It also appears as though the air is tracking within the sternocleidomastoid muscle which would make sense for why its tracking down to the chest and has the ability to go underneath the pectoral muscle. Part of this may also be as a result of her presumed aubacute manubrial trauma in that blood may have tracked throughout this plane. I am not convinced that she has an infectious process in her chest wall. As a precaution I would continue with antibiotics due to the leukocytosis. I would continue searching for other causes for the leukocytosis. At the very least the IV needs to be removed from the neck. I discussed this with Dr. Mittal and he was in agreement. I spoke with the nurse immediately afterwards, and instructed her to remove the IV. As she appears to be a polytrauma patient with possible head injury, she may be better served by being in a tertiary care facility that can handle this type of patient. We will follow along. Please call with any questions Time=45min
--- NOTE | 2019-11-11 18:38 | Consultation ---
History of Present Illness - Reason for Consult Consult date: 11/11/19 Septic emboli in lungs Requesting physician: SYLWIA MITTAL - History of Present Illness The patient is a 54-year-old female with hypertension, diabetes, ESRD on hemodialysis was brought in for altered mental status. Apparently, the patient was reported to have fallen from her sofa and then developed altered mental status. As a part of work-up for trauma, she underwent a kay CT scan. CT chest showed bilateral small lesions suggestive of possible septic emboli, hence infectious diseases was consulted. She is afebrile. Confused and unable to provide history. CT chest showed multiple cavitary nodules and an area of consolidation concerning for possible septic emboli. Patient was also noted to have air in her anterior and left chest wall Review of Systems: Confused, unable to provide history or review of systems. Past History Past Medical History: other (unknown) Past Surgical History: Other (unknown) Social history: other (unknown) Family history: other (unknown) Medications and Allergies Allergies Allergy/AdvReac Type Severity Reaction Status Date / Time cefadroxil hydrate Allergy Shortness Verified 12/13/18 18:46 [place] [facility] [place] of [place] Home Medications Medication Instructions Recorded Confirmed Last Taken Type Famotidine [Pepcid] 20 mg PO QDAY #30 tablet 07/04/19 11/10/19 10/06/19 Rx NIFEdipine XL [Procardia Xl] 60 mg PO DAILY #30 tablet 07/04/19 11/10/19 10/06/19 Rx Ranitidine HCl [Heartburn Relief] 150 mg PO BID 30 Days #60 tablet 07/04/19 11/10/19 Unknown Rx hydrOXYzine PAMOATE [Vistaril] 25 mg PO Q6H PRN #20 capsule 09/05/19 11/10/19 Unknown Rx Ferrous Sulfate [Feosol 325 MG tab] 325 mg PO BID #60 tablet 10/12/19 11/10/19 Unknown Rx hydrALAZINE [Apresoline TAB] 25 mg PO Q8HR #90 tablet 10/12/19 11/10/19 Unknown Rx HYDROcodone/APAP 5-325 [[place] 1 each PO Q6HR PRN #14 tablet 10/21/19 11/10/19 U nknown Rx 5/325] Ibuprofen [Motrin 600 MG tab] 600 mg PO Q8H PRN #14 tablet 10/21/19 11/10/19 Unknown Rx Active Meds: Active Medications Famotidine (Pepcid) 20 mg PO QDAY [facility] Last Admin: 11/11/19 09:58 Dose: 20 mg Documented by: Heparin Sodium (Porcine) (Heparin) 5,000 unit SUB-Q Q12HR [facility] Last Admin: 11/11/19 15:36 Dose: 5,000 unit Documented by: Hydralazine HCl (Apresoline) 25 mg PO Q8HR [facility] Last Admin: 11/11/19 15:11 Dose: Not Given Documented by: Hydroxyzine Pamoate (Vistaril) 25 mg PO Q6H PRN PRN Reason: Itching Sodium Chloride (Nacl 0.9% 1000 Ml) 1,000 mls @ 100 mls/hr IV DIRECT [facility] Last Admin: 11/11/19 11:40 Dose: 100 mls/hr Documented by: Cefepime HCl (Cefepime/Ns 2 Gm/100 Ml) 2 gm in 100 mls @ 200 mls/hr IV Q24HR [facility]; Protocol Nifedipine (Procardia Xl) 60 mg PO DAILY [facility] Last Admin: 11/11/19 09:58 Dose: 60 mg Documented by: Oxycodone/Acetaminophen (Percocet 5/325) 1 tab PO Q4H PRN PRN Reason: Pain, Moderate (4-6) Last Admin: 11/11/19 09:58 Dose: 1 tab Documented by: Physical Examination - Physical Exam Narrative exam: Physical Exam: Constitutional: Alert, confused, moaning Head, Ears, Nose: Normocephalic, atraumatic. External ears, nose normal Eyes: Conjunctivae/corneas clear. No icterus. No ptosis. Neck: Supple, no meningeal signs Oral: Unable to examine Cardiovascular: S1, S2 normal. Respiratory: Good air entry, clear to auscultation bilaterally GI: Soft, non-tender; bowel sounds normal. No peritoneal signs Musculoskeletal: No pedal edema, no cyanosis. Right upper chest HD catheter present Skin: No rash or abscess Hem/Lymphatic: No palpable cervical or supraclavicular nodes. No lymphangitis Psych: Morning Neurological: Awake, alert, confused, not oriented. - Constitutional Vitals: Vital Signs Temp Pulse Resp BP Pulse Ox 97.8 F 101 H 20 111/55 92 04/24/20 12:51 11/11/19 12:51 11/11/19 12:51 11/11/19 12:51 11/11/19 12:51 Temperature -Last 24 Hours Temperature 97.8 F Temperature 98.0 F Temperature 97.2 F Temperature 98.0 F Results - Labs CBC & Chem 7: 11/10/19 15:12 11/10/19 15:22 Labs: Abnormal lab results 11/10/19 11/11/19 11/11/19 Range/Units 22:31 07:26 11:42 POC Glucose 287 H 247 H 251 H (70-105) 11/11/19 Range/Units 16:37 POC Glucose 250 H (70-105) - Imaging and Cardiology Chest x-ray: report reviewed, image reviewed Assessment and Plan Cultures: None yet A/P: 54-year-old female with hypertension, diabetes, ESRD on hemodialysis. Patient was reported to have fallen from her sofa and then developed altered mental status. As a part of work-up for trauma, she underwent a kay CT scan. CT chest showed bilateral small lesions suggestive of possible septic emboli: #Septic emboli to the lungs: Patient with leukocytosis. No fever. She does have an indwelling HD catheter which could be the source. #Polytrauma, anterior chest wall with air, ?mediastinitis: Seen by general surgery who recommended transfer to a tertiary care center. #ESRD on hemodialysis. Renally dose abx. Recs: Blood cultures ordered stat but the yield will be low since the patient has already received 1 dose of cefepime and 1 dose of vancomycin. Continue current abx Transthoracic echocardiogram ordered recheck CBC d/w Dr. Camilla Sandoval MD, FACP [facility] C: [phone] O: [phone] F: [phone]
[2019-11-11] MEDS: INSULIN LISPRO 100 UNIT/ML SUB-Q SCH (23:50)
[2019-11-12] MEDS: SODIUM CHLORIDE 0.9% 1000 ML 1,000 ML IV SCH ×2 (03:36→16:10)
[2019-11-12] MEDS: hydrALAZINE 25 MG TAB PO SCH ×3 (06:58→22:05)
[2019-11-12] MEDS ORDERED: CEFEPIME/NS 2 GM/100 ML 2 GM/100 ML BAG IV SCH (10:00)
[2019-11-12] MEDS ORDERED: CEFEPIME/NS 1 GM/100 ML 1 GM/100 ML BAG IV SCH ×2 (10:00→18:00)
[2019-11-12] MEDS: NIFEdipine XL 60 MG TAB PO SCH (10:35)
[2019-11-12] MEDS: INSULIN LISPRO 100 UNIT/ML SUB-Q SCH ×4 (10:35→22:06)
[2019-11-12] MEDS: FAMOTIDINE 20 MG TAB PO SCH (10:35)
[2019-11-12] MEDS: HEPARIN 5,000 UNIT/1 ML VIAL SUB-Q SCH ×2 (10:35→22:05)
[2019-11-12] MEDS: oxyCODONE /ACETAMINOPHEN 5-325MG TAB PO PRN ×2 (10:43→22:12)
--- NOTE | 2019-11-12 11:10 | Progress Note ---
Assessment and Plan - Patient Problems (1) Sepsis Current Visit: Yes Status: Acute Plan to address problem: Probably sec to Vas cath Blood C/c ID consult appreciated (2) Vascular catheter infection Current Visit: Yes Status: Acute Qualifiers: Encounter type: initial encounter Qualified Code(s): T82.7XXA - Infection and inflammatory reaction due to other cardiac and vascular devices, implants and grafts, initial encounter Plan to address problem: Vascular surgery consult for Vas cath placement and old vas cath removal (3) ESRD needing dialysis Current Visit: Yes Status: Chronic Plan to address problem: Nephrology consult (4) Fracture tibia/fibula Current Visit: Yes Status: Chronic Qualifiers: Encounter type: subsequent encounter Plan to address problem: Seen on 10/21/2019 Dr Leung consulted on 10/20---Conservative tx recommended Knee brace (5) Abnormal CT of the chest Current Visit: Yes Status: Acute Plan to address problem: Secondary to IV infiltration No infection Surgery consult appresiated (6) Hepatitis Current Visit: Yes Status: Acute Plan to address problem: From 10/07/19 acute liver injury - r/o autoimmune etiologies (PEPE, AMA, ASMA, iron studies). ? DILI although no obvious culprit. denies alcohol use. monitor daily labs/coags. GI was involved at that point plan was to refer to tertiary care at that point (7) T2DM (type 2 diabetes mellitus) Current Visit: Yes Status: Chronic Qualifiers: Diabetes mellitus nursing home insulin use: unspecified nursing home insulin use status Plan to address problem: coverage (8) DVT prophylaxis Current Visit: No Status: Acute Plan to address problem: On Heparin and GI prophylaxis Subjective Date of service: 11/11/19 Principal diagnosis: Sepsis/Septic emboli Interval history: The patient is a 54-year-old female with hypertension, diabetes, ESRD on hemodialysis was brought in for altered mental status. Apparently, the patient was reported to have fallen from her sofa and then developed altered mental status. As a part of work-up for trauma, she underwent a kay CT scan. CT chest showed bilateral small lesions suggestive of possible septic emboli, hence infectious diseases was consulted. She is afebrile. Confused and unable to provide history. CT chest showed multiple cavitary nodules and an area of consolidation concerning for possible septic emboli. Patient was also noted to have air in her anterior and left chest wall Objective - Constitutional Vitals: Vital Signs - 12hr 11/12/19 11/12/19 11/12/19 02:25 06:58 07:33 Temperature 98.7 F 98.3 F Pulse Rate 63 64 106 H Respiratory 20 20 Rate Respiratory Rate [ generalized] Blood Pressure 148/76 148/76 150/77 O2 Sat by Pulse 94 93 Oximetry 11/12/19 10:00 Temperature Pulse Rate Respiratory Rate Respiratory 18 Rate [ generalized] Blood Pressure O2 Sat by Pulse Oximetry General appearance: Present: no acute distress, well-nourished - EENT Eyes: PERRL, EOM intact ENT: hearing intact, clear oral mucosa Ears: bilateral: normal - Neck Neck: supple, normal ROM - Respiratory Respiratory effort: normal Respiratory: bilateral: CTA - Breasts Breasts: normal - Cardiovascular Heart rate: 88 Rhythm: regular Heart Sounds: Present: S1 & S2. Absent: gallop, rub Extremities: pulses intact, No edema, normal color, Full ROM - Gastrointestinal General gastrointestinal: Present: soft, non-tender, non-distended, normal bowel sounds - Genitourinary Female genitourinary: normal - Integumentary Integumentary: clear, warm, dry - Musculoskeletal Musculoskeletal: strength equal bilaterally, generalized weakness - Neurologic Neurologic: moves all extremities, other (Decreased sensorium) - Allied health notes Allied health notes reviewed: case management - Labs CBC & Chem 7: 11/10/19 15:12 11/10/19 15:22 Labs: Abnormal lab results 11/11/19 11/11/19 11/11/19 Range/Units 11:42 16:37 22:29 POC Glucose 251 H 250 H 249 H (70-105) 11/12/19 Range/Units 07:41 POC Glucose 198 H (70-105)
--- NOTE | 2019-11-12 11:19 | Progress Note ---
Assessment and Plan - Patient Problems (1) Abnormal CT of the chest Current Visit: Yes Status: Acute Plan to address problem: Patient appears unchanged. Patient appears to have multiple sources for infection. If there is still worry that the chest wall abnormality on CT is the cause of her white count and there is no transfer plan to a tertiary center, we could make a small incision in the neck mass at the bedside to explore that area. If there is infection, then arrangements can be made in the operating room for a formal debridement which would mean incisions both above and below the areas involved. This would be a very extensive washout and debridement. Have sent a message to the hospitalist to decide on a plan. Please call with questions Time=10min Subjective Date of service: 11/12/19 Patient Reports: Positive: afebrile, other (patient unable to respond to questio ns) Objective Vital Signs - 12hr 11/12/19 11/12/19 11/12/19 02:25 06:58 07:33 Temperature 98.7 F 98.3 F Pulse Rate 63 64 106 H Respiratory 20 20 Rate Respiratory Rate [ generalized] Blood Pressure 148/76 148/76 150/77 O2 Sat by Pulse 94 93 Oximetry 11/12/19 10:00 Temperature Pulse Rate Respiratory Rate Respiratory 18 Rate [ generalized] Blood Pressure O2 Sat by Pulse Oximetry - General physical appearance other (awake but unable to respond to questions. agitated) - Neck other (Mass at base of neck on left side is unchanged. No increased warmth. No erythema. Does not appear to have tenderness.) - Respiratory normal expansion, normal respiratory effort - Integumentary no rash, other (Left chest skin appears unchanged from yesterday. The firmness in the neck does extend up to where the old IV site was located.) - Labs 11/10/19 15:12 11/10/19 15:22
[2019-11-12] MEDS ORDERED: VANCOMYCIN/NS 1 GM/250 ML 1 GM/250 ML BAG IV ONE (14:13)
[2019-11-12 16:08] LABS: Calcium 8.3 mg/dL (8.4-10.2)
[2019-11-12 16:22] LABS: Hematocrit 26.4 % (30.3-42.9); Hemoglobin 8.7 gm/dl (10.1-14.3); Mean Corpuscular HGB Conc 33 % (30-34); Mean Corpuscular Volume 97 fl (79-97); Red Blood Count 2.72 M/mm3 (3.65-5.03); Red Cell Distribution Width 17.3 % (13.2-15.2)
[2019-11-12 17:03] LABS: Platelet Count 85 K/mm3 (140-440)
[2019-11-12] MEDS: CEFEPIME/NS 1 GM/100 ML 1 GM/100 ML BAG IV SCH (17:31)
--- NOTE | 2019-11-12 17:53 | Consultation ---
History of Present Illness - Reason for Consult Consult date: 11/13/19 end stage renal disease Requesting physician: SYLWIA MITTAL - History of Present Illness The patient is a 54-year-old female present with a chief complaint of fall from sofa. Per EMS the patient was at home when she fell from the sofa. The patient was reportedly "altered" since the fall. There is no one else at bedside able to provide history. Patient appears confused and emotionally labile. Patient states she broke her left knee but does not remember when. - Past Medical History Previous Medical History?: Yes Hx Hypertension: Yes Hx Diabetes: Yes Hx GERD: Yes Hx Renal Disease: Yes Hx Kidney Stones: Yes Additional medical history: gastroparesis - Surgical History Past Surgical History?: Yes Hx Cholecystectomy: Yes - Family History Family history: no significant - Social History ROS Smoking Status: Unknown if ever smoked Substance Use Type: None Constitutional: no weight loss, no weight gain, no fever Ears, nose, mouth and throat: no ear pain, no ear discharge Breasts: deferred Cardiovascular: no chest pain, no orthopnea, no palpitations, no edema, no syncope Respiratory: no cough, no shortness of breath, no dyspnea on exertion Gastrointestinal: abdominal pain, nausea, vomiting Genitourinary Female: no urgency, no stress incontinence Musculoskeletal: no neck pain, no shooting arm pain Integumentary: no rash, no pruritis Neurological: no head injury, no transient paralysis Psychiatric: no anxiety, no memory loss Endocrine: no cold intolerance, no heat intolerance Past History Past Medical History: other (unknown) Past Surgical History: Other (unknown) Social history: other (unknown) Family history: other (unknown) Medications and Allergies Allergies Allergy/AdvReac Type Severity Reaction Status Date / Time cefadroxil hydrate Allergy Shortness Verified 12/13/18 18:46 [From [facility]] of Breath Home Medications Medication Instructions Recorded Confirmed Last Taken Type Famotidine [Pepcid] 20 mg PO QDAY #30 tablet 07/04/19 11/10/19 10/06/19 Rx NIFEdipine XL [Procardia Xl] 60 mg PO DAILY #30 tablet 07/04/19 11/10/19 10/06/19 Rx Ranitidine HCl [Heartburn Relief] 150 mg PO BID 30 Days #60 tablet 07/04/19 11/10/19 Unknown Rx hydrOXYzine PAMOATE [Vistaril] 25 mg PO Q6H PRN #20 capsule 09/05/19 11/10/19 Unknown Rx Ferrous Sulfate [Feosol 325 MG tab] 325 mg PO BID #60 tablet 10/12/19 11/10/19 Unknown Rx hydrALAZINE [Apresoline TAB] 25 mg PO Q8HR #90 tablet 10/12/19 11/10/19 Unknown Rx HYDROcodone/APAP 5-325 [[place] 1 each PO Q6HR PRN #14 tablet 10/21/19 11/10/19 Unknown Rx 5/325] Ibuprofen [Motrin 600 MG tab] 600 mg PO Q8H PRN #14 tablet 10/21/19 11/10/19 Unknown Rx Active Meds: Active Medications Famotidine (Pepcid) 20 mg PO QDAY [facility] Last Admin: 11/12/19 10:35 Dose: 20 mg Documented by: Heparin Sodium (Porcine) (Heparin) 5,000 unit SUB-Q Q12HR [facility] Last Admin: 11/12/19 10:35 Dose: 5,000 unit Documented by: Hydralazine HCl (Apresoline) 25 mg PO Q8HR [facility] Last Admin: 11/12/19 14:50 Dose: Not Given Documented by: Hydroxyzine Pamoate (Vistaril) 25 mg PO Q6H PRN PRN Reason: Itching Sodium Chloride (Nacl 0.9% 1000 Ml) 1,000 mls @ 100 mls/hr IV DIRECT [facility] Last Admin: 11/12/19 16:10 Dose: 100 mls/hr Documented by: Cefepime HCl (Cefepime/Ns 1 Gm/100 Ml) 1 gm in 100 mls @ 200 mls/hr IV QPM [facility]; Protocol Last Admin: 11/12/19 17:31 Dose: 200 mls/hr Documented by: Insulin Human Lispro (Humalog) 0 unit SUB-Q ACHS [facility]; Protocol Last Admin: 11/12/19 17:31 Dose: 2 unit Documented by: Nifedipine (Procardia Xl) 60 mg PO DAILY [facility] Last Admin: 11/12/19 10:35 Dose: 60 mg Documented by: Oxycodone/Acetaminophen (Percocet 5/325) 1 tab PO Q4H PRN PRN Reason: Pain, Moderate (4-6) Last Admin: 11/12/19 10:43 Dose: 1 tab Documented by: Exam - Vital Signs Vital signs: Vital Signs Temp Pulse Resp BP Pulse Ox 97.5 F L 110 H 16 151/81 93 11/10/19 14:48 11/10/19 14:48 11/10/19 14:48 11/10/19 14:48 11/10/19 14:48 - Physical Exam Narrative exam: General appearance: no acute distress HEENT: Positive: PERRL Neck: Positive: neck supple, trachea midline Cardiac: Positive: Reg Rate and Rhythm Lungs: Positive: Normal Exam Neuro: Positive: Grossly Intact Abdomen: Positive: Soft, Active Bowel Sounds Skin: Negative: Rash, Suspicious Lesions Extremities: Present: warm. Absent: edema Results - Lab Results 11/13/19 04:02 11/13/19 04:02 Most recent lab results Calcium 8.3 mg/dL (8.4-10.2) L 11/12/19 15:27 Assessment and Plan Impression: * ESRD * sepsis * septic emboli * endocarditis * HTN * AMS * cavitary lesions Plan: * vascular surgery consult for perm cath removal * iv abx * ID following * HD prn, no indication for [facility] today * appears to have some residual functions * noted echo, LUANA if warranted per cards *
[2019-11-13] MEDS: SODIUM CHLORIDE 0.9% 1000 ML 1,000 ML IV SCH ×2 (03:29→17:11)
[2019-11-13 05:19] LABS: Hematocrit 24.9 % (30.3-42.9); Hemoglobin 8.2 gm/dl (10.1-14.3); Mean Corpuscular HGB Conc 33 % (30-34); Mean Corpuscular Volume 97 fl (79-97); Red Blood Count 2.58 M/mm3 (3.65-5.03); Red Cell Distribution Width 17.7 % (13.2-15.2)
[2019-11-13 05:29] LABS: Platelet Count 81 K/mm3 (140-440)
[2019-11-13 05:35] LABS: Calcium 8.2 mg/dL (8.4-10.2)
[2019-11-13] MEDS: hydrALAZINE 25 MG TAB PO SCH ×3 (06:08→22:20)
[2019-11-13] MEDS ORDERED: KETOROLAC 30 MG/1 ML INJ IV ONE (06:16)
[2019-11-13 06:18] LABS: Basophils % (Manual) 0 % (0.0-1.8); Eosinophils % (Manual) 0 % (0.0-4.3); Hypochromasia 2+; Total Cells Counted 100
[2019-11-13 06:19] LABS: Schistocytes Few; Spherocytes Rare; Target Cells Few
[2019-11-13 06:20] LABS: Platelet Estimate Consistent w Auto
[2019-11-13] MEDS: INSULIN LISPRO 100 UNIT/ML SUB-Q SCH ×4 (08:02→22:20)
[2019-11-13] MEDS: NIFEdipine XL 60 MG TAB PO SCH (09:57)
[2019-11-13] MEDS: HEPARIN 5,000 UNIT/1 ML VIAL SUB-Q SCH ×2 (09:57→22:20)
[2019-11-13] MEDS: FAMOTIDINE 20 MG TAB PO SCH (09:57)
--- NOTE | 2019-11-13 11:19 | Progress Note ---
Assessment and Plan - Patient Problems (1) Sepsis Current Visit: Yes Status: Acute Plan to address problem: Probably sec to Vas cath Blood C/c ID consult appreciated (2) Vascular catheter infection Current Visit: Yes Status: Acute Qualifiers: Encounter type: initial encounter Qualified Code(s): T82.7XXA - Infection and inflammatory reaction due to other cardiac and vascular devices, implants and grafts, initial encounter Plan to address problem: Vascular surgery consult for Vas cath placement and old vas cath removal (3) ESRD needing dialysis Current Visit: Yes Status: Chronic Plan to address problem: Nephrology consult (4) Fracture tibia/fibula Current Visit: Yes Status: Chronic Qualifiers: Encounter type: subsequent encounter Plan to address problem: Seen on 10/21/2019 Dr Leung consulted on 10/20---Conservative tx recommended Knee brace (5) Abnormal CT of the chest Current Visit: Yes Status: Acute Plan to address problem: Secondary to IV infiltration No infection Surgery consult appresiated (6) Hepatitis Current Visit: Yes Status: Acute Plan to address problem: From 10/07/19 acute liver injury - r/o autoimmune etiologies (PEPE, AMA, ASMA, iron studies). ? DILI although no obvious culprit. denies alcohol use. monitor daily labs/coags. GI was involved at that point plan was to refer to tertiary care at that point (7) T2DM (type 2 diabetes mellitus) Current Visit: Yes Status: Chronic Qualifiers: Diabetes mellitus correction insulin use: unspecified correction insulin use status Plan to address problem: coverage (8) DVT prophylaxis Current Visit: No Status: Acute Plan to address problem: On Heparin and GI prophylaxis Subjective Date of service: 11/12/19 Principal diagnosis: Sepsis/Septic emboli Interval history: The patient is a 54-year-old female with hypertension, diabetes, ESRD on hemodialysis was brought in for altered mental status. Apparently, the patient was reported to have fallen from her sofa and then developed altered mental status. As a part of work-up for trauma, she underwent a kay CT scan. CT chest showed bilateral small lesions suggestive of possible septic emboli, hence infectious diseases was consulted. She is afebrile. Confused and unable to provide history. CT chest showed multiple cavitary nodules and an area of consolidation concerning for possible septic emboli. Patient was also noted to have air in her anterior and left chest wall Objective - Constitutional Vitals: Vital Signs - 12hr 11/13/19 11/13/19 11/13/19 02:44 06:22 06:52 Temperature 97.6 F Pulse Rate 99 H Respiratory 20 20 20 Rate Blood Pressure Blood Pressure 152/69 [Right] O2 Sat by Pulse 91 Oximetry 11/13/19 11/13/19 07:14 07:54 Temperature 98.9 F Pulse Rate 102 H Respiratory 20 Rate Blood Pressure 138/75 Blood Pressure [Right] O2 Sat by Pulse 96 96 Oximetry General appearance: Present: no acute distress, well-nourished - EENT Eyes: PERRL, EOM intact ENT: hearing intact, clear oral mucosa Ears: bilateral: normal - Neck Neck: supple, normal ROM - Respiratory Respiratory effort: normal Respiratory: bilateral: CTA - Breasts Breasts: normal - Cardiovascular Rhythm: regular Heart Sounds: Present: S1 & S2. Absent: gallop, rub Extremities: pulses intact, No edema, normal color, Full ROM - Gastrointestinal General gastrointestinal: Present: soft, non-tender, non-distended, normal bowel sounds - Genitourinary Female genitourinary: normal - Integumentary Integumentary: clear, warm, dry - Musculoskeletal Musculoskeletal: 1, strength equal bilaterally - Neurologic Neurologic: moves all extremities - Psychiatric Psychiatric: memory intact, appropriate mood/affect, intact judgment & insight - Labs CBC & Chem 7: 11/13/19 04:02 11/13/19 04:02 Labs: Abnormal lab results 11/12/19 11/12/19 11/12/19 Range/Units 11:47 15:27 15:27 WBC 20.6 H (4.5-11.0) K/mm3 RBC 2.72 L (3.65-5.03) M/mm3 Hgb 8.7 L (10.1-14.3) gm/dl Hct 26.4 L (30.3-42.9) % RDW 17.3 H (13.2-15.2) % Plt Count 85 L (140-440) K/mm3 Seg Neuts % (Manual) (40.0-70.0) % Monocytes % (Manual) (0.0-7.3) % Seg Neutrophils # Man (1.8-7.7) K/mm3 Monocytes # (Manual) (0.0-0.8) K/mm3 Sodium 135 L (137-145) mmol/L Carbon Dioxide 18 L (22-30) mmol/L BUN 56 H (7-17) mg/dL Creatinine 4.6 H (0.7-1.2) mg/dL Glucose 173 H (65-100) mg/dL POC Glucose 217 H (70-105) Calcium 8.3 L (8.4-10.2) mg/dL 11/12/19 11/12/19 11/13/19 Range/Units 16:49 21:47 04:02 WBC 18.1 H (4.5-11.0) K/mm3 RBC 2.58 L (3.65-5.03) M/mm3 Hgb 8.2 L (10.1-14.3) gm/dl Hct 24.9 L (30.3-42.9) % RDW 17.7 H (13.2-15.2) % Plt Count 81 L (140-440) K/mm3 Seg Neuts % (Manual) 77.0 H (40.0-70.0) % Monocytes % (Manual) 8.0 H (0.0-7.3) % Seg Neutrophils # Man 13.9 H (1.8-7.7) K/mm3 Monocytes # (Manual) 1.4 H (0.0-0.8) K/mm3 Sodium (137-145) mmol/L Carbon Dioxide (22-30) mmol/L BUN (7-17) mg/dL Creatinine (0.7-1.2) mg/dL Glucose (65-100) mg/dL POC Glucose 169 H 135 H (70-105) Calcium (8.4-10.2) mg/dL 11/13/19 11/13/19 Range/Units 04:02 07:52 WBC (4.5-11.0) K/mm3 RBC (3.65-5.03) M/mm3 Hgb (10.1-14.3) gm/dl Hct (30.3-42.9) % RDW (13.2-15.2) % Plt Count (140-440) K/mm3 Seg Neuts % (Manual) (40.0-70.0) % Monocytes % (Manual) (0.0-7.3) % Seg Neutrophils # Man (1.8-7.7) K/mm3 Monocytes # (Manual) (0.0-0.8) K/mm3 Sodium 136 L (137-145) mmol/L Carbon Dioxide 19 L (22-30) mmol/L BUN 59 H (7-17) mg/dL Creatinine 4.7 H (0.7-1.2) mg/dL Glucose 120 H (65-100) mg/dL POC Glucose 128 H (70-105) Calcium 8.2 L (8.4-10.2) mg/dL
--- NOTE | 2019-11-13 13:03 | Cat Scan Report ---
CTA CHEST WITH CONTRAST INDICATION / CLINICAL INFORMATION: MAIN: Septic emboli OMNIPAQUE 350 100ML DIALYSIS PT. TECHNIQUE: Axial CT images were obtained through the chest after injection of IV contrast. 3 plane MIP and/or 3D reconstructions were produced. All CT scans at this location are performed using CT dose reduction f or ALARA by means of automated exposure control. COMPARISON: Noncontrast chest CT for 2320 FINDINGS: PULMONARY ARTERIES: No pulmonary emboli. THORACIC AORTA: No significant abnormality. HEART: No significant abnormality. CORONARY ARTERIES: No significant calcification. MEDIASTINUM / ANGIE: There is new retrosternal fluid and gas collection secondary to extension of the left anterior chest wall abscess. There is apparently been partial resection of the sternum, margins are irregular. PLEURA: Small left pleural effusion No pneumothorax. LUNGS: Multiple cavitary lesions are identified bilaterally as noted on the recent CT scan, suspiciou s for septic emboli. ADDITIONAL FINDINGS: The subpectoral left anterior chest wall fluid and gas collection appears to hav e extended more medially and there may now may be active sternal osteomyelitis. UPPER ABDOMEN: Small amount of free fluid in the upper abdomen appears similar to the comparison stud y. SKELETAL STRUCTURES: See above. IMPRESSION: 1. No CT evidence for pulmonary embolism. 2. 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 3. Bilateral cavitary pulmonary lesions consistent with septic emboli are not significantly changed. Signer Name: Richard Bryant MD Signed: 11/13/2019 12:59 PM Workstation Name: [id number]
[2019-11-13] MEDS: SODIUM BICARBONATE 650 MG TAB PO SCH ×2 (13:04→22:19)
--- NOTE | 2019-11-13 13:10 | Consultation ---
History of Present Illness - Reason for Consult Consult date: 11/13/19 Permacath Removal Requesting physician: SYLWIA SAMPSON - History of Present Illness The patient is a 54-year-old female with a history of end-stage renal disease who is currently on hemodialysis through a right internal jugular permacath. She presented to the hospital with mental status changes and had an extensive work-up including a CT of her C-spine and a CT of her chest without contrast. She also had an echo performed that demonstrated a mobile thrombus on the tricuspid valve. The CT of her chest revealed a fluid collection with air beneath the left pectoralis major as well as fluid and air in the left neck that appeared to extend into the mediastinum with possible destruction of the sternoclavicular joint. I am unable to obtain a history or a review of systems from the patient secondary to her current mental status. Past History Past Medical History: diabetes, dialysis, ESRD, hyperthyroidism, other (Gastroparesis) Past Surgical History: cholecystectomy, Other (Permacath insertion) Social history: no significant social history Family history: no significant family history Medications and Allergies Allergies Allergy/AdvReac Type Severity Reaction Status Date / Time cefadroxil hydrate Allergy Shortness Verified 12/13/18 18:46 [From [facility] [place]] of Breath Home Medications Medication Instructions Recorded Confirmed Last Taken Type Famotidine [Pepcid] 20 mg PO QDAY #30 tablet 07/04/19 11/10/19 10/06/19 Rx NIFEdipine XL [Procardia Xl] 60 mg PO DAILY #30 tablet 07/04/19 11/10/19 10/06/19 Rx Ranitidine HCl [Heartburn Relief] 150 mg PO BID 30 Days #60 tablet 07/04/19 11/10/19 Unknown Rx hydrOXYzine PAMOATE [Vistaril] 25 mg PO Q6H PRN #20 capsule 09/05/19 11/10/19 Unknown Rx Ferrous Sulfate [Feosol 325 MG tab] 325 mg PO BID #60 tablet 10/12/19 11/10/19 Unknown Rx hydrALAZINE [Apresoline TAB] 25 mg PO Q8HR #90 tablet 10/12/19 11/10/19 Unknown Rx HYDROcodone/APAP 5-325 [Treece 1 each PO Q6HR PRN #14 tablet 10/21/19 11/10/19 Unknown Rx 5/325] Ibuprofen [Motrin 600 MG tab] 600 mg PO Q8H PRN #14 tablet 10/21/19 11/10/19 Unknown Rx Active Meds: Active Medications Famotidine (Pepcid) 20 mg PO QDAY [facility] Last Admin: 11/13/19 09:57 Dose: 20 mg Documented by: Heparin Sodium (Porcine) (Heparin) 5,000 unit SUB-Q Q12HR [facility] Last Admin: 11/13/19 09:57 Dose: 5,000 unit Documented by: Hydralazine HCl (Apresoline) 25 mg PO Q8HR [facility] Last Admin: 11/13/19 06:08 Dose: Not Given Documented by: Hydroxyzine Pamoate (Vistaril) 25 mg PO Q6H PRN PRN Reason: Itching Sodium Chloride (Nacl 0.9% 1000 Ml) 1,000 mls @ 100 mls/hr IV DIRECT [facility] Last Admin: 11/13/19 03:29 Dose: 100 mls/hr Documented by: Cefepime HCl (Cefepime/Ns 1 Gm/100 Ml) 1 gm in 100 mls @ 200 mls/hr IV QPM [facility]; Protocol Last Admin: 11/12/19 17:31 Dose: 200 mls/hr Documented by: Insulin Human Lispro (Humalog) 0 unit SUB-Q ACHS [facility]; Protocol Last Admin: 11/13/19 08:02 Dose: Not Given Documented by: Nifedipine (Procardia Xl) 60 mg PO DAILY [facility] Last Admin: 11/13/19 09:57 Dose: 60 mg Documented by: Oxycodone/Acetaminophen (Percocet 5/325) 1 tab PO Q4H PRN PRN Reason: Pain, Moderate (4-6) Last Admin: 11/12/19 22:12 Dose: 1 tab Documented by: Sodium Bicarbonate (Sodium Bicarbonate) 1,300 mg PO BID [facility] Review of Systems ROS unobtainable: due to mental status Exam - Constitutional Vitals: Temp Pulse Resp BP Pulse Ox 98.9 F 102 H 20 138/75 96 11/13/19 07:14 11/13/19 10:00 11/13/19 07:14 11/13/19 07:14 11/13/19 07:14 General appearance: Present: no acute distress - Neck Neck: Present: other (Fullness in left neck, bandage on left neck with 2 puncture sites underneath, left neck tender to palpation, slight crepitus of the left neck, tenderness to palpation of left chest with fluctuance) - Respiratory Respiratory effort: normal - Cardiovascular Rhythm: regular - Extremities Extremities: no ischemia, pulses intact - Abdominal General gastrointestinal: Present: soft Female genitourinary: Present: deferred - Rectal Rectal Exam: deferred - Psychiatric Psychiatric: no appropriate mood/affect, no intact judgment & insight, agitated, other (Opens eyes to voice however does not follow commands) Results - Labs CBC & Chem 7: 11/13/19 04:02 11/13/19 04:02 Labs: Abnormal lab results 11/12/19 11/12/19 11/12/19 Range/Units 15:27 15:27 16:49 WBC 20.6 H (4.5-11.0) K/mm3 RBC 2.72 L (3.65-5.03) M/mm3 Hgb 8.7 L (10.1-14.3) gm/dl Hct 26.4 L (30.3-42.9) % RDW 17.3 H (13.2-15.2) % Plt Count 85 L (140-440) K/mm3 Seg Neuts % (Manual) (40.0-70.0) % Monocytes % (Manual) (0.0-7.3) % Seg Neutrophils # Man (1.8-7.7) K/mm3 Monocytes # (Manual) (0.0-0.8) K/mm3 Sodium 135 L (137-145) mmol/L Carbon Dioxide 18 L (22-30) mmol/L BUN 56 H (7-17) mg/dL Creatinine 4.6 H (0.7-1.2) mg/dL Glucose 173 H (65-100) mg/dL POC Glucose 169 H (70-105) Calcium 8.3 L (8.4-10.2) mg/dL 11/12/19 11/13/19 11/13/19 Range/Units 21:47 04:02 04:02 WBC 18.1 H (4.5-11.0) K/mm3 RBC 2.58 L (3.65-5.03) M/mm3 Hgb 8.2 L (10.1-14.3) gm/dl Hct 24.9 L (30.3-42.9) % RDW 17.7 H (13.2-15.2) % Plt Count 81 L (140-440) K/mm3 Seg Neuts % (Manual) 77.0 H (40.0-70.0) % Monocytes % (Manual) 8.0 H (0.0-7.3) % Seg Neutrophils # Man 13.9 H (1.8-7.7) K/mm3 Monocytes # (Manual) 1.4 H (0.0-0.8) K/mm3 Sodium 136 L (137-145) mmol/L Carbon Dioxide 19 L (22-30) mmol/L BUN 59 H (7-17) mg/dL Creatinine 4.7 H (0.7-1.2) mg/dL Glucose 120 H (65-100) mg/dL POC Glucose 135 H (70-105) Calcium 8.2 L (8.4-10.2) mg/dL 11/13/19 11/13/19 Range/Units 07:52 11:22 WBC (4.5-11.0) K/mm3 RBC (3.65-5.03) M/mm3 Hgb (10.1-14.3) gm/dl Hct (30.3-42.9) % RDW (13.2-15.2) % Plt Count (140-440) K/mm3 Seg Neuts % (Manual) (40.0-70.0) % Monocytes % (Manual) (0.0-7.3) % Seg Neutrophils # Man (1.8-7.7) K/mm3 Monocytes # (Manual) (0.0-0.8) K/mm3 Sodium (137-145) mmol/L Carbon Dioxide (22-30) mmol/L BUN (7-17) mg/dL Creatinine (0.7-1.2) mg/dL Glucose (65-100) mg/dL POC Glucose 128 H 171 H (70-105) Calcium (8.4-10.2) mg/dL - Imaging and Cardiology Chest x-ray: image reviewed CT scan - chest: image reviewed (Patient had a CTA of the chest performed today and I reviewed the images which revealed thrombus associated with the right internal jugular permacath. Additionally there appeared to be interval enlargement of the fluid collection beneath the left pectoralis major with associated foci of air extending to the neck and into the mediastinum with associated osteomyelitis of the sternum. There are cavitary lesions bilaterally in the lungs.) Assessment and Plan The patient is a 54-year-old female with a history of end-stage renal disease who is on hemodialysis through a right internal jugular permacath. She has evidence of bilateral cavitary lesions in the lungs that are possibly due to septic emboli from a tricuspid valve lesion. She has an abscess below the pectoralis major extending into the left neck and anterior mediastinum. She will require incision and drainage of the abscess as well as debridement of the sternum and a washout of the mediastinum. Additionally she will likely require replacement of the valve versus open thrombectomy to remove the septic nidus. These procedures are not performed at this institution so the patient will requi re transfer to a tertiary care center to manage her care. Given the patient's comorbidities of end-stage renal disease and hyperbilirubinemia, of unknown origin, the patient has an increased mortality for this operation. I have discussed this case with Dr Thomas and Dr Sampson who agree and Dr Sampson is working to have the patient transferred at this time.
[2019-11-13] MEDS: CEFEPIME/NS 1 GM/100 ML 1 GM/100 ML BAG IV SCH (17:10)
--- NOTE | 2019-11-13 17:22 | Progress Note ---
Assessment and Plan - Patient Problems (1) Sepsis Current Visit: Yes Status: Acute Plan to address problem: Probably sec to Vas cath Blood C/c ID consult appreciated continue IV antibiotics. Patient has acute mediastinitis and subpectoral abscess May need transfer to [facility] (2) Vascular catheter infection Current Visit: Yes Status: Acute Qualifiers: Encounter type: initial encounter Qualified Code(s): T82.7XXA - Infection and inflammatory reaction due to other cardiac and vascular devices, implants and grafts, initial encounter Plan to address problem: Vascular surgery consult for Vas cath placement and old vas cath removal (3) ESRD needing dialysis Current Visit: Yes Status: Chronic Plan to address problem: Nephrology consult (4) Fracture tibia/fibula Current Visit: Yes Status: Chronic Qualifiers: Encounter type: subsequent encounter Plan to address problem: Seen on 10/21/2019 Dr Leung consulted on 10/20---Conservative tx recommended Knee brace (5) Abnormal CT of the chest Current Visit: Yes Status: Acute Plan to address problem: Secondary to IV infiltration No infection Surgery consult appresiated (6) Hepatitis Current Visit: Yes Status: Acute Plan to address problem: From 10/07/19 acute liver injury - r/o autoimmune etiologies (PEPE, AMA, ASMA, iron studies). ? DILI although no obvious culprit. denies alcohol use. monitor daily labs/coags. GI was involved at that point plan was to refer to tertiary care at that point (7) T2DM (type 2 diabetes mellitus) Current Visit: Yes Status: Chronic Qualifiers: Diabetes mellitus pile trimmer insulin use: unspecified longterm insulin use status Plan to address problem: coverage (8) DVT prophylaxis Current Visit: No Status: Acute Plan to address problem: On Heparin and GI prophylaxis (9) Discharge planning issues Current Visit: Yes Status: Acute Plan to address problem: Patient to be transferred to [facility] because of the acute mediastinitis and submitted subpectoral abscess. Mainly for the acute mediastinitis. Patient also has endocarditis. I (10) Chest wall abscess Current Visit: Yes Status: Acute Plan to address problem: IV antibiotics for now possible transfer to [facility] Subjective Date of service: 11/13/19 Principal diagnosis: Sepsis/Septic emboli Interval history: The patient is a 54-year-old female with hypertension, diabetes, ESRD on hemodialysis was brought in for altered mental status. Apparently, the patient was reported to have fallen from her sofa and then developed altered mental status. As a part of work-up for trauma, she underwent a kay CT scan. CT chest showed bilateral small lesions suggestive of possible septic emboli, hence infectious diseases was consulted. She is afebrile. Confused and unable to provide history. CT chest showed multiple cavitary nodules and an area of consolidation concerning for possible septic emboli. Patient was also noted to have air in her anterior and left chest wall CTA chest was done again today which showed acute mediastinitis and subpectoral abscess Transferred to [facility] was initiated Objective - Constitutional Vitals: Vital Signs - 12hr 11/13/19 11/13/19 11/13/19 06:22 06:52 07:14 Temperature 98.9 F Pulse Rate 102 H Respiratory 20 20 20 Rate Blood Pressure 138/75 O2 Sat by Pulse 96 Oximetry 11/13/19 11/13/19 10:00 12:29 Temperature 97.4 F L Pulse Rate 102 H 101 H Respiratory 20 Rate Blood Pressure 125/81 O2 Sat by Pulse 92 Oximetry General appearance: Present: no acute distress, well-nourished - EENT Eyes: PERRL, EOM intact ENT: hearing intact, clear oral mucosa Ears: bilateral: normal - Neck Neck: supple, normal ROM - Respiratory Respiratory effort: normal Respiratory: bilateral: CTA - Breasts Breasts: normal - Cardiovascular Rhythm: regular Heart Sounds: Present: S1 & S2. Absent: gallop, rub Extremities: no ischemia, pulses intact, No edema, normal color, Full ROM - Gastrointestinal General gastrointestinal: Present: soft, non-tender, non-distended, normal bowel sounds - Genitourinary Female genitourinary: normal - Integumentary Integumentary: clear, warm, dry - Musculoskeletal Musculoskeletal: generalized weakness - Neurologic Neurologic: CNII-XII intact, moves all extremities, other (Patient is alert but not answering any questions. It appears that she is comprehending the questions.) - Psychiatric Psychiatric: memory intact, appropriate mood/affect, intact judgment & insight - Allied health notes Allied health notes reviewed: nursing, case management - Labs CBC & Chem 7: 11/13/19 04:02 11/13/19 04:02 Labs: --Tricuspid valve a 1 leafletvegetation and also ejection fraction of 40%. 11/12/19 11/13/1920 Range/Units 21:47 04:02 04:02 WBC 18.1 H (4.5-11.0) K/mm3 RBC 2.58 L (3.65-5.03) M/mm3 Hgb 8.2 L (10.1-14.3) gm/dl Hct 24.9 L (30.3-42.9) % RDW 17.7 H (13.2-15.2) % Plt Count 81 L (140-440) K/mm3 Seg Neuts % (Manual) 77.0 H (40.0-70.0) % Monocytes % (Manual) 8.0 H (0.0-7.3) % Seg Neutrophils # Man 13.9 H (1.8-7.7) K/mm3 Monocytes # (Manual) 1.4 H (0.0-0.8) K/mm3 Sodium 136 L (137-145) mmol/L Carbon Dioxide 19 L (22-30) mmol/L BUN 59 H (7-17) mg/dL Creatinine 4.7 H (0.7-1.2) mg/dL Glucose 120 H (65-100) mg/dL POC Glucose 135 H (70-105) Calcium 8.2 L (8.4-10.2) mg/dL 11/13/19 11/13/19 11/13/19 Range/Units 07:52 11:22 16:27 WBC (4.5-11.0) K/mm3 RBC (3.65-5.03) M/mm3 Hgb (10.1-14.3) gm/dl Hct (30.3-42.9) % RDW (13.2-15.2) % Plt Count (140-440) K/mm3 Seg Neuts % (Manual) (40.0-70.0) % Monocytes % (Manual) (0.0-7.3) % Seg Neutrophils # Man (1.8-7.7) K/mm3 Monocytes # (Manual) (0.0-0.8) K/mm3 Sodium (137-145) mmol/L Carbon Dioxide (22-30) mmol/L BUN (7-17) mg/dL Creatinine (0.7-1.2) mg/dL Glucose (65-100) mg/dL POC Glucose 128 H 171 H 149 H (70-105) Calcium (8.4-10.2) mg/dL
[2019-11-13] MEDS ORDERED: VANCOMYCIN 500 MG in SODIUM CHLORIDE 0.9% 100 ML IV ONE (22:00)
--- NOTE | 2019-11-13 22:29 | Event Note ---
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
[2019-11-14] MEDS ORDERED: hydrALAZINE 20 MG/1 ML INJ IV ONE (04:40)
[2019-11-14] MEDS: hydrALAZINE 25 MG TAB PO SCH ×2 (05:30→15:50)
[2019-11-14 05:36] LABS: Hematocrit 26.3 % (30.3-42.9); Hemoglobin 8.5 gm/dl (10.1-14.3); Mean Corpuscular HGB Conc 32 % (30-34); Mean Corpuscular Volume 99 fl (79-97); Red Blood Count 2.67 M/mm3 (3.65-5.03); Red Cell Distribution Width 17.7 % (13.2-15.2)
[2019-11-14 05:38] LABS: Platelet Count 78 K/mm3 (140-440)
[2019-11-14 05:54] LABS: Albumin 1.6 g/dL (3.9-5); Calcium 8.3 mg/dL (8.4-10.2)
[2019-11-14] MEDS ORDERED: hydrALAZINE 20 MG/1 ML INJ IV PRN (08:09)
[2019-11-14 08:32] LABS: Band Neutrophils # (Manual) 1.4 K/mm3; Basophils % (Manual) 0 % (0.0-1.8); Eosinophils % (Manual) 0 % (0.0-4.3); Total Cells Counted 100
[2019-11-14 08:33] LABS: Anisocytosis 1+; Hypochromasia 1+; Macrocytosis Few; Platelet Estimate Consistent w Auto
[2019-11-14] MEDS: INSULIN LISPRO 100 UNIT/ML SUB-Q SCH ×3 (09:46→16:44)
--- NOTE | 2019-11-14 09:46 | Event Note ---
Date: 11/14/19 Transfer to [facility] initiated Utilization review being undertaken by [facility]
--- NOTE | 2019-11-14 09:58 | Progress Note ---
Assessment and Plan mpression: * ESRD * sepsis * septic emboli * endocarditis * HTN * AMS * cavitary lesions in chest Plan: * CT scan showing subpectoral abscess as well as anterior mediastinitis. Vascular surgery consult appreciated . Patient in the process of being transferred to [place]. * iv abx * ID following * HD prn, no indication for [facility] [facility]ANGER today * appears to have some residual functions * noted echo, LUANA if warranted per cards * Reduce IV fluids * Add oral sodium bicarbonate Subjective Date of service: 11/14/19 Principal diagnosis: Sepsis/Septic emboli Interval history: Patient is awake and alert. Appears comfortable. Not answering any questions. Objective - Vital Signs Vital signs: Vital Signs - 12hr 11/13/19 11/14/19 11/14/19 22:00 02:28 05:19 Temperature 98.7 F Pulse Rate 104 H 109 H 109 H Respiratory 15 Rate Blood Pressure 186/92 186/92 O2 Sat by Pulse 100 99 Oximetry 11/14/19 11/14/19 05:30 07:28 Temperature 97.5 F L Pulse Rate 109 H 96 H Respiratory 18 Rate Blood Pressure 186/92 155/78 O2 Sat by Pulse 98 Oximetry - General Appearance General appearance: well-developed, well-nourished, appears stated age EENT: PERRL, mucous membranes moist Neck: no JVD, no thyromegaly, no carotid bruit, supple, other (Right IJ PermCath in place) Respiratory: Present: Clear to Ascultation Cardiology: regular, normal heart rate, S1S2, no murmurs Gastrointestinal: normal, normoactive bowel sounds Integumentary: other (1+ edema) - Lab 11/14/19 04:28 11/14/19 04:28 Most recent lab results Calcium 8.3 mg/dL (8.4-10.2) L 11/14/19 04:28 Medications & Allergies - Medications Allergies/Adverse Reactions: All[facility]ies [facility] Allergy (Verified 12/13/18 18:46) Shortness of Breath Home Medications: Home Medications Medication Instructions Recorded Confirmed Last Taken Type Famotidine [Pepcid] 20 mg PO QDAY #30 tablet 07/04/19 11/10/19 10/06/19 Rx NIFEdipine XL [Procardia Xl] 60 mg PO DAILY #30 tablet 07/04/19 11/10/1920 Rx Ranitidine HCl [Heartburn Relief] 150 mg PO BID 30 Days #60 tablet 07/04/19 11/10/19 Unknown Rx hydrOXYzine PAMOATE [Vistaril] 25 mg PO Q6H PRN #20 capsule 09/05/19 11/10/19 Unknown Rx Ferrous Sulfate [Feosol 325 MG tab] 325 mg PO BID #60 tablet 10/12/19 11/10/19 Unknown Rx hydrALAZINE [Apresoline TAB] 25 mg PO Q8HR #90 tablet 10/12/19 11/10/19 Unknown Rx HYDROcodone/APAP 5-325 [Lamoni 1 each PO Q6HR PRN #14 tablet 10/21/19 11/10/19 Unknown Rx 5/325] Ibuprofen [Motrin 600 MG tab] 600 mg PO Q8H PRN #14 tablet 10/21/19 11/10/19 Unknown Rx Active Medications: Generic Name Dose Route Start Last Admin Trade Name Freq PRN Reason Stop Dose Admin Famotidine 20 mg 11/10/19 21:00 11/13/19 09:57 Pepcid PO 20 mg QDAY [facility] Administration Heparin Sodium (Porcine) 5,000 unit 11/11/19 00:15 11/13/19 22:20 Heparin SUB-Q 5,000 unit Q12HR [facility] Administration Hydralazine HCl 25 mg 11/10/19 22:00 11/14/19 05:30 Apresoline PO Not Given Q8HR ELENO Hydralazine HCl 5 mg 11/14/19 08:09 Apresoline IV Q30MIN PRN Hypertension Hydroxyzine Pamoate 25 mg 11/10/19 20:59 Vistaril PO Q6H PRN Itching Sodium Chloride 1,000 mls @ 100 mls/hr 11/11/19 10:45 11/13/19 17:11 Nacl 0.9% 1000 Ml IV 100 mls/hr DIRECT [facility] Administration Cefepime HCl 1 gm in 100 mls @ 200 mls/hr 11/12/19 18:00 11/13/19 17:10 Cefepime/Ns 1 Gm/100 Ml IV 200 mls/hr QPM [facility] Administration Protocol Insulin Human Lispro 0 unit 11/11/19 22:00 11/14/19 09:46 Humalog SUB-Q Not Given ACHS [facility] Protocol Nifedipine 60 mg 11/10/19 22:00 11/13/19 09:57 Procardia Xl PO 60 mg DAILY [facility] Administration Oxycodone/Acetaminophen 1 tab 11/11/19 03:21 11/12/19 22:12 Percocet 5/325 PO 1 tab Q4H PRN Administration Pain, Moderate (4-6) Sodium Bicarbonate 1,300 mg 11/13/19 11:00 11/13/19 22:19 Sodium Bicarbonate PO 1,300 mg BID [facility] Administration
[2019-11-14] MEDS: FAMOTIDINE 20 MG TAB PO SCH (10:30)
[2019-11-14] MEDS: NIFEdipine XL 60 MG TAB PO SCH (10:30)
[2019-11-14] MEDS: HEPARIN 5,000 UNIT/1 ML VIAL SUB-Q SCH (10:30)
[2019-11-14] MEDS: SODIUM BICARBONATE 650 MG TAB PO SCH (10:30)
[2019-11-14 16:00] VITALS: BP 108/78
--- NOTE | 2019-11-14 17:05 | Event Note ---
Date: 11/14/[address] Smapson, patient will be transferred to [place] for CT surgery eval which I agree with given vegetation >1mm and mobile with previous embolization to the lungs putting her at high risk of further embolization. She also has mediastinitis and an abscess. Continue empiric antibiotics of vancomycin and cefepime for now given ongoing negative cultures (obtained post-antibiotics).
--- NOTE | 2019-11-14 17:14 | Discharge Summary ---
Providers - Providers Date of Admission: 11/10/19 17:20 Date of discharge: 11/14/19 Attending physician: SYLWIA MITTAL 11/11/19 00:08 Consult to Physician [CONS] Routine Comment: Consulting Provider: NICK MG Physician Instructions: Reason For Exam: Sepsis and multiple lung cavitary lesions 11/11/19 10:45 Consult to Physician [CONS] Routine Comment: Consulting Provider: MARIELLA WAKEFIELD Physician Instructions: Reason For Exam: Chest wall abscess 11/12/19 10:49 Consult to Physician [CONS] Routine Comment: Consulting Provider: MARAL CHI Physician Instructions: Reason For Exam: ESRD 11/12/19 10:57 Consult to Physician [CONS] Routine Comment: Consulting Provider: HELEN STATON Physician Instructions: Reason For Exam: Vas cath removal--Septic emboli [facility] Condition: Fair Pertinent studies: Echocardiogram showed ejection fraction of 40% and tricuspid valve vegetation. CTA chest IMPRESSION: 1. No CT evidence for pulmonary embolism. 2. 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 3. Bilateral cavitary pulmonary lesions consistent with septic emboli are not significantly changed. Hospital course: Patient was admitted on the and near unresponsive condition. Patient was icteric. Patient is admitted for sepsis and multiple septic emboli. Patient also had a fracture of the right tibia-fibula which is being managed conservatively. Post admission work-up revealed tricuspid valve vegetation and acute mediastinitis. Surgery was consulted. It was decided to transfer the patient to tertiary care because of tricuspid valve vegetation/endocarditis causing the septic emboli. Vas-Cath was replaced. With the thought process that Vas-Cath also may be causing the initial infection. Patient became alert but and oriented x1. But not talking. Tracks conversation but not able to make any conversation. Spoke with her fianc and mother and explained to them the diagnosis and the prognosis and the need for transfer to tertiary care center which is [facility]. (1) Sepsis Current Visit: Yes Status: Acute Plan to address problem: Probably sec to Vas cath Blood cultures negative to date ID consult appreciated continue Continue IV antibiotics IV antibiotics. Patient being transferred to [facility] Patient has acute mediastinitis and subpectoral abscess May need transfer to [facility] 2)Endocarditis--tricuspid valve Needs tertiary care for possible valve replacement. Spoke with cardiothoracic surgery at [facility] who was willing to accept the patient. Thank you Dr. Ross Patient being transferred to [facility] (3)acute mediastinitis Needs to be on broad-spectrum antibiotics and a CT surgery consult Patient being transferred to [facility] (4) Vascular catheter infection Current Visit: Yes Status: Acute Qualifiers: Encounter type: initial encounter Qualified Code(s): T82.7XXA - Infection and inflammatory reaction due to other cardiac and vascular devices, implants and grafts, initial encounter Plan to address problem: Vascular surgery consult for Vas cath placement and old vas cath removal Blood cultures negative till now (5) ESRD needing dialysis Current Visit: Yes Status: Chronic Plan to address problem: Nephrology consult Continue hemodialysis after transfer (6) Fracture tibia/fibula Current Visit: Yes Status: Chronic Qualifiers: Encounter type: subsequent encounter Plan to address problem: Seen on 10/21/2019 Dr Leung consulted on 10/20---Conservative tx recommended Knee brace Conservative treatment for now (7) Hepatitis Current Visit: Yes Status: Acute Plan to address problem: From 10/07/19 acute liver injury - r/o autoimmune etiologies (PEPE, AMA, ASMA, iron studies). ? DILI although no obvious culprit. denies alcohol use. monitor daily labs/coags. GI was involved at that point plan was to refer to tertiary care at that point Her total bilirubin was 6.4 and AST ALT was 59 and 60 on 10/06/2019. Bilirubin has worsened to 8 as of 11/14/2019 but the AST has come down from 59-48 and ALT has come down from 60-32. Albumin has improved from 1.6-3.0. (8) T2DM (type 2 diabetes mellitus) Current Visit: Yes Status: Chronic Qualifiers: Diabetes mellitus usp insulin use: unspecified salvage determiner insulin use status Plan to address problem: coverage (9) DVT prophylaxis Current Visit: No Status: Acute Plan to address problem: On Heparin and GI prophylaxis (11) Discharge planning issues Current Visit: Yes Status: Acute Plan to address problem: Patient to be transferred to [place] because of the acute endocarditis and acute mediastinitis and subpectoral abscess. Mainly for the acute endocarditis and mediastinitis mediastinitis. In summary patient has septicemia, endocarditis, Vas-Cath infection, septic emboli, tricuspid valve vegetation, hepatitis and end-stage renal disease needing dialysis. Patient being transferred to [facility]. Prognosis poor to fair. Disposition: DC/TX-[id number] ANOTHER TYPE HLTHCARE Time spent for discharge: Time spent 45 minutes Core Measure Documentation - Palliative Care Palliative Care/ Comfort Measures: Not Applicable - Core Measures Any of the following diagnoses?: none Exam - Constitutional Vitals: Temp Pulse Resp BP Pulse Ox 97.5 F L 98 H 18 108/78 98 11/14/19 15:00 11/14/19 15:00 11/14/19 15:00 11/14/19 15:00 11/14/19 07:28 General appearance: Present: no acute distress, well-nourished - EENT Eyes: Present: PERRL ENT: hearing intact, clear oral mucosa - Neck Neck: Present: supple, normal ROM - Respiratory Respiratory effort: normal Respiratory: bilateral: CTA - Cardiovascular Heart Sounds: Present: S1 & S2. Absent: rub, click - Extremities Extremities: pulses symmetrical, No edema Peripheral Pulses: within normal limits - Abdominal General gastrointestinal: Present: soft, non-tender, non-distended, normal bowel sounds Female genitourinary: Present: normal - Integumentary Integumentary: Present: clear, warm, dry - Musculoskeletal Musculoskeletal: gait normal, strength equal bilaterally - Psychiatric Psychiatric: appropriate mood/affect, intact judgment & insight - Neurologic Neurologic: CNII-XII intact, moves all extremities Plan Weight Bearing Status: Weight Bear as Tolerated Diet: renal Care Plan Goals: Patient being transferred to [facility] for tertiary care Follow up with: PEGGY MCKEON MD [Primary Care Provider] - 3-5 Days ATTUM HORTON MD [Staff Physician] - 7 Days MARIELLA WAKEFIELD MD [Staff Physician] - 7 Days
== END 2019-11-14 17:15 | disposition short-term general hospital (02) | DRG 314 ==
LOC: ED 14:45 → 2B-ACE 17:20
PROVIDERS: ADMIT Internal Medicine; ATTEND Internal Medicine
DX: T82.7XXA Infection and inflammatory reaction due to other cardiac and vascular devices, implants and grafts, initial encounter (principal); A41.9 Sepsis, unspecified organism; I33.0 Acute and subacute infective endocarditis; N18.6 End stage renal disease; J98.51 Mediastinitis; R65.20 Severe sepsis without septic shock; N17.0 Acute kidney failure with tubular necrosis; G93.40 Encephalopathy, unspecified; I76 Septic arterial embolism; I12.0 Hypertensive chronic kidney disease with stage 5 chronic kidney disease or end stage renal disease; L02.213 Cutaneous abscess of chest wall; E87.1 Hypo-osmolality and hyponatremia; E46 Unspecified protein-calorie malnutrition; K75.9 Inflammatory liver disease, unspecified; I07.9 Rheumatic tricuspid valve disease, unspecified; E11.22 Type 2 diabetes mellitus with diabetic chronic kidney disease; E05.90 Thyrotoxicosis, unspecified without thyrotoxic crisis or storm; K21.9 Gastro-esophageal reflux disease without esophagitis; Z87.442 Personal history of urinary calculi; Z90.49 Acquired absence of other specified parts of digestive tract; Z79.899 Other long term (current) drug therapy; Z68.29 Body mass index [BMI] 29.0-29.9, adult; Y93.89 Activity, other specified; Y92.89 Other specified places as the place of occurrence of the external cause; Y99.8 Other external cause status
CPT/HCPCS: 36415; 70450; 71045; 71250; 71275; 72125; 74176; 80048; 80053; 80202; 82140; 82962; 84439; 84443; 85007; 85025; 85027; 85610; 85730; 87040; 87076; 87186; 93005; 93306; G0378; J0360; J0692; J1644; J1815; J1885; J3370; J7030; J7040; Q9967